=== PATIENT | female | born 1940 | race Caucasian/White ===

== ENCOUNTER 2019-02-01 14:31 | Inpatient (IN) | payer MEDICARE, SELFPAY | END 2019-02-05 13:25 | disposition home or self-care (01) | DRG 194 | PROVIDERS: Admitting Provider Hospitalist; Emergency Provider Emergency Medicine; PCP Family Medicine; Visit Provider Internal Medicine | DX: J18.9 Pneumonia, unspecified organism (principal); I50.32 Chronic diastolic (congestive) heart failure; Z85.118 Personal history of other malignant neoplasm of bronchus and lung; Z90.2 Acquired absence of lung [part of]; J44.9 Chronic obstructive pulmonary disease, unspecified; I11.0 Hypertensive heart disease with heart failure; K64.9 Unspecified hemorrhoids; K21.9 Gastro-esophageal reflux disease without esophagitis; Z90.13 Acquired absence of bilateral breasts and nipples; F41.8 Other specified anxiety disorders; Z87.891 Personal history of nicotine dependence; I49.3 Ventricular premature depolarization; I49.1 Atrial premature depolarization; K59.00 Constipation, unspecified; M19.90 Unspecified osteoarthritis, unspecified site; M81.0 Age-related osteoporosis without current pathological fracture; R01.1 Cardiac murmur, unspecified | CPT/HCPCS: 36415; 71045; 71250; 80048; 81001; 83605; 83735; 83880; 84484; 85025; 85027; 85610; 85730; 87040; 87086; 87804; 93005; 93306; 94618; 94640; 96361; 96365; 97165; 99285; A9270; J0456; J0696; J1650; J7120 ==

== ENCOUNTER → 2020-06-23 08:43 | Outpatient (CLI) | payer MEDICARE, SELFPAY ==
--- NOTE | ~2020-06-23 | XR_ITS ---
EXAMINATION: XR foot RT min 3V EXAM DATE: 06/23/2020 09:11 INDICATION: Persistent right foot pain. States twisting injury 3 weeks ago. Numbness in toes. TECHNIQUE: Right foot dorsoplantar, lateral and oblique projections obtained and reviewed. There is no prior study for comparison. FINDINGS: Acute closed posttraumatic fracture at the base of the right 5th metatarsal bone, fracture line about 6 mm from the base, extending into the tarsometatarsal joint; acute closed posttraumatic avulsion type injury. Some overlying soft tissue swelling. No periosteal reaction at this point. The re is about 4 mm of distraction. IMPRESSION: Right 5th metatarsal base fracture with mild distraction. No evidence of healing at this point in time. Reviewed, dictated and finalized at location A. IMPRESSION: Right 5th metatarsal base fracture with mild distraction. No evide nce of healing at this point in time.
== END ==
PROVIDERS: PCP Family Medicine; Visit Provider Physician Assistant
DX: S92.351A Displaced fracture of fifth metatarsal bone, right foot, initial encounter for closed fracture (principal); X58.XXXA Exposure to other specified factors, initial encounter
CPT/HCPCS: 73630

== ENCOUNTER 2022-02-05 14:11 | Inpatient (IN) | payer MEDICARE, SELFPAY ==
[2022-02-05] VITALS (13 sets, daily range): BP systolic 86–116; BP diastolic 45–75; PULSE 68–103; RESP 14–25; TEMP 36.3–37; O2SAT 92–99; BMI 21.7
--- NOTE | ~2022-02-05 | XR_ITS ---
EXAMINATION: XR chest 1V portable INDICATION: Pulmonary edema, shortness of breath TECHNIQUE: Portable AP chest at 1036 hours COMPARISON: 02/09/2022 FINDINGS: A mild diffuse interstitial pattern is unchanged. There are small stable pleural effusions. Patchy bilateral airspace opacities persist without significant change. A right posterior thoracotom y defect is again noted. There are healed bilateral rib fractures. Surgical clips are noted bilateral ly axially. Internal stabilization hardware is present in the left humerus. IMPRESSION: 1. Stable pleural effusions. 2. Stable patchy bilateral opacities, consistent with pneumonia/or pulmonary edema. Reviewed, dictated and finalized at location A. IMPRESSION: 1. Stable pleural effusions. 2. Stable patchy bilateral opacities, consistent with pneumonia/or pulmonary ed manuel.
--- NOTE | ~2022-02-05 | CT_ITS ---
EXAMINATION: CTA chest PE protocol DATE: 02/06/2022 12:36 INDICATION: Abnormal VQ scan. Shortness of breath. Elevated d-dimer. TECHNIQUE: Computed tomography (CT) pulmonary angiogram of the chest was performed with 100 mL Omnipa que-350 intravenous contrast. Additional 3D reconstructions utilizing coronal maximum intensity proje ction (MIP) were performed. Automated exposure control and iterative reconstruction technique were em ployed. The dose-length product was 286.27 mGy-cm. COMPARISON: 02/04/2019 FINDINGS: Excellent contrast opacification of the pulmonary arteries. There is moderate streak artifact from de nse contrast in the superior vena cava and right atrium. Respiratory motion artifact, severe at the b ilateral lung bases and mild to moderate in the more cephalad lungs. Overall this decreases sensitivi ty in many of the segmental and subsegmental pulmonary arteries and renders assessment in the basilar subsegmental pulmonary arteries essentially nondiagnostic. Hyperexpansion of lungs and mild emphysem a. Small region of consolidation in the right upper lobe that the bibasilar lower lobes. Suture line and surgical clips extending cephalad from the left hilum consistent with likely prior left upper lob ectomy. There are scattered small centrilobular nodules and tree-in-bud opacities consistent with end obronchial spread of disease most prominent in the bilateral lower lobes and to a lesser degree at th e lingula. Small bilateral pleural effusions. Heart size is normal. Atherosclerotic coronary artery c alcification. No pericardial effusion. Thoracic aorta is normal in caliber. No pathologically enlarge d thoracic lymphadenopathy. Thoracic kyphosis with chronic mild anterior wedging of a few mid and low er thoracic vertebral bodies. Bridging anterior osteophytes at T1-T5 and at T8-T10. Thoracotomy defec t at the posterior right fifth-sixth ribs. Visualized upper abdomen is unremarkable. IMPRESSION: 1. No definitive pulmonary embolism. Sensitivity and specificity are decreased in some of the segment al and particularly the basilar subsegmental pulmonary arteries due to combination of streak and kasia on artifact. 2. Patchy bilateral lung disease including tree-in-bud opacities consistent with endobronchial spread of disease/pneumonia. 3. Mild emphysema. 4. Small bilateral pleural effusions. Reviewed, dictated and finalized at location A. IMPRESSION: 1. No definitive pulmonary embolism. Sensitivity and specificity are decreased in some of the segmental and particularly the basilar subsegmental pulmonary ar teries due to combination of streak and motion artifact. 2. Patchy bilateral lung disease including tree-in-bud opacities consistent wit h endobronchial spread of disease/pneumonia. 3. Mild emphysema. 4. Small bilateral pleural effusions.
--- NOTE | ~2022-02-05 | XR_ITS ---
EXAMINATION: XR chest 2V Exam Date/Time: 02/05/2022 15:00 CDT CLINICAL HISTORY: SOB Comparison: 04/03/2019. RESULT: Lines, tubes, and devices: Partially visualized left humeral fixation hardware. Bilateral axillary c lips. Lungs and pleura: No lobar consolidation, large effusion, or overt edema. Postsurgical change. Cardiomediastinal silhouette: Stable cardiomediastinal silhouette. Other: No acute osseous or upper abdominal finding. IMPRESSION: No acute cardiopulmonary process Reviewed, dictated and finalized at location K.
--- NOTE | ~2022-02-05 | NM_ITS ---
EXAMINATION: NM pulmonary perfusion DATE: 02/05/2022 19:28 INDICATION: Shortness of breath TECHNIQUE: 2.78 mCi Tc-99m MAA by intravenous route. Scintigraphic images of the chest were obtained . COMPARISON: Chest radiograph dated 02/05/2022 FINDINGS: There are multiple small to moderate-sized perfusion defects in both lungs including in the bilateral upper lung and left lower lung zones where there are matched airspace opacities in the right middle and lower lung zones where there is emphysema with increased lucency. IMPRESSION: 1. Nondiagnostic for pulmonary embolism with multiple small to moderate-sized matched perfusion defec ts throughout both lungs. Reviewed, dictated and finalized at location A. IMPRESSION: 1. Nondiagnostic for pulmonary embolism with multiple small to moderate-sized m atched perfusion defects throughout both lungs.
--- NOTE | ~2022-02-05 | XR_ITS ---
EXAMINATION: XR chest 1V portable DATE: 02/09/2022 08:46 INDICATION: Shortness of breath TECHNIQUE: frontal view of the chest was obtained. COMPARISON: Chest radiograph dated 02/05/[address] dated 02/06/2022 FINDINGS: Hyperexpansion of lungs corresponding to mild emphysema better appreciated on prior CT. Increasing ai rspace opacities in the lateral left mid to lower lung zone. New more subtle scattered airspace opaci ties throughout the right lung also suspicious for pneumonia. Blunting at the bilateral costophrenic angles consistent with small left and very small right pleural effusions. Suture line in the right up per lung zone with chronic peripheral atelectasis/scarring at the lateral right midlung zone. Additio nal surgical clips, suture line in the left upper lung zone with adjacent peripheral wedge-shaped ate lectasis/scarring at the lateral left apex. No pneumothorax. Borderline heart size can't for AP techn ique. Old right thoracotomy defect. Multiple bilateral old rib fractures. Internal fixation extending along the visualized proximal left humerus. Surgical clips at the bilateral axilla suggesting prior lymph node dissections. IMPRESSION: 1. Increasing bilateral lung disease consistent with worsening multifocal pneumonia. 2. Small left and very small right pleural effusions. 3. Mild emphysema. Reviewed, dictated and finalized at location A. IMPRESSION: 1. Increasing bilateral lung disease consistent with worsening multifocal pneum onia. 2. Small left and very small right pleural effusions. 3. Mild emphysema.
--- NOTE | 2022-02-05 14:24 | ECG_ITS ---
Measurements Intervals [place] Rate: 94 P: [place]: 0 QRS: 65 QRSD: 94 T: 48 QT: 336 QTc: 422 Interpretive Statements SINUS RHYTHM WITH SINUS ARRHYTHMIA ATRIAL COUPLET, ATRIAL AND VENTRICULAR PREMATURE COMPLEXES LEFT VENTRICULAR HYPERTROPHY WITH ST-T CHANGE BORDERLINE ST ABNORMALITY- ANTEROLATERAL LEADS BASELINE ARTIFACT- I, II, III, AVR, AVL, AVF, V4 ABNORMAL ECG Electronically Signed On 02-05-2022 16:34:33 CDT by Aaron Victoria D.O.
[2022-02-05 15:01] LABS: Hematocrit 37.7 % (37.0-47.0); Hemoglobin 12.7 g/dL (12.0-15.0); Mean Corpuscular HGB Conc 33.7 g/dl (32-36); Mean Corpuscular Volume 97.9 fl (80-100); Mean Platelet Volume 10.7 fl (7.4-10.4); Platelet Count Result 247 k/mm3 (150-375); Red Blood Count 3.85 M/mm3 (4.2-5.4); Red Cell Distribution Width 12.6 % (11.5-14.5); White Blood Count 12.8 K/mm3 (4.5-10.0)
--- NOTE | 2022-02-05 15:09 | ED.SOB ---
HPI - SOB/Dyspnea General Chief Complaint: Shortness of Breath/Dyspnea Stated Complaint: diff breathing with exertion Time Seen by Provider: 02/05/22 14:59 Source: patient, family and EMS Mode of arrival: EMS Limitations: no limitations History of Present Illness HPI Narrative: Patient is 81 years old white female, lives alone, came by ambulance with her son because of intermittent lightheadedness, shortness of breath, shaking all over for the last 6 months, probably worse over the last 2 days. 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 Patient reports that she is not drinking enough fluids at home, history of depression, Related Data Allergies Allergy/AdvReac Type Severity Reaction Status Date / Time adhesive Allergy Unknown Unknown Verified 02/05/22 23:42 alendronate sodium [Fosamax] Allergy Unknown Nausea Verified 02/05/22 23:42 doxycycline Allergy Unknown Nausea Verified 02/05/22 23:42 Iodinated Contrast Media Allergy Unknown Flushing Verified 02/05/22 23:42 latex Allergy Unknown Unknown Verified 02/05/22 23:42 hydrocodone AdvReac Mild vomiting Verified 02/05/22 23:42 Contrast Media Allergy Unknown BURNING Uncoded 02/05/22 23:42 AND RED ALL OVER Review of Systems Review of Systems: CONSTITUTIONAL: Denies fever, chills, or sweats. EYES: Denies visual changes, redness, or discharge. ENT: Denies rhinorrhea, congestion, sore throat, or otalgia. CARDIOVASCULAR: Denies chest pain, palpitations, or edema. RESPIRATORY: Denies cough or dyspnea. GASTROINTESTINAL: Denies abdominal pain, nausea, vomiting, or diarrhea. GENITOURINARY: Denies dysuria or hematuria. SKIN: Denies rash or itching. MUSCULOSKELETAL: Denies back pain, joint pain, or myalgia. NEUROLOGIC: Denies headache, numbness, or weakness. PSYCHIATRIC: Denies anxiety or depression. [facility] Past Medical History Medical History Anxiety Cancer of left breast Constipation Depression Diastolic dysfunction Echocardiogram 01/201919 grade 1 diastolic dysfunction EF 60% mild left atrial enlargement Emphysema of lung Fracture of fifth metatarsal bone of right foot with routine healing GERD (gastroesophageal reflux disease) Hypertension Lung cancer Osteoporosis, unspecified Prediabetes Vitamin D deficiency Surgical History Surgical History H/O left mastectomy (~2009) DCIS H/O: hysterectomy (~1994) Due to dysfunctional uterine bleeding History of carpal tunnel release History of carpal tunnel surgery of left wrist History of lobectomy of lung Right upper lobe 1994, left lower lung partial lobectomy 2006 History of right mastectomy (~2012) Family History Family History Mother CHF (congestive heart failure) Dementia Father Lung cancer Sibling Acute myocardial infarction Cerebrovascular accident Other Hypertension Social History Social History Social History: She is . She has a daughter and a son. 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 She does drink wine nightly. Code status: Full code Healthcare power of core finisher: Ursula Vega (daughter) Smoking packs per day: 1 Smoking cigarettes per day: 20.0 Years smoked: 20 Smoking pack-years: 20.00 Smoking status: Former smoker Tobacco type: cigarettes Smoking end date: 10/08/82 Alcohol intake: current Drinks per week: 7 Substance use: never Substance use type: does not use Spiritual care concerns: No Exam Narrative: General appearance: Well-developed, well-nourished Skin: Normal color Head: Normocephalic, nontraumatic Eyes: Clear conjunctiva ENT: Oropharynx normal, ears normal, nose normal Neck: Supple, nontender Chest and respiratory: Airway patent, no respiratory distress, no accessory muscle use Heart: Regular rate/rh
[2022-02-05 15:14] LABS: Alanine Aminotransferase 29 U/L (4-35); Albumin Level 4.1 g/dL (3.5-5.1); Alkaline Phosphatase 53 U/L (38-126); Anion Gap 7 mmol/L (8-16); Aspartate Amino Transferase 73 U/L (14-36); Bilirubin,Total 2.1 mg/dL (0.2-1.3); Blood Urea Nitrogen 24 mg/dL (7-17); Calcium 8.9 mg/dL (8.4-10.2); Carbon Dioxide 28 mmol/L (22-30); Chloride 98 mmol/L (98-107); Estimated CRCL calculation 30 ml/min; Estimated Glomerular Filt Rate 43; Glucose 189 mg/dL (65-110); Sodium 133 mmol/L (137-145)
[2022-02-05 15:24] LABS: Alveolar/Arterial O2 Gradient 57.4 mmHg; Base Excess ABG 2.6 mEq/l (+/-2.0); Fractional Inspired Oxygen 21 %; HCO3 ABG 24.8 mEq/l (22.0-26.0); Oxygen Content ABG 16.8 %vol (16.0-22.0); Oxyhemoglobin 89.8 % THb (90.0-100.0); PCO2 ABG 31.1 mmHg (35.0-45.0); PO2 ABG 55.1 mmHg (80.0-100.0); PO2 FiO2 Ratio Arterial Blood 2.62 %; Total Hemoglobin 13.3 g/dL (12.0-18.0)
[2022-02-05 15:28] LABS: Modified Allen's Test Pass; Site Drawn RIGHT RADIAL
[2022-02-05 15:41] LABS: Band Neutrophils Percent 8 % (0-6); Lymphocytes Absolute Manual 0.38 K/mm3 (1.1-4.5); Monocytes Absolute Manual 1.28 K/mm3 (0.1-0.90); Monocytes Percent Manual 10 % (3-9); Neutrophils Absolute Manual 11.13 K/mm3 (1.7-7.2); Neutrophils Percent Manual 79 % (46-73); Platelet Estimate Adequate (Adequate); Total Cells Counted 100
[2022-02-05 15:42] LABS: Large Platelets Present
[2022-02-05] MEDS: SODIUM CHLORIDE 0.9% IV 1,000 ML 999 ML IV CONT (15:54)
[2022-02-05 16:09] LABS: D Dimer 0.99 ug/mL (<0.48)
--- NOTE | 2022-02-05 18:45 | PC.NURSE ---
Patient reports headache, EDP Inez notified. 650mg Tylenol ordered.
[2022-02-05] MEDS: ACETAMINOPHEN 325 MG TABLET 650 MG PO (18:50)
[2022-02-05] MEDS: ALBUTEROL SULFATE NEB 2.5 MG/0.5 ML INH 5 MG INHALATION (21:55)
[2022-02-05] MEDS: IPRATROPIUM BR 0.02% INH SOLN 0.5 MG/2.5 ML VIAL INHALATION (21:56)
[2022-02-05 21:57] LABS: INR 1.2; Prothrombin Time 14.7 Seconds (11.1-14.7)
[2022-02-05 23:01] LABS: SARS-CoV-2 RNA PCR Negative
[2022-02-05] MEDS: predniSONE 40 MG, predniSONE 10 MG 50 MG PO (23:30)
[2022-02-06] VITALS (21 sets, daily range): BP systolic 100–123; BP diastolic 48–62; PULSE 68–97; RESP 16–22; TEMP 36.1–37.4; O2SAT 94–100
--- NOTE | 2022-02-06 00:19 | PM.IMHP ---
H&P: HPI History of Present Illness Date/Time: 02/06/22 00:19 Chief Complaint: Shortness of breath Narrative: 81-year-old female with past medical history of anxiety, panic attacks, COPD/emphysema and distant history of lung cancer who presented to the ER with worsening shortness of breath since Sunday. The patient has chronic shortness of breath but has been having increased shortness of breath for the last week or so. Her shortness of breath acutely worsened 2 days ago. It was associated with some increased wheezing. She denied any increased cough. She has been using her Trelegy inhaler as directed. She did try her rescue inhaler with only limited relief in symptoms. She does report some postnasal drip and rhinorrhea that started when her usual allergic rhinitis started with the change in seasons. She is vaccinated against COVID with Moderna vaccine and has received her booster. She denies any recent ill contacts. She denies any lower extremity swelling, orthopnea or paroxysmal nocturnal dyspnea. Her shortness of breath has been worse with activity. She has been having some lightheadedness and weakness with trying to get up and move around. She has been told multiple times in the past that she has been dehydrated. She was never good had drinking much fluids. She reports that she has a history of chronic constipation but her constipation has not been as bad as usual over the last year or so. Her last bowel movement was yesterday. She denies any hematochezia or melena. She denies any chest pain or palpitations. She has had episodes of panic attacks and anxiety in the past. She reports that the worse her breathing got the more anxious she became. She did have some associated tremors and shaking that is been worse over the last 2 days. But she always has some mild tremor at rest. She has had tremor for the last several years. In the ER V/Q scan was performed due to mildly elevated D-dimer. The patient reports that she has had prior CTs of the chest with only premedication with Benadryl without allergic reaction. Review of Systems Review of Systems: 12 systems were reviewed with pertinent positives and negatives per HPI. Except as documented in the HPI, all other systems were reviewed and are negative. [facility] Past Medical History Medical History (Updated 02/06/22 @ 00:44 by Cristal Medina DO) Anxiety Cancer of left breast Constipation Depression Diastolic dysfunction Echocardiogram 01/201919 grade 1 diastolic dysfunction EF 60% mild left atrial enlargement Emphysema of lung Fracture of fifth metatarsal bone of right foot with routine healing GERD (gastroesophageal reflux disease) Hypertension Lung cancer Osteoporosis, unspecified Prediabetes Vitamin D deficiency Surgical History Surgical History (Updated 02/06/22 @ 00:44 by Cristal Medina DO) H/O left mastectomy (~2009) DCIS H/O: hysterectomy (~1994) Due to dysfunctional uterine bleeding History of carpal tunnel release History of carpal tunnel surgery of left wrist History of lobectomy of lung Right upper lobe 1994, left lower lung partial lobectomy 2006 History of right mastectomy (~2012) Family History Family History (Updated 02/06/22 @ 00:34 by Cristal Medina DO) Mother CHF (congestive heart failure) Dementia Father Lung cancer Sibling Acute myocardial infarction Cerebrovascular accident Other Hypertension Social History Social History (Updated 02/06/22 @ 00:56 by Cristal Medina DO) Social History: She is . She has a daughter and a son. 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 She does drink wine nightly. Code status: Full code [facility] power of immigration attorney: Ursula Vega (daughter) Smoking packs per day: 1 Smoking cigarettes per day: 20.0 Years smoked: 20 Smoking pack-years: 20.00 Smoking status: Former smoker Tobacco type: cigarettes Smoking end date: 10/08/82 Alcohol intake: current Drinks per
[2022-02-06] MEDS: APIXABAN 5 MG TABLET 10 MG PO ×2 (01:21→11:50)
[2022-02-06] MEDS: SODIUM CHLORIDE 0.9% IV 1,000 ML 100 ML IV CONT ×2 (01:21→10:56)
[2022-02-06] MEDS: ALBUTEROL SULFATE NEB 2.5 MG/0.5 ML INH 5 MG INHALATION ×4 (02:38→20:03)
[2022-02-06] MEDS: IPRATROPIUM BR 0.02% INH SOLN 0.5 MG/2.5 ML VIAL INHALATION ×4 (02:38→20:03)
[2022-02-06] MEDS: predniSONE 40 MG, predniSONE 10 MG 50 MG PO ×2 (05:35→10:55)
[2022-02-06 06:18] LABS: Anion Gap 7 mmol/L (8-16); Blood Urea Nitrogen 19 mg/dL (7-17); Calcium 8.4 mg/dL (8.4-10.2); Carbon Dioxide 27 mmol/L (22-30); Chloride 101 mmol/L (98-107); Estimated CRCL calculation 43 ml/min; Estimated Glomerular Filt Rate 60; Glucose 170 mg/dL (65-110); Potassium 3.4 mmol/L (3.4-5.0); Sodium 135 mmol/L (137-145)
[2022-02-06] MEDS: CITALOPRAM HYDROBROMIDE 20 MG TABLET PO (08:18)
[2022-02-06] MEDS: FLUTICASONE/UMECLIDIN/VILANTER 100-62.5-25 MCG ELLIPTA 1 PUFF INHALATION ×2 (08:37→14:20)
--- NOTE | 2022-02-06 10:27 | PCCCNOTE ---
On 02/06/22, the student, [Kirstin Cortes ], provided care and completed [facility] documentation on this patient. I have reviewed the student's documentation and agree with the findings.
[2022-02-06] MEDS: diphenhydrAMINE HCl INJ 50 MG/ML VIAL IV PUSH (10:56)
--- NOTE | 2022-02-06 17:14 | PM.IMPN ---
Subjective Date/time seen: 02/06/22 17:14 Objective Data Vital Signs Vital Signs: Vital Signs - 24 hr 02/05/22 18:02 02/05/22 19:01 02/05/22 20:00 Temperature Pulse Rate 98 103 H 82 Respiratory Rate 22 H 24 H 25 H Blood Pressure 116/61 115/64 91/75 L Pulse Oximetry 98 96 94 02/05/22 21:56 02/05/22 22:00 02/05/22 22:01 Temperature Pulse Rate 74 74 Respiratory Rate 18 14 Blood Pressure 108/64 109/67 Pulse Oximetry 97 94 98 02/05/22 22:06 02/05/22 23:59 02/06/22 00:00 Temperature 97.3 F L 97.3 F L Pulse Rate 76 79 89 Respiratory Rate 20 20 20 Blood Pressure 111/53 L 111/53 L Pulse Oximetry 99 99 02/06/22 02:38 02/06/22 02:46 02/06/22 03:17 Temperature 96.9 F L Pulse Rate 80 68 84 Respiratory Rate 22 H 20 18 Blood Pressure 100/54 L Pulse Oximetry 96 96 02/06/22 04:00 02/06/22 08:00 02/06/22 08:30 Temperature Pulse Rate 78 88 77 Respiratory Rate 20 Blood Pressure Pulse Oximetry 94 96 02/06/22 09:04 02/06/22 10:00 02/06/22 11:50 Temperature 97.6 F 97.6 F Pulse Rate 80 78 73 Respiratory Rate 20 18 18 Blood Pressure 121/52 L 123/62 Pulse Oximetry 98 100 02/06/22 11:51 02/06/22 12:00 02/06/22 14:00 Temperature 97.6 F 99.3 F Pulse Rate 77 94 77 Respiratory Rate 18 16 Blood Pressure 109/48 L 100/48 L Pulse Oximetry 98 97 02/06/22 16:00 Temperature Pulse Rate 77 Respiratory Rate Blood Pressure Pulse Oximetry Intake/Output Intake/Output: Intake & Output 02/03/22 02/04/22 02/05/22 02/06/22 23:59 23:59 23:59 23:59 Intake Total 1000 1610 Output Total 300 Balance 1000 1310 Meds/Results Medications: Active Medications Generic Name Dose Route Start Last Admin Trade Name Freq PRN Reason Stop Dose Admin Albuterol 5 mg 02/06/22 02:00 02/06/22 14:00 Albuterol Sulfate Neb 2.5 Mg/0.5 Ml Inh INHALATION 5 mg Q6HRT NIURKA Administration Citalopram Hydrobromide 20 mg 02/06/22 09:00 02/06/22 08:18 Citalopram Hydrobromide 20 Mg Tablet PO 20 mg DAILY NIURKA Administration Fluticasone/Umeclidinium/Vilanterol 1 puff 02/06/22 09:00 02/06/22 14:20 Fluticasone/Umeclidin/Vilanter 100-62.5-25 Mcg Ellipta INHALATION 1 puff DAILY NIURKA Administration Acetaminophen 1,000 mg in 100 mls @ 400 mls/hr 02/05/22 21:58 Ofirmev 1,000 Mg Ivpb IVPB 02/06/22 21:57 Q6H PRN Mild Pain (1-3) or Fever Sodium Chloride 1,000 mls @ 100 mls/hr 02/05/22 22:00 02/06/22 10:56 Normal Saline Iv IV CONT 100 mls/hr .Q10H NIURKA Administration Ipratropium Buckley 0.5 mg 02/06/22 02:00 02/06/22 14:00 Ipratropium Br 0.02% Inh Soln 0.5 Mg/2.5 Ml Vial INHALATION 0.5 mg Q6HRT NIURKA Administration Radiology Results: ITS Impressions Chest X-Ray 02/05/22 15:07 IMPRESSION: No acute cardiopulmonary process Pulmonary Perfusion Imaging 02/06/22 07:54 IMPRESSION: 1. Nondiagnostic for pulmonary embolism with multiple small to moderate-sized matched perfusion defects throughout both lungs. Chest CTA 02/06/22 12:45 IMPRESSION: 1. No definitive pulmonary embolism. Sensitivity and specificity are decreased in some of the segmental and particularly the basilar subsegmental pulmonary arteries due to combination of streak and motion artifact. 2. Patchy bilateral lung disease including tree-in-bud opacities consistent with endobronchial spread of disease/pneumonia. 3. Mild emphysema. 4. Small bilateral pleural effusions. Labs Labs: Laboratory Results - last 24 hr 02/05/22 02/05/22 02/06/22 15:00 22:21 04:50 PT 14.7 INR 1.2 APTT 33.0 Sodium 135 L Potassium 3.4 Chloride 101 Carbon Dioxide 27 Anion Gap 7 L BUN 19 H Creatinine 0.90 Estim Creat Clear Calc 43 Estimated GFR 60 Glucose 170 H Calcium 8.4 SARS-CoV-2 RNA (RT-PCR) Negative Quality VTE Prophylaxis VTE prophylaxis: pharmacologic ordered (Eliquis 10 mg p.o. q.12 hours.)
--- NOTE | 2022-02-06 19:04 | PM.IMPN ---
Progress Note: A&P Assessment and Plan (1) COPD (chronic obstructive pulmonary disease) case management patient: Code(s): J44.9 - Chronic obstructive pulmonary disease, unspecified Status: Acute Assessment and Plan: Stable, appears at baseline (2) Essential (primary) hypertension: Code(s): I10 - Essential (primary) hypertension Status: Acute Assessment and Plan: Stable, appears at baseline, continue home medications (3) Anxiety: Code(s): F41.9 - Anxiety disorder, unspecified Status: Acute Assessment and Plan: Stable at this time, would recommend further care outpatient for better management (4) Skin lesion of chest wall: Code(s): L98.9 - Disorder of the skin and subcutaneous tissue, unspecified Status: Acute (5) Abnormal chest CT: Code(s): R93.89 - Abnormal findings on diagnostic imaging of other specified body structures Status: Acute Assessment and Plan: Bilateral lung disease consistent with endobronchial spread of disease versus pneumonia, no signs of infection, will consult pulmonology for further management (6) Bilateral pleural effusion: Code(s): J90 - Pleural effusion, not elsewhere classified Status: Acute Assessment and Plan: Unsure of etiology, could consider thoracentesis with cytology if they do not resolve, monitor Additional Plan CTA to rule out PE was negative for PE. Subjective Date/time seen: 02/06/22 17:04 Patient states she feels much better since being admitted. She denies any shortness of breath or chest pain. No wheezing. She is mainly complaining of worsening tremor. She states only had a tremor for the last few months, H and P states this has been going on for years. She states the tremor gets worse when she is at rest and appears to improve a bit when she is active. Anxiety seems to make it significantly worse. She denies nausea vomiting diarrhea. No fevers or chills. Review of Systems Review of Systems: All systems reviewed & are unremarkable except as noted in HPI and below Exam Const: General: no acute distress HENMT: Mouth: Yes moist mucous membranes Eyes: General: appearance normal, both eyes and all related structures Neck: Neck: no JVD Resp: Auscultation: clear to auscultation bilaterally and no wheezes Cardio: Rate: regular rate Rhythm: regular rhythm GI: GI Palp: Yes Soft to palpation and No Tenderness to palpation present (GI) Neuro: General: CN's II-XI intact bilaterally Psych: Mental Status: mental status grossly normal Objective Data Vital Signs Vital Signs: Vital Signs - 24 hr 02/05/22 20:00 02/05/22 21:56 02/05/22 22:00 Temperature Pulse Rate 82 74 Respiratory Rate 25 H 18 Blood Pressure 91/75 L 108/64 Pulse Oximetry 94 97 94 02/05/22 22:01 02/05/22 22:06 02/05/22 23:59 Temperature 97.3 F L Pulse Rate 74 76 79 Respiratory Rate 14 20 20 Blood Pressure 109/67 111/53 L Pulse Oximetry 98 99 02/06/22 00:00 02/06/22 02:38 02/06/22 02:46 Temperature 97.3 F L Pulse Rate 89 80 68 Respiratory Rate 20 22 H 20 Blood Pressure 111/53 L Pulse Oximetry 99 96 02/06/22 03:17 02/06/22 04:00 02/06/22 08:00 Temperature 96.9 F L Pulse Rate 84 78 88 Respiratory Rate 18 Blood Pressure 100/54 L Pulse Oximetry 96 94 02/06/22 08:30 02/06/22 09:04 02/06/22 10:00 Temperature 97.6 F Pulse Rate 77 80 78 Respiratory Rate 20 20 18 Blood Pressure 121/52 L Pulse Oximetry 96 98 02/06/22 11:50 02/06/22 11:51 02/06/22 12:00 Temperature 97.6 F 97.6 F Pulse Rate 73 77 94 Respiratory Rate 18 18 Blood Pressure 123/62 109/48 L Pulse Oximetry 100 98 02/06/22 14:00 02/06/22 16:00 02/06/22 18:00 Temperature 99.3 F 98.5 F Pulse Rate 77 77 82 Respiratory Rate 16 16 Blood Pressure 100/48 L 103/58 L Pulse Oximetry 97 97 Intake/Output Intake/Output: Intake & Output 02/03/22 02/04/22 02/05/22
[2022-02-07] VITALS (25 sets, daily range): BP systolic 100–113; BP diastolic 53–59; PULSE 75–128; RESP 18–24; TEMP 35.7–37.2; O2SAT 87–99
[2022-02-07] MEDS: IPRATROPIUM BR 0.02% INH SOLN 0.5 MG/2.5 ML VIAL INHALATION ×5 (02:19→19:59)
[2022-02-07] MEDS: ALBUTEROL SULFATE NEB 2.5 MG/0.5 ML INH 5 MG INHALATION (02:20)
[2022-02-07] MEDS: ACETAMINOPHEN 500 MG TABLET 1000 MG PO ×2 (03:01→19:06)
[2022-02-07] MEDS: hydrOXYzine HCL 25 MG TABLET PO (03:02)
[2022-02-07] MEDS: CITALOPRAM HYDROBROMIDE 20 MG TABLET PO (08:52)
[2022-02-07] MEDS: SODIUM CHLORIDE 0.9% IV 1,000 ML 100 ML IV CONT ×2 (08:52→19:45)
--- NOTE | 2022-02-07 09:54 | PM.CNPUL ---
Assessment and Plan Assessment and plan (1) COPD exacerbation: Code(s): J44.1 - Chronic obstructive pulmonary disease with (acute) exacerbation Status: Acute Assessment and Plan: Patient with a remote smoking history (22 PY quit 1981), mild apical predominant centrilobular emphysema on her CT angiogram of the chest on . I have no PFTs. Patient has had no previous COPD exacerbations on an inpatient or outpatient basis. Was main day and on triple inhalers with trelegy 100 at home. Not on any oxygen. Patient with tree-in-bud infiltrates in the lower lobes and lingula on her CT angiogram of the chest on 02/06/2022 and this may represent a viral bronchiolitis or tracheobronchitis. She is COVID negative by RT PCR. I will send influenza swab in an extended viral RNA panel to [facility]. I will initiate treatment with Levaquin. Patient has worsening shortness of breath, worsening hypoxemia, increased cough and phlegm production with intermittent wheezing for the last day. I will treat her for COPD exacerbation and have initiated Solu-Medrol 40 q.6 and have increased her ipratropium and levalbuterol nebulizers from q.6 to q.4 hours. currently patient requires 4 L nasal cannula oxygen with saturations 93%. She has an ABG on admission of 7.5 so there is no evidence of hypercarbic respiratory failure. She has a remote history of lung cancer status post right thoracotomy and a left superior segment lobectomy the last of which was in 2005. She also has a history of double mastectomy for breast cancer in 2003 and 2005. She will need follow up the CT scan in 6-8 weeks to reassess her tree-in-bud infiltrates. Discussed with Dr. Newman. Will follow with you. History of Present Illness History of Present Illness Consult date: 02/07/22 Requesting physician: Ashley Newman MD Reason for consult: COPD and abnormal CXR/CT Chief complaint: Pulmonary Embolism,Hypoxia,History of COPD,Dehydra Narrative: 02/07/2022: This is a new pulmonary consult for COPD and abnormal CT scan. 81-year-old woman with a history of hypertension, GERD, breast cancer requiring right mastectomy in 2003 and left mastectomy in 2005. I reviewed the thoracic surgeons note from 05/31/2016 and the Patient has a history of lung cancer in 1995 status post right thoracotomy for non-small cell lung cancer. she received no chemotherapy. Patient had a redo right thorax asked sick excision for benign granuloma in 2002. In 2005 the patient had a left superior segment lobectomy for stage IA adenocarcinoma in receive no chemotherapy after that. He follow the patient yearly with CT scans from [id number] scan on 05/22/2016 in his note says there is no evidence of recurrence and he signed off. 6 months ago the patient noted the onset of tremors in her hand that have progressively gotten worse so that sometimes her whole body shakes. Six months ago the patient states she could walk 1 mi over 25-30 minutes. She has progressively worsening dyspnea on exertion such that 1 month ago she could walk 40 yd and 4 days ago she had dyspnea on exertion walking around the house. She denied any fever and cough. One day prior to admission the patient developed wheezing and production of yellow phlegm with no hemoptysis. Patient presented to the emergency room on 02/05 with shortness of breath lightheadedness, her white blood cell count was 12.8, her D-dimer was 0.99, creatinine was 1.2 and she ultimately had a CT angiogram of the chest that showed no pulmonary embolism, mild apical centrilobular emphysema, lower lobe and lingula tree in bud infiltrates, status post left upper lobectomy. Patient is COVID test was negative and she had a room air blood gas of 7.5 . Patient was treated with ceftriaxone, ipratropium and levalbuterol and prednisone. 02/07 Today the patient tells me that she has maybe 10% better than when she presented to the hospital. She
[2022-02-07] MEDS: methylPREDNISolone SOD SUCC 40 MG VIAL IV PUSH ×2 (10:10→20:47)
--- NOTE | 2022-02-07 12:01 | WPDNEURCNPN ---
Assessment and Plan Additional Plan tremors resting plus action most likely parkinsonian will try the Sinemet 25/101 tablet 3 times a day have the physical therapy evaluate the patient also further treatment accordingly and the general problems are being taken care Consult date: 02/07/22 HPI: Tigist Trejo is a 81 year old female Admitted to the hospital through the emergency room where she was brought by EMS for the complaints of intermittent lightheadedness along with the difficulties in breathing and shaking for the last 6 months but worse over the last 48 hours in addition she complained of scratchy throat and stuffy nose and gave history of drinking enough fluids, she has ongoing history of anxiety for tension GERD, and emphysema of lung she is a current alcohol intake or 7 drinks per week but has not smoked since October, initial vital signs were stable the blood pressure was on lower side that is 94/52 CBC and basic metabolic panel were normal except the blood sugar 189, EEG was not significant, and chest CTA with patchy bilateral lung disease but no definite pulmonary emboli, neurology consultation has been obtained because of the tremor Review of Systems Review of Systems: All systems reviewed & are unremarkable except as noted in HPI and below PMFSH Past Medical History Medical History Anxiety Cancer of left breast Constipation Depression Diastolic dysfunction Echocardiogram 01/201919 grade 1 diastolic dysfunction EF 60% mild left atrial enlargement Emphysema of lung Fracture of fifth metatarsal bone of right foot with routine healing GERD (gastroesophageal reflux disease) Hypertension Lung cancer Osteoporosis, unspecified Prediabetes Vitamin D deficiency Surgical History Surgical History 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 She has a daughter and a son. 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 She does drink wine nightly. Code status: Full code Healthcare power of district attorney: Ursula Vega (daughter) Smoking packs per day: 1 Smoking cigarettes per day: 20.0 Years smoked: 20 Smoking pack-years: 20.00 Smoking status: Former smoker Tobacco type: cigarettes Smoking end date: 10/08/82 Alcohol intake: current Drinks per week: 7 Substance use: never Substance use type: does not use Spiritual care concerns: No Meds Home Medications and Allergies Home Medications Medication Instructions Recorded Confirmed Type albuterol sulfate 90 mcg/actuation 1 inh INHALATION Q4H #8.5 g 02/04/21 02/05/22 Rx aerosol inhaler fluticasone fur. 100 mcg-umeclid 1 inh INHALATION DAILY #60 each 02/04/21 02/05/22 Rx 62.5 mcg-vilant 25 mcg inhalat.powder olmesartan 40 mg-amlodipine 5 0.5 tablet PO DAILY #90 tablet 01/31/22 02/05/22 Rx mg-hydrochlorothiazide 25 mg tablet citalopram 20 mg tablet See Rx Instructions .ROUTE 02/06/22 Rx .COMPLEX #90 tablet Allergies Allergy/AdvReac Type Severity Reaction Status Date / Time adhesive Allergy Unknown Unknown Verified 02/05/22 23:42 alendronate sodium [Fosamax] Allergy Unknown Nausea Verified 02/05/22 23:42 doxycycline Allergy Unknown Nausea Verified 02/05/22 23:42 Iodinated Contrast Media Allergy Unknown Flushing Verifi
[2022-02-07] MEDS: CARBIDOPA/LEVODOPA 25/100 MG TABLET 1 TABLET PO ×2 (15:43→22:08)
--- NOTE | 2022-02-07 17:57 | PM.IMPN ---
Progress Note: A&P Assessment and Plan (1) COPD exacerbation: Code(s): J44.1 - Chronic obstructive pulmonary disease with (acute) exacerbation Status: Acute (2) Bilateral pleural effusion: Code(s): J90 - Pleural effusion, not elsewhere classified Status: Acute (3) Abnormal chest CT: Code(s): R93.89 - Abnormal findings on diagnostic imaging of other specified body structures Status: Acute (4) Anxiety: Code(s): F41.9 - Anxiety disorder, unspecified Status: Acute (5) Dehydration: Code(s): E86.0 - Dehydration Status: Acute (6) HVS (hyperventilation syndrome): Code(s): F45.8 - Other somatoform disorders Status: Acute (7) Parkinsonian features: Code(s): R25.9 - Unspecified abnormal involuntary movements Status: Acute Additional Plan 02/06/22 The patient had mildly elevated D-dimer but when corrected for age was low risk for pulmonary embolism. Patient has a IV contrast allergy. The patient subsequently underwent a V/Q scan which was indeterminate probability for pulmonary embolism and limited due to patient's history of emphysema. The patient does have evidence of hyperventilation on ABG and has had prior ER visits in the past due to panic attacks with hyperventilation. I suspect the patient's shortness of breath is due to her COPD and that pulmonary embolism is less likely. As a do not feel it is in the patient's best interest to be on chronic anticoagulation unless we are absolutely shore that the patient has had a pulmonary embolism I am going to premedicate the patient for his CTA of the chest with PE protocol. The patient has been placed on Eliquis. The patient did have some mild hypotension on presentation to the ER. Her hypotension resolved after IV fluid hydration. She does admit to low oral intake of fluids as she does not like to drink water. Patient has subsequently been placed on maintenance fluids. The importance of oral hydration was discussed with the patient. The patient is on a combination antihypertensive with 3 medications. Her antihypertensive will be held. We will ask nursing staff to obtain orthostatic vital signs in a.m.. 02/07/22 irregular rhythm on PE STAT EKG Mg and K in am low dose ativan PRN started on trial of Sinemet by Neurology cont tx for COPD per Dr Hollingsworth may need cardio consult if pt has significant abnormalities on EKG PT/OT Bedside commode Subjective Date/time seen: 02/07/22 17:57 pt complains of SOB and associated anxiety when she becomes breathless only worsening her sympotms. She has difficulty ambulating to the restroom Exam Narrative: GEN: NAD, AAO3, cooperative HEENT: NCAT, MMM, EOMI Neck: no JVD Heart: IRR Lungs: CTA B/l decreased breath sounds Abd: soft, NT, ND, bowel sounds normoactive , well healing biopsy site over LUQ of abdomen Ext: moves all, no cyanosis, no clubbing, + edema Neuro: cognition WNL, moves all extremities equally, resting tremor Psych: mood and affect congruent Objective Data Vital Signs Vital Signs: Vital Signs - 24 hr 02/06/22 18:00 02/06/22 20:00 02/06/22 20:04 Temperature 98.5 F 97.7 F Pulse Rate 82 97 79 Respiratory Rate 16 20 20 Blood Pressure 103/58 L 116/62 Pulse Oximetry 97 94 02/06/22 20:09 02/06/22 20:10 02/06/22 20:45 Temperature Pulse Rate 77 87 Respiratory Rate 20 Blood Pressure Pulse Oximetry 95 02/06/22 22:00 02/07/22 00:00 02/07/22 02:20 Temperature 97.7 F 98.9 F Pulse Rate 97 94 117 H Respiratory Rate 20 20 24 H Blood Pressure 116/62 113/56 L Pulse Oximetry 94 94 87 L 02/07/22 02:36 02/07/22 03:41 02/07/22 03:45 Temperature 98.8 F 98.8 F Pulse Rate 128 H 112 H 112 H Respiratory Rate 22 H 20 20 Blood Pressure 100/59 L 100/59 L Pulse Oximetry 94 94 02/07/22 04:00 02/07/22 08:00 02/07/22 08:45 Temperature Pulse Rate 114 H 80 120 H Respiratory Rate 24 H Blood Pressure Puls
--- NOTE | 2022-02-07 18:03 | ECG_ITS ---
Measurements Intervals [place] Rate: 86 P: [place]: 0 QRS: 59 QRSD: 96 T: 30 QT: 345 QTc: 413 Interpretive Statements SINUS RHYTHM WITH SINUS ARRHYTHMIA FREQUENT ATRIAL PREMATURE COMPLEXES BASELINE ARTIFACT- I, III, AVR, AVL ABNORMAL ECG Electronically Signed On 02-08-2022 7:01:49 CDT by Aaron Victoria D.O.
--- NOTE | 2022-02-07 22:59 | PCRCNOTE ---
During O2 sat reassessment, pt asked not to be woken during the night for her nebulizer treatments. Pt was advised to let the nurse know if she slept through a scheduled treatment and then wanted a treatment when she woke up. RT to check on patient at scheduled treatment times to see if pt is awake for a treatment.
[2022-02-08] VITALS (20 sets, daily range): BP systolic 110–148; BP diastolic 53–86; PULSE 71–111; RESP 12–20; TEMP 35.9–36.9; O2SAT 92–100
[2022-02-08] MEDS: methylPREDNISolone SOD SUCC 40 MG VIAL IV PUSH ×2 (01:37→06:20)
--- NOTE | 2022-02-08 04:47 | PCRCNOTE ---
Pt was checked at 04:10 and 04:45 for her 04:00 nebulizer treatment. Pt was asleep both times and, per her request, pt was not woken up to receive treatment.
[2022-02-08 05:21] LABS: Basophils Percent Auto 0.1 % (0.2-1.2); Hematocrit 33.5 % (37.0-47.0); Immature Granulocyte Absolute 0.02 K/mm3 (0.00-0.031); Immature Granulocyte Percent A 0.3 % (0-0.5); Lymphocytes Percent Auto 5.3 % (18.3-44.2); Mean Corpuscular HGB Conc 32.8 g/dl (32-36); Mean Corpuscular Hemoglobin 32.4 pg (26-34); Mean Corpuscular Volume 98.5 fl (80-100); Mean Platelet Volume 10.4 fl (7.4-10.4); Monocytes Absolute Auto 0.6 K/mm3 (0.1-0.6); Monocytes Percent Auto 7.4 % (2.6-8.5); Neutrophils Absolute Auto 6.6 K/mm3 (1.3-6.7); Neutrophils Percent Auto 86.9 % (45.5-73.1); Platelet Count Result 275 k/mm3 (150-375); Red Cell Distribution Width 12.7 % (11.5-14.5); White Blood Count 7.6 K/mm3 (4.5-10.0)
[2022-02-08 05:39] LABS: Anion Gap 5 mmol/L (8-16); Blood Urea Nitrogen 19 mg/dL (7-17); Calcium 8.4 mg/dL (8.4-10.2); Carbon Dioxide 26 mmol/L (22-30); Chloride 106 mmol/L (98-107); Estimated CRCL calculation 48 ml/min; Estimated Glomerular Filt Rate > 60; Glucose 152 mg/dL (65-110); Magnesium 2.3 mg/dL (1.6-2.3); Potassium 4.1 mmol/L (3.4-5.0); Sodium 137 mmol/L (137-145)
[2022-02-08] MEDS: CARBIDOPA/LEVODOPA 25/100 MG TABLET 1 TABLET PO ×3 (06:20→21:17)
[2022-02-08] MEDS: SODIUM CHLORIDE 0.9% IV 1,000 ML 100 ML IV CONT ×2 (06:20→16:20)
[2022-02-08] MEDS: CITALOPRAM HYDROBROMIDE 20 MG TABLET PO (07:59)
--- NOTE | 2022-02-08 08:00 | PM.IMPN ---
Progress Note: A&P Assessment and Plan (1) COPD exacerbation: Code(s): J44.1 - Chronic obstructive pulmonary disease with (acute) exacerbation Status: Acute (2) Bilateral pleural effusion: Code(s): J90 - Pleural effusion, not elsewhere classified Status: Acute Assessment and Plan: Unsure of etiology, could consider thoracentesis with cytology if they do not resolve, monitor (3) Abnormal chest CT: Code(s): R93.89 - Abnormal findings on diagnostic imaging of other specified body structures Status: Acute Assessment and Plan: Bilateral lung disease consistent with endobronchial spread of disease versus pneumonia, no signs of infection, will consult pulmonology for further management (4) Anxiety: Code(s): F41.9 - Anxiety disorder, unspecified Status: Acute Assessment and Plan: Stable at this time, would recommend further care outpatient for better management (5) Dehydration: Code(s): E86.0 - Dehydration Status: Acute (6) HVS (hyperventilation syndrome): Code(s): F45.8 - Other somatoform disorders Status: Acute (7) Parkinsonian features: Code(s): R25.9 - Unspecified abnormal involuntary movements Status: Acute Additional Plan 02/06/22 The patient had mildly elevated D-dimer but when corrected for age was low risk for pulmonary embolism. Patient has a IV contrast allergy. The patient subsequently underwent a V/Q scan which was indeterminate probability for pulmonary embolism and limited due to patient's history of emphysema. The patient does have evidence of hyperventilation on ABG and has had prior ER visits in the past due to panic attacks with hyperventilation. I suspect the patient's shortness of breath is due to her COPD and that pulmonary embolism is less likely. As a do not feel it is in the patient's best interest to be on chronic anticoagulation unless we are absolutely shore that the patient has had a pulmonary embolism I am going to premedicate the patient for his CTA of the chest with PE protocol. The patient has been placed on Eliquis. The patient did have some mild hypotension on presentation to the ER. Her hypotension resolved after IV fluid hydration. She does admit to low oral intake of fluids as she does not like to drink water. Patient has subsequently been placed on maintenance fluids. The importance of oral hydration was discussed with the patient. The patient is on a combination antihypertensive with 3 medications. Her antihypertensive will be held. We will ask nursing staff to obtain orthostatic vital signs in a.m.. 02/07/22 irregular rhythm on physical exam STAT EKG Mg and K in am low dose ativan PRN started on trial of Sinemet by Neurology cont tx for COPD per Dr Hollingsworth may need cardio consult if pt has significant abnormalities on EKG PT/OT Bedside commode 02/08/22 pt improving both pulmonary and neurologically cont to encourage OOB cont current care needs more time still not well enough to consider discharge Subjective Date/time seen: 02/08/22 08:00 pt doing ok able to transfer from chair to commode to bed today, less tremor noted Exam Narrative: GEN: NAD, AAO3, cooperative HEENT: NCAT, MMM, EOMI Neck: no JVD Lungs: symmetric chest rise, no use of accessory muscles Ext: moves all, no cyanosis, no clubbing, no edema Neuro: cognition WNL, moves all extremities equally, resting tremor improved Psych: mood and affect congruent Objective Data Vital Signs Vital Signs: Vital Signs - 24 hr 02/07/22 08:45 02/07/22 08:47 02/07/22 08:54 Temperature Pulse Rate 120 H 125 H Respiratory Rate 24 H 20 Blood Pressure Pulse Oximetry 93 02/07/22 09:00 02/07/22 12:00 02/07/22 12:51 Temperature 98.2 F Pulse Rate 85 93 88 Respiratory Rate 19 20 Blood Pressure 102/53 L Pulse Oximetry 96 02/07/22 14:50 02/07/22 16:00 02/07/22 16:05 Temperature 97.8 F
--- NOTE | 2022-02-08 08:31 | PM.PNPUL ---
Progress Note: A&P Assessment and Plan (1) COPD exacerbation: Code(s): J44.1 - Chronic obstructive pulmonary disease with (acute) exacerbation Status: Acute Assessment and Plan: Patient with a remote smoking history (22 PY quit 1981), mild apical predominant centrilobular emphysema on her CT angiogram of the chest on . I have no PFTs. Patient has had no previous COPD exacerbations on an inpatient or outpatient basis. Was main day and on triple inhalers with trelegy 100 at home. Not on any oxygen. Patient with tree-in-bud infiltrates in the lower lobes and lingula on her CT angiogram of the chest on 02/06/2022 and this may represent a viral bronchiolitis or tracheobronchitis. She is COVID negative by RT PCR. I will send influenza swab in an extended viral RNA panel to [facility]. I will initiate treatment with Levaquin. Patient has worsening shortness of breath, worsening hypoxemia, increased cough and phlegm production with intermittent wheezing for the last day. I will treat her for COPD exacerbation and have initiated Solu-Medrol 40 q.6 and have increased her ipratropium and levalbuterol nebulizers from q.6 to q.4 hours. currently patient requires 4 L nasal cannula oxygen with saturations 93%. She has an ABG on admission of 7.5 so there is no evidence of hypercarbic respiratory failure. She has a remote history of lung cancer status post right thoracotomy and a left superior segment lobectomy the last of which was in 2005. She also has a history of double mastectomy for breast cancer in 2003 and 2005. She will need follow up the CT scan in 6-8 weeks to reassess her tree-in-bud infiltrates. 5 the patient states she is feeling better today she has no rest shortness of breath today. Her dry cough and dyspnea on exertion continue. The cough she says is better. Saturations on 2 L is 97%. White blood cells count 7.6. I will change her nebulizers to q.4 hours while awake and decrease her Solu-Medrol to 20 q.6. seen by Neurology and possible Parkinson's and started on Sinemet with improved tremors. Will follow with you. Subjective Date/time seen: 02/08/22 08:31 Interval history: 02/07/2022: This is a new pulmonary consult for COPD and abnormal CT scan. 81-year-old woman with a history of hypertension, GERD, breast cancer requiring right mastectomy in 2003 and left mastectomy in 2005. I reviewed the thoracic surgeons note from 05/31/2016 and the Patient has a history of lung cancer in 1995 status post right thoracotomy for non-small cell lung cancer. she received no chemotherapy. Patient had a redo right thorax asked sick excision for benign granuloma in 2002. In 2005 the patient had a left superior segment lobectomy for stage IA adenocarcinoma in receive no chemotherapy after that. He follow the patient yearly with CT scans from 5027-[address] scan on 05/22/2016 in his note says there is no evidence of recurrence and he signed off. 6 months ago the patient noted the onset of tremors in her hand that have progressively gotten worse so that sometimes her whole body shakes. Six months ago the patient states she could walk 1 mi over 25-30 minutes. She has progressively worsening dyspnea on exertion such that 1 month ago she could walk 40 yd and 4 days ago she had dyspnea on exertion walking around the house. She denied any fever and cough. One day prior to admission the patient developed wheezing and production of yellow phlegm with no hemoptysis. Patient presented to the emergency room on 02/05 with shortness of breath lightheadedness, her white blood cell count was 12.8, her D-dimer was 0.99, creatinine was 1.2 and she ultimately had a CT angiogram of the chest that showed no pulmonary embolism, mild apical centrilobular emphysema, lower lobe and lingula tree in bud infiltrates, status post left upper lobectomy. Patient is COVID test was negative and she had a room air blood gas of 7.52/31
[2022-02-08] MEDS: IPRATROPIUM BR 0.02% INH SOLN 0.5 MG/2.5 ML VIAL INHALATION ×3 (08:51→20:30)
[2022-02-08 09:01] LABS: Influenza Control Positive
--- NOTE | 2022-02-08 11:12 | PCCCNOTE ---
On 02/08/22, the student, [Kirstin Cortes ], provided care and completed [facility] documentation on this patient. I have reviewed the student's documentation and agree with the findings.
[2022-02-08] MEDS: methylPREDNISolone SOD SUCC 40 MG VIAL 20 MG IV PUSH ×2 (12:06→17:25)
--- NOTE | 2022-02-08 17:32 | PC.NURSE ---
Dr Newman notified of pt on tele and hr jumping up in the 120s-130s then back to 90s. Pt has alot of PVCs and PACs. New orders received.
[2022-02-08] MEDS: SODIUM CHLORIDE 0.9% IV 500 ML IV CONT (17:47)
[2022-02-08] MEDS: LORazepam (*CRX) 0.5 MG TABLET PO (20:25)
[2022-02-09] VITALS (21 sets, daily range): BP systolic 124–136; BP diastolic 55–86; PULSE 74–104; RESP 14–18; TEMP 36.3–36.8; O2SAT 92–98
--- NOTE | 2022-02-09 | ECHO_ITS ---
Patient Info Name: Tigist Trejo Age: 81 years : 1940 Gender: Female Ht: 68 in Wt: 142 lbs BSA: 1.76 m2 HR: 84 bpm BP: 132 / 56 mmHg Heart Rhythm: Sinus Rhythm Technical Quality: Fair Exam Date: 02/09/2022 3:42 PM Exam Location: [facility] Patient Status: Inpatient Admit Date: 02/07/2022 Staff Ordering Physician: Avery Villa MD Hospice Care Consultant: Kylie Rush RDCS Attending Provider: Chasity Kohli DO Referring Physician: Daisy FERRARO; Exam Type: CA echo doppler color flow Study Info Indications - shortness of breath , pac's, wide complex tachycardia Complete two-dimensional, color flow and Doppler transthoracic echocardiogram is performed. Summary 1. Complete two-dimensional, color flow and Doppler transthoracic echocardiogram is performed. 2. Left ventricular chamber dimension is normal. 3. Left ventricular systolic function is normal, estimated at 65-70%. 4. There is mildly increased left ventricular wall thickness. 5. The left ventricular diastolic function is grade II diastolic dysfunction. 6. Left atrial chamber dimension is moderately enlarged. 7. The mitral valve has thickened leaflets, calcified leaflets and calcified annulus. 8. There is mild to moderate mitral valve stenosis. 9. There is mild to moderate mitral valve regurgitation. 10. There is mild tricuspid valve regurgitation. 11. Moderate pulmonary hypertension, estimated pulmonary arterial systolic pressure is 58 mmHg. 12. There is mild pulmonic regurgitation. 13. There is small pericardial effusion. Left Ventricle Left ventricular chamber dimension is normal. Left ventricular systolic function is normal, estimated at 65-70%. There is mildly increased left ventricular wall thickness. The left ventricular diastolic function is grade II diastolic dysfunction. Right Ventricle Right ventricular chamber dimension is normal. Right ventricular systolic function is normal. Left Atria Left atrial chamber dimension is moderately enlarged. Right Atria Right atrial chamber dimension is normal. Atrial Septum Intact interatrial septum visualized by color flow imaging. Aortic Valve The aortic valve is trileaflet. There is mild aortic valve sclerosis. There is no aortic valve stenosis. There is trace aortic valve regurgitation. Pulmonic Valve The pulmonic valve is normal. There is no pulmonic valve stenosis. There is mild pulmonic regurgitation. Mitral Valve The mitral valve has thickened leaflets, calcified leaflets and calcified annulus. There is mild to moderate mitral valve stenosis. There is mild to moderate mitral valve regurgitation. Tricuspid Valve The tricuspid valve leaflets are normal. There is no significant tricuspid valve stenosis. There is mild tricuspid valve regurgitation. Moderate pulmonary hypertension, estimated pulmonary arterial systolic pressure is 58 mmHg. Pericardium/Pleural The pericardium appears normal. There is small pericardial effusion. Inferior Vena Cava Dilated inferior vena cava with <50% collapse upon inspiration consistent with elevated right atrial pressure, 15 mmHg. Aorta The aortic root size at the sinus of Valsalva is normal. Left Ventricular Outflow Tract Name Value Normal LVOT 2D
[2022-02-09] MEDS: methylPREDNISolone SOD SUCC 40 MG VIAL 20 MG IV PUSH ×4 (00:44→17:10)
[2022-02-09] MEDS: SODIUM CHLORIDE 0.9% IV 1,000 ML 100 ML IV CONT (02:20)
[2022-02-09] MEDS: CARBIDOPA/LEVODOPA 25/100 MG TABLET 1 TABLET PO ×3 (05:58→20:08)
[2022-02-09 06:26] LABS: Potassium 4.3 mmol/L (3.4-5.0)
[2022-02-09 06:32] LABS: Anion Gap 5 mmol/L (8-16); Blood Urea Nitrogen 26 mg/dL (7-17); Calcium 8.4 mg/dL (8.4-10.2); Carbon Dioxide 24 mmol/L (22-30); Chloride 109 mmol/L (98-107); Estimated CRCL calculation 39 ml/min; Estimated Glomerular Filt Rate 53; Glucose 131 mg/dL (65-110); Sodium 138 mmol/L (137-145)
--- NOTE | 2022-02-09 08:09 | PM.IMPN ---
Progress Note: A&P Additional Plan 02/06/22 The patient had mildly elevated D-dimer but when corrected for age was low risk for pulmonary embolism. Patient has a IV contrast allergy. The patient subsequently underwent a V/Q scan which was indeterminate probability for pulmonary embolism and limited due to patient's history of emphysema. The patient does have evidence of hyperventilation on ABG and has had prior ER visits in the past due to panic attacks with hyperventilation. I suspect the patient's shortness of breath is due to her COPD and that pulmonary embolism is less likely. As a do not feel it is in the patient's best interest to be on chronic anticoagulation unless we are absolutely shore that the patient has had a pulmonary embolism I am going to premedicate the patient for his CTA of the chest with PE protocol. The patient has been placed on Eliquis. The patient did have some mild hypotension on presentation to the ER. Her hypotension resolved after IV fluid hydration. She does admit to low oral intake of fluids as she does not like to drink water. Patient has subsequently been placed on maintenance fluids. The importance of oral hydration was discussed with the patient. The patient is on a combination antihypertensive with 3 medications. Her antihypertensive will be held. We will ask nursing staff to obtain orthostatic vital signs in a.m.. 02/07/22 irregular rhythm on physical exam STAT EKG Mg and K in am low dose ativan PRN started on trial of Sinemet by Neurology cont tx for COPD per Dr Hollingsworth may need cardio consult if pt has significant abnormalities on EKG PT/OT Bedside commode 02/08/22 pt improving both pulmonary and neurologically cont to encourage OOB cont current care needs more time still not well enough to consider discharge 02/09/22 cardiology consulted, recs appreciated Levaquin for PNA lasix x 1 for fluid overload cont tx of COPD cont supportive care Subjective Date/time seen: 02/09/22 08:09 pt with audible wheezing from door, mild resp distress, POC reviewed w pt a questions answered Exam Narrative: GEN: NAD, AAO3, cooperative HEENT: NCAT, MMM, EOMI Neck: no JVD Heart: Irregular rhythm tachycardia Lungs: symmetric chest rise, no use of accessory muscles , wheezing Ext: moves all, no cyanosis, no clubbing, no edema Neuro: cognition WNL, moves all extremities equally, resting tremor improved Psych: mood and affect congruent Objective Data Vital Signs Vital Signs: Vital Signs - 24 hr 02/08/22 08:55 02/08/22 08:58 02/08/22 09:25 Temperature 97.1 F L Pulse Rate 89 84 71 Respiratory Rate 13 14 20 Blood Pressure 115/53 L Pulse Oximetry 98 02/08/22 12:00 02/08/22 12:28 02/08/22 12:33 Temperature Pulse Rate 111 H 85 86 Respiratory Rate 12 12 Blood Pressure Pulse Oximetry 02/08/22 14:00 02/08/22 16:00 02/08/22 16:18 Temperature 98.4 F Pulse Rate 85 89 87 Respiratory Rate 19 12 Blood Pressure 116/58 L Pulse Oximetry 99 02/08/22 16:22 02/08/22 17:28 02/08/22 17:55 Temperature Pulse Rate 84 Respiratory Rate 12 Blood Pressure 110/58 L 148/86 H Pulse Oximetry 02/08/22 20:00 02/08/22 20:30 02/08/22 20:35 Temperature 98.4 F Pulse Rate 87 84 84 Respiratory Rate 18 16 Blood Pressure 125/74 Pulse Oximetry 96 94 02/09/22 00:00 02/09/22 04:00 Temperature 97.3 F L Pulse Rate 103 H 74 Respiratory Rate 18 Blood Pressure 124/59 L Pulse Oximetry 95 Intake/Output Intake/Output: Intake & Output 02/06/22 02/07/22 02/08/22 02/09/22 23:59 23:59 23:59 23:59 Intake Total 3600 2400 3560 1000 Output Total 4562 560 2900 Balance 2550 2100 2260 1000 Meds/Results Medications: Active Medications Generic Name Dose Route Start Last Admin Trade Name Freq PRN Reason Stop Dose Admin Acetaminophen 1,000 mg 02/07/22 02:38 02/07/22 19:06 Acetaminophen 500 Mg Tablet PO 1,000 mg Q8H PRN Administration
[2022-02-09] MEDS: CITALOPRAM HYDROBROMIDE 20 MG TABLET PO (08:13)
[2022-02-09] MEDS: IPRATROPIUM BR 0.02% INH SOLN 0.5 MG/2.5 ML VIAL INHALATION ×4 (08:18→19:47)
--- NOTE | 2022-02-09 08:19 | PM.PNPUL ---
Progress Note: A&P Assessment and Plan (1) COPD exacerbation: Code(s): J44.1 - Chronic obstructive pulmonary disease with (acute) exacerbation Status: Acute Assessment and Plan: 02/07 Patient with a remote smoking history (22 PY quit 1981), mild apical predominant centrilobular emphysema on her CT angiogram of the chest on . I have no PFTs. Patient has had no previous COPD exacerbations on an inpatient or outpatient basis. Was maintained on triple inhalers with trelegy 100 at home. Not on any oxygen previously. CTA negative for PE. No evidence of fluid overload. Patient with tree-in-bud infiltrates in the lower lobes and lingula on her CT angiogram of the chest on 02/06/2022 and this may represent a viral bronchiolitis or tracheobronchitis. She is COVID negative by RT PCR. I will send influenza swab in an extended viral RNA panel to [facility]. I will initiate treatment with Levaquin. Patient has worsening shortness of breath, worsening hypoxemia, increased cough and phlegm production with intermittent wheezing for the last day. I will treat her for COPD exacerbation and have initiated Solu-Medrol 40 q.6 and have increased her ipratropium and levalbuterol nebulizers from q.6 to q.4 hours. currently patient requires 4 L nasal cannula oxygen with saturations 93%. She has an ABG on admission of 7.5 so there is no evidence of hypercarbic respiratory failure. She has a remote history of lung cancer status post right thoracotomy and a left superior segment lobectomy the last of which was in 2005. She also has a history of double mastectomy for breast cancer in 2003 and 2005. She will need follow up the CT scan in 6-8 weeks to reassess her tree-in-bud infiltrates. 02/08 the patient states she is feeling better today she has no rest shortness of breath today. Her dry cough and dyspnea on exertion continue. The cough she says is better. Saturations on 2 L is 97%. White blood cells count 7.6. I will change her nebulizers to q.4 hours while awake and decrease her Solu-Medrol to 20 q.6. seen by Neurology and possible Parkinson's and started on Sinemet with improved tremors. 02/09 Patient stated she had a very restful night but when she woke up she was short of breath. denies fever, cough or phlegm production. Saturations were 95% on 2 L, I turned her to room air and her saturations were 89%. I turned her to 1 L and her saturations were 92%. Her white blood cell count is 7.6. Her influenza swab is negative. She has no wheezing on exam and she has had no bronchodilators since 8:00 p.m. Called RT for morning treatment now. Continue Solu-Medrol 20 q.6 for today, continue levalbuterol and ipratropium nebulizers q.4 hours while awake. Will follow with you. Subjective Date/time seen: 02/09/22 08:19 Interval history: 02/07/2022: This is a new pulmonary consult for COPD and abnormal CT scan. 81-year-old woman with a history of hypertension, GERD, breast cancer requiring right mastectomy in 2003 and left mastectomy in 2005. I reviewed the thoracic surgeons note from 05/31/2016 and the Patient has a history of lung cancer in 1995 status post right thoracotomy for non-small cell lung cancer. she received no chemotherapy. Patient had a redo right thorax asked sick excision for benign granuloma in 2002. In 2005 the patient had a left superior segment lobectomy for stage IA adenocarcinoma in receive no chemotherapy after that. He follow the patient yearly with CT scans from 2651-[address] scan on 05/22/2016 in his note says there is no evidence of recurrence and he signed off. 6 months ago the patient noted the onset of tremors in her hand that have progressively gotten worse so that sometimes her whole body shakes. Six months ago the patient states she could walk 1 mi over 25-30 minutes. She has progressively worsening dyspnea on exertion such that 1 month ago she could walk 40 yd and 4 days ago she had
--- NOTE | 2022-02-09 14:40 | ECG_ITS ---
Measurements Intervals [place] Rate: 95 P: 79 KS: 171 QRS: 53 QRSD: 92 T: 32 QT: 332 QTc: 419 Interpretive Statements SINUS RHYTHM ATRIAL TRIPLE, ATRIAL AND VENTRICULAR PREMATURE COMPLEXES BASELINE WANDER- I, II, V5 ABNORMAL ECG Electronically Signed On 02-09-2022 15:29:02 CDT by Aaron Victoria D.O.
--- NOTE | 2022-02-09 15:18 | PM.CNCAR ---
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 EKG now. Cannot exclude multifocal atrial tachycardia. She also has a wider complex tachycardia at times which appears to be aberrancy verses NSVT. Will further investigate with a 2D echocardiogram with Doppler especially given her bilateral effusions. Will check a TSH and free T4 level. Will start low-dose metoprolol tartrate 12.5 mg p.o. b.i.d. (2) Essential (primary) hypertension: Code(s): I10 - Essential (primary) hypertension Status: Acute Assessment and Plan: Generally at goal. Adding low-dose metoprolol as above. (3) Bilateral pleural effusion: Code(s): J90 - Pleural effusion, not elsewhere classified Status: Acute Assessment and Plan: ? Pneumonia versus CHF versus other. Will give a dose of furosemide 20 mg IV times 1 Low-salt diet. Intake and output and daily weights. (4) Diastolic dysfunction: Code(s): I51.89 - Other ill-defined heart diseases Status: Acute Assessment and Plan: She may have some diastolic heart failure. Will check an echocardiogram. History of Present Illness History of Present Illness Consult date/time: 02/09/22 15:18 Requesting physician: Ashley Newman MD Consult reason: Other (Irregular rhythm) Reason For Visit: Pulmonary Embolism,Hypoxia,History of COPD,Dehydra Narrative: Date of service 02/09/2022 Reason consultation: Abnormal rhythm Requesting provider: Dr. Newman History: Patient is a 1-year-old female who does not have known cardiac history except for diastolic dysfunction and mild left atrial enlargement. She came to hospital because of shortness of breath. She does have a history of panic disorder, lung cancer, COPD and chronic shortness of breath. But a week ago she developed some acutely worsening shortness of breath though while at her camper. She woke up very tremulous as well as short of breath. It progressed to the point that she was gasping for air. She denies any edema, chest pain, paroxysmal nocturnal dyspnea. She was short of breath with any activity as well as description of orthopnea. There was concern about pulmonary embolism. 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 She is on telemetry and while on telemetry monitoring she is having frequent irregular heartbeats, PACs as well as longer runs of a wider complex tachycardia which may be aberrancy versus nonsustained VT. Cardiology consultation was requested for further evaluation. She also has bilateral effusions and is being treated for pneumonia and COPD exacerbation Review of Systems Review of Systems: All systems reviewed & are unremarkable except as noted in HPI and below Constitutional: Constitutional: Denies weakness Eyes: Eyes: Denies blurry vision ENT: Reports Normal hearing present Cardiovascular: Cardiovascular: Denies chest pain Respiratory: Respiratory: Reports dyspnea and Reports dyspnea on exertion Gastrointestinal: Gastrointestinal: Denies abdominal pain Genitourinary: Genitourinary: Denies flank pain Musculoskeletal: Musculoskeletal: Denies neck pain Integumentary/Breasts: Skin/Breast: Denies dry skin Neurologic: Denies headache(s) Psychiatric: Psychiatric: Reports anxiety Endocrine: Endocrine: Denies fatigue Hematologic/Lymphatic: Hematologic/Lymphatic: Denies easy bleeding Allergic/Immunologic: Allergic/Immunologic: Denies GI upset with certain foods PMFSH Past Medical History Medical History Anxiety Cancer of left breast Constipation Depression Diastolic dysfunction Echocardiogram 01/201919 grade 1 diastolic dysfunction EF 60% mild left atrial enlargement Em
[2022-02-09] MEDS: FUROSEMIDE INJ 40 MG/4 ML VIAL 20 MG IV PUSH (16:37)
[2022-02-09] MEDS: METOPROLOL TARTRATE 12.5 MG TABLET PO (17:11)
[2022-02-09] MEDS: LORazepam (*CRX) 0.5 MG TABLET PO (20:08)
[2022-02-10] VITALS (16 sets, daily range): BP systolic 135–154; BP diastolic 64–78; PULSE 64–101; RESP 14–20; TEMP 35.8–36.9; O2SAT 91–95
[2022-02-10] MEDS: methylPREDNISolone SOD SUCC 40 MG VIAL 20 MG IV PUSH ×2 (00:01→06:09)
[2022-02-10] MEDS: CARBIDOPA/LEVODOPA 25/100 MG TABLET 1 TABLET PO ×3 (06:09→19:39)
[2022-02-10] MEDS: IPRATROPIUM BR 0.02% INH SOLN 0.5 MG/2.5 ML VIAL INHALATION (07:23)
--- NOTE | 2022-02-10 08:32 | PM.PNCARD ---
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 EKG now. Cannot exclude multifocal atrial tachycardia. She also has a wider complex tachycardia at times which appears to be aberrancy verses NSVT. Echo shows normal LV systolic function, grade II diastolic dysfunction. Mild-moderate MR, moderate PHTN with PASP 58mmHg. Small pericardial effusion. TSH, Free T4 WNL EKG showed sinus rhythm with PAC's and PVC's Continue low dose metoprolol tartrate 12.5 mg p.o. b.i.d. (2) Essential (primary) hypertension: Code(s): I10 - Essential (primary) hypertension Status: Acute Assessment and Plan: Generally at goal. Adding low-dose metoprolol as above. (3) Bilateral pleural effusion: Code(s): J90 - Pleural effusion, not elsewhere classified Status: Acute Assessment and Plan: Echo did show grade II diastolic dysfunction. Feeling better with gentle diuresis Low sodium diet Accurate I&O Daily weights Add Entresto CHF education (4) Diastolic dysfunction: Code(s): I51.89 - Other ill-defined heart diseases Status: Acute Assessment and Plan: She does have grade II diastolic dysfunction. As above. Subjective Date/time seen: 02/10/22 08:32 Cardiology follow up for arrhythmia, pleural effusion Feeling better today. Reports improvement in her shortness of breath after receiving furosemide yesterday. Able to walk to the bathroom this morning without dyspnea. No chest pain or palpitations. Review of Systems Review of Systems: All systems reviewed & are unremarkable except as noted in HPI and below Constitutional: Constitutional: Denies fatigue, Denies headache(s) and Denies weakness Eyes: Eyes: Denies blurry vision ENT: Reports Normal hearing present, Denies headache(s) and Denies neck pain Cardiovascular: Cardiovascular: Denies chest pain, Reports dyspnea and Reports dyspnea on exertion Respiratory: Respiratory: Reports dyspnea and Reports dyspnea on exertion Gastrointestinal: Gastrointestinal: Denies abdominal pain Genitourinary: Genitourinary: Denies flank pain Musculoskeletal: Musculoskeletal: Denies neck pain Integumentary/Breasts: Skin/Breast: Denies dry skin Neurologic: Reports Normal hearing present, Denies headache(s) and Denies weakness Psychiatric: Psychiatric: Reports anxiety Endocrine: Endocrine: Denies fatigue Hematologic/Lymphatic: Hematologic/Lymphatic: Denies easy bleeding Allergic/Immunologic: Allergic/Immunologic: Denies GI upset with certain foods Exam Narrative: Patient is awake alert oriented appears stated age Const: General: comfortable and no acute distress HENMT: General nose exam: Normal nares present Eyes: Sclera: sclerae normal Neck: Neck: supple and no JVD Chest: Other: No reproducible chest wall pain to palpation Resp: Auscultation: diminished lung sounds Other: Diminished but clear Cardio: Rate: regular rate Rhythm: regular rhythm Other: Ectopy noted GI: Inspection: non-distended Auscultation: normal bowel sounds Skin: General skin exam: normal color Neuro: Cranial nerves: Yes Normal hearing present Cognition (Neuro): normal cognition Speech: normal speech Extrem: General: normal to inspection Psych: Mental Status: mental status grossly normal Objective Data Vital Signs Vital Signs: Vital Signs - 24 hr 02/09/22 12:00 02/09/22 12:43 02/09/22 12:51 Temperature 36.8 C Pulse Rate 81 82 84 Respiratory Rate 16 16 16 Blood Pressure 132/58 L Pulse Oximetry 94 02/09/22 14:00 02/09/22 16:00 02/09/22 16:30 Temperature 36.8 C Pulse Rate 84 104 H Respiratory Rate 16 Blood Pressure 132/56 L Pulse Oximetry 94 93 02/09/22 16:59 02/09/22 17:08 02/09/22 17:11 Temperat
[2022-02-10] MEDS: CITALOPRAM HYDROBROMIDE 20 MG TABLET PO (10:14)
[2022-02-10] MEDS: METOPROLOL TARTRATE 12.5 MG TABLET PO ×2 (10:15→19:38)
--- NOTE | 2022-02-10 10:17 | PM.PNPUL ---
Progress Note: A&P Assessment and Plan (1) COPD exacerbation: Code(s): J44.1 - Chronic obstructive pulmonary disease with (acute) exacerbation Status: Acute Assessment and Plan: 02/07 Patient with a remote smoking history (22 PY quit 1981), mild apical predominant centrilobular emphysema on her CT angiogram of the chest on . I have no PFTs. Patient has had no previous COPD exacerbations on an inpatient or outpatient basis. Was maintained on triple inhalers with trelegy 100 at home. Not on any oxygen previously. CTA negative for PE. No evidence of fluid overload. Patient with tree-in-bud infiltrates in the lower lobes and lingula on her CT angiogram of the chest on 02/06/2022 and this may represent a viral bronchiolitis or tracheobronchitis. She is COVID negative by RT PCR. I will send influenza swab in an extended viral RNA panel to [facility]. I will initiate treatment with Levaquin. Patient has worsening shortness of breath, worsening hypoxemia, increased cough and phlegm production with intermittent wheezing for the last day. I will treat her for COPD exacerbation and have initiated Solu-Medrol 40 q.6 and have increased her ipratropium and levalbuterol nebulizers from q.6 to q.4 hours. currently patient requires 4 L nasal cannula oxygen with saturations 93%. She has an ABG on admission of 7.5 so there is no evidence of hypercarbic respiratory failure. She has a remote history of lung cancer status post right thoracotomy and a left superior segment lobectomy the last of which was in 2005. She also has a history of double mastectomy for breast cancer in 2003 and 2005. She will need follow up the CT scan in 6-8 weeks to reassess her tree-in-bud infiltrates. 02/08 the patient states she is feeling better today she has no rest shortness of breath today. Her dry cough and dyspnea on exertion continue. The cough she says is better. Saturations on 2 L is 97%. White blood cells count 7.6. I will change her nebulizers to q.4 hours while awake and decrease her Solu-Medrol to 20 q.6. seen by Neurology and possible Parkinson's and started on Sinemet with improved tremors. 02/09 Patient stated she had a very restful night but when she woke up she was short of breath. denies fever, cough or phlegm production. Saturations were 95% on 2 L, I turned her to room air and her saturations were 89%. I turned her to 1 L and her saturations were 92%. Her white blood cell count is 7.6. Her influenza swab is negative. She has no wheezing on exam and she has had no bronchodilators since 8:00 p.m. Called RT for morning treatment now. Continue Solu-Medrol 20 q.6 for today, continue levalbuterol and ipratropium nebulizers q.4 hours while awake. / Patient slept well but still has shortness of breath. She is anxious. Saturations 96% on 2 L nasal cannula. I turned her to room air and her saturations were 87-89%. Turned her back to 1 L and her saturations were 94%. White blood cell count is 5.7. No wheezing on exam. I will change her to prednisone 40 mg p.o. today (Day 6 steroids). continue Levaquin, today is day 4. will attempt to change her to a long-acting muscarinic antagonist on long-acting beta agonist today with Anoro Ellipta 62.5-25 at 1 puff q.day. I will perform an overnight oximetry on 2 L to assess her oxygen at night. recieved Lasix x1 yesterday per cardiology for fluid overload, she remains 9.2 L positive since admission. Patient has improved since admission and anticipate discharge from a pulmonary perspective in the next few days. The patient asked me if she thought she would be able to go home in the future as she is very weak. Care coordination note says that she may move in with her son. She may also need it inpatient rehabilitation. Will follow with you. Subjective Date/time seen: 02/10/22 10:17 Interval history: 02/07/2022: This is a new pulmonary consult for COPD and abnormal CT scan.
[2022-02-10] MEDS: predniSONE 20 MG TABLET 40 MG PO (10:50)
--- NOTE | 2022-02-10 13:57 | PM.IMPN ---
Progress Note: A&P Assessment and Plan (1) Diastolic dysfunction: Code(s): I51.89 - Other ill-defined heart diseases Status: Acute (2) Abnormal heart rhythm: Code(s): I49.9 - Cardiac arrhythmia, unspecified Status: Acute (3) Parkinsonian features: Code(s): R25.9 - Unspecified abnormal involuntary movements Status: Acute (4) COPD exacerbation: Code(s): J44.1 - Chronic obstructive pulmonary disease with (acute) exacerbation Status: Acute (5) Bilateral pleural effusion: Code(s): J90 - Pleural effusion, not elsewhere classified Status: Acute (6) Abnormal chest CT: Code(s): R93.89 - Abnormal findings on diagnostic imaging of other specified body structures Status: Acute (7) Skin lesion: Code(s): L98.9 - Disorder of the skin and subcutaneous tissue, unspecified Status: Acute (8) Anxiety: Code(s): F41.9 - Anxiety disorder, unspecified Status: Acute (9) Dehydration: Code(s): E86.0 - Dehydration Status: Acute (10) HVS (hyperventilation syndrome): Code(s): F45.8 - Other somatoform disorders Status: Acute (11) Essential (primary) hypertension: Code(s): I10 - Essential (primary) hypertension Status: Acute Additional Plan 02/06/22 The patient had mildly elevated D-dimer but when corrected for age was low risk for pulmonary embolism. Patient has a IV contrast allergy. The patient subsequently underwent a V/Q scan which was indeterminate probability for pulmonary embolism and limited due to patient's history of emphysema. The patient does have evidence of hyperventilation on ABG and has had prior ER visits in the past due to panic attacks with hyperventilation. I suspect the patient's shortness of breath is due to her COPD and that pulmonary embolism is less likely. As a do not feel it is in the patient's best interest to be on chronic anticoagulation unless we are absolutely shore that the patient has had a pulmonary embolism I am going to premedicate the patient for his CTA of the chest with PE protocol. The patient has been placed on Eliquis. The patient did have some mild hypotension on presentation to the ER. Her hypotension resolved after IV fluid hydration. She does admit to low oral intake of fluids as she does not like to drink water. Patient has subsequently been placed on maintenance fluids. The importance of oral hydration was discussed with the patient. The patient is on a combination antihypertensive with 3 medications. Her antihypertensive will be held. We will ask nursing staff to obtain orthostatic vital signs in a.m.. 02/07/22 irregular rhythm on physical exam STAT EKG Mg and K in am low dose ativan PRN started on trial of Sinemet by Neurology cont tx for COPD per Dr Hollingsworth may need cardio consult if pt has significant abnormalities on EKG PT/OT Bedside commode 02/08/22 pt improving both pulmonary and neurologically cont to encourage OOB cont current care needs more time still not well enough to consider discharge 02/09/22 cardiology consulted, recs appreciated Levaquin for PNA lasix x 1 for fluid overload cont tx of COPD cont supportive care 02/10/22 getting better 9L positive ? strongly suspect this is an error CXR reviwed BNP cont current care reviewed POC w son of pt c/s CC x dc planning Sunday or Sunday plan if home w HHC or w to son's home w HHC Subjective Date/time seen: 02/10/22 13:57 doing ok no overnight events down to 1L O2 Exam Narrative: GEN: NAD, AAO3, cooperative HEENT: NCAT, MMM, EOMI Neck: no JVD Heart: Irregular rhythm Lungs: symmetric chest rise, no use of accessory muscles Ext: moves all, no cyanosis, no clubbing, no edema Neuro: cognition WNL, moves all extremities equally, resting tremor improved Psych: mood and affect congruent Objective Data Vital Signs Vital Signs: Vital Signs - 24 hr 02/09/22 14:00
[2022-02-10 15:10] LABS: NT Pro B Type Natriuretic Pept 6460 pg/mL (5-100)
[2022-02-10] MEDS: SACUBITRIL/VALSARTAN 24-26 MG TABLET 1 TAB PO (19:38)
[2022-02-10] MEDS: LORazepam (*CRX) 0.5 MG TABLET PO (19:39)
[2022-02-11] VITALS (14 sets, daily range): BP systolic 99–127; BP diastolic 54–87; PULSE 62–96; RESP 14–22; TEMP 36.1–36.9; O2SAT 92–97
[2022-02-11 05:25] LABS: Basophils Percent Auto 0.1 % (0.2-1.2); Eosinophils Percent Auto 0.3 % (0-4.4); Hematocrit 36.2 % (37.0-47.0); Hemoglobin 11.8 g/dL (12.0-15.0); Immature Granulocyte Absolute 1.11 K/mm3 (0.00-0.031); Immature Granulocyte Percent A 9.3 % (0-0.5); Lymphocytes Absolute Auto 2.12 K/mm3 (0.9-3.2); Lymphocytes Percent Auto 17.7 % (18.3-44.2); Mean Corpuscular HGB Conc 32.6 g/dl (32-36); Mean Corpuscular Hemoglobin 32.7 pg (26-34); Mean Corpuscular Volume 100.3 fl (80-100); Mean Platelet Volume 9.2 fl (7.4-10.4); Monocytes Absolute Auto 1.6 K/mm3 (0.1-0.6); Monocytes Percent Auto 13.5 % (2.6-8.5); Neutrophils Absolute Auto 7.1 K/mm3 (1.3-6.7); Neutrophils Percent Auto 59.1 % (45.5-73.1); Platelet Count Result 403 k/mm3 (150-375); Red Blood Count 3.61 M/mm3 (4.2-5.4); Red Cell Distribution Width 12.9 % (11.5-14.5)
[2022-02-11 05:33] LABS: Anion Gap 1 mmol/L (8-16); Blood Urea Nitrogen 31 mg/dL (7-17); Calcium 8.4 mg/dL (8.4-10.2); Carbon Dioxide 30 mmol/L (22-30); Chloride 106 mmol/L (98-107); Estimated CRCL calculation 35 ml/min; Estimated Glomerular Filt Rate 48; Glucose 82 mg/dL (65-110); Magnesium 2.1 mg/dL (1.6-2.3); Potassium 3.6 mmol/L (3.4-5.0); Sodium 137 mmol/L (137-145)
[2022-02-11] MEDS: CARBIDOPA/LEVODOPA 25/100 MG TABLET 1 TABLET PO ×3 (05:58→19:39)
[2022-02-11 07:06] LABS: Atypical Lymphocytes Present; Platelet Estimate Increased (Adequate)
[2022-02-11] MEDS: METOPROLOL TARTRATE 12.5 MG TABLET PO ×2 (08:24→19:38)
[2022-02-11] MEDS: FUROSEMIDE INJ 40 MG/4 ML VIAL 20 MG IV PUSH (08:24)
[2022-02-11] MEDS: predniSONE 20 MG TABLET 40 MG PO (08:24)
[2022-02-11] MEDS: SACUBITRIL/VALSARTAN 24-26 MG TABLET 1 TAB PO ×2 (08:25→19:39)
[2022-02-11] MEDS: CITALOPRAM HYDROBROMIDE 20 MG TABLET PO (08:25)
--- NOTE | 2022-02-11 08:33 | PM.IMPN ---
Progress Note: A&P Assessment and Plan (1) Diastolic dysfunction: Code(s): I51.89 - Other ill-defined heart diseases Status: Acute (2) Abnormal heart rhythm: Code(s): I49.9 - Cardiac arrhythmia, unspecified Status: Acute (3) Parkinsonian features: Code(s): R25.9 - Unspecified abnormal involuntary movements Status: Acute (4) COPD exacerbation: Code(s): J44.1 - Chronic obstructive pulmonary disease with (acute) exacerbation Status: Acute (5) Bilateral pleural effusion: Code(s): J90 - Pleural effusion, not elsewhere classified Status: Acute (6) Abnormal chest CT: Code(s): R93.89 - Abnormal findings on diagnostic imaging of other specified body structures Status: Acute (7) Skin lesion: Code(s): L98.9 - Disorder of the skin and subcutaneous tissue, unspecified Status: Acute (8) Anxiety: Code(s): F41.9 - Anxiety disorder, unspecified Status: Acute (9) Dehydration: Code(s): E86.0 - Dehydration Status: Acute (10) HVS (hyperventilation syndrome): Code(s): F45.8 - Other somatoform disorders Status: Acute (11) Essential (primary) hypertension: Code(s): I10 - Essential (primary) hypertension Status: Acute Additional Plan 02/06/22 The patient had mildly elevated D-dimer but when corrected for age was low risk for pulmonary embolism. Patient has a IV contrast allergy. The patient subsequently underwent a V/Q scan which was indeterminate probability for pulmonary embolism and limited due to patient's history of emphysema. The patient does have evidence of hyperventilation on ABG and has had prior ER visits in the past due to panic attacks with hyperventilation. I suspect the patient's shortness of breath is due to her COPD and that pulmonary embolism is less likely. As a do not feel it is in the patient's best interest to be on chronic anticoagulation unless we are absolutely shore that the patient has had a pulmonary embolism I am going to premedicate the patient for his CTA of the chest with PE protocol. The patient has been placed on Eliquis. The patient did have some mild hypotension on presentation to the ER. Her hypotension resolved after IV fluid hydration. She does admit to low oral intake of fluids as she does not like to drink water. Patient has subsequently been placed on maintenance fluids. The importance of oral hydration was discussed with the patient. The patient is on a combination antihypertensive with 3 medications. Her antihypertensive will be held. We will ask nursing staff to obtain orthostatic vital signs in a.m.. 02/07/22 irregular rhythm on physical exam STAT EKG Mg and K in am low dose ativan PRN started on trial of Sinemet by Neurology cont tx for COPD per Dr Hollingsworth may need cardio consult if pt has significant abnormalities on EKG PT/OT Bedside commode 02/08/22 pt improving both pulmonary and neurologically cont to encourage OOB cont current care needs more time still not well enough to consider discharge 02/09/22 cardiology consulted, recs appreciated Levaquin for PNA lasix x 1 for fluid overload cont tx of COPD cont supportive care 02/10/22 getting better 9L positive ? strongly suspect this is an error CXR reviwed BNP cont current care reviewed POC w son of pt c/s CC x dc planning Sunday or Sunday plan if home w HHC or w to son's home w HHC 02/11/22 cont to improve neuro cardio and pulm following cont current care dc planning when cleared by cardio Subjective Date/time seen: 02/11/22 08:33 feeling better , breathing better, tremor resolved Exam Narrative: GEN: NAD, AAO3, cooperative HEENT: NCAT, MMM, EOMI Neck: no JVD Heart: Irregular rhythm Lungs: symmetric chest rise, no use of accessory muscles, faint crackles at bases Ext: moves all, no cyanosis, no clubbing, no edema Neuro: cognition WNL, moves all extremities equally, r
--- NOTE | 2022-02-11 08:59 | P.PNPL_ITS ---
Progress Note: A&P Assessment and Plan (1) COPD exacerbation: Code(s): J44.1 - Chronic obstructive pulmonary disease with (acute) exacerbation Status: Acute Assessment and Plan: 02/07 Patient with a remote smoking history (22 PY quit 1981), mild apical predominant centrilobular emphysema on her CT angiogram of the chest on . I have no PFTs. Patient has had no previous COPD exacerbations on an inpatient or outpatient basis. Was maintained on triple inhalers with trelegy 100 at home. Not on any oxygen previously. CTA negative for PE. No evidence of fluid overload. Patient with tree-in-bud infiltrates in the lower lobes and lingula on her CT angiogram of the chest on 02/06/2022 and this may represent a viral bronchiolitis or tracheobronchitis. She is COVID negative by RT PCR. I will send influenza swab in an extended viral RNA panel to [facility]. I will initiate treatment with Levaquin. Patient has worsening shortness of breath, worsening hypoxemia, increased cough and phlegm production with intermittent wheezing for the last day. I will treat her for COPD exacerbation and have initiated Solu-Medrol 40 q.6 and have increased her ipratropium and levalbuterol nebulizers from q.6 to q.4 hours. currently patient requires 4 L nasal cannula oxygen with saturations 93%. She has an ABG on admission of 7.5 so there is no evidence of hypercarbic respiratory failure. She has a remote history of lung cancer status post right thoracotomy and a left superior segment lobectomy the last of which was in 2005. She also has a history of double mastectomy for breast cancer in 2003 and 2005. She will need follow up the CT scan in 6-8 weeks to reassess her tree-in-bud infiltrates. 02/08 the patient states she is feeling better today she has no rest shortness of breath today. Her dry cough and dyspnea on exertion continue. The cough she says is better. Saturations on 2 L is 97%. White blood cells count 7.6. I will change her nebulizers to q.4 hours while awake and decrease her Solu-Medrol to 20 q.6. seen by Neurology and possible Parkinson's and started on Sinemet with improved tremors. 02/09 Patient stated she had a very restful night but when she woke up she was short of breath. denies fever, cough or phlegm production. Saturations were 95% on 2 L, I turned her to room air and her saturations were 89%. I turned her to 1 L and her saturations were 92%. Her white blood cell count is 7.6. Her influenza swab is negative. She has no wheezing on exam and she has had no bronchodilators since 8:00 p.m. Called RT for morning treatment now. Continue Solu-Medrol 20 q.6 for today, continue levalbuterol and ipratropium nebulizers q.4 hours while awake. / Patient slept well but still has shortness of breath. She is anxious. Saturations 96% on 2 L nasal cannula. I turned her to room air and her saturations were 87-89%. Turned her back to 1 L and her saturations were 94%. White blood cell count is 5.7. No wheezing on exam. I will change her to prednisone 40 mg p.o. today (Day 6 steroids). continue Levaquin, today is day 4. will attempt to change her to a long-acting muscarinic antagonist on long- acting beta agonist today with Anoro Ellipta 62.5-25 at 1 puff q.day. I will perform an overnight oximetry on 2 L to assess her oxygen at night. recieved Lasix x1 yesterday per cardiology for fluid overload, she remains 9.2 L positive since admission. Patient has improved since admission and anticipate discharge from a pulmonary perspective in the next few days. The patient asked me if she thought she would be able to go home in the future as she is very weak. Care coordination note says that she may move in with
[2022-02-11] MEDS: UMECLIDINIUM/VILANTEROL 62.5-25 MCG ELLIPTA 1 PUFF INHALATION (09:35)
--- NOTE | 2022-02-11 16:26 | PM.PNCARD ---
Progress Note: A&P Assessment and Plan (1) Abnormal heart rhythm: Code(s): I49.9 - Cardiac arrhythmia, unspecified Status: Acute Assessment and Plan: Frequent PACS and aberrant conduction, plan event monitor as outpatient (2) Essential (primary) hypertension: Code(s): I10 - Essential (primary) hypertension Status: Acute Assessment and Plan: Generally at goal. cont entresto and metoprolol (3) Diastolic dysfunction: Code(s): I51.89 - Other ill-defined heart diseases Status: Acute Assessment and Plan: She does have grade II diastolic dysfunction. appears more compensated today plan shift to oral lasix 40 mg daily Cardiology will sign off please call if needed Subjective Date/time seen: 02/11/22 16:26 Interval history: feels better with less SOB and less LE swelling Tele: SR and frequent PACs with aberrant conduction Review of Systems Review of Systems: All systems reviewed & are unremarkable except as noted in HPI and below Exam Narrative: Patient is awake alert oriented appears stated age Const: General: comfortable and no acute distress HENMT: General nose exam: Normal nares present Eyes: Sclera: sclerae normal Neck: Neck: supple and no JVD Chest: Other: No reproducible chest wall pain to palpation Resp: Auscultation: diminished lung sounds Other: Diminished but clear Cardio: Rate: regular rate Rhythm: regular rhythm Other: ectopy GI: Inspection: non-distended Auscultation: normal bowel sounds Skin: General skin exam: normal color Neuro: Cranial nerves: Yes Normal hearing present Cognition (Neuro): normal cognition Speech: normal speech Extrem: General: normal to inspection Right upper extremity: edema (ankle) Psych: Mental Status: mental status grossly normal Objective Data Vital Signs Vital Signs: Vital Signs - 24 hr 02/10/22 19:38 02/10/22 19:43 02/10/22 20:00 Temperature 36.3 C L Pulse Rate 64 76 74 Respiratory Rate 18 Blood Pressure 154/71 H Pulse Oximetry 91 02/10/22 21:55 02/10/22 22:00 02/11/22 00:00 Temperature 36.3 C L Pulse Rate 76 72 Respiratory Rate 18 Blood Pressure 154/71 H Pulse Oximetry 95 91 02/11/22 04:00 02/11/22 05:03 02/11/22 08:00 Temperature 36.1 C L 36.1 C L Pulse Rate 70 70 82 Respiratory Rate 18 18 Blood Pressure 127/87 127/87 Pulse Oximetry 94 94 92 02/11/22 08:24 02/11/22 08:30 02/11/22 12:00 Temperature 36.4 C Pulse Rate 70 70 88 Respiratory Rate 22 H Blood Pressure 119/54 L Pulse Oximetry 92 02/11/22 12:26 02/11/22 14:00 02/11/22 16:00 Temperature 36.1 C L 36.9 C Pulse Rate 96 72 68 Respiratory Rate 14 18 Blood Pressure 100/55 L 99/64 L Pulse Oximetry 94 95 Intake/Output Intake/Output: Intake & Output 02/08/22 02/09/22 02/10/22 02/11/22 23:59 23:59 23:59 23:59 Intake Total 3560 2400 1560 270 Output Total 1300 800 550 600 Balance 2260 1600 1010 -330 Meds/Results Medications: Active Medications Generic Name Dose Route Start Last Admin Trade Name Freq PRN Reason Stop Dose Admin Acetaminophen 1,000 mg 02/07/22 02:38 02/07/22 19:06 Acetaminophen 500 Mg Tablet PO 1,000 mg Q8H PRN Administration Mild Pain (1-3) or Fever Albuterol 2 puff 02/10/22 10:24 Albuterol Sulfate (*Sp) Aerosol 1 Puff INHALATION Q4HR PRN Shortness Of Breath Carbidopa/Levodopa 1 tablet 02/07/22 14:00 02/11/22 13:09 Carbidopa/Levodopa 25/100 Mg Tablet PO 1 tablet Q8HR NIURKA Administration Citalopram Hydrobromide 20 mg 02/06/22 09:00 02/11/22 08:25 Citalopram Hydrobromide 20 Mg Tablet PO 20 mg DAILY NIURKA Administration Furosemide 20 mg 02/11/22 09:00 02/11/22 08:24 Furosemide Inj 40 Mg/4 Ml Vial IV PUSH 20 mg DAILY NIURKA Administration Levofloxacin/Dextrose 750 mg in 150 mls @ 100 mls/hr 02/07/22 09:00 02/11/22 09:26 Levaquin 750 Mg/D5w 150 Ml IVPB Infused Q48H NIURKA In
[2022-02-11] MEDS: LORazepam (*CRX) 0.5 MG TABLET PO (19:39)
[2022-02-12] VITALS (14 sets, daily range): BP systolic 88–116; BP diastolic 48–65; PULSE 66–100; RESP 12–20; TEMP 36.1–36.7; O2SAT 92–98
--- NOTE | 2022-02-12 05:05 | PCRCNOTE ---
Apnea link was performed on patient starting on 1L due to her O2 sat not being high enough to start on room air. Patient was on 1L throughout the entire study.
[2022-02-12] MEDS: CARBIDOPA/LEVODOPA 25/100 MG TABLET 1 TABLET PO ×3 (05:45→20:08)
[2022-02-12 06:48] LABS: Basophils Percent Auto 0.2 % (0.2-1.2); Eosinophils Absolute Auto 0.1 K/mm3 (0-0.3); Eosinophils Percent Auto 1.1 % (0-4.4); Hematocrit 38.8 % (37.0-47.0); Hemoglobin 12.7 g/dL (12.0-15.0); Immature Granulocyte Absolute 1.59 K/mm3 (0.00-0.031); Immature Granulocyte Percent A 12.8 % (0-0.5); Lymphocytes Absolute Auto 2.36 K/mm3 (0.9-3.2); Mean Corpuscular HGB Conc 32.7 g/dl (32-36); Mean Corpuscular Hemoglobin 32.5 pg (26-34); Mean Corpuscular Volume 99.2 fl (80-100); Mean Platelet Volume 9.6 fl (7.4-10.4); Monocytes Absolute Auto 1.3 K/mm3 (0.1-0.6); Monocytes Percent Auto 10.2 % (2.6-8.5); Neutrophils Absolute Auto 7.1 K/mm3 (1.3-6.7); Neutrophils Percent Auto 56.7 % (45.5-73.1); Platelet Count Result 435 k/mm3 (150-375); Red Blood Count 3.91 M/mm3 (4.2-5.4); Red Cell Distribution Width 12.9 % (11.5-14.5); White Blood Count 12.5 K/mm3 (4.5-10.0)
[2022-02-12 07:03] LABS: Anion Gap 2 mmol/L (8-16); Blood Urea Nitrogen 25 mg/dL (7-17); Calcium 8.1 mg/dL (8.4-10.2); Carbon Dioxide 31 mmol/L (22-30); Chloride 101 mmol/L (98-107); Estimated CRCL calculation 43 ml/min; Estimated Glomerular Filt Rate 60; Glucose 81 mg/dL (65-110); Magnesium 1.9 mg/dL (1.6-2.3); Potassium 3.3 mmol/L (3.4-5.0); Sodium 134 mmol/L (137-145)
[2022-02-12] MEDS: UMECLIDINIUM/VILANTEROL 62.5-25 MCG ELLIPTA 1 PUFF INHALATION (07:32)
[2022-02-12 07:44] LABS: Atypical Lymphocytes Present; Platelet Estimate Increased (Adequate)
[2022-02-12] MEDS: CITALOPRAM HYDROBROMIDE 20 MG TABLET PO (09:45)
[2022-02-12] MEDS: FUROSEMIDE 40 MG TABLET PO (09:45)
--- NOTE | 2022-02-12 10:01 | PM.PNPUL ---
Progress Note: A&P Assessment and Plan (1) COPD exacerbation: Code(s): J44.1 - Chronic obstructive pulmonary disease with (acute) exacerbation Status: Acute Assessment and Plan: 02/07 Patient with a remote smoking history (22 PY quit 1981), mild apical predominant centrilobular emphysema on her CT angiogram of the chest on . I have no PFTs. Patient has had no previous COPD exacerbations on an inpatient or outpatient basis. Was maintained on triple inhalers with trelegy 100 at home. Not on any oxygen previously. CTA negative for PE. No evidence of fluid overload. Patient with tree-in-bud infiltrates in the lower lobes and lingula on her CT angiogram of the chest on 02/06/2022 and this may represent a viral bronchiolitis or tracheobronchitis. She is COVID negative by RT PCR. I will send influenza swab in an extended viral RNA panel to [facility]. I will initiate treatment with Levaquin. Patient has worsening shortness of breath, worsening hypoxemia, increased cough and phlegm production with intermittent wheezing for the last day. I will treat her for COPD exacerbation and have initiated Solu-Medrol 40 q.6 and have increased her ipratropium and levalbuterol nebulizers from q.6 to q.4 hours. currently patient requires 4 L nasal cannula oxygen with saturations 93%. She has an ABG on admission of 7.5 so there is no evidence of hypercarbic respiratory failure. She has a remote history of lung cancer status post right thoracotomy and a left superior segment lobectomy the last of which was in 2005. She also has a history of double mastectomy for breast cancer in 2003 and 2005. She will need follow up the CT scan in 6-8 weeks to reassess her tree-in-bud infiltrates. 02/08 the patient states she is feeling better today she has no rest shortness of breath today. Her dry cough and dyspnea on exertion continue. The cough she says is better. Saturations on 2 L is 97%. White blood cells count 7.6. I will change her nebulizers to q.4 hours while awake and decrease her Solu-Medrol to 20 q.6. seen by Neurology and possible Parkinson's and started on Sinemet with improved tremors. 02/09 Patient stated she had a very restful night but when she woke up she was short of breath. denies fever, cough or phlegm production. Saturations were 95% on 2 L, I turned her to room air and her saturations were 89%. I turned her to 1 L and her saturations were 92%. Her white blood cell count is 7.6. Her influenza swab is negative. She has no wheezing on exam and she has had no bronchodilators since 8:00 p.m. Called RT for morning treatment now. Continue Solu-Medrol 20 q.6 for today, continue levalbuterol and ipratropium nebulizers q.4 hours while awake. 02/10 Patient slept well but still has shortness of breath. She is anxious. Saturations 96% on 2 L nasal cannula. I turned her to room air and her saturations were 87-89%. Turned her back to 1 L and her saturations were 94%. White blood cell count is 5.7. No wheezing on exam. I will change her to prednisone 40 mg p.o. today (Day 6 steroids). continue Levaquin, today is day 4. will attempt to change her to a long-acting muscarinic antagonist on long-acting beta agonist today with Anoro Ellipta 62.5-25 at 1 puff q.day. I will perform an overnight oximetry on 2 L to assess her oxygen at night. recieved Lasix x1 yesterday per cardiology for fluid overload, she remains 9.2 L positive since admission. Patient has improved since admission and anticipate discharge from a pulmonary perspective in the next few days. The patient asked me if she thought she would be able to go home in the future as she is very weak. Care coordination note says that she may move in with her son. She may also need it inpatient rehabilitation. 02/11 Patient continues to slowly improve. She slept well last night. She is ambulating in the room. saturations are 91% on 2 L nasal cannula. Patient had an overni
[2022-02-12] MEDS: SACUBITRIL/VALSARTAN 24-26 MG TABLET 1 TAB PO (11:52)
--- NOTE | 2022-02-12 14:29 | PM.IMPN ---
Progress Note: A&P Assessment and Plan (1) Diastolic dysfunction: Code(s): I51.89 - Other ill-defined heart diseases Status: Acute (2) Abnormal heart rhythm: Code(s): I49.9 - Cardiac arrhythmia, unspecified Status: Acute (3) Parkinsonian features: Code(s): R25.9 - Unspecified abnormal involuntary movements Status: Acute (4) COPD exacerbation: Code(s): J44.1 - Chronic obstructive pulmonary disease with (acute) exacerbation Status: Acute (5) Skin lesion: Code(s): L98.9 - Disorder of the skin and subcutaneous tissue, unspecified Status: Acute (6) Dehydration: Code(s): E86.0 - Dehydration Status: Acute (7) HVS (hyperventilation syndrome): Code(s): F45.8 - Other somatoform disorders Status: Acute (8) Essential (primary) hypertension: Code(s): I10 - Essential (primary) hypertension Status: Acute Assessment and Plan: 02/06/22 The patient had mildly elevated D-dimer but when corrected for age was low risk for pulmonary embolism. Patient has a IV contrast allergy. The patient subsequently underwent a V/Q scan which was indeterminate probability for pulmonary embolism and limited due to patient's history of emphysema. The patient does have evidence of hyperventilation on ABG and has had prior ER visits in the past due to panic attacks with hyperventilation. I suspect the patient's shortness of breath is due to her COPD and that pulmonary embolism is less likely. As a do not feel it is in the patient's best interest to be on chronic anticoagulation unless we are absolutely shore that the patient has had a pulmonary embolism I am going to premedicate the patient for his CTA of the chest with PE protocol. The patient has been placed on Eliquis. The patient did have some mild hypotension on presentation to the ER. Her hypotension resolved after IV fluid hydration. She does admit to low oral intake of fluids as she does not like to drink water. Patient has subsequently been placed on maintenance fluids. The importance of oral hydration was discussed with the patient. The patient is on a combination antihypertensive with 3 medications. Her antihypertensive will be held. We will ask nursing staff to obtain orthostatic vital signs in a.m.. 02/07/22 irregular rhythm on physical exam STAT EKG Mg and K in am low dose ativan PRN started on trial of Sinemet by Neurology cont tx for COPD per Dr Hollingsworth may need cardio consult if pt has significant abnormalities on EKG PT/OT Bedside commode 02/08/22 pt improving both pulmonary and neurologically cont to encourage OOB cont current care needs more time still not well enough to consider discharge 02/09/22 cardiology consulted, recs appreciated Levaquin for PNA lasix x 1 for fluid overload cont tx of COPD cont supportive care 02/10/22 getting better 9L positive ? strongly suspect this is an error CXR reviwed BNP cont current care reviewed POC w son of pt c/s CC x dc planning Sunday or Sunday plan if home w HHC or w to son's home w HHC 02/11/22 cont to improve neuro cardio and pulm following cont current care dc planning when cleared by cardio 02/12/22 Patient improving Renal failure resolving Cardio following for adjusting of home BP med arrhythmia med Patient has been cleared by pulmonology Will need home O2 eval prior to discharge Continue supportive care Subjective Date/time seen: 02/12/22 14:29 Blood pressure a little soft however renal function has improved with diuresis and overall patient reports she is feeling better. She has been seen by pulmonology today and has been cleared for discharge only thing pending from foam standpoint is a home oxygen evaluation. patient is aware that we anticipate her to need 2 L of oxygen around the clock. Objective Data Vital Signs Vital Signs: Vital Signs - 24 hr 02/11/22 16:00 02/11/22 19:38 02/11/22 20:00 Temperature 98.1
[2022-02-12] MEDS: LORazepam (*CRX) 0.5 MG TABLET PO (20:08)
[2022-02-12] MEDS: METOPROLOL TARTRATE 12.5 MG TABLET PO (20:08)
[2022-02-13] VITALS (15 sets, daily range): BP systolic 80–124; BP diastolic 50–72; PULSE 69–91; RESP 14–20; TEMP 36.3–36.6; O2SAT 87–100
[2022-02-13] MEDS: CARBIDOPA/LEVODOPA 25/100 MG TABLET 1 TABLET PO ×2 (05:24→14:03)
[2022-02-13] MEDS: CITALOPRAM HYDROBROMIDE 20 MG TABLET PO (08:49)
[2022-02-13] MEDS: FUROSEMIDE 20 MG TABLET PO (08:50)
[2022-02-13] MEDS: UMECLIDINIUM/VILANTEROL 62.5-25 MCG ELLIPTA 1 PUFF INHALATION (09:14)
--- NOTE | 2022-02-13 09:19 | PM.DS ---
DS: Admitting Diagnosis Discharge Date 02/13/22 Admitting Diagnosis (1) Abnormal perfusion scan of lung: Code(s): R94.2 - Abnormal results of pulmonary function studies Status: Acute (2) HVS (hyperventilation syndrome): Code(s): F45.8 - Other somatoform disorders Status: Acute (3) Dehydration: Code(s): E86.0 - Dehydration Status: Acute DS: Discharge Diagnosis Discharge Diagnosis (1) Abnormal heart rhythm: Code(s): I49.9 - Cardiac arrhythmia, unspecified Status: Acute (2) Diastolic dysfunction: Code(s): I51.89 - Other ill-defined heart diseases Status: Acute (3) COPD exacerbation: Code(s): J44.1 - Chronic obstructive pulmonary disease with (acute) exacerbation Status: Acute (4) Skin lesion: Code(s): L98.9 - Disorder of the skin and subcutaneous tissue, unspecified Status: Acute (5) Dehydration: Code(s): E86.0 - Dehydration Status: Acute (6) HVS (hyperventilation syndrome): Code(s): F45.8 - Other somatoform disorders Status: Acute (7) Essential (primary) hypertension: Code(s): I10 - Essential (primary) hypertension Status: Acute (8) Parkinsons disease: Code(s): G20 - Parkinson's disease Status: Acute DS: Summary Hospital Course Reason for hospitalization: Shortness of breath Hospital Course: 02/06/22 The patient had mildly elevated D-dimer but when corrected for age was low risk for pulmonary embolism. Patient has a IV contrast allergy. The patient subsequently underwent a V/Q scan which was indeterminate probability for pulmonary embolism and limited due to patient's history of emphysema. The patient does have evidence of hyperventilation on ABG and has had prior ER visits in the past due to panic attacks with hyperventilation. I suspect the patient's shortness of breath is due to her COPD and that pulmonary embolism is less likely. As a do not feel it is in the patient's best interest to be on chronic anticoagulation unless we are absolutely shore that the patient has had a pulmonary embolism I am going to premedicate the patient for his CTA of the chest with PE protocol. The patient has been placed on Eliquis. The patient did have some mild hypotension on presentation to the ER. Her hypotension resolved after IV fluid hydration. She does admit to low oral intake of fluids as she does not like to drink water. Patient has subsequently been placed on maintenance fluids. The importance of oral hydration was discussed with the patient. The patient is on a combination antihypertensive with 3 medications. Her antihypertensive will be held. We will ask nursing staff to obtain orthostatic vital signs in a.m.. 02/07/22 irregular rhythm on physical exam STAT EKG Mg and K in am low dose ativan PRN started on trial of Sinemet by Neurology cont tx for COPD per Dr Hollingsworth may need cardio consult if pt has significant abnormalities on EKG PT/OT Bedside commode 02/08/22 pt improving both pulmonary and neurologically cont to encourage OOB cont current care needs more time still not well enough to consider discharge 02/09/22 cardiology consulted, recs appreciated Nancy for PNA lasix x 1 for fluid overload cont tx of COPD cont supportive care 02/10/22 getting better 9L positive ? strongly suspect this is an error CXR reviwed BNP cont current care reviewed POC w son of pt c/s CC x dc planning Sunday or Sunday plan if home w HHC or w to son's home w HHC 02/11/22 cont to improve neuro cardio and pulm following cont current care dc planning when cleared by cardio 02/12/22 Patient improving Renal failure resolving Cardio following for adjusting of home BP med arrhythmia med Patient has been cleared by pulmonology Will need home O2 eval prior to discharge Continue supportive care 02/13/22 pt discharged home w Home O2 in stable condition w HHC and and indications to follow up w Pu
--- NOTE | 2022-02-13 09:40 | PC.NURSE ---
Dr Ashley Newman and Rubina Perez RN ART LIBRARIAN are both aware of patient having low blood pressures.
--- NOTE | 2022-02-13 10:31 | HOMEO2EVAL ---
Evaluation was performed at [facility] Home Oxygen Evaluation RC: Home Oxygen (O2) Evaluation Start: 02/12/22 14:30 Freq: ONCE Status: Active Protocol: RPE Activity Type Activity Date Activity User E-Sign Co-Sign Detail Recorded Client Recorded Date Recorded By Document 02/13/22 10:20 KRM [id number] 02/13/22 10:31 KRM Document 02/13/22 10:22 KRM [id number] 02/13/22 10:31 KRM Document 02/13/22 10:23 KRM [id number] 02/13/22 10:31 KRM Document 02/13/22 10:25 KRM [email or web address] 02/13/22 10:31 KRM 02/13/22 02/13/22 02/13/22 10:20 10:22 10:23 Home O2 Evaluation Test Phase Resting Exercise Exercise Oxygen Delivery Room Air Room Air Nasal Cannula Oxygen Flow Rate (L/min) 1 Pulse Oximetry (90-100 %) 92 87 L 89 L Pulse Rate (60-100 beats/min) 83 85 85 Activity Tolerance Fair Fair Ambulation Distance (feet) Ambulation Distance (meters) Home Oxygen Evaluation Comments Treatment Charges 02/13/22 10:25 Home O2 Evaluation Test Phase Exercise Oxygen Delivery Nasal Cannula Oxygen Flow Rate (L/min) 2 Pulse Oximetry (90-100 %) 90 Pulse Rate (60-100 beats/min) 83 Activity Tolerance Fair Ambulation Distance (feet) 50 Ambulation Distance (meters) 15.23 Home Oxygen Evaluation Comments 2LPM WITH ACTIVITY Treatment Charges O2 Evaluation - Inpatient
--- NOTE | 2022-02-13 10:42 | PCRCNOTE ---
OXYGEN SET UP SENT TO [facility] TO BE DELIVERED TODAY.
--- NOTE | 2022-02-13 12:55 | WPDNEUROPN ---
Progress Note: A&P Additional Plan Parkinson's disease on treatment carbidopa levodopa 25/100 can be discharged on same dosage will follow her in the office in 3 months she is significantly better Time Spent With Patient Time with patient: 15 - 25 minutes Subjective Date/time seen: 02/13/22 12:55 81 years old right-handed female admitted to the hospital through the emergency room for the complaints of intermittent lightheadedness along with the difficulties in breathing and shaking for the last 6 months additionally complaining of anxiety neuro consultation was obtained because of the tremors she was started on Sinemet 25/101 tablets 3 times a day in addition to physical therapy she continued to receive carbidopa levodopa 2501 tablet Q 8 hours scheduled Lynnette on examination today she is awake alert cooperative in no obvious acute distress resting tremors are almost gone speech is not dysphasic not dysarthric not dysphonic she is able to follow all the verbal commands appropriately able to move upper and lower extremities the reflexes symmetrical plantars are downgoing Objective Data Vital Signs Vital Signs: Vital Signs - 24 hr 02/12/22 16:00 02/12/22 20:00 02/12/22 20:04 Temperature 36.6 C 36.4 C Pulse Rate 70 81 82 Respiratory Rate 18 20 Blood Pressure 91/54 L 107/59 L Pulse Oximetry 93 96 02/12/22 20:08 02/12/22 23:57 02/13/22 00:00 Temperature 36.7 C Pulse Rate 80 81 73 Respiratory Rate 12 Blood Pressure 116/53 L Pulse Oximetry 94 02/13/22 04:00 02/13/22 04:50 02/13/22 08:00 Temperature 36.4 C 36.6 C Pulse Rate 69 87 78 Respiratory Rate 14 20 Blood Pressure 111/55 L 108/57 L Pulse Oximetry 95 94 02/13/22 08:45 02/13/22 09:00 02/13/22 09:15 Temperature Pulse Rate Respiratory Rate Blood Pressure 124/72 Pulse Oximetry 94 93 02/13/22 10:20 02/13/22 10:22 02/13/22 10:23 Temperature Pulse Rate 83 85 85 Respiratory Rate Blood Pressure Pulse Oximetry 92 87 L 89 L 02/13/22 10:25 02/13/22 12:00 Temperature Pulse Rate 83 84 Respiratory Rate Blood Pressure Pulse Oximetry 90 Intake/Output Intake/Output: Intake & Output 02/10/22 02/11/22 02/12/22 02/13/22 23:59 23:59 23:59 23:59 Intake Total 6953 966 0704 750 Output Total 550 600 600 Balance 1010 -90 475 750 Meds/Results Medications: Active Medications Generic Name Dose Route Start Last Admin Trade Name Freq PRN Reason Stop Dose Admin Acetaminophen 1,000 mg 02/07/22 02:38 02/07/22 19:06 Acetaminophen 500 Mg Tablet PO 1,000 mg Q8H PRN Administration Mild Pain (1-3) or Fever Albuterol 2 puff 02/10/22 10:24 Albuterol Sulfate (*Sp) Aerosol 1 Puff INHALATION Q4HR PRN Shortness Of Breath Carbidopa/Levodopa 1 tablet 02/07/22 14:00 02/13/22 05:24 Carbidopa/Levodopa 25/100 Mg Tablet PO 1 tablet Q8HR NIURKA Administration Citalopram Hydrobromide 20 mg 02/06/22 09:00 02/13/22 08:49 Citalopram Hydrobromide 20 Mg Tablet PO 20 mg DAILY NIURKA Administration Furosemide 20 mg 02/13/22 09:00 02/13/22 08:50 Furosemide 20 Mg Tablet PO 20 mg DAILY NIURKA Administration Levofloxacin/Dextrose 750 mg in 150 mls @ 100 mls/hr 02/07/22 09:00 02/13/22 10:38 Levaquin 750 Mg/D5w 150 Ml IVPB Infused Q48H NIURKA Infusion Lorazepam 0.5 mg 02/07/22 18:05 02/12/22 20:08 Lorazepam (*Crx) 0.5 Mg Tablet PO 0.5 mg Q8H PRN Administration Anxiety Metoprolol Tartrate 12.5 mg 02/09/22 21:00 02/13/22 09:41 Metoprolol Tartrate 12.5 Mg Tablet PO Not Given Q12HR NIURKA Perflutren Lipid Microsphere 0 ml 02/09/22 15:17 Perflutren Lipid Microspheres 1.5 Ml Vial Diluted To 10 Ml Total Volume IV PUSH ONCE PRN adequate visualization Protocol Sacubitril/Valsartan 1 tab 02/10/22 21:00 02/12/22 11:52 Sacubitril/Valsartan 24-26 Mg Tablet PO 1 tab Q12HR NIURKA Administration Umeclidinium/Vilanterol 1 puff 02/10/22 10:40
== END 2022-02-13 18:00 | disposition home health service (06) | DRG 191 ==
LOC: ANHED 21:40 → ANH2MED 23:03
PROVIDERS: Emergency Medicine; Internal Medicine Cardiovascular Disease; Internal Medicine Pulmonary Disease; Admitting Provider Internal Medicine; Emergency Provider Emergency Medicine; PCP Family Medicine; Visit Provider Hospitalist
DX: J43.9 Emphysema, unspecified (principal); J90 Pleural effusion, not elsewhere classified; F45.8 Other somatoform disorders; I95.9 Hypotension, unspecified; E86.0 Dehydration; F41.9 Anxiety disorder, unspecified; F41.0 Panic disorder [episodic paroxysmal anxiety]; R94.2 Abnormal results of pulmonary function studies; K21.9 Gastro-esophageal reflux disease without esophagitis; I49.9 Cardiac arrhythmia, unspecified; M81.0 Age-related osteoporosis without current pathological fracture; R73.03 Prediabetes; Z20.822 Contact with and (suspected) exposure to COVID-19; I51.89 Other ill-defined heart diseases; R93.89 Abnormal findings on diagnostic imaging of other specified body structures; F32.A Depression, unspecified; I49.1 Atrial premature depolarization; I10 Essential (primary) hypertension; E55.9 Vitamin D deficiency, unspecified; G20 Parkinson's disease; L98.9 Disorder of the skin and subcutaneous tissue, unspecified; Z85.118 Personal history of other malignant neoplasm of bronchus and lung; Z85.3 Personal history of malignant neoplasm of breast; Z90.710 Acquired absence of both cervix and uterus; Z87.891 Personal history of nicotine dependence
CPT/HCPCS: 36415; 36600; 71045; 71046; 71275; 78580; 80048; 80053; 82805; 83735; 83880; 84436; 84443; 85025; 85380; 85610; 85730; 87486; 87581; 87633; 87804; 93005; 93306; 94618; 94640; 94762; 96360; 96361; 96374; 97110; 97112; 97116; 97161; 97165; 97530; 97535; 99285; A9270; A9540; C9803; G0378; J1200; J1940; J1956; J2920; J7030; J7040; J7512; Q9967; U0003; U0005

== ENCOUNTER 2022-02-22 06:52 | Inpatient (IN) | payer MEDICARE, SELFPAY ==
[2022-02-22] VITALS (15 sets, daily range): BP systolic 115–132; BP diastolic 46–75; PULSE 61–81; RESP 16–24; TEMP 36.5–37.6; O2SAT 96–100; BMI 22.1; BMI 23.1
--- NOTE | ~2022-02-22 | CT_ITS ---
EXAMINATION: CTA chest PE protocol DATE: 02/22/2022 15:53 INDICATION: Shortness of breath. TECHNIQUE: Computed tomography angiography (CTA) of the chest was performed with 100 mL Omnipaque-350 intravenous contrast timed to evaluate the pulmonary arteries. Coronal maximum intensity projection 3D-reconstructions were created by the technologist. Automated exposure control and iterative reconst ruction technique were employed. The dose-length product was 281.25 mGy-cm. COMPARISON: Chest CT 02/06/2022 FINDINGS: There is moderate emphysema. There are changes of partial resection of both lungs. There ar e peripheral airspace opacities in lingula and right lower lobe and right upper lobe. There are small pleural effusions. Cardiomegaly is noted. No pericardial effusion. The central pulmonary arteries ar e enlarged, consistent with pulmonary arterial hypertension. Calcified left hilar lymph nodes are con sistent with old granulomatous disease. There is no pulmonary embolus. There is a 2.2 x 1.4 cm subcut aneous mass in inferior anterior left chest wall, increased from 1.3 x 0.7 cm on 02/04/2019. There is kyphosis of thoracic spine with chronic anterior wedging of multiple vertebral bodies and moderate sp ondylosis. There are bridging endplate osteophytes at multiple levels in the spine, consistent with d iffuse idiopathic skeletal hyperostosis (DISH). IMPRESSION: 1. No pulmonary embolus. 2. Peripheral airspace opacities in right upper and lower lobes and lingula, consistent with pneumoni a. 3. Small pleural effusions. 4. Moderate emphysema. 5. Cardiomegaly. 6. 2.2 cm subcutaneous mass in inferior anterior left chest wall, which may be benign or malignant. Reviewed, dictated and finalized at location B. IMPRESSION: 1. No pulmonary embolus. 2. Peripheral airspace opacities in right upper and lower lobes and lingula, co nsistent with pneumonia. 3. Small pleural effusions. 4. Moderate emphysema. 5. Cardiomegaly. 6. 2.2 cm subcutaneous mass in inferior anterior left chest wall, which may be benign or malignant.
--- NOTE | ~2022-02-22 | US_ITS ---
EXAMINATION: US biopsy st neck thorax DATE: 02/28/2022 13:44 INDICATION: Left chest wall mass. TECHNIQUE: The procedure including the risks, benefits, and alternatives was discussed with the patie nt. Risks discussed included bleeding and infection. The patient understood the risks and agreed to p roceed. The skin overlying the inferior anterior left chest was prepped and draped in usual sterile f ashion. Anesthetic was administered with 1% lidocaine subcutaneously. An 18 gauge core biopsy needl e was then used to obtain 3 core biopsy specimens under continuous sonographic guidance. The entry si te was cleaned and dressed. There were no immediate complications. FINDINGS: Ultrasound images demonstrate the needle in a 1.9 cm hypoechoic subcutaneous mass. IMPRESSION: 1. Ultrasound-guided core needle biopsy of a 1.8 cm subcutaneous mass in anterior inferior left chest wall. Reviewed, dictated and finalized at location A. IMPRESSION: 1. Ultrasound-guided core needle biopsy of a 1.8 cm subcutaneous mass in anteri or inferior left chest wall.
--- NOTE | ~2022-02-22 | XR_ITS ---
EXAMINATION: XR chest 2V DATE: 02/26/2022 09:34 INDICATION: Shortness of breath and pneumonia TECHNIQUE: PA and lateral views of the chest were obtained. COMPARISON: Chest radiograph and CT dated 02/22/2022 FINDINGS: Decrease in opacities in the left midlung zone. Persistent opacities in the left lower lung zone whic h on the lateral projection appear primarily related to a small loculated left pleural effusion with associated atelectasis. No significant change in opacities in the right mid and lower lung zone which on prior CT appears to correspond to combination of small pleural effusion, atelectasis and likely p neumonia. Increased lucency in the upper lung zones consistent with emphysema with chronic biapical p leural-parenchymal scarring. No pneumothorax. Cardiomegaly. Multiple old bilateral rib fractures lauryn g with a posterior right thoracotomy defect. Thoracic kyphosis with moderate spondylosis and mild ant erior wedging of multiple mid and lower thoracic vertebral bodies. Internal fixation at the proximal to mid left humerus. Surgical clips at the bilateral axilla consistent with likely lymph node dissect ions. IMPRESSION: 1. Interval decrease in a now small likely at least partially loculated left pleural effusion. Unchan ged very small right pleural effusion. 2. Opacities in the bilateral mid and lower lung zones likely combination of atelectasis and pneumoni a with some improvement in the left midlung zone. 3. Emphysema. 4. Cardiomegaly. Reviewed, dictated and finalized at location A. IMPRESSION: 1. Interval decrease in a now small likely at least partially loculated left pl eural effusion. Unchanged very small right pleural effusion. 2. Opacities in the bilateral mid and lower lung zones likely combination of at electasis and pneumonia with some improvement in the left midlung zone. 3. Emphysema. 4. Cardiomegaly.
--- NOTE | ~2022-02-22 | XR_ITS ---
EXAMINATION: XR chest 2V DATE: 02/22/2022 07:47 INDICATION: Shortness of breath TECHNIQUE: AP and lateral views of the chest are obtained. COMPARISON: 02/11/2022 FINDINGS: There are small pleural effusions. There are airspace opacities of the mid and lower lung z ones, left greater than right. There is no pneumothorax. The cardiomediastinal silhouette is stable. A chronic thoracotomy defect is noted on the right. Cardiac monitoring device projects over the left chest wall. Internal stabilization hardware is noted in the left humerus. There are bilateral axillar y surgical clips. IMPRESSION: 1. Airspace opacities of the mid and lower lung zones, consistent with atelectasis versus pneumonia. 2. Small pleural effusions. Reviewed, dictated and finalized at location A. IMPRESSION: 1. Airspace opacities of the mid and lower lung zones, consistent with atelecta sis versus pneumonia. 2. Small pleural effusions.
--- NOTE | ~2022-02-22 | NM_ITS ---
EXAMINATION: NM pulmonary perfusion DATE: 02/22/2022 13:39 INDICATION: Shortness of breath. TECHNIQUE: 5.3 mCi Tc-99m MAA was administered intravenously for perfusion images. Scintigraphic bharat ges of the chest were obtained. COMPARISON: Chest 2 views 02/22/2022, perfusion scintigraphy 02/05/2022 FINDINGS: Perfusion images show moderate sized and large matched defects in the lower lobes and upper lobes.. IMPRESSION: 1. Nondiagnostic (intermediate probability for pulmonary embolism). Reviewed, dictated and finalized at location B.
--- NOTE | 2022-02-22 07:12 | ECG_ITS ---
Measurements Intervals [place] Rate: 66 P: 86 [place]: 195 QRS: 67 QRSD: 93 T: 78 QT: 372 QTc: 391 Interpretive Statements SINUS RHYTHM ATRIAL PREMATURE COMPLEX CANNOT RULE OUT SEPTAL INFARCT, AGE INDETERMINATE BASELINE ARTIFACT- II, III, AVF ABNORMAL ECG Electronically Signed On 02-22-2022 7:56:10 CDT by Aaron Victoria D.O.
[2022-02-22 07:18] LABS: Basophils Percent Auto 0.5 % (0.2-1.2); Eosinophils Absolute Auto 0.1 K/mm3 (0-0.3); Eosinophils Percent Auto 1.4 % (0-4.4); Hemoglobin 11.9 g/dL (12.0-15.0); Immature Granulocyte Absolute 0.03 K/mm3 (0.00-0.031); Immature Granulocyte Percent A 0.5 % (0-0.5); Lymphocytes Absolute Auto 1.36 K/mm3 (0.9-3.2); Lymphocytes Percent Auto 21.8 % (18.3-44.2); Mean Corpuscular HGB Conc 32.2 g/dl (32-36); Mean Corpuscular Hemoglobin 32.4 pg (26-34); Mean Corpuscular Volume 100.8 fl (80-100); Mean Platelet Volume 10.6 fl (7.4-10.4); Monocytes Absolute Auto 0.8 K/mm3 (0.1-0.6); Monocytes Percent Auto 13.3 % (2.6-8.5); Neutrophils Absolute Auto 3.9 K/mm3 (1.3-6.7); Neutrophils Percent Auto 62.5 % (45.5-73.1); Platelet Count Result 392 k/mm3 (150-375); Red Blood Count 3.67 M/mm3 (4.2-5.4); Red Cell Distribution Width 12.9 % (11.5-14.5); White Blood Count 6.2 K/mm3 (4.5-10.0)
[2022-02-22 07:36] LABS: Alanine Aminotransferase 14 U/L (6-35); Albumin Level 3.6 g/dL (3.5-5.1); Alkaline Phosphatase 61 U/L (38-126); Anion Gap 3 mmol/L (8-16); Aspartate Amino Transferase 39 U/L (14-36); Blood Urea Nitrogen 9 mg/dL (7-17); Calcium 8.9 mg/dL (8.4-10.2); Carbon Dioxide 29 mmol/L (22-30); Chloride 105 mmol/L (98-107); Estimated CRCL calculation 43 ml/min; Estimated Glomerular Filt Rate 60; Glucose 118 mg/dL (65-110); Potassium 4.1 mmol/L (3.4-5.0); Sodium 137 mmol/L (137-145)
[2022-02-22 07:44] LABS: Troponin I < 0.012 ng/mL (0.000-0.034)
[2022-02-22 07:46] LABS: INR 1.1; Prothrombin Time 13.5 Seconds (11.1-14.7)
[2022-02-22 07:47] LABS: Partial Thromboplastin Time 26.6 SECONDS (22.3-36.8)
--- NOTE | 2022-02-22 07:52 | ED.SOB ---
HPI - SOB/Dyspnea General Chief Complaint: Shortness of Breath/Dyspnea Stated Complaint: SOB Time Seen by Provider: 02/22/22 07:38 Source: patient and EMS Mode of arrival: EMS Limitations: no limitations History of Present Illness HPI Narrative: Patient is 81 years old white female lives alone work-up this morning and could not breathe, push the panic button, patient on oxygen by nasal cannula at 2 L all the time. On arrival to the ED patient is asymptomatic. Patient tell me that she was discharged from our hospital 6 days ago, lives alone, when she get shortness of breath subsequently developed panic attack make the shortness of breath worse. Patient on Celexa Related Data Allergies Allergy/AdvReac Type Severity Reaction Status Date / Time adhesive Allergy Unknown Unknown Verified 02/22/22 07:06 alendronate sodium [Fosamax] Allergy Unknown Nausea Verified 02/05/22 23:42 doxycycline Allergy Unknown Nausea Verified 02/05/22 23:42 Iodinated Contrast Media Allergy Unknown Flushing Verified 02/22/22 07:06 latex Allergy Unknown Unknown Verified 02/22/22 07:06 hydrocodone AdvReac Mild vomiting Verified 02/22/22 07:06 Contrast Media Allergy Unknown BURNING Uncoded 02/22/22 07:06 AND RED ALL OVER Review of Systems Review of Systems: All systems reviewed & are unremarkable except as noted in HPI and below PMFSH Past Medical History Medical History Anxiety Cancer of left breast Constipation Depression Diastolic dysfunction Echocardiogram 01/201919 grade 1 diastolic dysfunction EF 60% mild left atrial enlargement Emphysema of lung Fracture of fifth metatarsal bone of right foot with routine healing GERD (gastroesophageal reflux disease) Hypertension Lung cancer Osteoporosis, unspecified Prediabetes Vitamin D deficiency Surgical History Surgical History H/O left mastectomy (~2009) DCIS H/O: hysterectomy (~1994) Due to dysfunctional uterine bleeding History of carpal tunnel release History of carpal tunnel surgery of left wrist History of lobectomy of lung Right upper lobe 1994, left lower lung partial lobectomy 2006 History of right mastectomy (~2012) Family History Family History Mother CHF (congestive heart failure) Dementia Father Lung cancer Sibling Acute myocardial infarction Cerebrovascular accident Other Hypertension Social History Social History Social History: She is . She has a daughter and a son. 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 She does drink wine nightly. Code status: Full code Healthcare power of employment law attorney: Ursula Vega (daughter) Smoking packs per day: 1 Smoking cigarettes per day: 20.0 Years smoked: 20 Smoking pack-years: 20.00 Smoking status: Former smoker Tobacco type: cigarettes Smoking end date: 10/08/82 Alcohol intake: current Drinks per week: 7 Substance use: never Substance use type: does not use Spiritual care concerns: No Exam Narrative: Patient presents with dyspnea, differential diagnosis as below Const: Limitations: physical limitations (Panic attack, CHF, pulmonary embolism) Course Consultations Consultation #1: DR FLORES Date: 02/22/22 Time: 16:23 Vital Signs Vital signs: Vital Signs Temperature 36.5 C 02/22/22 06:54 Pulse Rate 77 02/22/22 06:54 Respiratory Rate 23 H 02/22/22 06:54 Pulse Oximetry 99 02/22/22 06:54 Temperature 36.5 C 02/22/22 06:54 Pulse Rate 81 02/22/22 14:45 Respiratory Rate 17 02/22/22 14:45 Blood Pressure 125/66 02/22/22 14:45 Pulse Oximetry 100 02/22/22 14:45 MDM - SOB/Dyspnea Differential Diagnosis Differential diagnosis: Likely other (Panic attack, CHF, pulmonary embolism) Lab Data Result diagrams: 02/22/22 07:13
[2022-02-22 08:14] LABS: Alveolar/Arterial O2 Gradient 67.5 mmHg; Base Excess ABG 0.6 mEq/l (+/-2.0); Fractional Inspired Oxygen 28 %; HCO3 ABG 24.9 mEq/l (22.0-26.0); Oxygen Content ABG 16.1 %vol (16.0-22.0); Oxygen Saturation ABG 96.8 % (95.0-100.0); Oxyhemoglobin 95.9 % THb (90.0-100.0); PCO2 ABG 38.5 mmHg (35.0-45.0); PO2 ABG 86.7 mmHg (80.0-100.0); Total Hemoglobin 11.9 g/dL (12.0-18.0); pH ABG 7.428 (7.350-7.450)
[2022-02-22 08:20] LABS: Modified Allen's Test Pass; Site Drawn RIGHT RADIAL
[2022-02-22 08:21] LABS: Device NASAL CANNULA
[2022-02-22 09:09] LABS: D Dimer 1.11 ug/mL (<0.48)
[2022-02-22 09:18] LABS: NT Pro B Type Natriuretic Pept 1280 pg/mL (5-100)
[2022-02-22] MEDS: SODIUM CHLORIDE 0.9% IV 1,000 ML 500 ML IV CONT (10:40)
[2022-02-22 12:07] LABS: SARS-CoV-2 RNA PCR Negative
[2022-02-22] MEDS: LORazepam (*CRX) 0.5 MG TABLET PO (12:47)
[2022-02-22 14:15] LABS: Troponin I 0.812 ng/mL (0.000-0.034)
[2022-02-22] MEDS: ENOXAPARIN 80 MG/0.8 ML SYRINGE 70 MG SUB-Q (14:16)
[2022-02-22] MEDS: LORazepam INJ (*CRX) 2 MG/ML VIAL 1 MG IV PUSH (14:16)
[2022-02-22] MEDS: predniSONE 20 MG TABLET 50 MG PO (14:41)
[2022-02-22] MEDS: diphenhydrAMINE HCl CAP 25 MG CAPSULE 50 MG PO (14:41)
--- NOTE | 2022-02-22 15:33 | PM.IMHP ---
H&P: HPI History of Present Illness Date/Time: Patient was placed observation status for expected length of stay less than 23 hours for management, will plan to re-evaluate tomorrow for improvement. 02/22/22 15:33 Chief Complaint: Shortness of breath Narrative: Ms. Trejo is an 81-year-old female who presented emergency [facility] of shortness of breath. patient has a Life Alert button and she woke up this morning feeling short of breath and pushed her Life Alert button. EMS arrived and found the patient oxygen saturation was 96% on 2 L per nasal cannula. Patient was recently hospitalized and discharged on oxygen at 2 L per nasal cannula. At this point time patient has been given Ativan emergency room so it is difficult to get some history from patient because she is lethargic. Patient's daughter is at bedside and is attempting to help. Patient states that she was feeling short of breath this morning, but that has significantly improved. Patient denies having any chest discomfort, lightheadedness, dizziness, syncopal, or near syncopal episodes. Patient states while she was in the emergency room she did begin having a heaviness over her anterior chest that did not radiate to her jaw or down her arms. Patient denies any nausea or vomiting. Patient was hospitalized on 02/06/2022 for complaints of shortness of breath. Patient did have an extensive workup including V/Q scan and CTA that did not show pulmonary embolism. Pulmonology did see patient throughout that hospitalization. Patient's oxygen was weaned throughout the hospitalization, but unfortunately she was unable to to really come off oxygen was sent home on oxygen at 2 L per nasal cannula. Cardiology also did see patient patient had echo Doppler performed that showed left atrial enlargement, ejection fraction 65-70%, and grade 2 left ventricular diastolic dysfunction. Upon evaluation in emergency room patient was noted to have an elevated troponin at 0.81 to an elevated D-dimer. Patient underwent V/Q scan that did show perfusion images showing moderate size and large matched defects in the lower lobes and the upper lobes. Patient did have a V/Q scan performed on 02/06/2022 that also showed small to moderate sized match perfusion defects throughout both lungs. At this point time patient is on her oxygen at 2 L per nasal cannula and her saturations are in the high 90s. Patient has a known history of COPD, lung cancer with lobectomy, breast cancer with a history of a left mastectomy, hypertension, and anxiety Review of Systems Review of Systems: A 12 point review of systems was completed patient all pertinent positive and negative per HPI the remainder are unremarkable. [facility] Past Medical History Medical History Anxiety Cancer of left breast Constipation Depression Diastolic dysfunction Echocardiogram 01/201919 grade 1 diastolic dysfunction EF 60% mild left atrial enlargement Emphysema of lung Fracture of fifth metatarsal bone of right foot with routine healing GERD (gastroesophageal reflux disease) Hypertension Lung cancer Osteoporosis, unspecified Prediabetes Vitamin D deficiency Surgical History Surgical History H/O left mastectomy (~2009) DCIS H/O: hysterectomy (~1994) Due to dysfunctional uterine bleeding History of carpal tunnel release History of carpal tunnel surgery of left wrist History of lobectomy of lung Right upper lobe 1994, left lower lung partial lobectomy 2005 History of right mastectomy (~2012) Family History Family History Mother CHF (congestive heart failure) Dementia Father Lung cancer Sibling Acute myocardial infarction Cerebrovascular accident Other Hypertension Social History Social History Social Hist
--- NOTE | 2022-02-22 15:41 | PC.NURSE ---
Pt to CT scan via stretcher at this time.
--- NOTE | 2022-02-22 17:26 | PC.NURSE ---
This patient, Tigist Trejo, was admitted to IMU Room 206-01. Patient/family oriented to hospital policies and general routines including ID bracelet, bed and alarms, visiting hours, pain management, procedures, bathroom and other care routines, personal items, smoking policy, room service/diet, and visiting hours. Information on how to activate the Rapid Response Team has been discussed. Patient/Family are encouraged to report perceived risks to care and to ask questions if they do not understand what they are told or what they should do.
[2022-02-22] MEDS: levoFLOXacin 500 MG/D5W 100 ML 500 MG/100 ML BAG 66.67 MG IVPB (18:00)
[2022-02-22 18:49] LABS: Troponin I 0.581 ng/mL (0.000-0.034)
[2022-02-23] VITALS (14 sets, daily range): BP systolic 111–138; BP diastolic 42–69; PULSE 55–75; RESP 16–20; TEMP 36.3–36.9; O2SAT 94–100
--- NOTE | 2022-02-23 03:16 | PC.NURSE ---
patient is having short runs of v-tach. patient is asymptomatic. patient is more alert now, no pain or sob.
[2022-02-23 03:53] LABS: Basophils Percent Auto 0.2 % (0.2-1.2); Hematocrit 34.5 % (37.0-47.0); Hemoglobin 11.3 g/dL (12.0-15.0); Immature Granulocyte Absolute 0.03 K/mm3 (0.00-0.031); Immature Granulocyte Percent A 0.5 % (0-0.5); Lymphocytes Absolute Auto 0.71 K/mm3 (0.9-3.2); Mean Corpuscular HGB Conc 32.8 g/dl (32-36); Mean Corpuscular Hemoglobin 32.6 pg (26-34); Mean Corpuscular Volume 99.4 fl (80-100); Mean Platelet Volume 10.2 fl (7.4-10.4); Monocytes Absolute Auto 0.2 K/mm3 (0.1-0.6); Monocytes Percent Auto 3.5 % (2.6-8.5); Neutrophils Absolute Auto 4.5 K/mm3 (1.3-6.7); Neutrophils Percent Auto 82.8 % (45.5-73.1); Platelet Count Result 344 k/mm3 (150-375); Red Blood Count 3.47 M/mm3 (4.2-5.4); Red Cell Distribution Width 12.7 % (11.5-14.5); White Blood Count 5.5 K/mm3 (4.5-10.0)
[2022-02-23 04:10] LABS: Anion Gap 8 mmol/L (8-16); Blood Urea Nitrogen 11 mg/dL (7-17); Calcium 8.5 mg/dL (8.4-10.2); Carbon Dioxide 24 mmol/L (22-30); Chloride 105 mmol/L (98-107); Estimated CRCL calculation 48 ml/min; Estimated Glomerular Filt Rate > 60; Glucose 130 mg/dL (65-110); Magnesium 1.9 mg/dL (1.6-2.3); Potassium 4.5 mmol/L (3.4-5.0); Sodium 137 mmol/L (137-145)
--- NOTE | 2022-02-23 07:00 | ECG_ITS ---
Measurements Intervals [place] Rate: 73 P: 96 CT: 181 QRS: 45 QRSD: 97 T: 101 QT: 425 QTc: 469 Interpretive Statements SINUS RHYTHM ATRIAL COUPLET AND ATRIAL PREMATURE COMPLEX ST-T WAVE ABNORMALITY IN HIGH LATERAL LEADS- CONSIDER ISCHEMIA ABNORMAL ECG Electronically Signed On 02-23-2022 9:26:06 CDT by Aaron LEE
[2022-02-23] MEDS: FLUTICASONE/UMECLIDIN/VILANTER 100-62.5-25 MCG ELLIPTA 1 PUFF INHALATION (08:19)
[2022-02-23] MEDS: METOPROLOL TARTRATE 12.5 MG TABLET PO ×2 (08:22→21:03)
[2022-02-23] MEDS: CITALOPRAM HYDROBROMIDE 20 MG TABLET PO (08:22)
[2022-02-23] MEDS: CARBIDOPA/LEVODOPA 25/100 MG TABLET 1 TABLET PO ×3 (08:22→18:48)
[2022-02-23] MEDS: ASPIRIN 81 MG CHEWABLE TABLET PO (08:23)
--- NOTE | 2022-02-23 09:20 | PM.CNCAR ---
Assessment and Plan Additional Plan -elevated troponins -shortness of breath -frequent premature atrial contractions and some frequent wide complex premature beats. -COPD -pneumonia -and anxiety -on home O2 2 L -history of left breast cancer -history of lung cancer status post lobectomy. This is 81-year-old female who presents to the hospital with shortness of breath. His troponins elevated. Denies chest pain. Frequent premature atrial contractions and some premature ventricular ectopic beats on telemetry. Her echocardiogram earlier this month showed normal LV systolic function. Due to episodes of shortness of breath and possible wide complex premature beats recommend at this time ischemic evaluation preferably with cardiac catheterization to rule out significant CAD. Risks and benefits of cardiac catheterization discussed with the patient with her son Constantino who was on the phone and they agree to proceed. Not sure of this catheterization can be done today but in the next couple hours we will re-evaluate. Will keep NPO for the time being -she is currently on metoprolol 12.5 mg b.i.d. due to low blood pressure. -continue aspirin 81 mg daily History of Present Illness History of Present Illness Consult date/time: 02/23/22 09:20 Requesting physician: Sharona Wiley MD Consult reason: chest pain Reason For Visit: Anxiety/chest pain/elevated D dimer Narrative: This is a 81-year-old female with past medical history of anxiety, COPD, lung cancer with lobectomy, breast cancer with history of left mastectomy, hypertension who recently was hospitalized and discharged from the hospital on oxygen 2 L nasal cannula. Who apparently pressed life alert button because she woke up with shortness of breath. EMS arrived and found that oxygen saturation 96% on 2 L nasal cannula. It seems that she was very anxious when she came to the emergency room and received Ativan. This morning patient does not remember anything since coming into the hospital but she states that she felt short of breath at home. Denies chest pain. Denied lower extremity edema cough, fever, chills. EKG review and asthma social sinus rhythm, frequent premature atrial contractions, T inversion ST depression leads 1 and aVL initial troponin was negative and then 2nd troponin 0.8 and the 3rd troponin 0.5, brain atretic peptide 1200 COVID negative CTA thorax during this admission:1. No pulmonary embolus. 2. Peripheral airspace opacities in right upper and lower lobes and lingula, consistent with pneumonia. 3. Small pleural effusions. 4. Moderate emphysema. 5. Cardiomegaly. 6. 2.2 cm subcutaneous mass in inferior anterior left chest wall, which may be benign or malignant. Echocardiogram February 07, 2022. 2. Left ventricular chamber dimension is normal. 3. Left ventricular systolic function is normal, estimated at 65-70%. 4. There is mildly increased left ventricular wall thickness. 5. The left ventricular diastolic function is grade II diastolic dysfunction. 6. Left atrial chamber dimension is moderately enlarged. 7. The mitral valve has thickened leaflets, calcified leaflets and calcified annulus. 8. There is mild to moderate mitral valve stenosis. 9. There is mild to moderate mitral valve regurgitation. 10. There is mild tricuspid valve regurgitation. 11. Moderate pulmonary hypertension, estimated pulmonary arterial systolic pressure is 58 mmHg. 12. There is mild pulmonic regurgitation. 13. There is small pericardial effusion. Review of Systems Constitutional: Constitutional: Denies chills, Denies fever(s) and Denies poor appetite Eyes: Eyes: Denies eye discharge, Denies loss of vision, Denies eye pain and Denies photophobia ENT: Denies dizziness, Denies epistaxis, Denies nasal congestion and Denies sore throat Cardiovascular: Cardiovascular: Denies chest pain, Denies syncope, Denies pedal edema, Denies leg edema, Denies palpitations, Reports dyspnea,
--- NOTE | 2022-02-23 14:07 | PM.IMPN ---
Progress Note: A&P Assessment and Plan (1) D-dimer, elevated: Code(s): R79.89 - Other specified abnormal findings of blood chemistry Status: Acute Assessment and Plan: patient had a V/Q scan that did show perfusion defect, but she previously had a V/Q scan that showed perfusion defect and CTA was negative. Patient has been premedicated for her dye allergy of flushing and she underwent CTA which came back negative for PE. She did have peripheral airspace opacities in right upper and lower lobes and lingula consistent with pneumonia. Associated small pleural effusions. Received full-dose Lovenox. Initial troponin was also negative however the 2nd set came back elevated (2) Elevated troponin: Code(s): R77.8 - Other specified abnormalities of plasma proteins Status: Acute Assessment and Plan: Patient's initial troponin was negative and her 2nd troponin is elevated. There is no EKG changes. Patient did have an episode of chest heaviness while in the emergency room that has resolved. Patient was given 1 full dose of Lovenox. Cardiology consulted Patient did have an echo Doppler when she was here last month that showed left atrial enlargement, ejection fraction 65-70%, with grade 2 left ventricular diastolic dysfunction. (3) Anxiety: Code(s): F41.9 - Anxiety disorder, unspecified Status: Acute Assessment and Plan: Resume home medication (4) Parkinsonian features: Code(s): R25.9 - Unspecified abnormal involuntary movements Status: Acute Assessment and Plan: Resume home medication (5) Non-STEMI (non-ST elevated myocardial infarction): Code(s): I21.4 - Non-ST elevation (NSTEMI) myocardial infarction Status: Acute Assessment and Plan: April Peters has been consulted and plan for cardiac catheterization Echo with EF 65-70% with grade 2 diastolic dysfunction [id number] MR moderate pulmonary hypertension 02/09/2022 (6) Pneumonia: Qualifiers: Laterality: right Lung location: unspecified part of lung Pneumonia type: due to unspecified organism Qualified Code(s): J18.9 - Pneumonia, unspecified organism Code(s): J18.9 - Pneumonia, unspecified organism Status: Acute Assessment and Plan: With associated effusion noted which is worsened from previous. She was treated recently with Levaquin. Persistent pneumonia noted. Will consult Pulmonary. MRSA screen. Increase antibiotic coverage with vancomycin and cefepime. Pulmonary consultation (7) Subcutaneous mass: Code(s): R22.9 - Localized swelling, mass and lump, unspecified Status: Acute Assessment and Plan: 2.2 cm subcutaneous left anterior chest wall. This is hard lump monitor chest wall likely need to be biopsied at ase. She was scheduled to see Dr. Handy for this. Will await further testing on heart before we proceed. Subjective Date/time seen: 02/23/22 14:07 Interval history: HPI: Ms. Trejo is an 81-year-old female who presented emergency [facility] of shortness of breath. patient has a Life Alert button and she woke up this morning feeling short of breath and pushed her Life Alert button. EMS arrived and found the patient oxygen saturation was 96% on 2 L per nasal cannula. Patient was recently hospitalized and discharged on oxygen at 2 L per nasal cannula. At this point time patient has been given Ativan emergency room so it is difficult to get some history from patient because she is lethargic. Patient's daughter is at bedside and is attempting to help. Patient states that she was feeling short of breath this morning, but that has significantly improved. Patient denies having any chest discomfort, lightheadedness, dizziness, syncopal, or near syncopal episodes. Patient states while she was in the emergency room she did begin having a heaviness over her anterior chest that did not radiate to her jaw or down her arms.
[2022-02-23] MEDS: ENOXAPARIN 40 MG/0.4 ML SYRINGE SUB-Q (15:22)
--- NOTE | 2022-02-23 16:17 | PCCCNOTE ---
On 02/23/22, the student, [Micki Ibarra], provided care and completed [facility] documentation on this patient. I have reviewed the student's documentation and agree with the findings.
--- NOTE | 2022-02-23 17:02 | PM.CNPUL ---
Assessment and Plan Assessment and plan (1) Bilateral pleural effusion: Code(s): J90 - Pleural effusion, not elsewhere classified Status: Acute Assessment and Plan: 81-year-old female with a history of lung cancer treated twice with lung resection, history of breast cancer, Parkinson's Disease, recently hospitalized for acute respiratory failure related to COPD exacerbation/pneumonia, on home supplemental oxygen since last hospitalization presented with 1 day history of shortness of breath. Since previous office visit there is evidence of larger pleural effusions bilaterally and some new infiltrates in the left upper lobe and right lower lobe. It is unclear whether these infiltrates are related to lower respiratory tract infection. The patient has no other symptoms such as cough fever sputum production to suggest pneumonia. Her shortness of breath could be related to ischemic cardiac event for which she is scheduled to undergo cardiac catheterization. There is no evidence of COPD exacerbation and I would not use steroids. Sputum culture, MRSA screening, and other tests for pneumonia pending. I would continue with current antibiotics for now. (2) COPD (chronic obstructive pulmonary disease) case management patient: Code(s): J44.9 - Chronic obstructive pulmonary disease, unspecified Status: Acute (3) Pneumonia: Qualifiers: Laterality: right Lung location: unspecified part of lung Pneumonia type: due to unspecified organism Qualified Code(s): J18.9 - Pneumonia, unspecified organism Code(s): J18.9 - Pneumonia, unspecified organism Status: Acute (4) Non-STEMI (non-ST elevated myocardial infarction): Code(s): I21.4 - Non-ST elevation (NSTEMI) myocardial infarction Status: Acute (5) Personal history of malignant neoplasm of breast: Code(s): Z85.3 - Personal history of malignant neoplasm of breast Status: Resolved (6) Personal history of malignant neoplasm of bronchus and lung: Code(s): Z85.118 - Personal history of other malignant neoplasm of bronchus and lung Status: Resolved History of Present Illness History of Present Illness Consult date: 02/24/22 Chief complaint: Anxiety/chest pain/elevated D dimer Narrative: This 81-year-old female presented with a 1 day history of shortness of breath. The patient has history of COPD, history of lung cancer status post right thoracotomy in for non small cell lung cancer. The patient received no chemotherapy. 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 The patient was in her usual state of health until approximately 2 weeks ago when she was hospitalized with shortness of breath. During that hospitalization chest CT showed small pleural effusions bilaterally chronic lung changes related to previous lung surgeries, a few tree in bud lesions and mild emphysema bilaterally. The patient was discharged home on maintenance bronchodilators and supplemental oxygen at 2 liters/minute. she was treated for COPD exacerbation and possible congestive heart failure. She stated following discharge from the hospital her respiratory status improved. On the day of admission, she started having shortness of breath primarily with activities. She had no other respiratory symptoms such as chest pain palpitations orthopnea hemoptysis lower extremity edema cough sputum production fever or night sweats. Diagnostic workup during this hospitalization showed larger pleural effusions bilaterally which are of rather small size, new infiltrates in the left upper lobe and possibly in the right lower lobe. The patient was found to have elevated troponin and was evaluated by Cardiology. Her BNP was significantly lower than it was during last hospitalization. Currently she is receiving treatment for possible pneumonia with 3 antibiotics. She is scheduled to undergo cardiac catheterization. Ling
[2022-02-23] MEDS: levoFLOXacin 250 MG/D5W 50 ML 250 MG/50 ML BAG 33.33 MG IVPB (18:48)
[2022-02-24] VITALS (18 sets, daily range): BP systolic 90–152; BP diastolic 50–86; PULSE 51–81; RESP 16–20; TEMP 36.3–37.5; O2SAT 92–100
[2022-02-24 05:06] LABS: Basophils Percent Auto 0.6 % (0.2-1.2); Eosinophils Absolute Auto 0.1 K/mm3 (0-0.3); Eosinophils Percent Auto 0.9 % (0-4.4); Hematocrit 32.4 % (37.0-47.0); Hemoglobin 10.2 g/dL (12.0-15.0); Immature Granulocyte Absolute 0.02 K/mm3 (0.00-0.031); Immature Granulocyte Percent A 0.4 % (0-0.5); Lymphocytes Absolute Auto 1.41 K/mm3 (0.9-3.2); Lymphocytes Percent Auto 26.7 % (18.3-44.2); Mean Corpuscular HGB Conc 31.5 g/dl (32-36); Mean Corpuscular Volume 101.6 fl (80-100); Mean Platelet Volume 10.3 fl (7.4-10.4); Monocytes Absolute Auto 0.7 K/mm3 (0.1-0.6); Monocytes Percent Auto 12.9 % (2.6-8.5); Neutrophils Absolute Auto 3.1 K/mm3 (1.3-6.7); Neutrophils Percent Auto 58.5 % (45.5-73.1); Platelet Count Result 312 k/mm3 (150-375); Red Blood Count 3.19 M/mm3 (4.2-5.4); Red Cell Distribution Width 13.1 % (11.5-14.5); White Blood Count 5.3 K/mm3 (4.5-10.0)
[2022-02-24 05:22] LABS: Alanine Aminotransferase 8 U/L (6-35); Albumin Level 2.8 g/dL (3.5-5.1); Alkaline Phosphatase 40 U/L (38-126); Anion Gap 4 mmol/L (8-16); Aspartate Amino Transferase 20 U/L (14-36); Bilirubin,Total 0.9 mg/dL (0.2-1.3); Blood Urea Nitrogen 19 mg/dL (7-17); Calcium 8.4 mg/dL (8.4-10.2); Carbon Dioxide 30 mmol/L (22-30); Chloride 104 mmol/L (98-107); Estimated CRCL calculation 37 ml/min; Estimated Glomerular Filt Rate 53; Glucose 94 mg/dL (65-110); Potassium 3.9 mmol/L (3.4-5.0); Sodium 138 mmol/L (137-145)
[2022-02-24] MEDS: CITALOPRAM HYDROBROMIDE 20 MG TABLET PO (08:39)
[2022-02-24] MEDS: CARBIDOPA/LEVODOPA 25/100 MG TABLET 1 TABLET PO ×3 (08:39→17:17)
[2022-02-24] MEDS: METOPROLOL TARTRATE 12.5 MG TABLET PO ×2 (08:39→20:47)
[2022-02-24] MEDS: ASPIRIN 81 MG CHEWABLE TABLET PO (08:39)
[2022-02-24] MEDS: FLUTICASONE/UMECLIDIN/VILANTER 100-62.5-25 MCG ELLIPTA 1 PUFF INHALATION (09:09)
--- NOTE | 2022-02-24 10:13 | WPDMODSED ---
Moderate Sedation Note-Pt Data Patient Data Diagnosis: chest pain of uncertain etiology chronic lung with previous history of lung cancer resection Present Complaint: shortness of breath intermittent chest pain Procedure to be performed/Plan: coronary angiogram Allergies Allergy/AdvReac Type Severity Reaction Status Date / Time adhesive Allergy Unknown Unknown Verified 02/22/22 07:06 alendronate sodium [Fosamax] Allergy Unknown Nausea Verified 02/05/22 23:42 doxycycline Allergy Unknown Nausea Verified 02/05/22 23:42 Iodinated Contrast Media Allergy Unknown Flushing Verified 02/22/22 07:06 latex Allergy Unknown Unknown Verified 02/22/22 07:06 hydrocodone AdvReac Mild vomiting Verified 02/22/22 07:06 Contrast Media Allergy Unknown BURNING Uncoded 02/22/22 07:06 AND RED ALL OVER Home Medications Medication Instructions Recorded Confirmed Type albuterol sulfate 90 mcg/actuation 1 inh INHALATION Q4H #8.5 g 02/04/21 02/22/22 Rx aerosol inhaler citalopram 20 mg tablet See Rx Instructions .ROUTE 02/06/22 02/22/22 Rx .COMPLEX #90 tablet albuterol sulfate [Proventil HFA] 2 puff INHALATION Q4HR PRN #8.5 g 02/13/22 02/22/22 Rx carbidopa-levodopa [Sinemet] 1 tablet PO Q8HR #90 tablet 02/13/22 02/22/22 Rx metoprolol tartrate 12.5 mg PO BID #60 tablet 02/13/22 02/22/22 Rx umeclidinium-vilanterol [Anoro 1 ea INHALATION DAILYRT 30 Days 02/13/22 02/22/22 Rx Ellipta] #60 ea fluticasone fur. 100 mcg-umeclid 1 inh INHALATION DAILY #60 each 02/14/22 02/22/22 Rx 62.5 mcg-vilant 25 mcg inhalat.powder Current Medications: Active Medications Acetaminophen (Acetaminophen 325 Mg Tablet) 650 mg PO Q4H PRN PRN Reason: Mild Pain (1-3) or Fever Albuterol (Albuterol Sulfate (*Sp) Aerosol 1 Puff) 2 puff INHALATION Q4HR PRN PRN Reason: Shortness Of Breath Aspirin (Aspirin 81 Mg Chewable Tablet) 81 mg PO DAILY@0800 NIURKA Last Admin: 02/24/22 08:39 Dose: 81 mg Documented by: Carbidopa/Levodopa (Carbidopa/Levodopa 25/100 Mg Tablet) 1 tablet PO TIDWM [facility] Last Admin: 02/24/22 08:39 Dose: 1 tablet Documented by: Citalopram Hydrobromide (Citalopram Hydrobromide 20 Mg Tablet) 20 mg PO DAILY [facility] Last Admin: 02/24/22 08:39 Dose: 20 mg Documented by: Enoxaparin Sodium (Enoxaparin 40 Mg/0.4 Ml Syringe) 40 mg SUB-Q Q24H [facility] Last Admin: 02/23/22 15:22 Dose: 40 mg Documented by: Fluticasone/Umeclidinium/Vilanterol (Fluticasone/Umeclidin/Vilanter 100-62.5-25 Mcg Ellipta) 1 puff INHALATION DAILYRT [facility] Last Admin: 02/24/22 09:09 Dose: 1 puff Documented by: Levofloxacin/Dextrose (Levaquin 250 Mg/D5w 50 Ml) 250 mg in 50 mls @ 33.333 mls/hr IVPB Q24H [facility] Last Admin: 02/23/22 18:48 Dose: 33.33 mls/hr Documented by: Cefepime HCl (Maxipime 1 Gm/D5w 50 Ml) 1 gm in 50 mls @ 100 mls/hr IVPB Q8HR [facility] Last Admin: 02/24/22 05:38 Dose: 100 mls/hr Documented by: Vancomycin HCl (Vancomycin 1,000 Mg/D5w 250 Ml) 1,000 mg in 250 mls @ 250 mls/hr IVPB Q24H [facility] Last Infusion: 02/23/22 16:23 Dose: Infused Documented by: Metoprolol Tartrate (Metoprolol Tartrate 12.5 Mg Tablet) 12.5 mg PO Q12HR [facility] Last Admin: 02/24/22 08:39 Dose: 12.5 mg Documented by: Nitroglycerin (Nitroglycerin Sl 0.4 Mg Tablet) 0.4 mg SUBLINGUAL Q5MIN PRN PRN Reason: Chest Pain Sedation/Anesthesia: No previous sedation/anesthesia problems (including family history). [facility] Past Medical History Medical History Anxiety Cancer of left breast Constipation Depression Diastolic dysfunction Echocardiogram 01/201919 grade 1 diastolic dysfunction EF 60% mild left atrial enlargement Emphysema of lung Fracture of fifth metatarsal bone of right foot with routine healing GERD (gastroesophageal reflux disease) Hypertension Lung cancer Osteoporosis, unspecified Prediabetes Vitamin D deficiency Surgical History Surgical History H/O left mastectomy
--- NOTE | 2022-02-24 10:26 | PM.PNCARD ---
Progress Note: A&P Additional Plan chronically ill 81-year-old lady with significant lung disease as described in all the notes that are in the chart. She says shortness of breath and has a small troponin rise prompting recommendation to perform an angiogram. Anticipation was do that procedure this morning but upon my review of the chart she has a allergy to iodinated contrast and has not been pretreated. angiography today therefore is imprudent. will anticipate pre treating her on Sunday night for catheterization on Sunday if she is still in the hospital alternatively if she is stable this can certainly be done as an outpatient. Will follow her through the weekend and if she remains in the hospital I will order appropriate pretreatment for angiography on Sunday Luis العلي MD [facility] Subjective Date/time seen: Date of service:02/24/22 10:26 Interval history: follow-up visit in this 81-year-old lady with: Shortness of breath with significant lung disease previous history of lung cancer resected on 2 occasions. Patient has enlarging pleural effusions as well. Troponin has been found to be elevated and my partner who saw this patient yesterday recommended angiography. Discussed procedure with the patient in detail this morning. Noticed on review of her records she is allergic to iodinated contrast and has not been pretreated prior to angiography for today. Informed the patient that procedure cannot be done safely as she has not been pretreated Exam Const: General: comfortable and no acute distress Other: elderly somewhat frail-appearing lady no distress HENMT: Mouth: Yes dry mucous membranes Eyes: Pupils: Equal, round and reactive pupils present Neck: Neck: supple and no JVD Resp: Other: rhonchorous breath sounds centrally in both lung velasquez decreased air movement no wheezing Cardio: Rate: regular rate Rhythm: regular rhythm GI: GI Palp: Yes Soft to palpation Auscultation: normal bowel sounds Skin: General skin exam: normal color Neuro: Cognition (Neuro): normal cognition Extrem: General: normal to inspection Objective Data Vital Signs Vital Signs: Vital Signs - 24 hr 02/23/22 12:00 02/23/22 14:00 02/23/22 16:00 Temperature 36.9 C 36.3 C L Pulse Rate 60 71 63 Respiratory Rate 20 18 Blood Pressure 134/50 L 138/53 L Pulse Oximetry 94 98 02/23/22 18:00 02/23/22 20:00 02/23/22 21:03 Temperature 36.7 C Pulse Rate 64 71 71 Respiratory Rate 16 Blood Pressure 111/42 L Pulse Oximetry 100 02/23/22 22:00 02/24/22 00:00 02/24/22 02:00 Temperature 37.5 C Pulse Rate 58 L 57 L 51 L Respiratory Rate 16 Blood Pressure 90/60 L Pulse Oximetry 98 02/24/22 04:00 02/24/22 05:21 02/24/22 06:00 Temperature 36.7 C Pulse Rate 60 54 L Respiratory Rate 16 Blood Pressure 124/55 L Pulse Oximetry 99 95 02/24/22 08:00 02/24/22 09:10 Temperature 36.3 C L Pulse Rate 60 Respiratory Rate 18 Blood Pressure 141/52 H Pulse Oximetry 99 99 Intake/Output Intake/Output: Intake & Output 02/21/22 02/22/22 02/23/22 02/24/22 23:59 23:59 23:59 23:59 Intake Total 1000 1490 200 Output Total 1050 600 Balance 1000 440 -400 Meds/Results Medications: Active Medications Generic Name Dose Route Start Last Admin Trade Name Freq PRN Reason Stop Dose Admin Acetaminophen 650 mg 02/22/22 14:10 Acetaminophen 325 Mg Tablet PO Q4H PRN Mild Pain (1-3) or Fever Albuterol 2 puff 02/22/22 22:34 Albuterol Sulfate (*Sp) Aerosol 1 Puff INHALATION Q4HR PRN Shortness Of Breath Aspirin 81 mg 02/23/22 08:00 02/24/22 08:39 Aspirin 81 Mg Chewable Tablet PO 81 mg DAILY@0800 NIURKA Administration Carbidopa/Levodopa 1 tablet 02/23/22 08:00 02/24/22 08:39 Carbidopa/Levodopa 25/100 Mg Tablet PO 1 tablet TIDWM NIURKA Administration Citalopram Hydrobromide 20 mg 02/23/22 09:00 02/24/22 08:39 Citalopram Hydrobromide 20 Mg Tabl
--- NOTE | 2022-02-24 12:38 | PM.PNPUL ---
Progress Note: A&P Additional Plan (1) Bilateral pleural effusion: Code(s): J90 - Pleural effusion, not elsewhere classified Status: Acute Assessment and Plan: 81-year-old female with a history of lung cancer treated twice with lung resection, history of breast cancer, Parkinson's Disease, recently hospitalized for acute respiratory failure related to COPD exacerbation/pneumonia, on home supplemental oxygen since last hospitalization presented with 1 day history of shortness of breath. Since previous office visit there has been evidence of larger pleural effusions bilaterally and some new infiltrates in the left upper lobe and right lower lobe. It is unclear whether these infiltrates are related to lower respiratory tract infection. The patient has no other symptoms such as cough fever sputum production to suggest pneumonia. Her shortness of breath could be related to ischemic cardiac event for which she is scheduled to undergo cardiac catheterization. There is no evidence of COPD exacerbation and I would not use steroids. Sputum culture, MRSA screening, and other tests for pneumonia pending. she has no symptoms to suggest lower respiratory tract infection, no leukocytosis. I would discontinue vancomycin and Cefepime at this point. Continue with Levaquin for now. (2) COPD (chronic obstructive pulmonary disease) case management patient: Code(s): J44.9 - Chronic obstructive pulmonary disease, unspecified Status: Acute (3) Pneumonia: Qualifiers: Laterality: right Lung location: unspecified part of lung Pneumonia type: due to unspecified organism Qualified Code(s): J18.9 - Pneumonia, unspecified organism Code(s): J18.9 - Pneumonia, unspecified organism Status: Acute (4) Non-STEMI (non-ST elevated myocardial infarction): Code(s): I21.4 - Non-ST elevation (NSTEMI) myocardial infarction Status: Acute (5) Personal history of malignant neoplasm of breast: Code(s): Z85.3 - Personal history of malignant neoplasm of breast Status: Resolved (6) Personal history of malignant neoplasm of bronchus and lung: Code(s): Z85.118 - Personal history of other malignant neoplasm of bronchus and lung Status: Resolved Subjective Date/time seen: 02/24/22 12:38 Patient has no new respiratory symptoms. She has no cough sputum production fever chills hemoptysis. Shortness of breath better over the last couple of days. She is still on antibiotics for possible healthcare associated pneumonia. Review of Systems Review of Systems: All systems reviewed & are unremarkable except as noted in HPI and below Exam Narrative: GENERAL APPEARANCE: Well developed, well nourished, alert and cooperative, and appears to be in no acute distress While on supplemental oxygen SKIN: Inspection of the skin reveals no rashes, ulcerations or petechiae. HEENT: Sclerae anicteric and conjunctivae pink and moist. Extraocular movements were intact and pupils were equal. The oral mucosa, hard and soft palate, tongue and posterior pharynx were normal. NECK: Supple. There was no thyroid enlargement, and no tenderness, or masses were felt. CHEST: increased AP diameter and marked kyphosis LUNGS: Auscultation of the lungs revealed distant breath sounds no wheezing CARDIAC: There was a regular rate and rhythm without any murmurs. ABDOMEN: Soft and nontender with normal bowel sounds. There was no organomegaly. LYMPH NODES: No lymphadenopathy was appreciated in the neck. EXTREMITIES: No cyanosis, clubbing or edema. NEUROLOGIC: Alert and oriented x 3. Normal affect. Objective Data Vital Signs Vital Signs: Vital Signs - 24 hr 02/23/22 14:00 02/23/22 16:00 02/23/22 18:00 Temperature 36.3 C L Pulse Rate 71 63 64 Respiratory Rate 18 Blood Pressure 138/53 L Pulse Oximetry 98 02/23/22 20:00 02/23/22 21:03 02/23/22 22:00 Temperature 36.7 C Pulse Rate 71 71 58 L Respiratory Rate 16
--- NOTE | 2022-02-24 14:03 | PCCCNOTE ---
On 02/24/22, the student, [Micki Ibarra], provided care and completed [facility] documentation on this patient. I have reviewed the student's documentation and agree with the findings.
[2022-02-24] MEDS: ENOXAPARIN 40 MG/0.4 ML SYRINGE SUB-Q (15:36)
--- NOTE | 2022-02-24 16:42 | PM.IMPN ---
Progress Note: A&P Assessment and Plan (1) D-dimer, elevated: Code(s): R79.89 - Other specified abnormal findings of blood chemistry Status: Acute Assessment and Plan: patient had a V/Q scan that did show perfusion defect, but she previously had a V/Q scan that showed perfusion defect and CTA was negative. Patient has been premedicated for her dye allergy of flushing and she underwent CTA which came back negative for PE. She did have peripheral airspace opacities in right upper and lower lobes and lingula consistent with pneumonia. Associated small pleural effusions. Received full-dose Lovenox. Initial troponin was also negative however the 2nd set came back elevated Possible non ST-elevation [place] planned for cardiac catheterization (2) Elevated troponin: Code(s): R77.8 - Other specified abnormalities of plasma proteins Status: Acute Assessment and Plan: Patient's initial troponin was negative and her 2nd troponin is elevated. There is no EKG changes. Patient did have an episode of chest heaviness while in the emergency room that has resolved. Patient was given 1 full dose of Lovenox. Cardiology consulted Patient did have an echo Doppler when she was here last month that showed left atrial enlargement, ejection fraction 65-70%, with grade 2 left ventricular diastolic dysfunction. (3) Anxiety: Code(s): F41.9 - Anxiety disorder, unspecified Status: Acute Assessment and Plan: Resume home medication (4) Parkinsonian features: Code(s): R25.9 - Unspecified abnormal involuntary movements Status: Acute Assessment and Plan: Resume home medication (5) Non-STEMI (non-ST elevated myocardial infarction): Code(s): I21.4 - Non-ST elevation (NSTEMI) myocardial infarction Status: Acute Assessment and Plan: Cardiology has been consulted and plan for cardiac catheterization Echo with EF 65-70% with grade 2 diastolic dysfunction [id number] MR moderate pulmonary hypertension 02/09/2022 (6) Pneumonia: Qualifiers: Laterality: right Lung location: unspecified part of lung Pneumonia type: due to unspecified organism Qualified Code(s): J18.9 - Pneumonia, unspecified organism Code(s): J18.9 - Pneumonia, unspecified organism Status: Acute Assessment and Plan: With associated effusion noted which is worsened from previous. She was treated recently with Levaquin. Persistent pneumonia noted. Consult to Pulmonary. MRSA screen. Increase antibiotic coverage with vancomycin and cefepime. Pulmonary consultation. Appreciated recommendation (7) Subcutaneous mass: Code(s): R22.9 - Localized swelling, mass and lump, unspecified Status: Acute Assessment and Plan: 2.2 cm subcutaneous left anterior chest wall. This is hard lump monitor chest wall likely need to be biopsied at [facility]. She was scheduled to see Dr. Handy for this. Will await further testing on heart before we proceed. Likely needs to reschedule for excisional biopsy of this lump (8) Bacteremia: Code(s): R78.81 - Bacteremia Status: Acute Assessment and Plan: 102 with Gram-positive cocci in clusters detected 02/23/2022 Identified as Staph Enterococcus hominis. Second set remains negative Likely a contaminant Subjective Date/time seen: 02/24/22 16:42 Interval history: HPI: Ms. Trejo is an 81-year-old female who presented emergency room [facility] complaints of shortness of breath. patient has a Life Alert button and she woke up this morning feeling short of breath and pushed her Life Alert button. EMS arrived and found the patient oxygen saturation was 96% on 2 L per nasal cannula. Patient was recently hospitalized and discharged on oxygen at 2 L per nasal cannula. At this point time patient has been given Ativan emergency room so it is difficult to get some history from patient because she is lethargic. Patient's daug
[2022-02-24] MEDS: levoFLOXacin 250 MG/D5W 50 ML 250 MG/50 ML BAG 33.33 MG IVPB (17:19)
[2022-02-25] VITALS (17 sets, daily range): BP systolic 131–179; BP diastolic 50–90; PULSE 53–69; RESP 16–18; TEMP 36.1–36.8; O2SAT 16–97
[2022-02-25 04:52] LABS: Basophils Percent Auto 0.6 % (0.2-1.2); Eosinophils Absolute Auto 0.1 K/mm3 (0-0.3); Eosinophils Percent Auto 1.7 % (0-4.4); Hematocrit 32.3 % (37.0-47.0); Hemoglobin 10.4 g/dL (12.0-15.0); Immature Granulocyte Absolute 0.02 K/mm3 (0.00-0.031); Immature Granulocyte Percent A 0.4 % (0-0.5); Lymphocytes Absolute Auto 1.16 K/mm3 (0.9-3.2); Lymphocytes Percent Auto 24.2 % (18.3-44.2); Mean Corpuscular HGB Conc 32.2 g/dl (32-36); Mean Corpuscular Hemoglobin 31.9 pg (26-34); Mean Corpuscular Volume 99.1 fl (80-100); Mean Platelet Volume 10.4 fl (7.4-10.4); Monocytes Absolute Auto 0.7 K/mm3 (0.1-0.6); Monocytes Percent Auto 15.2 % (2.6-8.5); Neutrophils Absolute Auto 2.8 K/mm3 (1.3-6.7); Neutrophils Percent Auto 57.9 % (45.5-73.1); Platelet Count Result 306 k/mm3 (150-375); Red Blood Count 3.26 M/mm3 (4.2-5.4); Red Cell Distribution Width 12.9 % (11.5-14.5); White Blood Count 4.8 K/mm3 (4.5-10.0)
[2022-02-25 05:02] LABS: Alanine Aminotransferase 9 U/L (6-35); Albumin Level 2.8 g/dL (3.5-5.1); Alkaline Phosphatase 40 U/L (38-126); Anion Gap 2 mmol/L (8-16); Aspartate Amino Transferase 23 U/L (14-36); Bilirubin,Total 0.7 mg/dL (0.2-1.3); Blood Urea Nitrogen 14 mg/dL (7-17); Calcium 8.4 mg/dL (8.4-10.2); Carbon Dioxide 30 mmol/L (22-30); Chloride 104 mmol/L (98-107); Estimated CRCL calculation 41 ml/min; Estimated Glomerular Filt Rate 60; Glucose 92 mg/dL (65-110); Magnesium 1.9 mg/dL (1.6-2.3); Potassium 3.8 mmol/L (3.4-5.0); Sodium 136 mmol/L (137-145)
[2022-02-25] MEDS: METOPROLOL TARTRATE 12.5 MG TABLET PO ×2 (08:23→19:52)
[2022-02-25] MEDS: CITALOPRAM HYDROBROMIDE 20 MG TABLET PO (08:23)
[2022-02-25] MEDS: CARBIDOPA/LEVODOPA 25/100 MG TABLET 1 TABLET PO ×3 (08:23→17:01)
[2022-02-25] MEDS: ASPIRIN 81 MG CHEWABLE TABLET PO (08:23)
[2022-02-25] MEDS: FLUTICASONE/UMECLIDIN/VILANTER 100-62.5-25 MCG ELLIPTA 1 PUFF INHALATION (08:44)
--- NOTE | 2022-02-25 10:59 | PM.PNPUL ---
Progress Note: A&P Additional Plan (1) Bilateral pleural effusion: Code(s): J90 - Pleural effusion, not elsewhere classified Status: Acute Assessment and Plan: 81-year-old female with history of lung cancer treated twice with lung resection, history of breast cancer, Parkinson's Disease, recently hospitalized for acute respiratory failure related to COPD exacerbation/pneumonia, on home supplemental oxygen since last hospitalization presented with 1 day history of shortness of breath. Since previous office visit there has been evidence of larger pleural effusions bilaterally and some new infiltrates in the left upper lobe and right lower lobe. It is unclear whether these infiltrates are related to lower respiratory tract infection. The patient has no other symptoms such as cough fever sputum production to suggest pneumonia. Her shortness of breath could be related to ischemic cardiac event for which she is scheduled to undergo cardiac catheterization. There is no evidence of COPD exacerbation and I would not use steroids. Sputum culture, MRSA screening, and other tests for pneumonia pending. she has no symptoms to suggest lower respiratory tract infection, no leukocytosis. Continue with Levaquin for now. Chest x-ray two view in a.m. (2) COPD (chronic obstructive pulmonary disease) case management patient: Code(s): J44.9 - Chronic obstructive pulmonary disease, unspecified Status: Acute (3) Pneumonia: Qualifiers: Laterality: right Lung location: unspecified part of lung Pneumonia type: due to unspecified organism Qualified Code(s): J18.9 - Pneumonia, unspecified organism Code(s): J18.9 - Pneumonia, unspecified organism Status: Acute (4) Non-STEMI (non-ST elevated myocardial infarction): Code(s): I21.4 - Non-ST elevation (NSTEMI) myocardial infarction Status: Acute (5) Personal history of malignant neoplasm of breast: Code(s): Z85.3 - Personal history of malignant neoplasm of breast Status: Resolved (6) Personal history of malignant neoplasm of bronchus and lung: Code(s): Z85.118 - Personal history of other malignant neoplasm of bronchus and lung Status: Resolved Subjective Date/time seen: 02/25/22 10:59 Patient has no new respiratory symptoms. She has no cough sputum production. Shortness of breath less than before. Oxygen flow down to 1 liter/minute Review of Systems Review of Systems: All systems reviewed & are unremarkable except as noted in HPI and below Exam Narrative: GENERAL APPEARANCE: Well developed, well nourished, alert and cooperative, and appears to be in no acute distress While on supplemental oxygen SKIN: Inspection of the skin reveals no rashes, ulcerations or petechiae. HEENT: Sclerae anicteric and conjunctivae pink and moist. Extraocular movements were intact and pupils were equal. The oral mucosa, hard and soft palate, tongue and posterior pharynx were normal. NECK: Supple. There was no thyroid enlargement, and no tenderness, or masses were felt. CHEST: increased AP diameter and marked kyphosis LUNGS: Auscultation of the lungs revealed distant breath sounds no wheezing CARDIAC: There was a regular rate and rhythm without any murmurs. ABDOMEN: Soft and nontender with normal bowel sounds. There was no organomegaly. LYMPH NODES: No lymphadenopathy was appreciated in the neck. EXTREMITIES: No cyanosis, clubbing or edema. NEUROLOGIC: Alert and oriented x 3. Normal affect. Objective Data Vital Signs Vital Signs: Vital Signs - 24 hr 02/24/22 12:00 02/24/22 14:00 02/24/22 16:00 Temperature 36.8 C 36.6 C Pulse Rate 65 81 74 Respiratory Rate 18 18 Blood Pressure 152/86 H 143/84 H Pulse Oximetry 97 96 02/24/22 18:00 02/24/22 20:00 02/24/22 20:47 Temperature 36.5 C Pulse Rate 67 55 L 55 L Respiratory Rate 20 Blood Pressure 109/52 L Pulse Oximetry 98 02/24/22 21:46 02/24/22 22:00 02/24/22
--- NOTE | 2022-02-25 11:00 | PM.PNCARD ---
Progress Note: A&P Additional Plan 81-year-old lady with: Significant chronic lung disease with history of refer to resection operations for lung cancer in the past. She does have a left pleural effusion as well that I think is enlarging somewhat on chest x-ray. My partner who saw her in consultation on recommended catheterization which I can certainly perform once she has been appropriately pretreated. Luis العلي MD [facility] Subjective Date/time seen: 02/25/22 11:00 Interval history: follow-up visit in this 81-year-old lady with: Shortness of breath with significant lung disease previous history of lung cancer resected on 2 occasions. Patient has enlarging pleural effusions as well. Troponin has been found to be elevated and my partner who saw this patient yesterday recommended angiography. Discussed procedure with the patient in detail this morning. Noticed on review of her records she is allergic to iodinated contrast and has not been pretreated prior to angiography for today. Informed the patient that procedure cannot be done safely as she has not been pretreated Date of service 02/25/2022: Patient continues to do well she is asymptomatic this morning. She understands the reason to delay her angiogram to allow for pretreatment of her contrast allergy. Seems evident that the decision has been made to keep her in the hospital rather than perform an angiogram as an outpatient. I will anticipate doing that on Sunday as I have mentioned in my note yesterday Exam Const: General: cooperative, comfortable, no acute distress, alert and awake Nutritional Appearance: well nourished Orientation/consciousness: patient oriented x3 Other: elderly somewhat frail-appearing lady no distress HENMT: Head: normal to inspection, normocephalic and atraumatic Ears: hearing grossly normal bilaterally General nose exam: Normal external nose present, Normal nares present and no nasal discharge noted Face and sinus: normal facial exam and no erythema Mouth: Yes dry mucous membranes, No drooling and No restricted motion Throat: uvula midline Eyes: General: appearance normal, both eyes and all related structures Alignment and Position: position normal Conjunctivae: conjunctivae normal Sclera: sclerae normal Pupils: Equal, round and reactive pupils present Direct Ophthalmoscopy: No photophobia Neck: Neck: normal visual inspection, supple and no JVD Thyroid: thyroid normal Carotids: no bruits Lymphatic: lymphedema not noted Chest: Chest palpation & inspection: normal inspection of the chest and no tenderness Resp: Effort & Inspection: normal respiratory effort and no nasal flaring Auscultation: clear to auscultation bilaterally, no crackles, no rales and no wheezes Other: rhonchorous breath sounds centrally in both lung velasquez decreased air movement no wheezing Cardio: Jugular venous distension: no JVD Rate: regular rate Rhythm: regular rhythm Heart sounds: S1 normal heart sound present, S2 normal heart sound present, no gallops, no murmurs and no rubs GI: Inspection: non-distended Auscultation: normal bowel sounds Rectal Exam: deferred : General: No no CVA tenderness Back/Spine/Pelvis: Back: No no CVA tenderness Cervical Spine: cervical ROM normal Skin: General skin exam: normal color and rashes and/or lesions noted Neuro: General: patient oriented x3 Cranial nerves: No CN's II-XII intact bilaterally and Yes Equal, round and reactive pupils present Cognition (Neuro): normal cognition Speech: normal speech Motor exam (neuro): no tremors Extrem: General: normal to inspection and pedal edema present Psych: Appearance: grossly normal and well kempt Speech and movement: Normal speech and movement present Affect: normal affect Objective Data Vital Signs Vital Signs: Vital Signs - 24 hr 02/24/22 12:00 02/24/22 14:00 02/24/22 16:00 Temperature 36.8 C 36.6 C Pulse Rate 65 81 74 Respiratory Rate
--- NOTE | 2022-02-25 11:49 | PM.IMPN ---
Progress Note: A&P Assessment and Plan (1) D-dimer, elevated: Code(s): R79.89 - Other specified abnormal findings of blood chemistry Status: Acute Assessment and Plan: patient had a V/Q scan that did show perfusion defect, but she previously had a V/Q scan that showed perfusion defect and CTA was negative. Patient has been premedicated for her dye allergy of flushing and she underwent CTA which came back negative for PE. She did have peripheral airspace opacities in right upper and lower lobes and lingula consistent with pneumonia. Associated small pleural effusions. Received full-dose Lovenox. Initial troponin was also negative however the 2nd set came back elevated Possible non ST-elevation [place] planned for cardiac catheterization (2) Elevated troponin: Code(s): R77.8 - Other specified abnormalities of plasma proteins Status: Acute Assessment and Plan: Patient's initial troponin was negative and her 2nd troponin is elevated. There is no EKG changes. Patient did have an episode of chest heaviness while in the emergency room that has resolved. Patient was given 1 full dose of Lovenox. Cardiology consulted Patient did have an echo Doppler when she was here last month that showed left atrial enlargement, ejection fraction 65-70%, with grade 2 left ventricular diastolic dysfunction. (3) Anxiety: Code(s): F41.9 - Anxiety disorder, unspecified Status: Acute Assessment and Plan: Resume home medication (4) Parkinsonian features: Code(s): R25.9 - Unspecified abnormal involuntary movements Status: Acute Assessment and Plan: Resume home medication (5) Non-STEMI (non-ST elevated myocardial infarction): Code(s): I21.4 - Non-ST elevation (NSTEMI) myocardial infarction Status: Acute Assessment and Plan: Cardiology has been consulted and plan for cardiac catheterization Echo with EF 65-70% with grade 2 diastolic dysfunction [id number] MR moderate pulmonary hypertension 02/09/2022 (6) Pneumonia: Qualifiers: Laterality: right Lung location: unspecified part of lung Pneumonia type: due to unspecified organism Qualified Code(s): J18.9 - Pneumonia, unspecified organism Code(s): J18.9 - Pneumonia, unspecified organism Status: Acute Assessment and Plan: With associated effusion noted which is worsened from previous. She was treated recently with Levaquin. Persistent pneumonia noted. Consult to Pulmonary. MRSA screen. Increase antibiotic coverage with vancomycin and cefepime. Pulmonary consultation. Appreciated recommendation (7) Subcutaneous mass: Code(s): R22.9 - Localized swelling, mass and lump, unspecified Status: Acute Assessment and Plan: 2.2 cm subcutaneous left anterior chest wall. This is hard lump monitor chest wall likely need to be biopsied at [facility]. She was scheduled to see Dr. Handy for this. Will await further testing on heart before we proceed. Likely needs to reschedule for excisional biopsy of this lump (8) Bacteremia: Code(s): R78.81 - Bacteremia Status: Acute Assessment and Plan: 102 with Gram-positive cocci in clusters detected 02/23/2022 Identified as Staph Enterococcus hominis. Second set remains negative Likely a contaminant Subjective Date/time seen: 02/25/22 11:49 Interval history: HPI: Ms. Trejo is an 81-year-old female who presented emergency room [facility]with complaints of shortness of breath. patient has a Life Alert button and she woke up this morning feeling short of breath and pushed her Life Alert button. EMS arrived and found the patient oxygen saturation was 96% on 2 L per nasal cannula. Patient was recently hospitalized and discharged on oxygen at 2 L per nasal cannula. At this point time patient has been given Ativan emergency room so it is difficult to get some history from patient because she is lethargic. Patient's daug
[2022-02-25] MEDS: ENOXAPARIN 40 MG/0.4 ML SYRINGE SUB-Q (14:57)
[2022-02-25] MEDS: levoFLOXacin 250 MG/D5W 50 ML 250 MG/50 ML BAG 33.33 MG IVPB (16:56)
[2022-02-26] VITALS (13 sets, daily range): BP systolic 122–137; BP diastolic 58–63; PULSE 48–98; RESP 12–18; TEMP 36.2–37.1; O2SAT 94–100
[2022-02-26] MEDS: FLUTICASONE/UMECLIDIN/VILANTER 100-62.5-25 MCG ELLIPTA 1 PUFF INHALATION ×2 (07:51→11:07)
[2022-02-26] MEDS: CITALOPRAM HYDROBROMIDE 20 MG TABLET PO (08:16)
[2022-02-26] MEDS: METOPROLOL TARTRATE 12.5 MG TABLET PO ×2 (08:16→21:16)
[2022-02-26] MEDS: CARBIDOPA/LEVODOPA 25/100 MG TABLET 1 TABLET PO ×3 (08:16→17:50)
[2022-02-26] MEDS: ASPIRIN 81 MG CHEWABLE TABLET PO (08:17)
--- NOTE | 2022-02-26 08:58 | PM.PNCARD ---
Progress Note: A&P Additional Plan 81-year-old lady with chronic lung disease as mentioned in previous notes and atypical symptoms but with elevated troponin. Angiography recommended by my partner who saw her in consultation. I just finished ordering appropriate premedication for tomorrow morning's procedure. Further recommendations of course will be forthcoming those results Luis العلي MD [facility] Subjective Date/time seen: Date of service: 02/26/22 08:58 Interval history: follow-up visit in this 81-year-old lady with: Shortness of breath with significant lung disease previous history of lung cancer resected on 2 occasions. Patient has enlarging pleural effusions as well. Troponin has been found to be elevated and my partner who saw this patient yesterday recommended angiography. Discussed procedure with the patient in detail this morning. Noticed on review of her records she is allergic to iodinated contrast and has not been pretreated prior to angiography for today. Informed the patient that procedure cannot be done safely as she has not been pretreated Date of service 02/25/2022: Patient continues to do well she is asymptomatic this morning. She understands the reason to delay her angiogram to allow for pretreatment of her contrast allergy. Seems evident that the decision has been made to keep her in the hospital rather than perform an angiogram as an outpatient. I will anticipate doing that on Sunday as I have mentioned in my note yesterday Date of service 02/26/2022: Patient is asymptomatic feels well somewhat anxious about angiogram scheduled for tomorrow morning discussed in detail. Reassured patient we will provide sedation/anxiolytic medication during the procedure Exam Const: General: cooperative, comfortable, no acute distress, alert and awake Nutritional Appearance: well nourished Orientation/consciousness: patient oriented x3 Other: elderly somewhat frail-appearing lady no distress HENMT: Head: normal to inspection, normocephalic and atraumatic Ears: hearing grossly normal bilaterally General nose exam: Normal external nose present, Normal nares present and no nasal discharge noted Face and sinus: normal facial exam and no erythema Mouth: Yes dry mucous membranes, No drooling and No restricted motion Throat: uvula midline Eyes: General: appearance normal, both eyes and all related structures Alignment and Position: position normal Conjunctivae: conjunctivae normal Sclera: sclerae normal Pupils: Equal, round and reactive pupils present Direct Ophthalmoscopy: No photophobia Neck: Neck: normal visual inspection, supple and no JVD Thyroid: thyroid normal Carotids: no bruits Lymphatic: lymphedema not noted Chest: Chest palpation & inspection: normal inspection of the chest and no tenderness Resp: Effort & Inspection: normal respiratory effort and no nasal flaring Auscultation: clear to auscultation bilaterally, no crackles, no rales and no wheezes Other: rhonchorous breath sounds centrally in both lung velasquez decreased air movement no wheezing Cardio: Jugular venous distension: no JVD Rate: regular rate Rhythm: regular rhythm Heart sounds: S1 normal heart sound present, S2 normal heart sound present, no gallops, no murmurs and no rubs GI: Inspection: non-distended Auscultation: normal bowel sounds Rectal Exam: deferred : General: No no CVA tenderness Back/Spine/Pelvis: Back: No no CVA tenderness Cervical Spine: cervical ROM normal Skin: General skin exam: normal color and rashes and/or lesions noted Neuro: General: patient oriented x3 Cranial nerves: No CN's II-XII intact bilaterally and Yes Equal, round and reactive pupils present Cognition (Neuro): normal cognition Speech: normal speech Motor exam (neuro): no tremors Extrem: General: normal to inspection and pedal edema present Psych: Appearance: grossly normal and well kempt Speech and movement: Normal speech and moveme
--- NOTE | 2022-02-26 10:59 | PM.IMPN ---
Progress Note: A&P Assessment and Plan (1) D-dimer, elevated: Code(s): R79.89 - Other specified abnormal findings of blood chemistry Status: Acute Assessment and Plan: patient had a V/Q scan that did show perfusion defect, but she previously had a V/Q scan that showed perfusion defect and CTA was negative. Patient has been premedicated for her dye allergy of flushing and she underwent CTA which came back negative for PE. She did have peripheral airspace opacities in right upper and lower lobes and lingula consistent with pneumonia. Associated small pleural effusions. Received full-dose Lovenox. Initial troponin was also negative however the 2nd set came back elevated Possible non ST-elevation PA planned for cardiac catheterization (2) Elevated troponin: Code(s): R77.8 - Other specified abnormalities of plasma proteins Status: Acute Assessment and Plan: Patient's initial troponin was negative and her 2nd troponin is elevated. There is no EKG changes. Patient did have an episode of chest heaviness while in the emergency room that has resolved. Patient was given 1 full dose of Lovenox. Cardiology consulted Patient did have an echo Doppler when she was here last month that showed left atrial enlargement, ejection fraction 65-70%, with grade 2 left ventricular diastolic dysfunction. (3) Anxiety: Code(s): F41.9 - Anxiety disorder, unspecified Status: Acute Assessment and Plan: Resume home medication (4) Parkinsonian features: Code(s): R25.9 - Unspecified abnormal involuntary movements Status: Acute Assessment and Plan: Resume home medication (5) Non-STEMI (non-ST elevated myocardial infarction): Code(s): I21.4 - Non-ST elevation (NSTEMI) myocardial infarction Status: Acute Assessment and Plan: Cardiology has been consulted and plan for cardiac catheterization Echo with EF 65-70% with grade 2 diastolic dysfunction [id number] MR moderate pulmonary hypertension 02/09/2022 Plan for heart catheterization in a.m. (6) Pneumonia: Qualifiers: Laterality: right Lung location: unspecified part of lung Pneumonia type: due to unspecified organism Qualified Code(s): J18.9 - Pneumonia, unspecified organism Code(s): J18.9 - Pneumonia, unspecified organism Status: Acute Assessment and Plan: With associated effusion noted which is worsened from previous. She was treated recently with Levaquin. Persistent pneumonia noted. Consult to Pulmonary. MRSA screen. Increase antibiotic coverage with vancomycin and cefepime. Pulmonary consultation. Appreciated recommendation Chest x-ray today with interval decrease in diffusion bilaterally (7) Subcutaneous mass: Code(s): R22.9 - Localized swelling, mass and lump, unspecified Status: Acute Assessment and Plan: 2.2 cm subcutaneous left anterior chest wall. This is hard lump monitor chest wall likely need to be biopsied at [facility]. She was scheduled to see Dr. Handy for this. Will await further testing on heart before we proceed. Likely needs to reschedule for excisional biopsy of this lump (8) Bacteremia: Code(s): R78.81 - Bacteremia Status: Acute Assessment and Plan: 102 with Gram-positive cocci in clusters detected 02/23/2022 Identified as Staph Enterococcus hominis. Second set remains negative Likely a contaminant Subjective Date/time seen: 02/26/22 10:59 Interval history: HPI: Ms. Trejo is an 81-year-old female who presented emergency [facility] complaints of shortness of breath. patient has a Life Alert button and she woke up this morning feeling short of breath and pushed her Life Alert button. EMS arrived and found the patient oxygen saturation was 96% on 2 L per nasal cannula. Patient was recently hospitalized and discharged on oxygen at 2 L per nasal cannula. At this point time patient has been given Ativan pilo
[2022-02-26] MEDS: ENOXAPARIN 40 MG/0.4 ML SYRINGE SUB-Q (14:12)
[2022-02-26] MEDS: levoFLOXacin 250 MG/D5W 50 ML 250 MG/50 ML BAG 33.33 MG IVPB (17:50)
[2022-02-26] MEDS: ALPRAZolam (*CRX) 0.25 MG TABLET PO (21:17)
[2022-02-26] MEDS: predniSONE 20 MG TABLET 40 MG PO (21:17)
[2022-02-27] VITALS (27 sets, daily range): BP systolic 102–149; BP diastolic 53–69; PULSE 48–76; RESP 16–18; TEMP 35.9–36.6; O2SAT 94–100
[2022-02-27 06:04] LABS: Estimated CRCL calculation 52 ml/min; Estimated Glomerular Filt Rate > 60
[2022-02-27] MEDS: CARBIDOPA/LEVODOPA 25/100 MG TABLET 1 TABLET PO ×3 (08:10→17:45)
[2022-02-27] MEDS: ASPIRIN 81 MG CHEWABLE TABLET PO (08:10)
[2022-02-27] MEDS: predniSONE 20 MG TABLET 40 MG PO (08:10)
[2022-02-27] MEDS: CITALOPRAM HYDROBROMIDE 20 MG TABLET PO (08:10)
[2022-02-27] MEDS: METOPROLOL TARTRATE 12.5 MG TABLET PO ×2 (08:10→21:30)
[2022-02-27] MEDS: FLUTICASONE/UMECLIDIN/VILANTER 100-62.5-25 MCG ELLIPTA 1 PUFF INHALATION (08:29)
[2022-02-27] MEDS: diphenhydrAMINE HCl CAP 25 MG CAPSULE 50 MG PO (08:49)
--- NOTE | 2022-02-27 10:07 | WPDMODSED ---
Moderate Sedation Note-Pt Data Patient Data Diagnosis: exertional dyspnea in patient with chronic lung disease elevated troponin Present Complaint: exertional dyspnea Procedure to be performed/Plan: left heart catheterization Allergies Allergy/AdvReac Type Severity Reaction Status Date / Time adhesive Allergy Unknown Unknown Verified 02/22/22 07:06 alendronate sodium [Fosamax] Allergy Unknown Nausea Verified 02/05/22 23:42 doxycycline Allergy Unknown Nausea Verified 02/05/22 23:42 Iodinated Contrast Media Allergy Unknown Flushing Verified 02/22/22 07:06 latex Allergy Unknown Unknown Verified 02/22/22 07:06 hydrocodone AdvReac Mild vomiting Verified 02/22/22 07:06 Contrast Media Allergy Unknown BURNING Uncoded 02/22/22 07:06 AND RED ALL OVER Home Medications Medication Instructions Recorded Confirmed Type albuterol sulfate 90 mcg/actuation 1 inh INHALATION Q4H #8.5 g 02/04/21 02/22/22 Rx aerosol inhaler citalopram 20 mg tablet See Rx Instructions .ROUTE 02/06/22 02/22/22 Rx .COMPLEX #90 tablet albuterol sulfate [Proventil HFA] 2 puff INHALATION Q4HR PRN #8.5 g 02/13/22 02/22/22 Rx carbidopa-levodopa [Sinemet] 1 tablet PO Q8HR #90 tablet 02/13/22 02/22/22 Rx metoprolol tartrate 12.5 mg PO BID #60 tablet 02/13/22 02/22/22 Rx umeclidinium-vilanterol [Anoro 1 ea INHALATION DAILYRT 30 Days 02/13/22 02/22/22 Rx Ellipta] #60 ea fluticasone fur. 100 mcg-umeclid 1 inh INHALATION DAILY #60 each 02/14/22 02/22/22 Rx 62.5 mcg-vilant 25 mcg inhalat.powder Current Medications: Active Medications Acetaminophen (Acetaminophen 325 Mg Tablet) 650 mg PO Q4H PRN PRN Reason: Mild Pain (1-3) or Fever Albuterol (Albuterol Sulfate (*Sp) Aerosol 1 Puff) 2 puff INHALATION Q4HR PRN PRN Reason: Shortness Of Breath Aspirin (Aspirin 81 Mg Chewable Tablet) 81 mg PO DAILY@0800 NIURKA Last Admin: 02/27/22 08:10 Dose: 81 mg Documented by: Carbidopa/Levodopa (Carbidopa/Levodopa 25/100 Mg Tablet) 1 tablet PO [facility] Last Admin: 02/27/22 08:10 Dose: 1 tablet Documented by: Citalopram Hydrobromide (Citalopram Hydrobromide 20 Mg Tablet) 20 mg PO DAILY [facility] Last Admin: 02/27/22 08:10 Dose: 20 mg Documented by: Enoxaparin Sodium (Enoxaparin 40 Mg/0.4 Ml Syringe) 40 mg SUB-Q Q24H [facility] Last Admin: 02/26/22 14:12 Dose: 40 mg Documented by: Fluticasone/Umeclidinium/Vilanterol (Fluticasone/Umeclidin/Vilanter 100-62.5-25 Mcg Ellipta) 1 puff INHALATION DAILYRT [facility] Last Admin: 02/27/22 08:29 Dose: 1 puff Documented by: Levofloxacin/Dextrose (Levaquin 250 Mg/D5w 50 Ml) 250 mg in 50 mls @ 33.333 mls/hr IVPB Q24H [facility] Last Infusion: 02/26/22 19:54 Dose: Infused Documented by: Metoprolol Tartrate (Metoprolol Tartrate 12.5 Mg Tablet) 12.5 mg PO Q12HR [facility] Last Admin: 02/27/22 08:10 Dose: 12.5 mg Documented by: Nitroglycerin (Nitroglycerin Sl 0.4 Mg Tablet) 0.4 mg SUBLINGUAL Q5MIN PRN PRN Reason: Chest Pain Sedation/Anesthesia: No previous sedation/anesthesia problems (including family history). [facility] Past Medical History Medical History Anxiety Cancer of left breast Constipation Depression Diastolic dysfunction Echocardiogram 01/201919 grade 1 diastolic dysfunction EF 60% mild left atrial enlargement Emphysema of lung Fracture of fifth metatarsal bone of right foot with routine healing GERD (gastroesophageal reflux disease) Hypertension Lung cancer Osteoporosis, unspecified Prediabetes Vitamin D deficiency Surgical History Surgical History H/O left mastectomy (~2009) DCIS H/O: hysterectomy (~1994) Due to dysfunctional uterine bleeding History of carpal tunnel release History of carpal tunnel surgery of left wrist History of lobectomy of lung Right upper lobe 1994, left lower lung partial lobectomy 2006 History of right mastectomy (~2012) Family History Family History (Reviewed 02/23/22
--- NOTE | 2022-02-27 10:29 | PC.NURSE ---
Pt to lab engineer via stretcher.
--- NOTE | 2022-02-27 11:08 | P.PCNCC_ITS ---
Cardiac Cath Procedure Note Date of procedure:: 02/27/22 Performing physician:: Luis العلي MD Indication:: elevated troponin shortness of breath chronic lung disease history of lung cancer Brief clinical history:: this is an 81-year-old woman who presented the hospital with increasing shortness of breath. She is known to have chronic lung disease and 2 previous lung cancer operations. Troponin level was sampled which was mildly elevated raising concern about the possibility of coronary disease. She is not reporting any typical anginal-type symptoms. Procedure Procedure performed:: Left ventriculogram coronary angiogram Angio-Seal to right femoral artery Sedation/Medication given:: fentanyl 25 mg Versed 2 mg case start time 10:45 a.m. case end time 10:59 a.m. Access site:: right femoral artery Estimated blood loss:: 20 cc Procedure note:: patient was brought to the cardiac catheterization lab in the postabsorptive state where the right femoral triangle was prepared in fashion. Anesthesia was provided with 1% lidocaine infiltrated locally. Using the modified Seldinger technique a 5 Salvadorean sheath was placed into the right femoral artery after this left heart catheterization was carried out. A 5 Salvadorean angled pigtail catheter was used to measure left-sided hemodynamics and to inject LV g in the our AO projection. Following this pullback pressures were documented across the aortic valve and the pigtail catheter was removed. A 5 Salvadorean FL4 catheter was used to engage and inject the left coronary artery in multiple projections following this a 5 Salvadorean JR4 catheter was used to engage and inject the right coronary artery. The cineangiograms were reviewed and the case was terminated. An angiogram was done of the femoral artery through the sheath after which a 6 Salvadorean Angio-Seal device was deployed to provide hemostasis. Patient tolerated procedure well there were no apparent complications she left the laboratory mechanical technician with no evidence of groin hematoma. Findings:: Hemodynamics: Central aortic pressure is 148 over 58 left ventricle 146 over is 0 end-diastolic pressure 10 there is no gradient on pullback across the aortic valve. Left ventricle: The LV is normal in size all segments contract vigorously the global ejection fraction is 65-70%. There is moderate calcification of the mitral valve annulus but no MR the left main coronary artery is nicely patent the left anterior descending is a medium caliber artery extending down to the apex. The proximal segment of the LAD is moderately calcified. There are no LAD lesions however the vessel is nicely patent with ROSE MARIE 3 flow. the circumflex is a moderate caliber artery which appears to be dominant to the posterior circulation the circumflex system gives rise to the marginal branches posterior branches and a left PDA. The circumflex is smooth and angiographically free of disease. The right coronary artery is small and non dominant providing 2 RV branches it is angiographically also non diseased. Conclusion:: 1. Left coronary dominant circulation with no evidence of coronary disease 2. vigorous left ventricular systolic contractility Luis العلي MD [facility]
--- NOTE | 2022-02-27 11:42 | SUR.PHASEII ---
report called to shailesh luna rn
--- NOTE | 2022-02-27 12:17 | PC.NURSE ---
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
[2022-02-27] MEDS: SODIUM CHLORIDE 0.9% IV 1,000 ML 125 ML IV CONT (14:12)
--- NOTE | 2022-02-27 14:55 | PM.PNPUL ---
Progress Note: A&P Assessment and Plan (1) Pneumonia: Qualifiers: Laterality: right Lung location: unspecified part of lung Pneumonia type: due to unspecified organism Qualified Code(s): J18.9 - Pneumonia, unspecified organism Code(s): J18.9 - Pneumonia, unspecified organism Status: Acute Assessment and Plan: Patient presented with acute onset shortness of breath that woke her from her sleep despite wearing her oxygen at 2 L. she had no other evidence of a bacterial infection or pneumonia. Her CT angiogram of the chest was negative for PE. She did have a positive troponin but her cardiac catheterization was negaive for obstructive coronary disease on 02/27/2022. Currently the patient states she is at her baseline in no respiratory distress with no wheezing, no cough, no phlegm production. She does have a small left pleural effusion. she also has a left chest wall mass that was scheduled to be surgically removed by Dr. Handy on 02/23/2022. This was canceled due to her hospitalization. Discussed this with Dr. Leger who will discuss best timing of this procedure with patient and surgical team. Patient is stable from a pulmonary viewpoint and can be discharged on these pulmonary medicines Levofloxacin 750 mg p.o. q.day through 03/03 for a total of 10 days. Anoro Ellipta 62.5-25 at 1 puff q.day Albuterol 2 puffs q.4 hours p.r.n. shortness of breath or wheezing Oxygen per formal home O2 assessment at rest and with ambulation. Oxygen 2 L at night. Follow-up in the Pulmonary Clinic in 3 weeks. She will ultimately need follow-up imaging to document resolution of her left pleural effusion. She previously has our business card and I have informed our home care scheduler. Discussed with Dr. Leger, will sign off, call with questions. Subjective Date/time seen: 02/27/22 14:55 Interval history: 02/27: patient has returned from her cardiac catheterization which was negative for obstructive coronary artery disease. Patient states she is breathing normal and feels like she is at her baseline from a respiratory viewpoint. She denies cough or phlegm. Review of Systems Review of Systems: All systems reviewed & are unremarkable except as noted in HPI and below Eyes: Eyes: Reports no additional eye complaints ENT: Reports system reviewed and no additional complaints, except as documented Cardiovascular: Cardiovascular: Reports no additional cardiovascular complaints Respiratory: Respiratory: Reports no additional respiratory complaints Gastrointestinal: Gastrointestinal: Reports no additional gastrointestinal complaints Musculoskeletal: Musculoskeletal: Reports no additional musculoskeletal complaints Integumentary/Breasts: Skin/Breast: Reports system reviewed and no additional complaints, except as docu Neurologic: Reports system reviewed and no additional complaints, except as documented Psychiatric: Psychiatric: Reports no additional psychiatric complaints Endocrine: Endocrine: Reports no additional endocrine complaints Exam Const: General: cooperative and healthy appearing Orientation/consciousness: oriented to person, oriented to place and oriented to time HENMT: Head: normal to inspection Ears: hearing grossly normal bilaterally Mouth: Yes Normal oral and palatal mucosa present Eyes: General: appearance normal, both eyes and all related structures Neck: Neck: normal visual inspection Chest: Chest palpation & inspection: normal inspection of the chest Resp: Effort & Inspection: normal respiratory effort and able to speak in complete sentences Auscultation: no crackles, no rales, no rhonchi, no wheezes and diminished lung sounds (left base) Cardio: Jugular venous distension: no JVD GI: Inspection: normal to inspection Skin: General skin exam: normal color Neuro: General: oriented to person, oriented to place and oriented to time Extrem: General: normal to inspection and no p
--- NOTE | 2022-02-27 15:29 | PM.IMPN ---
Progress Note: A&P Assessment and Plan (1) D-dimer, elevated: Code(s): R79.89 - Other specified abnormal findings of blood chemistry Status: Acute Assessment and Plan: patient had a V/Q scan that did show perfusion defect, but she previously had a V/Q scan that showed perfusion defect and CTA was negative. Patient has been premedicated for her dye allergy of flushing and she underwent CTA which came back negative for PE. She did have peripheral airspace opacities in right upper and lower lobes and lingula consistent with pneumonia. Associated small pleural effusions. Received full-dose Lovenox. Initial troponin was also negative however the 2nd set came back elevated Possible non ST-elevation [place] status post cath 02/27/2022 with no evidence of coronary disease. (2) Elevated troponin: Code(s): R77.8 - Other specified abnormalities of plasma proteins Status: Acute Assessment and Plan: Patient's initial troponin was negative and her 2nd troponin is elevated. There is no EKG changes. Patient did have an episode of chest heaviness while in the emergency room that has resolved. Patient was given 1 full dose of Lovenox. Cardiology consulted Patient did have an echo Doppler when she was here last month that showed left atrial enlargement, ejection fraction 65-70%, with grade 2 left ventricular diastolic dysfunction. (3) Anxiety: Code(s): F41.9 - Anxiety disorder, unspecified Status: Acute Assessment and Plan: Resume home medication (4) Parkinsonian features: Code(s): R25.9 - Unspecified abnormal involuntary movements Status: Acute Assessment and Plan: Resume home medication (5) Non-STEMI (non-ST elevated myocardial infarction): Code(s): I21.4 - Non-ST elevation (NSTEMI) myocardial infarction Status: Acute Assessment and Plan: Cardiology has been consulted and plan for cardiac catheterization Echo with EF 65-70% with grade 2 diastolic dysfunction [id number] MR moderate pulmonary hypertension 02/09/2022 s/p cath: no evidence of cad (6) Pneumonia: Qualifiers: Laterality: right Lung location: unspecified part of lung Pneumonia type: due to unspecified organism Qualified Code(s): J18.9 - Pneumonia, unspecified organism Code(s): J18.9 - Pneumonia, unspecified organism Status: Acute Assessment and Plan: With associated effusion noted which is worsened from previous. She was treated recently with Levaquin. Persistent pneumonia noted. Consult to Pulmonary. MRSA screen. Increase antibiotic coverage with vancomycin and cefepime. Pulmonary consultation. Appreciated recommendation Chest x-ray 02/26/2022 with interval decrease in diffusion bilaterally (7) Subcutaneous mass: Code(s): R22.9 - Localized swelling, mass and lump, unspecified Status: Acute Assessment and Plan: 2.2 cm subcutaneous left anterior chest wall. This is hard lump monitor chest wall likely need to be biopsied at [facility]. She was scheduled to see Dr. Handy for this. Will await further testing on heart before we proceed. Likely needs to reschedule for excisional biopsy of this lump She will need to schedule excision with Dr. Handy. While she is here will order IR guided biopsy of the lesion (8) Bacteremia: Code(s): R78.81 - Bacteremia Status: Acute Assessment and Plan: 102 with Gram-positive cocci in clusters detected 02/23/2022 Identified as Staph Enterococcus hominis. Second set remains negative Likely a contaminant Subjective Date/time seen: 02/27/22 15:29 Interval history: HPI: Ms. Trejo is an 81-year-old female who presented emergency room [facility]with complaints of shortness of breath. patient has a Life Alert button and she woke up this morning feeling short of breath and pushed her Life Alert button. EMS arrived and found the patient oxygen saturation was 96% on 2 L per nasal cannula
[2022-02-27] MEDS: levoFLOXacin 250 MG/D5W 50 ML 250 MG/50 ML BAG 33.33 MG IVPB (17:45)
[2022-02-27] MEDS: ACETAMINOPHEN 325 MG TABLET 650 MG PO (23:08)
[2022-02-28] VITALS (13 sets, daily range): BP systolic 109–127; BP diastolic 52–61; PULSE 51–64; RESP 16–18; TEMP 36.3–36.6; O2SAT 91–99
[2022-02-28 06:16] LABS: Alanine Aminotransferase 22 U/L (6-35); Albumin Level 2.8 g/dL (3.5-5.1); Alkaline Phosphatase 38 U/L (38-126); Anion Gap 3 mmol/L (8-16); Aspartate Amino Transferase 35 U/L (14-36); Bilirubin,Total 0.6 mg/dL (0.2-1.3); Blood Urea Nitrogen 12 mg/dL (7-17); Calcium 8.5 mg/dL (8.4-10.2); Carbon Dioxide 30 mmol/L (22-30); Chloride 107 mmol/L (98-107); Estimated CRCL calculation 38 ml/min; Estimated Glomerular Filt Rate 60; Glucose 95 mg/dL (65-110); Potassium 3.7 mmol/L (3.4-5.0); Sodium 140 mmol/L (137-145)
[2022-02-28 06:42] LABS: Basophils Percent Auto 0.2 % (0.2-1.2); Eosinophils Percent Auto 0.5 % (0-4.4); Hematocrit 33.2 % (37.0-47.0); Hemoglobin 10.7 g/dL (12.0-15.0); Immature Granulocyte Absolute 0.02 K/mm3 (0.00-0.031); Immature Granulocyte Percent A 0.3 % (0-0.5); Lymphocytes Absolute Auto 1.71 K/mm3 (0.9-3.2); Lymphocytes Percent Auto 27.4 % (18.3-44.2); Mean Corpuscular HGB Conc 32.2 g/dl (32-36); Mean Corpuscular Hemoglobin 32.1 pg (26-34); Mean Corpuscular Volume 99.7 fl (80-100); Monocytes Absolute Auto 0.7 K/mm3 (0.1-0.6); Monocytes Percent Auto 10.6 % (2.6-8.5); Neutrophils Absolute Auto 3.8 K/mm3 (1.3-6.7); Platelet Count Result 278 k/mm3 (150-375); Red Blood Count 3.33 M/mm3 (4.2-5.4); Red Cell Distribution Width 13.1 % (11.5-14.5); White Blood Count 6.2 K/mm3 (4.5-10.0)
[2022-02-28] MEDS: CARBIDOPA/LEVODOPA 25/100 MG TABLET 1 TABLET PO ×3 (08:38→17:38)
[2022-02-28] MEDS: CITALOPRAM HYDROBROMIDE 20 MG TABLET PO (08:39)
[2022-02-28] MEDS: METOPROLOL TARTRATE 12.5 MG TABLET PO (08:39)
--- NOTE | 2022-02-28 13:05 | PM.DS ---
DS: Admitting Diagnosis Discharge Date 02/28/2022 Admitting Diagnosis Shortness of breath DS: Discharge Diagnosis Discharge Diagnosis (1) D-dimer, elevated: Code(s): R79.89 - Other specified abnormal findings of blood chemistry Status: Acute Assessment and Plan: The patient had a V/Q scan that did show perfusion defect, but she previously had a V/Q scan that showed perfusion defect and CTA was negative. Patient has been premedicated for her dye allergy of flushing and she underwent CTA which came back negative for PE. She did have peripheral airspace opacities in right upper and lower lobes and lingula consistent with pneumonia. There was also Associated small pleural effusions which has worsened compared to previous CTs. She initially Received full-dose Lovenox. Initial troponin was also negative however the 2nd set came back elevated With diagnosis off non ST-elevation [place]. status post cath 02/27/2022 which showed no evidence of coronary disease. (2) Elevated troponin: Code(s): R77.8 - Other specified abnormalities of plasma proteins Status: Acute Assessment and Plan: Patient's initial troponin was negative and her 2nd troponin is elevated. There is no EKG changes. Patient did have an episode of chest heaviness while in the emergency room that has resolved. Patient was given 1 full dose of Lovenox. Cardiology consulted Patient did have an echo Doppler when she was here last month that showed left atrial enlargement, ejection fraction 65-70%, with grade 2 left ventricular diastolic dysfunction. Status post cardiac catheterization on 02/27/2022 which showed no evidence of coronary artery disease (3) Anxiety: Code(s): F41.9 - Anxiety disorder, unspecified Status: Acute Assessment and Plan: Resume home medication (4) Parkinsonian features: Code(s): R25.9 - Unspecified abnormal involuntary movements Status: Acute Assessment and Plan: Resume home medication (5) Non-STEMI (non-ST elevated myocardial infarction): Code(s): I21.4 - Non-ST elevation (NSTEMI) myocardial infarction Status: Acute Assessment and Plan: Cardiology has been consulted and plan for cardiac catheterization Echo with EF 65-70% with grade 2 diastolic dysfunction [id number] MR moderate pulmonary hypertension 02/09/2022 s/p cath: no evidence of cad (6) Pneumonia: Qualifiers: Laterality: right Lung location: unspecified part of lung Pneumonia type: due to unspecified organism Qualified Code(s): J18.9 - Pneumonia, unspecified organism Code(s): J18.9 - Pneumonia, unspecified organism Status: Acute Assessment and Plan: With associated effusion noted which is worsened from previous. She was treated recently with Levaquin. Persistent pneumonia noted. Consult to Pulmonary. MRSA screen came back negative Increase antibiotic coverage with vancomycin and cefepime in the beginning Pulmonary consultation. Appreciated recommendation Chest x-ray 02/26/2022 with interval decrease in diffusion bilaterally Will continue Levaquin at discharge for 5 more days (7) Subcutaneous mass: Code(s): R22.9 - Localized swelling, mass and lump, unspecified Status: Acute Assessment and Plan: 2.2 cm subcutaneous left anterior chest wall. This is hard lump monitor chest wall likely need to be biopsied at [facility]. She was scheduled to see Dr. Handy for this however needed to be canceled as she was in the hospital. Discussed IR guided biopsy of the lesion while in the hospital which was performed on 02/28/2022. She will further follow up with Dr. Handy for more definitive treatment for this. I expect that she will need an excision of this skin lesion which needs to be done as an outpatient basis (8) Bacteremia: Code(s): R78.81 - Bacteremia Status: Acute Assessment and Plan: 102 with Gram-positive cocci in clusters detected 0
--- NOTE | 2022-02-28 18:11 | PC.NURSE ---
3830-discharged home- pt acknowledged understanding-discharge instructions and wound care; angio-seal card given to pt to carry in [facility]
[2022-02-28 22:50] LABS: Pneumococcal Antigen Urine Not Detected (Not Detected)
[2022-03-01 17:12] LABS: Legionella pneumophila Ag Ur Not Detected (Not Detected)
== END 2022-02-28 17:50 | disposition home health service (06) | DRG 194 ==
LOC: ANHED 14:10 → ANHIMU 14:45
PROVIDERS: Nurse Practitioner Adult Health; Specialist; Admitting Provider Internal Medicine; Emergency Provider Emergency Medicine; PCP Family Medicine; Visit Provider Internal Medicine
PROC: 4A023N7 Measurement of Cardiac Sampling and Pressure, Left Heart, Percutaneous Approach (ICD-10-PCS; CPT 93452; principal; 2022-02-27 11:30)
PROC: 4A023N7 Measurement of Cardiac Sampling and Pressure, Left Heart, Percutaneous Approach (ICD-10-PCS; 2022-02-27 11:30)
DX: J18.9 Pneumonia, unspecified organism (principal); R78.81 Bacteremia; J90 Pleural effusion, not elsewhere classified; Z20.822 Contact with and (suspected) exposure to COVID-19; R22.9 Localized swelling, mass and lump, unspecified; F41.9 Anxiety disorder, unspecified; B95.7 Other staphylococcus as the cause of diseases classified elsewhere; K21.9 Gastro-esophageal reflux disease without esophagitis; J43.9 Emphysema, unspecified; R25.9 Unspecified abnormal involuntary movements; M81.0 Age-related osteoporosis without current pathological fracture; Z85.3 Personal history of malignant neoplasm of breast; Z85.118 Personal history of other malignant neoplasm of bronchus and lung; Z87.891 Personal history of nicotine dependence; Z99.81 Dependence on supplemental oxygen
CPT/HCPCS: 20206; 36415; 36600; 71046; 71275; 76942; 78580; 80048; 80053; 82565; 82805; 83735; 83880; 84484; 85025; 85380; 85610; 85730; 87040; 87077; 87081; 87186; 87449; 87899; 88305; 88342; 88360; 93005; 93458; 94640; 96361; 96365; 96366; 96367; 96372; 96374; 96375; 96376; 97110; 97161; 97165; 97535; 99291; A9270; A9540; C1760; C1887; C1894; C9803; G0269; G0378; J0692; J1644; J1650; J1956; J2060; J2250; J3010; J3370; J7030; J7040; J7512; Q9967; U0003; U0005

== ENCOUNTER 2022-03-09 10:51 | Outpatient (CLI) | payer MEDICARE, SELFPAY ==
--- NOTE | ~2022-03-09 | US_ITS ---
EXAMINATION:US venous doppler LE LT INDICATION:Left ankle swelling TECHNIQUE: Multiple grayscale, color flow and Doppler images of the left lower extremity deep venous systems were obtained and reviewed. COMPARISON:10/14/2012 FINDINGS: The common femoral, superficial femoral and popliteal veins demonstrate normal respiratory variation, augmentation and compressibility. Color flow is also seen within the posterior tibial, pe roneal, greater saphenous and profunda veins. IMPRESSION: 1: No lower extremity deep venous thrombosis. Reviewed, dictated and finalized at location A.
== END 2022-03-09 10:52 | disposition home or self-care (01) ==
PROVIDERS: PCP Family Medicine; Visit Provider Physician Assistant
DX: M79.89 Other specified soft tissue disorders (principal)
CPT/HCPCS: 93971

== ENCOUNTER 2022-04-03 08:52 | Outpatient (CLI) | payer MEDICARE, SELFPAY ==
--- NOTE | ~2022-04-03 | CT_ITS ---
EXAMINATION: CT diagnostic chest wo con DATE: 04/03/2022 09:11 INDICATION: Acute respiratory failure, hypoxia. Recent pneumonia. TECHNIQUE: Computed tomography (CT) of the chest was performed without intravenous contrast. Automate d exposure control and iterative reconstruction technique were employed. Exam dose: 123.02 mGy-cm to camila exam DLP. COMPARISON: 02/26/2022 2 view chest 02/22/2022 CTA chest FINDINGS: There is interval resolution of bilateral pleural effusions since 02/22/2022. There is near-complete resolution of bilateral pulmonary infiltrates atelectasis since 02/22/2022, wit h minimal focal residual infiltrate in the posterolateral aspect of the right upper lobe and minimal residual infiltrate or atelectasis right lower lobe, primarily at the lung base. Partial left lung resection. Cardiomegaly. Coronary artery calcifications. Trace pericardial fluid. Aortic calcification. No aorti c aneurysm. No hilar or mediastinal mass lesion or lymphadenopathy. Mild anterior wedge compression fracture deformity at T5, stable since 02/22/2022. Degenerative change of the thoracic spine. No suspicious osteolytic or osteoblastic lesions.. IMPRESSION: Resolution of bilateral pleural effusions and nearly complete resolution of pulmonary in filtrates, with minimal residual right upper and lower lobe infiltrate since 02/22/2022 Persistent lower left anterior chest wall soft tissue mass, measuring up to approximately 11.5 mm ant eroposterior and 19.5 mm transverse dimension; consider biopsy. Reviewed, dictated and finalized at Location A. Reviewed, dictated and finalized at location B. IMPRESSION: Resolution of bilateral pleural effusions and nearly complete reso lution of pulmonary infiltrates, with minimal residual right upper and lower lo be infiltrate since 02/22/2022 Persistent lower left anterior chest wall soft tissue mass, measuring up to mansi roximately 11.5 mm anteroposterior and 19.5 mm transverse dimension; consider b iopsy.
== END 2022-04-03 08:53 | disposition home or self-care (01) ==
PROVIDERS: PCP Family Medicine; Visit Provider Physician Assistant
DX: J18.9 Pneumonia, unspecified organism (principal); J90 Pleural effusion, not elsewhere classified; J96.01 Acute respiratory failure with hypoxia
CPT/HCPCS: 71250

== ENCOUNTER 2022-04-03 09:33 | Outpatient (CLI) | payer MEDICARE, SELFPAY ==
--- NOTE | ~2022-04-03 | XR_ITS ---
EXAMINATION: XR chest 2V DATE: 04/03/2022 10:24 INDICATION: Chest wall mass TECHNIQUE: PA and lateral views of the chest are obtained. COMPARISON: 02/26/2022 FINDINGS: There are minimal bibasilar airspace opacities. Small pleural effusions persist but have de creased. The cardiomediastinal silhouette is stable. There is internal stabilization hardware in the left humerus. There are changes of bilateral mastectomy with axillary lymph node dissection. Healed b ilateral rib fractures are noted. There is mild thoracic spondylosis. IMPRESSION: 1. Small pleural effusions with mild bibasilar atelectasis. Reviewed, dictated and finalized at location A.
--- NOTE | 2022-04-03 09:42 | ECG_ITS ---
Measurements Intervals [place] Rate: 63 P: 4 CO: 200 QRS: 76 QRSD: 82 T: 52 QT: 387 QTc: 398 Interpretive Statements REDUCED ECG QUALITY BECAUSE OF BASELINE SINUS RHYTHM WITH OCCASIONAL SUPRAVENTRICULAR PREMATURE COMPLEXES VOLTAGE CRITERIA FOR LVH [MEETS CRITERIA IN ONE OF: R(aVL), S(V1), R(V5), R(V5/V6)+S(V1)] SUSPECT PREVIOUS ANTEROSEPTAL AL COMPARED TO ECG 02/23/2022 09:06:11 T-WAVE ABNORMALITY HAS IMPROVED Electronically Signed On 04-03-2022 15:49:15 CDT by Luis العلي M.D.
[2022-04-03 10:13] LABS: Basophils Percent Auto 0.6 % (0.2-1.2); Eosinophils Absolute Auto 0.2 K/mm3 (0-0.3); Eosinophils Percent Auto 2.6 % (0-4.4); Hematocrit 44.7 % (37.0-47.0); Hemoglobin 14.2 g/dL (12.0-15.0); Immature Granulocyte Absolute 0.02 K/mm3 (0.00-0.031); Immature Granulocyte Percent A 0.3 % (0-0.5); Lymphocytes Absolute Auto 1.82 K/mm3 (0.9-3.2); Lymphocytes Percent Auto 29.3 % (18.3-44.2); Mean Corpuscular HGB Conc 31.8 g/dl (32-36); Mean Corpuscular Volume 97.6 fl (80-100); Mean Platelet Volume 10.4 fl (7.4-10.4); Monocytes Absolute Auto 0.6 K/mm3 (0.1-0.6); Monocytes Percent Auto 10.1 % (2.6-8.5); Neutrophils Absolute Auto 3.5 K/mm3 (1.3-6.7); Neutrophils Percent Auto 57.1 % (45.5-73.1); Platelet Count Result 351 k/mm3 (150-375); Red Blood Count 4.58 M/mm3 (4.2-5.4); Red Cell Distribution Width 12.3 % (11.5-14.5); White Blood Count 6.2 K/mm3 (4.5-10.0)
[2022-04-03 10:28] LABS: Anion Gap 5 mmol/L (8-16); Blood Urea Nitrogen 17 mg/dL (7-17); Calcium 9.7 mg/dL (8.4-10.2); Carbon Dioxide 31 mmol/L (22-30); Chloride 100 mmol/L (98-107); Estimated Glomerular Filt Rate 53; Glucose 119 mg/dL (65-110); Potassium 3.9 mmol/L (3.4-5.0); Sodium 136 mmol/L (137-145)
== END 2022-04-03 09:34 | disposition home or self-care (01) ==
LOC: ANHSURGERY 09:35
PROVIDERS: PCP Family Medicine; Visit Provider Surgery
DX: C79.89 Secondary malignant neoplasm of other specified sites (principal); J90 Pleural effusion, not elsewhere classified
CPT/HCPCS: 36415; 71046; 71250; 80048; 85025; 85055; 93005

== ENCOUNTER 2022-04-12 00:43 | Day surgery (SDC) | payer MEDICARE, SELFPAY ==
[2022-03-31 09:42] VITALS: BMI 21.4
--- NOTE | 2022-03-31 10:13 | PC.NURSE ---
Report to the Outpatient Waiting Room, entrance under the green pavilion located off [facility], at time __6:00AM on date ___04/12/22____. OR Time: ___7:30AM . - You and your visitor will be asked a series of questions to screen for COVID 19 for your protection. - Only one visitor is allowed at this time. - The patient visitor is requested to leave or wait in car when not with patient. - A mask is required within the hospital. Patients may have clear liquids (water, carbonated beverages, clear teas, apple juice) until 3 hours prior to surgery with a maximum of 20 ounces. - No food from midnight until time of surgery Take the following medications with a SIP of water the morning of surgery: __CARBIDOPA-LEVODOPA, CITALOPRAM, TRELEGY ELLIPTA, METOPROLOL, ALBUTEROL INHALER OR NEBULIZER NEEDED Medications to discontinue per physician ____HOLD ALL VITAMINS/SUPPLEMENTS 3 DAYS PRE-OP Date to take last dose____04/09/22 Please no make-up, nail portuguese, hairspray, perfume, deodorant, or body powder the day of surgery. No jewelry (including any body piercings) or valuables the day of surgery, leave them at home. Please take a shower or bath the night before, or the morning of, surgery with an antibacterial soap. Wear comfortable, loose fitting clothing. Children are encouraged to wear pajamas. - Jewelry must be removed prior to entering the operating room. Rings and piercings that are not removed may be cut off. - The hospital will not accept responsibility for valuables. - Please leave all valuables, including medications, at home the day of surgery. If you are going home after surgery, a licensed trailer tank truck driver must drive you home. - NO public transportation without another adult. - We recommend that an adult stay with you for 24 hours following discharge. - We also recommend that you do not drive, make important decision, drink alcoholic beverages, or take any drugs that were not prescribed by your health care provider for at least 24 hours after your discharge time. Follow any additional instructions given to you from your surgeon. If you or anyone in your household have experienced Covid symptoms in the past week, please notify your surgeon or the nurse liaison at the phone number below for possible testing. Telephone instructions given to __PATIENT and asked if any additional questions and then verbalized understanding. Patient advised to call surgeon office or pre surgery nurse liaison [phone] if any additional questions.
--- NOTE | 2022-04-11 12:49 | WPDANESEPPF ---
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 Patient Data Age: 81 Gender: F Height: 1.73 m Weight: 64 kg Allergies Allergy/AdvReac Type Severity Reaction Status Date / Time hydrocodone AdvReac Mild vomiting Verified 04/12/22 06:52 adhesive AdvReac Unknown RASH, ITCH Verified 04/12/22 06:52 alendronate sodium [Fosamax] AdvReac Unknown Nausea Verified 04/12/22 06:52 doxycycline AdvReac Unknown Nausea Verified 04/12/22 06:52 Iodinated Contrast Media AdvReac Unknown Flushing Verified 04/12/22 06:52 Home Medications Medication Instructions Recorded Confirmed Type metoprolol tartrate 25 mg tablet 12.5 mg PO BID #60 tabs 02/13/22 04/12/22 Rx carbidopa 25 mg-levodopa 100 mg 1 tablet PO Q8HR #90 tabs 03/10/22 04/12/22 Rx tablet (Sinemet) albuterol sulfate 2.5 mg/3 mL 2.5 mg (3 mL) inhalation Q4-6H PRN 03/13/22 04/12/22 Rx (0.083 %) solution for nebulization shortness of breath or wheezing #90 mL albuterol sulfate 90 mcg/actuation 2 inh inhalation Q4-6H PRN 03/31/22 04/12/22 History aerosol inhaler Shortness Of Breath calcium carbonate 600 mg-vitamin 1 tablet PO DAILY 03/31/22 04/12/22 History D3 5 mcg (200 unit) tablet cholecalciferol (vitamin D3) 25 25 mcg PO DAILY 03/31/22 04/12/22 History mcg (1,000 unit) capsule citalopram 20 mg tablet 20 mg PO QAM 03/31/22 04/12/22 History fluticasone fur. 100 mcg-umeclid 1 inh inhalation QAM 03/31/22 04/12/22 History 62.5 mcg-vilant 25 mcg inhalat.powder (Trelegy Ellipta) olmesartan 40 mg-amlodipine 5 1 tablet PO QAM 03/31/22 04/12/22 History mg-hydrochlorothiazide 25 mg tablet Patient hx anesthesia problems: none Family hx anesthesia problems: none Results Review: All pre-operative results and documents have been reviewed as part of the pre-operative evaluation. [facility] Past Medical History Medical History Anxiety Cancer of left breast Constipation Depression Diastolic dysfunction Echocardiogram 01/201919 grade 1 diastolic dysfunction EF 60% mild left atrial enlargement Emphysema of lung Fracture of fifth metatarsal bone of right foot with routine healing GERD (gastroesophageal reflux disease) Hypertension Lung cancer Osteoporosis, unspecified Prediabetes Vitamin D deficiency Surgical History Surgical History 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 She has a daughter and a son. 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 She does drink wine nightly. Code status: Full code Healthcare power of director of sustainable design: Ursula Vega (daughter) Smoking packs per day: 1 Smoking cigarettes per day: 20.0 Years smoked: 20 Smoking pack-years: 20.00 Smoking status: Former smoker Tobacco type: cigarettes Smoking end date: 04/07/82 Alcohol intake: current Drinks per week: 5 Substance use: never Substance use type: does not use Living arrangements: alone Spiritual care concerns: No Anes - Eval Final PreProcedure Day of Procedure 04/11/22 12:49 Patient horacio
[2022-04-12 06:13] VITALS: BP 148/60; PULSE 58; RESP 20; TEMP 37; O2SAT 100
[2022-04-12] MEDS: LACTATED RINGERS 1,000 ML 30 ML IV CONT (06:34)
[2022-04-12] MEDS: ACETAMINOPHEN 500 MG TABLET 1000 MG PO (06:37)
[2022-04-12] MEDS: KETOROLAC 15 MG/ML VIAL (*BKC) IV PUSH (06:37)
--- NOTE | 2022-04-12 07:17 | WPDHPUPDATE1 ---
History and Physical Update Update Date/Time: 04/12/22 07:17 History and Physical has been reviewed, including an updated exam of the patient. There are NO changes in the patient's condition. Risks, benefits, and alternatives have been discussed and questions answered. Patient agrees to proceed with procedure.
[2022-04-12] MEDS: ceFAZolin 2 GM/D5W 50 ML 2 GM/50 ML BAG IVPB (07:30)
[2022-04-12] MEDS: LIDO 1%/EPINEPHRINE/PF 1:200,000 30 ML VIAL XX (07:58)
--- NOTE | 2022-04-12 08:00 | SUR.OPER ---
Left Chest Wall Recurrent Breast Cancer specimen sent Fresh to Pathology per DANA Tong. Received by
[2022-04-12 08:20] VITALS: BP 131/57; PULSE 67; RESP 14; TEMP 37.1; O2SAT 100
--- NOTE | 2022-04-12 08:43 | P.OP_ITS ---
Procedure Note - Detailed Date of Procedure 04/12/22 Pre-op Diagnosis Left chest wall metastatic breast cancer Post-op Diagnosis Same Procedure Performed Excision 2.9 cm metastatic breast cancer left chest wall with 2 mm margins, 3.3 cm excision. 13 cm layered closure. Surgeon Graeme Handy MD Telecommunications Repairer Ritu MCALLISTER Anesthesia MAC (1% lidocaine with epinephrine) Indications Patient has history of bilateral breast cancers. She had a left mastectomy in 2012. She was recently in the hospital for pneumonia and a left chest wall lesion was noted. She had a core biopsy of this which showed metastatic breast cancer. She was seen in the office and has recovered from her pneumonia. She is taken to surgery now for excision of this chest wall recurrence. Findings The lesion extended through the skin but did not appear to be invading chest wall muscle. It was excised with 2 mm margins which I measured and I did excise some of the chest wall muscle with the recurrent implant. The upper edge of the lesion was 4.5 cm from the mastectomy scar. Description of Procedure The patient was taken to surgery and IV sedation was administered. The left chest wall was prepped and draped. The lesion was measured and the distance from the mastectomy scar was measured as above. I marked 2 mm margins on either side of the lesion. A transversely oriented ellipse was drawn on the chest wall. Local anesthetic was infiltrated into the skin and subcutaneous. It was infiltrated as well deep to the metastatic implant. Incision was made and dissection carried through the skin over the entire ellipse. The skin was raised over the medial and lateral aspects of the ellipse until we were in the vicinity of the lesion. Dissection was carried straight down from the skin to the chest wall muscle at the area of the lesion. Lesion did not invade into the muscle and I removed the lesion taking some of the chest wall muscle at the most posterior aspect of the excision. I measured the margins of the depth of the excision and these were at least 2 mm as well. The specimen was sent to pathology fresh. The wound was made hemostatic with the cautery. I undermined just above the muscular fascia at both the upper and lower wound edges. This increased the mobility significantly. Medial and lateral ends of the wound still had subcutaneous fascia which I was able to close with 3-0 Vicryl interrupted suture. At the lower margin of the mastectomy, which was in the center of the excision, there was no fascia. I closed with subcuticular interrupted 3-0 Vicryl suture in this area. 4-0 Vicryl subcuticular interrupted suture were used to close the medial and lateral aspects of the skin. The wound was dressed with Exofin surgical adhesive. The patient was awakened and taken to recovery in good condition. Sponge and needle counts were correct x2. Estimated Blood Loss -5.0 Drains No Packing No Pathology Yes (Left chest wall metastatic breast cancer) Complications No immediate complications Condition Stable Disposition Same day [facility] Billing Surgery - Charge Forward: Surgery Billing (Excision 2.9 cm recurrent left breast cancer from chest wall with 2 mm margins, 13 cm layered closure)
[2022-04-12 08:50] VITALS: BP 123/50; PULSE 65; RESP 14
[2022-04-12 09:10] VITALS: BP 127/48; PULSE 63; RESP 14
--- NOTE | 2022-04-12 09:58 | SUR.PHASEII ---
PT HAD NO PAIN OR NAUSEA AND SAID SHE WAS READY TO GO HOME. DISCHARGED WITHOUT ISSUE.
== END 2022-04-12 09:20 | disposition home or self-care (01) ==
PROVIDERS: PCP Family Medicine; Visit Provider Surgery
PROC: (CPT 11604; principal; 2022-04-12 07:30)
DX: C79.81 Secondary malignant neoplasm of breast (principal); I11.9 Hypertensive heart disease without heart failure; R73.03 Prediabetes; M81.0 Age-related osteoporosis without current pathological fracture; E55.9 Vitamin D deficiency, unspecified; K21.9 Gastro-esophageal reflux disease without esophagitis; J43.9 Emphysema, unspecified; F32.A Depression, unspecified; F41.9 Anxiety disorder, unspecified; Z79.51 Long term (current) use of inhaled steroids; Z90.2 Acquired absence of lung [part of]; Z90.13 Acquired absence of bilateral breasts and nipples; Z87.891 Personal history of nicotine dependence
CPT/HCPCS: 11604; 12035; 88305; A9270; J0690; J1885; J2370; J2405; J2704; J3010; J7120

== ENCOUNTER 2022-04-28 11:14 | Outpatient (CLI) | payer MEDICARE, SELFPAY ==
[2022-04-28 11:55] LABS: Basophils Percent Auto 0.4 % (0.2-1.2); Eosinophils Absolute Auto 0.2 K/mm3 (0-0.3); Hematocrit 39.8 % (37.0-47.0); Hemoglobin 12.5 g/dL (12.0-15.0); Immature Granulocyte Absolute 0.02 K/mm3 (0.00-0.031); Immature Granulocyte Percent A 0.2 % (0-0.5); Lymphocytes Absolute Auto 1.84 K/mm3 (0.9-3.2); Mean Corpuscular HGB Conc 31.4 g/dl (32-36); Mean Corpuscular Hemoglobin 30.8 pg (26-34); Mean Platelet Volume 10.7 fl (7.4-10.4); Monocytes Absolute Auto 0.9 K/mm3 (0.1-0.6); Monocytes Percent Auto 10.9 % (2.6-8.5); Neutrophils Absolute Auto 5.4 K/mm3 (1.3-6.7); Neutrophils Percent Auto 64.5 % (45.5-73.1); Platelet Count Result 304 k/mm3 (150-375); Red Blood Count 4.06 M/mm3 (4.2-5.4); White Blood Count 8.4 K/mm3 (4.5-10.0)
[2022-04-28 12:10] LABS: Anion Gap 4 mmol/L (8-16); Blood Urea Nitrogen 15 mg/dL (7-17); Calcium 10.1 mg/dL (8.4-10.2); Carbon Dioxide 32 mmol/L (22-30); Chloride 102 mmol/L (98-107); Estimated Glomerular Filt Rate 60; Glucose 95 mg/dL (65-110); Potassium 4.5 mmol/L (3.4-5.0); Sodium 138 mmol/L (137-145)
== END 2022-04-28 11:15 | disposition home or self-care (01) ==
PROVIDERS: PCP Family Medicine; Visit Provider Surgery
DX: C50.919 Malignant neoplasm of unspecified site of unspecified female breast (principal)
CPT/HCPCS: 36415; 80048; 85025

== ENCOUNTER 2022-05-02 00:10 | Day surgery (SDC) | payer MEDICARE, SELFPAY ==
--- NOTE | 2022-04-28 08:51 | PC.NURSE ---
Report to the Outpatient Waiting Room, entrance under the green pavilion located off [facility], at time _0830 on date __05/02/22 . OR Time: __1030 . - You and your visitor will be asked a series of questions to screen for COVID 19 for your protection. - Only one visitor is allowed at this time. - The patient visitor is requested to leave or wait in car when not with patient. - A mask is required within the hospital. Patients may have clear liquids (water, carbonated beverages, clear teas, apple juice) until 3 hours prior to surgery with a maximum of 20 ounces. - No food from midnight until time of surgery - Infants may have breast milk until 4 hours before surgery, infant formula 6 hours prior to surgery. - Children will be allowed to drink immediately following surgery. If applicable, please bring a bottle or sippy cup to assist with drinking. Juice, water, soda, and popsicles are readily available. For infants on formula, please bring formula the day of surgery. Pacifiers are allowed. Take the following medications with a SIP of water the morning of surgery: __TRELEGY INHALER,METOPROLOL,CITALOPRAM,CARBIDOPA-LEVODOPA Medications to discontinue per physician __ALL VITAMINS AND SUPPLEMENTS 3 DAYS PRE OP Date to take last dose_04/28/22 Please no make-up, nail greek, hairspray, perfume, deodorant, or body powder the day of surgery. No jewelry (including any body piercings) or valuables the day of surgery, leave them at home. Please take a shower or bath the night before, or the morning of, surgery with an antibacterial soap. Wear comfortable, loose fitting clothing. Children are encouraged to wear pajamas. - Jewelry must be removed prior to entering the operating room. Rings and piercings that are not removed may be cut off. - The hospital will not accept responsibility for valuables. - Please leave all valuables, including medications, at home the day of surgery. If you are going home after surgery, a licensed bus driver supervisor must drive you home. - NO public transportation without another adult. - We recommend that an adult stay with you for 24 hours following discharge. - We also recommend that you do not drive, make important decision, drink alcoholic beverages, or take any drugs that were not prescribed by your health care provider for at least 24 hours after your discharge time. For Pediatric surgeries, we recommend two adults accompany the child home (only one inside the building at this time). Follow any additional instructions given to you from your surgeon. If you or anyone in your household have experienced Covid symptoms in the past week, please notify your surgeon or the nurse liaison at the phone number below for possible testing. Telephone instructions given to ___PATIENT and asked if any additional questions and then verbalized understanding. Patient advised to call surgeon office or pre surgery nurse liaison [phone] if any additional questions.
[2022-04-28 09:01] VITALS: BMI 20.2
[2022-05-02] VITALS (8 sets, daily range): BP systolic 105–142; BP diastolic 54–80; PULSE 63–82; RESP 16–18; TEMP 36.5–36.8; O2SAT 94–100
[2022-05-02] MEDS: ACETAMINOPHEN 500 MG TABLET 1000 MG PO (08:39)
[2022-05-02] MEDS: LACTATED RINGERS 1,000 ML 30 ML IV CONT (09:00)
[2022-05-02] MEDS: KETOROLAC 15 MG/ML VIAL (*BKC) IV PUSH (09:01)
--- NOTE | 2022-05-02 09:10 | WPDANESEPPF ---
Anes - Initial Pre Proc Eval Procedure: Operation Date: 05/02/22 10:30 Proposed Procedures p Re-Excision Deep Margin Left Chest Wall, Evacuation Hematoma of Chest - Graeme Handy MD Date/Time: 05/02/22 09:10 Surgeon: Graeme Handy MD Pre Op Diagnosis: metastatic breast CA, post op hematoma Patient Data Age: 82 Gender: F Height: 1.73 m Weight: 59.4 kg Allergies Allergy/AdvReac Type Severity Reaction Status Date / Time hydrocodone AdvReac Mild vomiting Verified 05/02/22 08:34 adhesive AdvReac Unknown RASH, ITCH Verified 05/02/22 08:34 alendronate sodium [Fosamax] AdvReac Unknown Nausea Verified 05/02/22 08:34 doxycycline AdvReac Unknown Nausea Verified 05/02/22 08:34 Iodinated Contrast Media AdvReac Unknown Flushing Verified 05/02/22 08:34 Home Medications Medication Instructions Recorded Confirmed Type metoprolol tartrate 25 mg tablet 12.5 mg PO BID #60 tabs 02/13/22 04/28/22 Rx carbidopa 25 mg-levodopa 100 mg 1 tablet PO Q8HR #90 tabs 03/10/22 04/28/22 Rx tablet (Sinemet) albuterol sulfate 2.5 mg/3 mL 2.5 mg (3 mL) inhalation Q4-6H PRN 03/13/22 04/28/22 Rx (0.083 %) solution for nebulization shortness of breath or wheezing #90 mL albuterol sulfate 90 mcg/actuation 2 inh inhalation Q4-6H PRN 03/31/22 04/28/22 History aerosol inhaler Shortness Of Breath calcium carbonate 600 mg-vitamin 1 tablet PO DAILY 03/31/22 04/28/22 History D3 5 mcg (200 unit) tablet cholecalciferol (vitamin D3) 25 25 mcg PO DAILY 03/31/22 04/28/22 History mcg (1,000 unit) capsule citalopram 20 mg tablet 20 mg PO QAM 03/31/22 04/28/22 History fluticasone fur. 100 mcg-umeclid 1 inh inhalation QAM 03/31/22 04/28/22 History 62.5 mcg-vilant 25 mcg inhalat.powder (Trelegy Ellipta) olmesartan 40 mg-amlodipine 5 0.5 tablet PO QAM 03/31/22 04/28/22 History mg-hydrochlorothiazide 25 mg tablet Patient hx anesthesia problems: none Family hx anesthesia problems: none Results Review: All pre-operative results and documents have been reviewed as part of the pre-operative evaluation. [facility] Past Medical History Medical History Anxiety Cancer of left breast Constipation Depression Diastolic dysfunction Echocardiogram 01/201919 grade 1 diastolic dysfunction EF 60% mild left atrial enlargement Emphysema of lung Fracture of fifth metatarsal bone of right foot with routine healing GERD (gastroesophageal reflux disease) Hypertension Lung cancer Osteoporosis, unspecified Prediabetes Vitamin D deficiency Surgical History Surgical History H/O left mastectomy (~2009) DCIS H/O: hysterectomy (~1994) Due to dysfunctional uterine bleeding History of carpal tunnel release History of carpal tunnel surgery of left wrist History of excision of lesion Excision 2.9 cm metastatic breast cancer left chest wall with 2 mm margins, 3.3 cm excision. 13 cm layered closure. 04/12/2022 History of lobectomy of lung Right upper lobe 1994, left lower lung partial lobectomy 2005 History of right mastectomy (~2012) Family History Family History Mother CHF (congestive heart failure) Dementia Father Lung cancer Sibling Acute myocardial infarction Cerebrovascular accident Other Hypertension Social History Social History Social History: She is . She has a daughter and a son. 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 She does drink wine nightly. Code status: Full code Healthcare power of fig caprifier: Ursula Vega (daughter) Smoking packs per day: 1 Smoking cigarettes per day: 20.0 Years smoked: 20 Smoking pack-years: 20.00 Smoking status: Former smoker Tobacco type: cigarettes Smoking end date: 10/08/81 Alcohol intake: current Drinks per week: 5 Alcohol use details: WINE
--- NOTE | 2022-05-02 09:32 | WPDHPUPDATE1 ---
History and Physical Update Update Date/Time: 05/02/22 09:32 History and Physical has been reviewed, including an updated exam of the patient. There are NO changes in the patient's condition. Risks, benefits, and alternatives have been discussed and questions answered. Patient agrees to proceed with procedure.
[2022-05-02] MEDS: ceFAZolin 2 GM/D5W 50 ML 2 GM/50 ML BAG IVPB (11:18)
[2022-05-02] MEDS: BUPIVACAINE/EPINEPHRINE 0.25% 50 ML VIAL 30 ML INFILTRATE (11:57)
--- NOTE | 2022-05-02 12:49 | W.PM.PROC2 ---
Procedure Note - Detailed Date of Procedure 05/02/22 Pre-op Diagnosis metastatic breast CA, post op hematoma Post-op Diagnosis Same Procedure Performed Re-excision posterior chest wall margin, evacuate hematoma Surgeon Graeme Handy MD Gear Shaper Set Up Operator Leila MCALLISTER Anesthesia General (G IV S) and Local (0.25% Marcaine with epinephrine) Indications Patient has had bilateral mastectomies for breast cancer. Her left mastectomy was done in 2012. She was noted to have a chest wall lesion that was ulcerated just a few cm below her mastectomy scar on the left side. This was biopsied with needle core technique and found to be metastatic breast cancer. Patient was taken to surgery on April 12 and the metastatic chest wall implant was excised. The deep margin was microscopically positive. The patient was seen in the office for a 2 week follow-up and found to have a chest wall hematoma. She is taken back to surgery now for evacuation of the hematoma as well as re-excision of the deep or posterior margin of the left chest wall. Findings Hematoma as expected. No sign of infection. At least 3-4 mm of chest wall containing muscle and fascia were reexcised and sent as the new deep margin. No gross evidence of malignancy was seen Description of Procedure The patient was taken to surgery and anesthesia was introduced. The left chest was prepped and draped. Local anesthetic was infiltrated into the area of the old incision. The previous incision was then reopened and the dissection carried through the subcutaneous. The chest wall hematoma was found and evacuated. The chest wall was thoroughly irrigated any loose blood or debris was removed. There was no bleeding. I then infiltrated additional local over nearly all of the chest wall in the center of the wound where the previous metastatic implant had been located. Starting at the cephalad aspect of the wound, I excised at least 3-4 cm of additional chest wall covering more than the area of the previous implant. I then put a silk suture on the superficial or inner aspect of this new chest wall margin. The specimen was sent fresh to pathology. The wound was made hemostatic with the cautery. I then placed Surgiflo in the site of the excision and held some gentle pressure. From there hemostasis appeared excellent. A 15 Khmer Sina drain was then brought out through the lateral aspect of the incision near the axillary line. The drain was placed in the wound beneath the skin flaps. The wound was then closed in layers with interrupted 3-0 Vicryl suture as well as interrupted subcuticular 4-0 Vicryl suture. The skin was finally closed with a running 4-0 Monocryl skin suture. The wound was dressed with Exofin surgical adhesive. The drain was placed to bulb suction. Sponge and needle counts were correct x2. Estimated Blood Loss -5 Drains Yes (Sina DEBO drain left chest wall) Packing No Pathology Yes (Re-excision deep chest wall margin) Complications No immediate complications Condition Stable Disposition PACU [facility] Billing Surgery - Charge Forward: Surgery Billing (Re-excision chest wall margin of muscle and fascia for recurrent breast cancer, evacuation hematoma)
== END 2022-05-02 14:20 | disposition home or self-care (01) ==
PROVIDERS: PCP Family Medicine; Visit Provider Surgery
PROC: (CPT 21556; principal; 2022-05-02 10:30)
DX: C79.81 Secondary malignant neoplasm of breast (principal); L76.34 Postprocedural seroma of skin and subcutaneous tissue following other procedure; Y83.8 Other surgical procedures as the cause of abnormal reaction of the patient, or of later complication, without mention of misadventure at the time of the procedure; I11.9 Hypertensive heart disease without heart failure; K21.9 Gastro-esophageal reflux disease without esophagitis; M81.0 Age-related osteoporosis without current pathological fracture; R73.03 Prediabetes; J43.9 Emphysema, unspecified; F41.9 Anxiety disorder, unspecified; F32.A Depression, unspecified; E55.9 Vitamin D deficiency, unspecified; Z79.51 Long term (current) use of inhaled steroids; Z90.13 Acquired absence of bilateral breasts and nipples; Z90.2 Acquired absence of lung [part of]; Z87.891 Personal history of nicotine dependence
CPT/HCPCS: 21556; 88304; A9270; J0690; J1100; J1885; J2405; J2704; J3010; J7120

== ENCOUNTER 2022-06-13 09:59 | Outpatient (CLI) | payer MEDICARE, SELFPAY ==
--- NOTE | ~2022-06-13 | PE_ITS ---
EXAMINATION: PET skull to mid thigh DATE: 06/13/2022 11:46 INDICATION: Malignant neoplasm of the left breast. TECHNIQUE: Blood glucose level was 101 mg/dL. 7.481 mCi of 18-fluorodeoxyglucose (18-FDG) was adminis tered i.v. Low dose computed tomography (CT) images were acquired from the base of the brain to the p roximal thighs for attenuation correction and anatomic localization. Positron emission tomography (PE T) images were acquired in the same distribution beginning 71 minutes after injection. Images includi ng fused PET/CT images were reconstructed in axial, coronal, and sagittal planes. Automated exposure control technique was employed. The dose-length product was 421.46mGy-cm. COMPARISON: Chest CT dated 04/03/2022 FINDINGS: Head/neck: There is symmetric increased activity in the oral cavity, palatine tonsils, submandibular glands, lar yngeal muscles and ocular muscles without CT correlate, likely physiologic. No pathologically enlarge d cervical lymphadenopathy or suspicious foci of increased FDG uptake in the visualized head or neck. Chest: Postoperative change of prior bilateral mastectomies and likely axillary lymph node dissection with s urgical clips at the bilateral axilla. There has been interval resection of a subcutaneous nodule in the anterior left chest wall with pathology read as well differentiated invasive ductal carcinoma . There is a thin band of subcutaneous soft tissue measuring approximately 5 mm in thickness with mild increased FDG subcutaneous uptake with maximal SUV of 4.2 at the resection bed and which extends over an approximately 5.8 cm diameter region. Mild emphysema with mild biapical pleural-parenchymal scarr ing. Left upper lobectomy with suture line extends cephalad from the left hilum. There has also been a prior right upper lobectomy with suture line extending cephalad from the right hilum with right-david ed thoracotomy defect involving the fifth and sixth ribs. A couple unchanged 5 mm nodule without FDG uptake in the superior segment of the right lower lobe posterior to the suture line. There is a new 7 mm nodule in the superior segment of the left lower lobe with a couple 3 mm satellite nodules all of which are without associated FDG uptake and which given the relatively rapid development but without evident FDG uptake with favor sequela of intervening infection. Linear atelectasis/scarring at the l ingula and at the lateral basilar right lower lobe. Very small posterior layering left pleural effusi on. No pneumonia, pulmonary edema or right-sided pleural effusion. Heart size is normal. Atherosclero tic coronary artery calcifications along with aortic valve and mitral annular calcific lesion. No per icardial effusion. Thoracic aorta is normal in caliber. No pathologically enlarged or FDG avid thorac ic lymphadenopathy. Abdomen/pelvis/proximal thighs: Physiologic renal accumulation and excretion of FDG activity in the kidneys, bladder and along portio ns of ureters. Normal degree and heterogenous pattern of increased uptake throughout the liver withou t radiologic correlate or dominant FDG avid lesion. The gallbladder, pancreas, spleen and bilateral a drenal glands are normal. Mild to moderate uptake scattered throughout the bowels without radiologic correlate, also likely physiologic. The uterus is not identified and has likely been surgically resec sujit. No other abnormal foci of increased FDG uptake or pathologically enlarged lymphadenopathy in the abdomen, pelvis or proximal thighs. Musculoskeletal: No suspicious lytic, blastic or FDG avid bone lesions. Internal fixation pins at the proximal to mid left humerus. Thoracic kyphosis with mild anterior wedging of a few mid to lower thoracic vertebral b odies. There are bridging osteophytes at a few levels in the mid to upper thoracic spine. No suspicio us lytic, blastic or FDG avid bone lesions. IMPRESSION: 1
[2022-06-13 10:20] LABS: Glucose Point of Care 101 mg/dl (65-105)
== END 2022-06-13 10:00 | disposition home or self-care (01) ==
PROVIDERS: PCP Family Medicine; Visit Provider Internal Medicine Hematology & Oncology
DX: C50.812 Malignant neoplasm of overlapping sites of left female breast (principal); Z17.0 Estrogen receptor positive status [ER+]; J43.9 Emphysema, unspecified; R91.8 Other nonspecific abnormal finding of lung field; J90 Pleural effusion, not elsewhere classified
CPT/HCPCS: 78815; A9552

== ENCOUNTER 2022-06-28 08:40 | Outpatient (CLI) | payer MEDICARE, SELFPAY ==
--- NOTE | 2022-06-28 12:24 | WPDPFTINT ---
PFT Procedure Performed PFT Procedure Performed Spirometry with Pre/Post Bronchodilator Plethysmography (Lung Vol) Diffusing Cap (DLCO) Flow Vol Loop PFT Interpretation This is a pulmonary function test with pre and post-bronchodilator spirometry, plethysmography and diffusing capacity. The test was performed and results interpreted in accordance with the 2019 and 2005 ATS/ERS Task Force guidelines respectively using the Global Lung Function Initiative-2012 reference equations. Patient demonstrated good effort and cooperation. Reproducibility criteria were met. The quality of the pre bronchodilator spirometry maneuver was Grade A and post bronchodilator spirometry maneuver was Grade B. Findings: Spirometry: There is decreased maximal expiratory airflow at all lung volumes with concave expiratory flow tracing. The contour the inspiratory flow tracing is normal. The pre bronchodilator FVC is 2.13 L, 78% predicted. The pre bronchodilator FEV1 is 1.15 L, 56% predicted. The pre bronchodilator FEV1: FVC ratio is 54%. The post bronchodilator FVC is 2.08 L, representing a 2% decrease. The post bronchodilator FEV1 is 1.09 L, representing a 5% decrease. The post bronchodilator FEV1: FVC ratio is 53%. Plethysmography: Total lung capacity is 4.39 L, 80% predicted. The functional residual capacity is 3.38 L, 106% predicted. The residual volume is 2.26 L, 87% predicted. Diffusing capacity: The diffusing capacity unadjusted for hemoglobin and carboxyhemoglobin is 8.3, 41% predicted. The diffusing capacity adjusted for alveolar volume is 3.55, 90% predicted. Impression: There is a combined obstructive and restrictive ventilatory abnormality. There are no guidelines to assign the severity of obstruction and restriction with a combined abnormality. In my opinion, given the moderately concave expiratory flow tracing and moderately decreased FEV1: FVC ratio and very mild restrictive abnormality, I would state there is a moderately severe obstructive abnormality and a very mild restrictive abnormality resulting in a moderately severe decreased in the FEV1. There is no significant improvement after inhaling a single dose of albuterol. The diffusing capacity unadjusted for hemoglobin and carboxyhemoglobin is moderately decreased and normalizes when adjusted for alveolar volume. There are no prior studies for comparison
--- NOTE | 2022-06-30 13:08 | WPDSIXMINUTE ---
Six Minute Walk Procedure Procedure Performed Pulmonary Stress Test (6 min walk) Six Minute Walk Six Minute Walk: This is a 6 minute walk test. The test was performed and interpreted in accordance with the 2014 ERS/ATS task force guidelines. Findings: The patient's resting room air oxygen saturation measured by pulse oximetry was 94% and heart rate was 55 bpm. Patient ambulated for 305 meters and oxygen saturation remained 91 to 95%. Heart rate at the end of the study was 74 bpm. The patient did not qualify for supplemental oxygen at rest or with ambulation. There are no prior studies for comparison.
== END 2022-06-28 08:41 | disposition home or self-care (01) ==
LOC: ANHPFT 08:42
PROVIDERS: PCP Family Medicine; Visit Provider Internal Medicine Pulmonary Disease
DX: J44.9 Chronic obstructive pulmonary disease, unspecified (principal); R94.2 Abnormal results of pulmonary function studies
CPT/HCPCS: 94060; 94618; 94726; 94729

== ENCOUNTER 2022-08-07 09:13 | Emergency (ER) | payer MEDICARE, SELFPAY ==
[2022-08-07] VITALS (12 sets, daily range): BP systolic 115–136; BP diastolic 52–70; PULSE 56–84; RESP 12–19; TEMP 37.2; O2SAT 96–99
--- NOTE | ~2022-08-07 | XR_ITS ---
XR abdomen/kub 1V DATE: 08/07/2022 11:15 INDICATION: Nausea, constipation. Radiation therapy. TECHNIQUE: Portable supine AP view on 08/07/2022 at 1111 hours COMPARISON: None FINDINGS: There is a prominent amount of fecal material in the colon. No bowel obstruction is detecte d. The psoas shadows are intact. No visceromegaly is evident. Bilateral calcified pelvic lymph nodes. Abdominal aortic and iliac and femoral arterial calcification s. IMPRESSION: Prominent amount fecal material in the colon; no bowel obstruction Reviewed, dictated and finalized at [facility]. Reviewed, dictated and finalized at [facility].
--- NOTE | 2022-08-07 09:19 | ECG_ITS ---
Measurements Intervals [place] Rate: 52 P: -32 MD: 215 QRS: -8 QRSD: 98 T: 5 QT: 409 QTc: 383 Interpretive Statements SINUS BRADYCARDIA WITH FIRST DEGREE AV BLOCK VOLTAGE CRITERIA FOR LVH [MEETS CRITERIA IN ONE OF: R(aVL), S(V1), R(V5), R(V5/V6)+S(V1)] POSSIBLE SEPTAL MYOCARDIAL INFARCTION , OLD COMPARED WITH 04/03/22 NO CHANGE Electronically Signed On 08-07-2022 12:56:04 CDT by Luis العلي M.D.
--- NOTE | 2022-08-07 09:19 | ED.GENADULT ---
HPI - General Adult General Chief complaint: Weakness <Adrianna Chauhan PA-C - Last Filed: 08/07/22 17:44> Stated complaint: increased weakness/nausea <Adrianna Chauhan PA-C - Last Filed: 08/07/22 17:44> Time Seen by Provider: 08/07/22 09:19 <Adrianna Chauhan PA-C - Last Filed: 08/07/22 17:44> Source: patient, EMS and old records reviewed <KATHERINE Gu Last Filed: 08/07/22 17:44> Mode of arrival: EMS <KATHERINE Gu Last Filed: 08/07/22 17:44> Limitations: no limitations <Adrianna Chauhan PA-C - Last Filed: 08/07/22 17:44> History of Present Illness HPI narrative: Patient is an 82-year-old female who presents the ED via EMS with report of generalized weakness. 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 Radiation oncologist is Dr. Kharda Salas. She has received 08/01 treatments thus far, last Tx 08/04. Patient reports she did okay over the weekend, but was getting ready for her doctor's appointment this morning and became very weak and fatigued. She states she had a hard time even making her bed. She then began feeling very nauseous. She called her oncologist office and was referred to the ED for further evaluation. EMS was then called. EMS gave 4 mg Zofran in route, which improved patient's nausea. She does report some diffuse abdominal cramping and recent constipation, unable to tell me when the last bowel movement was. Denies focal weakness, rectal bleeding, fever, cough, congestion, rhinorrhea, sore throat, chest pain, difficulty breathing. <Adrianna Chauhan PA-C - Last Filed: 08/07/22 17:44> Related Data Home medications: Home Medications Medication Instructions Recorded Confirmed albuterol sulfate 90 mcg/actuation 2 inh inhalation Q4-6H PRN 03/31/22 08/08/22 aerosol inhaler Shortness Of Breath calcium carbonate 600 mg-vitamin 1 tablet PO DAILY 03/31/22 08/08/22 D3 5 mcg (200 unit) tablet cholecalciferol (vitamin D3) 25 25 mcg PO DAILY 03/31/22 08/08/22 mcg (1,000 unit) capsule citalopram 20 mg tablet 20 mg PO QAM 03/31/22 08/08/22 fluticasone fur. 100 mcg-umeclid 1 inh inhalation QAM 03/31/22 08/08/22 62.5 mcg-vilant 25 mcg inhalat.powder (Trelegy Ellipta) olmesartan 40 mg-amlodipine 5 0.5 tablet PO QAM 03/31/22 08/08/22 mg-hydrochlorothiazide 25 mg tablet <KATHERINE Gu Last Filed: 08/07/22 17:44> Allergies/adverse reactions: Allergies Allergy/AdvReac Type Severity Reaction Status Date / Time hydrocodone AdvReac Mild vomiting Verified 08/08/22 08:49 adhesive AdvReac Unknown RASH, ITCH Verified 08/08/22 08:49 alendronate sodium [Fosamax] AdvReac Unknown Nausea Verified 08/08/22 08:49 doxycycline AdvReac Unknown Nausea Verified 08/08/22 08:49 Iodinated Contrast Media AdvReac Unknown Flushing Verified 08/08/22 08:49 <Adrianna Chauhan PA-C - Last Filed: 08/07/22 17:44> Review of Systems Review of Systems: CONSTITUTIONAL: Reports generalized weakness, fatigue. Denies fever, chills, or sweats. ENT: Denies rhinorrhea, congestion, sore throat. CARDIOVASCULAR: Denies chest pain. RESPIRATORY: Denies cough or dyspnea. GASTROINTESTINAL: Reports diffuse abdominal cramping, nausea, constipation. Denies vomiting, rectal bleeding, or diarrhea. GENITOURINARY: Denies dysuria or hematuria. NEUROLOGIC: Denies headache, numbness, or focal weakness. <Adrianna Chauhan PA-C - Last Filed: 08/07/22 17:44> CONSTITUTIONAL: Admits fatigue EYES: No eye pain ENT: Denies rhinorrhea CARDIOVASCULAR: Denies palpitations RESPIRATORY: Denies hemoptysis GASTROINTESTINAL: admits abdominal cramping GENITOURINARY: Denies hematuria. SKIN: Denies rash MUSCULOSKELETAL: Denies myalgia. NEUROLOGIC: Denies weakness. PSYCHIATRIC: Denies delusions <Darren Alejandre MD - Last Filed: 1
[2022-08-07 09:28] LABS: Basophils Percent Auto 0.5 % (0.2-1.2); Eosinophils Absolute Auto 0.1 K/mm3 (0-0.3); Eosinophils Percent Auto 1.8 % (0-4.4); Hematocrit 40.1 % (37.0-47.0); Hemoglobin 13.1 g/dL (12.0-15.0); Immature Granulocyte Absolute 0.02 K/mm3 (0.00-0.031); Immature Granulocyte Percent A 0.5 % (0-0.5); Lymphocytes Absolute Auto 0.38 K/mm3 (0.9-3.2); Lymphocytes Percent Auto 8.8 % (18.3-44.2); Mean Corpuscular HGB Conc 32.7 g/dl (32-36); Mean Corpuscular Hemoglobin 33.1 pg (26-34); Mean Corpuscular Volume 101.3 fl (80-100); Mean Platelet Volume 10.1 fl (7.4-10.4); Monocytes Absolute Auto 0.7 K/mm3 (0.1-0.6); Monocytes Percent Auto 15.4 % (2.6-8.5); Neutrophils Absolute Auto 3.2 K/mm3 (1.3-6.7); Platelet Count Result 213 k/mm3 (150-375); Red Blood Count 3.96 M/mm3 (4.2-5.4); Red Cell Distribution Width 12.9 % (11.5-14.5); White Blood Count 4.3 K/mm3 (4.5-10.0)
[2022-08-07 09:39] LABS: Alanine Aminotransferase 6 U/L (6-35); Albumin Level 4.4 g/dL (3.5-5.1); Alkaline Phosphatase 46 U/L (38-126); Anion Gap 7 mmol/L (8-16); Aspartate Amino Transferase 22 U/L (14-36); Bilirubin,Total 1.3 mg/dL (0.2-1.3); Blood Urea Nitrogen 14 mg/dL (7-17); Calcium 9.8 mg/dL (8.4-10.2); Carbon Dioxide 29 mmol/L (22-30); Chloride 100 mmol/L (98-107); Estimated CRCL calculation 40 ml/min; Estimated Glomerular Filt Rate 60; Glucose 109 mg/dL (65-110); Potassium 3.9 mmol/L (3.4-5.0); Sodium 136 mmol/L (137-145)
[2022-08-07] MEDS: SODIUM CHLORIDE 0.9% IV 1,000 ML 999 ML IV CONT (09:55)
[2022-08-07 10:04] LABS: Appearance Urine Clear (Clear); Bilirubin Urine Negative (Negative); Blood Urine Negative (Negative); Color Urine Yellow (Yellow); Glucose Urine UA Negative (Negative); Ketones Urine Negative (Negative); Leukocyte Esterase Ur Negative LEU/UL (Negative); Nitrate Urine Negative (Negative); Protein Urine Negative (Negative)
[2022-08-07 10:05] LABS: Lactic Acid Reflex 1.5 mmol/L (0.7-2.0)
[2022-08-07 10:13] LABS: Add Urine Microscopic? NO
[2022-08-07 10:33] LABS: Influenza A QL RT-PCR Negative (Negative); Influenza B QL RT-PCR Negative (Negative); SARS-CoV-2 RNA PCR Negative
== END 2022-08-07 12:30 | disposition home or self-care (01) ==
PROVIDERS: Physician Assistant; Emergency Provider Emergency Medicine
DX: R53.1 Weakness (principal); K59.00 Constipation, unspecified; C79.89 Secondary malignant neoplasm of other specified sites; Z20.822 Contact with and (suspected) exposure to COVID-19; J43.9 Emphysema, unspecified; I10 Essential (primary) hypertension; E55.9 Vitamin D deficiency, unspecified; K21.9 Gastro-esophageal reflux disease without esophagitis; M81.0 Age-related osteoporosis without current pathological fracture; R73.03 Prediabetes; Z85.3 Personal history of malignant neoplasm of breast; Z85.118 Personal history of other malignant neoplasm of bronchus and lung; Z90.710 Acquired absence of both cervix and uterus; Z90.13 Acquired absence of bilateral breasts and nipples; Z90.2 Acquired absence of lung [part of]; R94.31 Abnormal electrocardiogram [ECG] [EKG]; R00.1 Bradycardia, unspecified; Z87.891 Personal history of nicotine dependence
CPT/HCPCS: 36415; 74018; 80053; 81003; 83605; 85025; 87502; 93005; 96360; 99284; J7030; U0003; U0005

== ENCOUNTER 2022-09-11 08:03 | Outpatient (CLI) | payer MEDICARE, SELFPAY ==
--- NOTE | ~2022-09-11 | CT_ITS ---
EXAMINATION: CT diagnostic chest wo con DATE: 09/11/2022 08:21 INDICATION: Restaging of malignant left breast neoplasm. A few nonspecific subcentimeter pulmonary no dules without increased FDG uptake were noted in the lower lobes on 06/13/2022 PET/CT scan TECHNIQUE: Computed tomography (CT) of the chest was performed without intravenous contrast. Automate d exposure control and iterative reconstruction technique were employed. Exam dose: 124.29 mGy-cm to camila exam DLP. COMPARISON: 06/13/2022 PET/CT scan 04/03/2022 2 view chest FINDINGS: Portions of the chest are excluded including the breast areas. Stable bilateral apical scarring. Status post bilateral upper lobe resections Minimal bilateral lower lobe tree-in-bud infiltrates, left greater than right, improved on the right, mildly increased on the left since 04/03/2022, due to infection or postinfection residue. Emphysematous changes are again noted, particularly in the anterior segment of the left upper lobe. B ilateral chronic discoid scarring.. Focal pleural thickening and pleural calcification, lateral left lower chest. Slight dependent left pleural effusion. Heart size is within normal range. Calcified mitral valve and/or mitral annulus. Coronary artery calc ifications. Aortic and great vessel calcifications. No thoracic aortic aneurysm. No pericardial or pl eural effusion. Normal morphology of the adrenal glands. Mild anterior wedge compression fracture deformity of T5, unchanged since 04/03/2022. Degenerative patrick nges of the thoracic and lumbar spine. Osteopenia. IMPRESSION: Emphysema Status post bilateral upper lobe resections Minimal bilateral lower lobe tree-in-bud infiltrates, left greater than right, improved on the right mildly increased on the left since 04/03/2022, likely due to infection or postoperative infection resi due Prior left anterior chest wall mass appears virtually resolved since 04/03/2022; this area is not comp letely included within the [id number] on the current examination. Reviewed, dictated and finalized at [facility]. Reviewed, dictated and finalized at [facility]. L HANGER IMPRESSION: Emphysema Status post bilateral upper lobe resections Minimal bilateral lower lobe tree-in-bud infiltrates, left greater than right, improved on the right mildly increased on the left since 04/03/2022, likely due to infection or postoperative infection residue Prior left anterior chest wall mass appears virtually resolved since 04/03/2022; this area is not completely included within the [id number] on the current e xamination.
== END 2022-09-11 08:04 | disposition home or self-care (01) ==
PROVIDERS: PCP Family Medicine; Visit Provider Internal Medicine Pulmonary Disease
DX: C50.912 Malignant neoplasm of unspecified site of left female breast (principal); J43.9 Emphysema, unspecified
CPT/HCPCS: 71250

== ENCOUNTER → 2022-10-05 15:36 | Outpatient (CLI) | payer MEDICARE, SELFPAY ==
--- NOTE | ~2022-10-05 | XR_ITS ---
EXAMINATION: XR chest 2V DATE: 10/05/2022 15:50 INDICATION: Cough. TECHNIQUE: Frontal and lateral views of the chest were obtained. COMPARISON: Chest 2 views 04/03/2022, chest CT 09/11/2022 FINDINGS: There are changes of right upper lobectomy and partial left upper lobectomy. There is stabl e scarring at left lung apex. There is mild scarring at right lung base. No pleural effusion or pneum othorax. Cardiomegaly is noted. There are old healed bilateral rib fractures. Surgical clips overlie left axilla. There is internal fixation of left humerus. IMPRESSION: 1. Right upper lobectomy and partial left upper lobectomy. 2. Stable scarring at right lung base and left lung apex. 3. Cardiomegaly. Reviewed, dictated and finalized at [facility]. ROOM WORKER
== END ==
PROVIDERS: PCP Clinical Nurse Specialist; Visit Provider Clinical Nurse Specialist
DX: R05.9 Cough, unspecified (principal); Z90.2 Acquired absence of lung [part of]; I51.7 Cardiomegaly; J98.4 Other disorders of lung
CPT/HCPCS: 71046

== ENCOUNTER 2022-10-29 08:27 | Emergency (ER) | payer MEDICARE, SELFPAY ==
[2022-10-29] VITALS (8 sets, daily range): BP systolic 104–154; BP diastolic 56–81; PULSE 60–70; RESP 14–20; TEMP 36.8; O2SAT 95–98
--- NOTE | 2022-10-29 08:54 | ECG_ITS ---
Measurements Intervals [place] Rate: 68 P: 96 HI: 215 QRS: 77 QRSD: 97 T: 55 QT: 381 QTc: 405 Interpretive Statements SINUS RHYTHM WITH FIRST DEGREE AV BLOCK CANNOT RULE OUT SEPTAL INFARCT, AGE INDETERMINATE BASELINE ARTIFACT- I, III, AVR, AVL, AVF ABNORMAL ECG COMPARED TO ECG 08/07/2022 09:35:01 SINUS RHYTHM NOW PRESENT Electronically Signed On 10-29-2022 9:08:27 STRATEGIC PARTNER DEVELOPMENT MANAGER by Aaron Victoria D.O.
[2022-10-29 09:20] LABS: Basophils Percent Auto 0.5 % (0.2-1.2); Eosinophils Absolute Auto 0.2 K/mm3 (0-0.3); Eosinophils Percent Auto 2.6 % (0-4.4); Hematocrit 40.2 % (37.0-47.0); Immature Granulocyte Absolute 0.01 K/mm3 (0.00-0.031); Immature Granulocyte Percent A 0.2 % (0-0.5); Lymphocytes Absolute Auto 0.78 K/mm3 (0.9-3.2); Lymphocytes Percent Auto 12.8 % (18.3-44.2); Mean Corpuscular HGB Conc 32.3 g/dl (32-36); Mean Corpuscular Hemoglobin 33.1 pg (26-34); Mean Corpuscular Volume 102.3 fl (80-100); Mean Platelet Volume 10.5 fl (7.4-10.4); Monocytes Absolute Auto 0.8 K/mm3 (0.1-0.6); Monocytes Percent Auto 13.8 % (2.6-8.5); Neutrophils Absolute Auto 4.3 K/mm3 (1.3-6.7); Neutrophils Percent Auto 70.1 % (45.5-73.1); Platelet Count Result 280 k/mm3 (150-375); Red Blood Count 3.93 M/mm3 (4.2-5.4); Red Cell Distribution Width 12.4 % (11.5-14.5); White Blood Count 6.1 K/mm3 (4.5-10.0)
[2022-10-29 09:32] LABS: Alanine Aminotransferase 26 U/L (6-35); Albumin Level 3.9 g/dL (3.5-5.1); Alkaline Phosphatase 59 U/L (38-126); Anion Gap 4 mmol/L (8-16); Aspartate Amino Transferase 33 U/L (14-36); Bilirubin,Total 0.9 mg/dL (0.2-1.3); Blood Urea Nitrogen 22 mg/dL (7-17); Calcium 9.3 mg/dL (8.4-10.2); Carbon Dioxide 32 mmol/L (22-30); Chloride 103 mmol/L (98-107); Estimated CRCL calculation 40 ml/min; Estimated Glomerular Filt Rate 60; Glucose 90 mg/dL (65-110); Potassium 4.2 mmol/L (3.4-5.0); Sodium 139 mmol/L (137-145)
[2022-10-29] MEDS: SODIUM CHLORIDE 0.9% IV 1,000 ML 999 ML IV CONT (10:50)
[2022-10-29 12:32] LABS: Appearance Urine Slightly Cloudy (Clear); Bilirubin Urine Negative (Negative); Blood Urine Trace-lysed (Negative); Color Urine Yellow (Yellow); Glucose Urine UA Negative (Negative); Ketones Urine Negative (Negative); Leukocyte Esterase Ur 3+ LEU/UL (Negative); Nitrate Urine Negative (Negative); Protein Urine Negative (Negative); Urobilinogen Urine 0.2 mg/dL (<2.0); pH Urine 6.5 (5.0-9.0)
--- NOTE | 2022-10-29 12:47 | ED.WEAKNESS ---
HPI - Weakness General Chief complaint: Weakness Stated complaint: near syncopal with constipation Time Seen by Provider: 10/29/22 10:14 History of Present Illness HPI Narrative: Patient is 82-year-old female who presents the ER with lightheadedness/dizziness. Patient reports she was up walking around and she began to feel dizzy and like she may pass out so she sat down. No slurred speech. No sweats/nausea/vomiting. Patient reports oral intake of food and water chronically. She reports she has history of breast mass that was being radiated but she has not had radiation since August because she is finished the treatment. She also endorses chronic constipation but is having no abdominal pain at this time. No urinary frequency but she does have some dysuria that is atypical for her. Related Data Home Medications Medication Instructions Recorded Confirmed albuterol sulfate 90 mcg/actuation 2 inh inhalation Q4-6H PRN 03/31/22 10/12/22 aerosol inhaler Shortness Of Breath calcium carbonate 600 mg-vitamin 1 tablet PO DAILY 03/31/22 10/12/22 D3 5 mcg (200 unit) tablet cholecalciferol (vitamin D3) 25 25 mcg PO DAILY 03/31/22 10/12/22 mcg (1,000 unit) capsule citalopram 20 mg tablet 20 mg PO QAM 03/31/22 10/12/22 fluticasone fur. 100 mcg-umeclid 1 inh inhalation QAM 03/31/22 10/12/22 62.5 mcg-vilant 25 mcg inhalat.powder (Trelegy Ellipta) anastrozole 1 mg tablet 1 mg PO DAILY 10/12/22 10/12/22 Allergies Allergy/AdvReac Type Severity Reaction Status Date / Time hydrocodone AdvReac Mild vomiting Verified 10/29/22 10:52 adhesive AdvReac Unknown RASH, ITCH Verified 10/29/22 10:52 alendronate sodium [Fosamax] AdvReac Unknown Nausea Verified 10/29/22 10:52 Iodinated Contrast Media AdvReac Unknown Flushing Verified 10/29/22 10:52 Review of Systems Review of Systems: All systems reviewed & are unremarkable except as noted in HPI and below Constitutional: Constitutional: Denies chills, Denies fatigue and Denies fever(s) ENT: Denies nasal congestion and Denies sore throat Cardiovascular: Cardiovascular: Denies rapid heart rate and Denies radiating jaw, neck or arm pain Respiratory: Respiratory: Denies cough, Denies dyspnea and Denies wheezing Gastrointestinal: Gastrointestinal: Denies abdominal pain, Denies nausea and Denies vomiting Neurologic: Reports dizziness, Denies syncope, Denies focal weakness and Denies numbness PMF Past Medical History Medical History Anxiety Cancer of left breast Constipation Depression Diastolic dysfunction Echocardiogram 01/201919 grade 1 diastolic dysfunction EF 60% mild left atrial enlargement Emphysema of lung Fracture of fifth metatarsal bone of right foot with routine healing GERD (gastroesophageal reflux disease) Hypertension Lung cancer Osteoporosis, unspecified Prediabetes Vitamin D deficiency Surgical History Surgical History 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 13 cm layered closure. 04/12/2022 History of lobectomy of lung Right upper lobe 1994, left lower lung partial lobectomy 2005 History of right mastectomy (~2012) Family History Family History Mother CHF (congestive heart failure) Dementia Father Lung cancer Sibling Acute myocardial infarction Cerebrovascular accident Other Hypertension Social History Social History (Updated 10/05/22 @ 15:16 by Elsie Guevara MA) Social History: She is . She has
[2022-10-29 12:49] LABS: Bacteria Urine Trace /hpf; Mucus Urine Rare /lpf; RBC Urine 0-2 /hpf (0-2); Squamous Epithelial Cell Urine Rare /hpf (Few); WBC Clumps Urine Present /HPF; WBC Urine >75 /hpf
[2022-10-29 12:51] LABS: Add Urine Microscopic? YES
--- NOTE | 2022-10-29 14:24 | PC.NURSE ---
pt ambulated around nurses station per edp. pt tolerated walk, no dizziness or sob noted. pt steady gait
== END 2022-10-29 14:40 | disposition home or self-care (01) ==
PROVIDERS: Emergency Provider Emergency Medicine
DX: N39.0 Urinary tract infection, site not specified (principal); J43.9 Emphysema, unspecified; I10 Essential (primary) hypertension; R73.03 Prediabetes; E55.9 Vitamin D deficiency, unspecified; K21.9 Gastro-esophageal reflux disease without esophagitis; M81.0 Age-related osteoporosis without current pathological fracture; Z90.2 Acquired absence of lung [part of]; Z90.13 Acquired absence of bilateral breasts and nipples; Z90.710 Acquired absence of both cervix and uterus; Z85.3 Personal history of malignant neoplasm of breast; Z85.118 Personal history of other malignant neoplasm of bronchus and lung; Z87.891 Personal history of nicotine dependence
CPT/HCPCS: 36415; 80053; 81001; 85025; 87077; 87086; 87186; 93005; 96361; 96365; 99284; J0696; J7030

== ENCOUNTER 2022-11-30 08:12 | Outpatient (CLI) | payer MEDICARE, SELFPAY ==
--- NOTE | ~2022-11-30 | NM_ITS ---
EXAMINATION: NM bone scan whole body DATE: 11/30/2022 12:57 INDICATION: Weakness. Metastatic breast cancer. TECHNIQUE: 24.7 mCi Tc-99m HDP was administered intravenously. Delayed whole-body scintigrams were o btained. COMPARISON: CT studies dated 02/04/2019 and 09/11/2022. FINDINGS: There is a single focus of abnormal increased uptake at the anterior right fifth rib which appears to correspond to the location of a old fracture dislocation on the most recent CT. No other suspicious lytic or blastic bone lesions dislocation on the CT from 2 months prior. No other suspicious foci of abnormal bone uptake. IMPRESSION: 1. Single focus of abnormal bone uptake at the anterior right fifth rib without corresponding lytic o r blastic bone lesion on prior CT likely related to an old fracture at this location. Reviewed, dictated and finalized at location A. END ENGINEER IMPRESSION: 1. Single focus of abnormal bone uptake at the anterior right fifth rib without corresponding lytic or blastic bone lesion on prior CT likely related to an ol d fracture at this location.
== END 2022-11-30 08:13 | disposition home or self-care (01) ==
PROVIDERS: PCP Family Medicine; Visit Provider Psychiatry & Neurology Neurology
DX: R53.1 Weakness (principal); C50.919 Malignant neoplasm of unspecified site of unspecified female breast
CPT/HCPCS: 78306; A9503

== ENCOUNTER 2023-01-01 08:53 | Emergency (ER) | payer MEDICARE, SELFPAY ==
[2023-01-01] VITALS (13 sets, daily range): BP systolic 91–132; BP diastolic 50–67; PULSE 63–73; RESP 16–21; TEMP 36.8; O2SAT 98–100
--- NOTE | ~2023-01-01 | XR_ITS ---
Clinical Indication: Shortness of breath AP and lateral views of the chest: Comparison: 10/05/2022 Findings: Stable COPD with probable chronic blunting of the costophrenic angles. No acute pulmonary a bnormality evident.. Cardiomediastinal silhouette is within normal limits. Stable evidence of prior right rib resections. Impression: No acute abnormality seen. COPD and chronic blunting of the costophrenic angles. Reviewed, dictated and finalized at location . Impression: No acute abnormality seen. COPD and chronic blunting of the costophrenic angles.
--- NOTE | ~2023-01-01 | CT_ITS ---
EXAMINATION: CT abdomen pelvis wo con DATE: 01/01/2023 13:23 INDICATION: Abdominal pain. Diarrhea for 3 days. Shortness of breath. TECHNIQUE: Computed tomography (CT) of the abdomen and pelvis was performed without intravenous contr ast. Automated exposure control and iterative reconstruction technique were employed. Exam dose: 398 .13 mGy-cm total exam DLP. COMPARISON: 08/07/2022 KUB 06/13/2022 PET/CT scan FINDINGS: Chronic bilateral lower lung and pleural scarring. Emphysematous change of the lungs. Cardiomegaly. Trace pericardial fluid. No pleural effusion. The liver, gallbladder, bile ducts, pancreas, pancreatic duct and spleen are unremarkable. The adrenal glands are unremarkable. No renal mass lesion or urinary tract calculus or hydroureteronephrosis. The urinary bladder is unrem arkable. Status post hysterectomy. There is extensive calcification but normal caliber of the abdominal aorta and iliac arteries. No int raperitoneal or retroperitoneal or pelvic mass lesion or adenopathy or ascites. No bowel obstruction or intraperitoneal free air is detected. Severe degenerative disc disease at L5-S1. Prominent degenerative change at the apophyseal joints in the lower lumbar and lumbosacral area with associated minimal grade 1 anterolisthesis at L4-5. No suspicious osteolytic or osteoblastic lesions. IMPRESSION: Cardiomegaly No bowel obstruction or free air Reviewed, dictated and finalized at Location A. Reviewed, dictated and finalized at location B.
--- NOTE | 2023-01-01 09:11 | ECG_ITS ---
Measurements Intervals [place] Rate: 63 P: 84 PA: 203 QRS: 43 QRSD: 102 T: 40 QT: 395 QTc: 406 Interpretive Statements SINUS RHYTHM ATRIAL PREMATURE COMPLEX BORDERLINE AV CONDUCTION DELAY CANNOT RULE OUT SEPTAL INFARCT, AGE INDETERMINATE BASELINE ARTIFACT- I, II, III, AVR, AVL, AVF ABNORMAL ECG COMPARED TO ECG 10/29/2022 09:01:25 NO SIGNIFICANT CHANGES Electronically Signed On 01-01-2023 9:45:33 CDT by Aaron Victoria D.O.
[2023-01-01 09:32] LABS: Basophils Percent Auto 0.3 % (0.2-1.2); Eosinophils Absolute Auto 0.1 K/mm3 (0-0.3); Eosinophils Percent Auto 1.2 % (0-4.4); Hematocrit 39.2 % (37.0-47.0); Hemoglobin 13.3 g/dL (12.0-15.0); Immature Granulocyte Absolute 0.02 K/mm3 (0.00-0.031); Immature Granulocyte Percent A 0.3 % (0-0.5); Lymphocytes Absolute Auto 0.58 K/mm3 (0.9-3.2); Lymphocytes Percent Auto 9.8 % (18.3-44.2); Mean Corpuscular HGB Conc 33.9 g/dl (32-36); Mean Corpuscular Hemoglobin 33.8 pg (26-34); Mean Corpuscular Volume 99.5 fl (80-100); Mean Platelet Volume 9.8 fl (7.4-10.4); Monocytes Absolute Auto 0.8 K/mm3 (0.1-0.6); Monocytes Percent Auto 13.1 % (2.6-8.5); Neutrophils Absolute Auto 4.4 K/mm3 (1.3-6.7); Neutrophils Percent Auto 75.3 % (45.5-73.1); Platelet Count Result 239 k/mm3 (150-375); Red Blood Count 3.94 M/mm3 (4.2-5.4); Red Cell Distribution Width 12.1 % (11.5-14.5); White Blood Count 5.9 K/mm3 (4.5-10.0)
[2023-01-01 09:44] LABS: Alanine Aminotransferase 24 U/L (6-35); Albumin Level 4.4 g/dL (3.5-5.1); Alkaline Phosphatase 49 U/L (38-126); Anion Gap 8 mmol/L (8-16); Aspartate Amino Transferase 24 U/L (14-36); Bilirubin,Total 1.3 mg/dL (0.2-1.3); Blood Urea Nitrogen 14 mg/dL (7-17); Calcium 9.4 mg/dL (8.4-10.2); Carbon Dioxide 27 mmol/L (22-30); Chloride 96 mmol/L (98-107); Estimated CRCL calculation 31 ml/min; Estimated Glomerular Filt Rate 43; Glucose 113 mg/dL (65-110); Potassium 4.2 mmol/L (3.4-5.0); Sodium 131 mmol/L (137-145)
--- NOTE | 2023-01-01 12:28 | ED.GENADULT ---
HPI - General Adult General Chief complaint: Shortness of Breath/Dyspnea Stated complaint: Sob Time Seen by Provider: 01/01/23 12:00 Source: family and RN notes reviewed History of Present Illness HPI narrative: Patient presents emergency department from home for shortness of breath. Patient states that she has felt short of breath for the past 3 days. States she feels like she cannot take a deep breath and does not get enough oxygen. She states that the symptoms are worse whenever she gets up and ambulates is improved with resting. She also states that she feels shaky with walking. Patient states she is currently on antibiotics for a UTI and this is her third round of antibiotics states that she has been having abdominal cramping as well in the mornings for the past 3 days she denies having any measured fevers or chills denies any chest pain denies any vomiting but does states she has had loose stool. Patient does note history of COPD but does not wear oxygen normally at home Related Data Home Medications Medication Instructions Recorded Confirmed albuterol sulfate 90 mcg/actuation 2 inh inhalation Q4-6H PRN 03/31/22 12/06/22 aerosol inhaler Shortness Of Breath calcium carbonate 600 mg-vitamin 1 tablet PO DAILY 03/31/22 12/06/22 D3 5 mcg (200 unit) tablet cholecalciferol (vitamin D3) 25 25 mcg PO DAILY 03/31/22 12/06/22 mcg (1,000 unit) capsule anastrozole 1 mg tablet 1 mg PO DAILY 11/21/22 12/06/22 Allergies Allergy/AdvReac Type Severity Reaction Status Date / Time hydrocodone AdvReac Mild vomiting Verified 12/18/22 10:30 adhesive AdvReac Unknown RASH, ITCH Verified 12/18/22 10:30 alendronate sodium [Fosamax] AdvReac Unknown Nausea Verified 12/18/22 10:30 Iodinated Contrast Media AdvReac Unknown Flushing Verified 12/18/22 10:30 Review of Systems Review of Systems: Gen.: Denies fevers or chills ENT: Denies congestion Respiratory: Reports shortness of CV: Denies chest pain or palpitations GI: Reports abdominal pain and diarrhea denies nausea or vomiting reports UTI Musculoskeletal: Denies back pain or muscle pain Neuro: Denies numbness, tingling, weakness or focal weakness Skin: Denies rash Except as documented, all other systems reviewed and negative PMFSH Past Medical History Medical History Anxiety Cancer of left breast Constipation Depression Diastolic dysfunction Echocardiogram 01/201919 grade 1 diastolic dysfunction EF 60% mild left atrial enlargement Emphysema of lung Fracture of fifth metatarsal bone of right foot with routine healing GERD (gastroesophageal reflux disease) Hypertension Lung cancer Osteoporosis, unspecified Prediabetes Vitamin D deficiency Surgical History Surgical History 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 13 cm layered closure. 04/12/2022 History of lobectomy of lung Right upper lobe 1994, left lower lung partial lobectomy 2005 History of right mastectomy (~2012) Family History Family History Mother CHF (congestive heart failure) Dementia Father Lung cancer Sibling Acute myocardial infarction Cerebrovascular accident Other Hypertension Social History Social History Social History: She is . She has a daughter and a son. 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 She does drink wine nightly. Code status: Full code Healthcare power of deputy attorney general: Ursula Vega (daughter)
[2023-01-01 12:41] LABS: Lipase 65 U/L (23-300)
[2023-01-01 12:54] LABS: NT Pro B Type Natriuretic Pept 274 pg/mL (19.9-100); Troponin I < 0.012 ng/mL (0.000-0.034)
[2023-01-01 12:59] LABS: Prothrombin Time 13.1 Seconds (11.1-14.7)
[2023-01-01 13:00] LABS: Partial Thromboplastin Time 24.2 SECONDS (22.3-36.8)
[2023-01-01 13:21] LABS: Appearance Urine Clear (Clear); Bacteria Urine None Seen /hpf; Bilirubin Urine Negative (Negative); Blood Urine Negative (Negative); Color Urine Yellow (Yellow); Glucose Urine UA Negative (Negative); Ketones Urine Negative (Negative); Leukocyte Esterase Ur 1+ LEU/UL (Negative); Need Manual Microscopic Reviewed; Nitrate Urine Negative (Negative); Non Pathogenic Casts 0-2; Protein Urine Negative (Negative); RBC Urine 0-2 /hpf (0-2); Specific Grav Ur 1.012 (1.001-1.035); Squamous Epithelial Cell Urine Occasional /hpf (Few); Urobilinogen Urine 0.2 mg/dL (<2.0); WBC Urine 0-5 /hpf; pH Urine 6.5 (5.0-9.0)
[2023-01-01 13:26] LABS: Add Urine Microscopic? YES
[2023-01-01 13:26] LABS: Influenza A QL RT-PCR Negative (Negative); Influenza B QL RT-PCR Negative (Negative); RSV RNA, RT-PCR Negative (Negative); SARS-CoV-2 RNA PCR Negative
--- NOTE | 2023-01-01 13:50 | PC.NURSE ---
ERP requested that pt have a walking SPO2. Pt ambulates out around ED and states she does feel a little weak, but denies any SOB. SPO2 was above 96% on room air and pulse in the 80s. Reported to ERP.
== END 2023-01-01 14:22 | disposition home or self-care (01) ==
PROVIDERS: Emergency Medicine; Emergency Provider Emergency Medicine; PCP Family Medicine
DX: J44.9 Chronic obstructive pulmonary disease, unspecified (principal); G20 Parkinson's disease; R06.00 Dyspnea, unspecified; R53.1 Weakness; Z20.822 Contact with and (suspected) exposure to COVID-19; I10 Essential (primary) hypertension; R73.03 Prediabetes; E55.9 Vitamin D deficiency, unspecified; K21.9 Gastro-esophageal reflux disease without esophagitis; M81.0 Age-related osteoporosis without current pathological fracture; F32.A Depression, unspecified; Z90.710 Acquired absence of both cervix and uterus; F41.9 Anxiety disorder, unspecified; Z90.2 Acquired absence of lung [part of]; Z90.13 Acquired absence of bilateral breasts and nipples; Z87.891 Personal history of nicotine dependence; Z85.3 Personal history of malignant neoplasm of breast; I49.1 Atrial premature depolarization; R94.31 Abnormal electrocardiogram [ECG] [EKG]; I51.7 Cardiomegaly
CPT/HCPCS: 36415; 71046; 74176; 80053; 81001; 83690; 83880; 84484; 85025; 85610; 85730; 87637; 93005; 99284

== ENCOUNTER 2023-01-04 11:13 | Observation (INO) | payer MEDICARE, SELFPAY ==
[2023-01-04] VITALS (21 sets, daily range): BP systolic 93–146; BP diastolic 47–74; PULSE 50–71; RESP 12–23; TEMP 36.4–36.8; O2SAT 95–100; BMI 19.9
--- NOTE | ~2023-01-04 | CT_ITS ---
EXAMINATION: CT brain wo con DATE: 01/05/2023 07:55 INDICATION: Dizziness. TECHNIQUE: Computed tomography (CT) of the head was performed without intravenous contrast. The mA wa s adjusted according to patient size. Iterative reconstruction technique was employed. The dose-lengt h product was 605.33 mGy-cm. COMPARISON: Head CT 03/16/2014 FINDINGS: There is no intracranial hemorrhage, acute infarction, or abnormal intracranial mass lesion . There are scattered areas of low attenuation in the cerebral white matter. The ventricles are franchesca l in size. The orbits are normal. There is a small osteoma in the paranasal sinuses on the left. The mastoid air cells are normal. IMPRESSION: 1. Worsened moderate nonspecific cerebral white matter disease, which likely represents chronic small vessel ischemic disease. Reviewed, dictated and finalized at location A. IMPRESSION: 1. Worsened moderate nonspecific cerebral white matter disease, which likely re presents chronic small vessel ischemic disease.
--- NOTE | ~2023-01-04 | XR_ITS ---
Portable chest x-ray Comparison: 01/01/2023 Clinical History: Syncope Findings: COPD pattern of the lungs present, with mild nonspecific haziness in the upper lobe region s. This appears stable from prior exam. Cardiomediastinal silhouette is stable. Chronic rib fracture deformities are noted. Impression: No definite acute abnormality. COPD and probable chronic mild haziness in the upper lobe regions. Reviewed, dictated and finalized at location . Impression: No definite acute abnormality. COPD and probable chronic mild haziness in the upper lobe regions.
--- NOTE | 2023-01-04 11:12 | ECG_ITS ---
Measurements Intervals [place] Rate: 63 P: 71 [place]: 222 QRS: 76 QRSD: 96 T: 51 QT: 397 QTc: 409 Interpretive Statements SINUS RHYTHM WITH FIRST DEGREE AV BLOCK CANNOT RULE OUT SEPTAL INFARCT, AGE INDETERMINATE BASELINE WANDER- I, III, V4, V6 ABNORMAL ECG COMPARED TO ECG 01/01/2023 09:21:21 FIRST DEGREE AV BLOCK NOW PRESENT Electronically Signed On 01-04-2023 13:41:34 CDT by Aaron Victoria D.O.
[2023-01-04 11:35] LABS: Basophils Percent Auto 0.4 % (0.2-1.2); Eosinophils Absolute Auto 0.1 K/mm3 (0-0.3); Eosinophils Percent Auto 1.9 % (0-4.4); Hematocrit 38.4 % (37.0-47.0); Hemoglobin 12.7 g/dL (12.0-15.0); Immature Granulocyte Absolute 0.03 K/mm3 (0.00-0.031); Immature Granulocyte Percent A 0.6 % (0-0.5); Lymphocytes Absolute Auto 0.86 K/mm3 (0.9-3.2); Mean Corpuscular HGB Conc 33.1 g/dl (32-36); Mean Corpuscular Hemoglobin 33.3 pg (26-34); Mean Corpuscular Volume 100.8 fl (80-100); Mean Platelet Volume 9.8 fl (7.4-10.4); Monocytes Absolute Auto 0.8 K/mm3 (0.1-0.6); Monocytes Percent Auto 15.6 % (2.6-8.5); Neutrophils Absolute Auto 3.5 K/mm3 (1.3-6.7); Neutrophils Percent Auto 65.5 % (45.5-73.1); Platelet Count Result 291 k/mm3 (150-375); Red Blood Count 3.81 M/mm3 (4.2-5.4); Red Cell Distribution Width 12.1 % (11.5-14.5); White Blood Count 5.4 K/mm3 (4.5-10.0)
[2023-01-04 11:45] LABS: Alanine Aminotransferase 9 U/L (6-35); Albumin Level 4.3 g/dL (3.5-5.1); Alkaline Phosphatase 43 U/L (38-126); Anion Gap 5 mmol/L (8-16); Aspartate Amino Transferase 23 U/L (14-36); Bilirubin,Total 0.8 mg/dL (0.2-1.3); Blood Urea Nitrogen 24 mg/dL (7-17); Calcium 9.6 mg/dL (8.4-10.2); Carbon Dioxide 29 mmol/L (22-30); Chloride 98 mmol/L (98-107); Estimated CRCL calculation 28 ml/min; Estimated Glomerular Filt Rate 39; Glucose 127 mg/dL (65-110); Potassium 4.3 mmol/L (3.4-5.0); Sodium 132 mmol/L (137-145)
[2023-01-04] MEDS: SODIUM CHLORIDE 0.9% IV 1,000 ML 999 ML (11:57)
[2023-01-04 12:28] LABS: Lipase 86 U/L (23-300)
[2023-01-04 12:41] LABS: Troponin I < 0.012 ng/mL (0.000-0.034)
[2023-01-04 12:45] LABS: Partial Thromboplastin Time 24.6 SECONDS (22.3-36.8); Prothrombin Time 13.1 Seconds (11.1-14.7)
--- NOTE | 2023-01-04 12:48 | ED.GENADULT ---
HPI - General Adult General Chief complaint: Syncope Stated complaint: near syncopy Time Seen by Provider: 01/04/23 12:01 Source: RN notes reviewed History of Present Illness HPI narrative: Patient presents emergency department from home for near syncopal episode. Patient states that she had gotten up and had been walking to the bathroom to have a bowel movement when she began to feel lightheaded and dizzy and felt like she was going to pass out. States that time she was able to make to the bathroom and had a bowel movement states that following the bowel movement again she had gotten up and was walking when she again felt lightheaded and dizzy had to lay down on the ground. States that this time she feels not quite right but does not feel like she is going to pass out. She states that she has had numerous similar episodes in the past year and has been seen in the emergency department 5 times prior for that she states she is also been seen by cardiology and her neurologist. Patient does have a history of prior Parkinson's disease states she has been taking all of her medications she denies having any fevers or chills she denies any chest pain shortness of breath abdominal pain or any other symptoms. States she has had no recent illness Related Data Home Medications Medication Instructions Recorded Confirmed albuterol sulfate 90 mcg/actuation 2 inh inhalation Q4-6H PRN 03/31/22 12/06/22 aerosol inhaler Shortness Of Breath calcium carbonate 600 mg-vitamin 1 tablet PO DAILY 03/31/22 12/06/22 D3 5 mcg (200 unit) tablet cholecalciferol (vitamin D3) 25 25 mcg PO DAILY 03/31/22 12/06/22 mcg (1,000 unit) capsule anastrozole 1 mg tablet 1 mg PO DAILY 11/21/22 12/06/22 Allergies Allergy/AdvReac Type Severity Reaction Status Date / Time hydrocodone AdvReac Mild vomiting Verified 12/18/22 10:30 adhesive AdvReac Unknown RASH, ITCH Verified 12/18/22 10:30 alendronate sodium [Fosamax] AdvReac Unknown Nausea Verified 12/18/22 10:30 Iodinated Contrast Media AdvReac Unknown Flushing Verified 12/18/22 10:30 Review of Systems Review of Systems: Gen.: Denies fevers or chills Eyes: Denies eye pain or visual change ENT: Denies congestion Respiratory: Denies shortness of breath or cough CV: See HPI GI: Denies abdominal pain nausea, emesis or diarrhea Musculoskeletal: Denies back pain or muscle pain Neuro: Denies numbness, tingling, weakness or focal weakness Skin: Denies rash Except as documented, all other systems reviewed and negative [facility] Past Medical History Medical History Anxiety Cancer of left breast Constipation Depression Diastolic dysfunction Echocardiogram 01/201919 grade 1 diastolic dysfunction EF 60% mild left atrial enlargement Emphysema of lung Fracture of fifth metatarsal bone of right foot with routine healing GERD (gastroesophageal reflux disease) Hypertension Lung cancer Osteoporosis, unspecified Prediabetes Vitamin D deficiency Surgical History Surgical History 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 13 cm layered closure. 04/12/2022 History of lobectomy of lung Right upper lobe 1994, left lower lung partial lobectomy 2005 History of right mastectomy (~2012) Family History Family History Mother CHF (congestive heart failure) Dementia Father Lung cancer Sibling Acute myocardial infarction Cerebrovascular accident Other Hypertension Social History Social History
[2023-01-04 13:53] LABS: Appearance Urine Clear (Clear); Bilirubin Urine Negative (Negative); Blood Urine Negative (Negative); Color Urine Yellow (Yellow); Glucose Urine UA Negative (Negative); Ketones Urine Negative (Negative); Leukocyte Esterase Ur Negative LEU/UL (Negative); Nitrate Urine Negative (Negative); Protein Urine Negative (Negative); Specific Grav Ur 1.009 (1.001-1.035); Urobilinogen Urine 0.2 mg/dL (<2.0)
[2023-01-04 14:02] LABS: Add Urine Microscopic? NO
--- NOTE | 2023-01-04 14:22 | PM.IMHP ---
H&P: HPI History of Present Illness Date/Time: 01/04/23 14:22 Chief Complaint: Syncope Narrative: This is an 82-year-old female patient who has felt tired and shaky since February of last year. She does see Dr. Riddle for Parkinson's disease and she is on carbidopa levodopa. The patient was recently in the emergency room on 01/01/2023 and was encouraged to finish out her Bactrim. She was being treated for UTI. Today the patient came back to the emergency room for near syncopal episode. The patient states that she had gotten up and had been walking in the bathroom to have a bowel movement when she began had feel lightheaded and dizzy. She felt like she was going to pass out. The patient was able to make it to the bathroom to have a bowel movement. She then had gotten up and was walking again when she felt lightheaded and dizzy. The patient laid down on the floor. The patient felt like she was going to pass out at that time. The patient stated that she had numerous similar episodes in the past year and was seen in the emergency room department 5 times prior to that and was seen by Cardiology and Neurology. She has no fever chills. The patient had a heart rate down in the 50s and 60s which is normal for the patient. Her blood pressure is low at 93/48 and then came up to 146/74. She is on metoprolol. Her creatinine is bumped up to 1.3 with a normal baseline. Chest x-ray was read as no definite acute abnormality COPD and probable chronic mild haziness in the upper lobe regions. Urine is negative and 3 days ago the patient was negative for influenza A/B RSV and COVID. Cardiology had been consulted for the bradycardia. The patient is being admitted to observation status on the date of service of 01/04/2023. Review of Systems Review of Systems: All systems reviewed & are unremarkable except as noted in HPI and below Constitutional: Constitutional: Reports as per HPI and Reports no additional constitutional complaints Eyes: Eyes: Reports as per HPI and Reports no additional eye complaints ENT: Reports system reviewed and no additional complaints, except as documented and Reports Normal hearing present Cardiovascular: Cardiovascular: Reports no additional cardiovascular complaints Respiratory: Respiratory: Reports no additional respiratory complaints and Reports no additional respiratory complaints Gastrointestinal: Gastrointestinal: Reports as per HPI and Reports no additional gastrointestinal complaints Musculoskeletal: Musculoskeletal: Reports no additional musculoskeletal complaints Integumentary/Breasts: Skin/Breast: Reports system reviewed and no additional complaints, except as docu and Reports as per HPI Neurologic: Reports system reviewed and no additional complaints, except as documented, Reports as per HPI and Reports Normal hearing present Psychiatric: Psychiatric: Reports no additional psychiatric complaints and Reports as per HPI Endocrine: Endocrine: Reports no additional endocrine complaints Hematologic/Lymphatic: Hematologic/Lymphatic: Reports no additional hematologic/lymphatic complaints Allergic/Immunologic: Allergic/Immunologic: Reports no additional allergic/immunologic complaints [facility] Past Medical History Medical History Anxiety Cancer of left breast Constipation Depression Diastolic dysfunction Echocardiogram 01/201919 grade 1 diastolic dysfunction EF 60% mild left atrial enlargement Emphysema of lung Fracture of fifth metatarsal bone of right foot with routine healing GERD (gastroesophageal reflux disease) Hypertension Lung cancer Osteoporosis, unspecified Prediabetes Vitamin D deficiency Surgical History Surgical History H/O left mastectomy (~2009) DCIS H/O: hysterectomy (~1994) Due to dysfunctional uterine bleeding History of breast lump/mass excision Re-excision posterior chest wall mar
--- NOTE | 2023-01-04 17:40 | ADMGEN ---
This patient, Tigist Trejo, was admitted to IMU Room 203-01. Patient/family oriented to hospital policies and general routines including ID bracelet, bed and alarms, visiting hours, pain management, procedures, bathroom and other care routines, personal items, smoking policy, room service/diet, and visiting hours. Information on how to activate the Rapid Response Team has been discussed. Patient/Family are encouraged to report perceived risks to care and to ask questions if they do not understand what they are told or what they should do.
[2023-01-04 18:34] LABS: Troponin I < 0.012 ng/mL (0.000-0.034)
[2023-01-04 20:27] LABS: Troponin I < 0.012 ng/mL (0.000-0.034)
[2023-01-04] MEDS: SODIUM CHLORIDE 0.9% IV 250 ML 50 ML IV CONT (21:05)
[2023-01-05] VITALS (23 sets, daily range): BP systolic 89–114; BP diastolic 45–60; PULSE 56–84; RESP 14–20; TEMP 36.3–37.2; O2SAT 95–100
[2023-01-05] MEDS: LEVALBUTEROL NEB 1.25 MG/3 ML 0.63 MG INHALATION ×4 (01:20→20:06)
[2023-01-05 04:50] LABS: Basophils Percent Auto 0.5 % (0.2-1.2); Eosinophils Absolute Auto 0.1 K/mm3 (0-0.3); Eosinophils Percent Auto 3.1 % (0-4.4); Hematocrit 36.5 % (37.0-47.0); Hemoglobin 12.1 g/dL (12.0-15.0); Immature Granulocyte Absolute 0.02 K/mm3 (0.00-0.031); Immature Granulocyte Percent A 0.5 % (0-0.5); Lymphocytes Absolute Auto 0.67 K/mm3 (0.9-3.2); Lymphocytes Percent Auto 17.2 % (18.3-44.2); Mean Corpuscular HGB Conc 33.2 g/dl (32-36); Mean Corpuscular Hemoglobin 33.3 pg (26-34); Mean Corpuscular Volume 100.6 fl (80-100); Mean Platelet Volume 9.9 fl (7.4-10.4); Monocytes Absolute Auto 0.6 K/mm3 (0.1-0.6); Monocytes Percent Auto 16.2 % (2.6-8.5); Neutrophils Absolute Auto 2.4 K/mm3 (1.3-6.7); Neutrophils Percent Auto 62.5 % (45.5-73.1); Platelet Count Result 241 k/mm3 (150-375); Red Blood Count 3.63 M/mm3 (4.2-5.4); White Blood Count 3.9 K/mm3 (4.5-10.0)
[2023-01-05 05:05] LABS: Alanine Aminotransferase 21 U/L (6-35); Albumin Level 3.6 g/dL (3.5-5.1); Alkaline Phosphatase 41 U/L (38-126); Anion Gap 3 mmol/L (8-16); Aspartate Amino Transferase 22 U/L (14-36); Bilirubin,Total 0.9 mg/dL (0.2-1.3); Blood Urea Nitrogen 19 mg/dL (7-17); Carbon Dioxide 30 mmol/L (22-30); Chloride 102 mmol/L (98-107); Estimated CRCL calculation 35 ml/min; Estimated Glomerular Filt Rate 53; Glucose 95 mg/dL (65-110); Magnesium 1.8 mg/dL (1.6-2.3); Sodium 135 mmol/L (137-145)
[2023-01-05 05:12] LABS: Lactic Acid Reflex 0.8 mmol/L (0.7-2.0)
[2023-01-05] MEDS: CARBIDOPA/LEVODOPA 25/100 MG TABLET 1 TABLET PO ×3 (08:01→16:50)
[2023-01-05] MEDS: CHOLECALCIFEROL 1,000 UNITS TABLET 1000 UNITS PO (08:01)
[2023-01-05] MEDS: CITALOPRAM HYDROBROMIDE 20 MG TABLET 40 MG PO (08:01)
[2023-01-05] MEDS: ANASTROZOLE (*CHEMO) 1 MG TABLET PO (08:01)
[2023-01-05] MEDS: FLUTICASONE/UMECLIDIN/VILANTER 100-62.5-25 MCG ELLIPTA 1 PUFF INHALATION (08:43)
--- NOTE | 2023-01-05 09:23 | WPDNEURCNPN ---
Assessment and Plan Assessment and plan (1) Near syncope: Code(s): R55 - Syncope and collapse Status: Acute (2) Bradycardia, sinus: Code(s): R00.1 - Bradycardia, unspecified Status: Acute (3) Parkinson's disease: Code(s): G20 - Parkinson's disease Status: Acute Plan Tigist Trejo is a 82 year old female with a history of breast cancer, prediabetes, anxiety/depression, and Parkinson's disease presenting due to near syncopal episodes. Etiology could be orthostatic intolerance vs cardiogenic. Sinemet can cause orthostatic hypotension at higher doses, but with patient only taking 1 tablet TID, I do not feel that this is the source of her blood pressure fluctuations. Autonomic dysfunction can be seen in the setting of PD, so if she does have hypotension despite cessation of metoprolol and possible adjustment of her BP medications, can consider adding Florinef or droxidopa. Consult date: 01/05/23 Reason for consult: Near syncope HPI: Tigist Trejo is a 82 year old female with a history of breast cancer, prediabetes, anxiety/depression, and Parkinson's disease presenting due to near syncopal episodes. Patient presented to the emergency room yesterday after developing lightheadedness. She had gotten up to go to the bathroom, but felt lightheaded and dizzy. She did not pass out. When she got up to leave the bathroom, she felt lightheaded again. Patient laid down on the floor afterwards. Patient has had similar episodes several times in the past year. She has seen both Cardiology and Neurology. She sees Dr. Jerome for her PD, and is on Sinemet 1 tablet TID. While she was being evaluated in the ED, her HR did drop to 38. Her metoprolol is currently being held. Her blood pressure droped to 93/48 as well. Her lab work was unrevealing. EKG showed sinus rhythm with 1st degree AV block. [facility] Past Medical History Medical History Anxiety Cancer of left breast Constipation Depression Diastolic dysfunction Echocardiogram 01/201919 grade 1 diastolic dysfunction EF 60% mild left atrial enlargement Emphysema of lung Fracture of fifth metatarsal bone of right foot with routine healing GERD (gastroesophageal reflux disease) Hypertension Lung cancer Osteoporosis, unspecified Prediabetes Vitamin D deficiency Surgical History Surgical History 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 13 cm layered closure. 04/12/2022 History of lobectomy of lung Right upper lobe 1994, left lower lung partial lobectomy 2005 History of right mastectomy (~2012) Family History Family History Mother CHF (congestive heart failure) Dementia Father Lung cancer Sibling Acute myocardial infarction Cerebrovascular accident Other Hypertension Social History Social History Social History: She is . She has a daughter and a son. 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 She does drink wine nightly. However she is not drink anyone in the last 4 days. She lives alone. Code status: Full code [facility] power of corporate attorney: Ursula Vega (daughter) Smoking packs per day: 1 Smoking cigarettes per day: 20.0 Years smoked: 20 Smoking pack-years: 20.00 Smoking status: Former smoker Tobacco type: cigarettes Second hand tobacco smoke exposure: No Smoking end date: 10/08/81 Alcohol in
--- NOTE | 2023-01-05 10:55 | PM.IMPN ---
Progress Note: A&P Assessment and Plan (1) Near syncope: Code(s): R55 - Syncope and collapse Status: Acute Assessment and Plan: Monitor orthostatic blood pressure Patient's heart rate drops down between 50 and 60 which appears to be her normal. Hold metoprolol Neurology and Cardiology have both been consulted for this admission. The patient visited ER here 3 days ago and was found to be negative for COVID influenza A/B and RSV. The patient has no focal weakness and is moving all extremities. CT head negative for acute findings (2) Bradycardia, sinus: Code(s): R00.1 - Bradycardia, unspecified Status: Acute Assessment and Plan: I am going to hold the metoprolol for now. Orthostatic pressures (3) Benign essential hypertension: Code(s): I10 - Essential (primary) hypertension Status: Acute Assessment and Plan: Metoprolol on hold at this time. (4) History of bilateral breast cancer: Code(s): Z85.3 - Personal history of malignant neoplasm of breast Status: Acute Assessment and Plan: Continue with anastrozole (5) COPD (chronic obstructive pulmonary disease) case management patient: Code(s): J44.9 - Chronic obstructive pulmonary disease, unspecified Status: Acute Assessment and Plan: Continue with albuterol treatments Continue with trilogy (6) Parkinsonian features: Code(s): R25.9 - Unspecified abnormal involuntary movements Status: Acute Assessment and Plan: Continue with carbidopa levodopa Neurology has been consulted. (7) Anxiety: Code(s): F41.9 - Anxiety disorder, unspecified Status: Acute Assessment and Plan: Continue with Celexa Subjective Date/time seen: 01/05/23 10:55 Patient states she feels very weak. Denies any syncopal episode at this time Review of Systems Review of Systems: All systems reviewed & are unremarkable except as noted in HPI and below Constitutional: Constitutional: Reports as per HPI and Reports no additional constitutional complaints Eyes: Eyes: Reports as per HPI and Reports no additional eye complaints ENT: Reports system reviewed and no additional complaints, except as documented and Reports Normal hearing present Cardiovascular: Cardiovascular: Reports no additional cardiovascular complaints Respiratory: Respiratory: Reports no additional respiratory complaints and Reports no additional respiratory complaints Gastrointestinal: Gastrointestinal: Reports as per HPI and Reports no additional gastrointestinal complaints Musculoskeletal: Musculoskeletal: Reports no additional musculoskeletal complaints Integumentary/Breasts: Skin/Breast: Reports system reviewed and no additional complaints, except as docu and Reports as per HPI Neurologic: Reports system reviewed and no additional complaints, except as documented, Reports as per HPI and Reports Normal hearing present Psychiatric: Psychiatric: Reports no additional psychiatric complaints and Reports as per HPI Endocrine: Endocrine: Reports no additional endocrine complaints Hematologic/Lymphatic: Hematologic/Lymphatic: Reports no additional hematologic/lymphatic complaints Allergic/Immunologic: Allergic/Immunologic: Reports no additional allergic/immunologic complaints Exam Const: General: cooperative, healthy appearing, comfortable, no acute distress, well developed, awake, Physically active, average body habitus and well nourished Nutritional Appearance: average body habitus and well nourished Orientation/consciousness: oriented to person, oriented to place, oriented to time and patient oriented x3 Limitations: no limitations HENMT: Head: normal to inspection, No palpable skull fracture present, normocephalic and atraumatic Ears: hearing grossly normal bilaterally and external ears normal Face/Nose/Sinus: Normal external nose present and Normal nares present Eyes: General: appearance normal, both
--- NOTE | 2023-01-05 11:34 | PM.CNCAR ---
Assessment and Plan Assessment and plan (1) Bradycardia, sinus: Code(s): R00.1 - Bradycardia, unspecified Status: Acute Plan This is an 82-year-old woman who was hospitalized yesterday after an episode of significant weakness resulting in her nearly taking a fall in her home. She did not have a syncopal episode. She has never had a syncopal episode that she can recall. She was notably bradycardic for a period of time yesterday evening. Appropriately her beta-aramis has been stopped. For some reason troponin levels were done x3 sets following admission especially in this lady who we know angiographically did not have any coronary disease less than a year ago. At this point other than rib holding beta-aramis therapy there are no other specific cardiac recommendations to make. If you have questions regarding this opinion please let me know Luis العلي MD [facility] History of Present Illness History of Present Illness Consult date/time: 01/05/23 11:34 Reason For Visit: Near Syncope,Sinus Bradycardia,Renal Insufficiency Narrative: This is an 82-year-old woman I am seeing at the request of the hospitalist because of bradycardia that was noted in the emergency room and shortly after admission to the hospital yesterday. The patient is known to me/our service from last year when we were participating in her evaluation because of chest pain. The patient came to the hospital into the emergency room yesterday because of symptoms of extreme weakness as she was getting up off the commode yesterday at her home. She felt extremely weak and her legs felt weak to the point where she thought she would be in danger of falling for that reason she laid down on the floor and called for help. She was brought to the emergency department where she was evaluated and admitted to the hospital. Upon arrival her ECG showed sinus rhythm with a heart rate in the 60s. On telemetry she had some episodes where her heart rate was down in the 30s it looks like a sinus bradycardia with some occasional junctional complexes. For this reason I have been consulted to see her. The patient has a baseline is has been taking metoprolol at a low dosage of 12.5 mg twice daily as well as olmesartan with hydrochlorothiazide for hypertension. As far as I can tell she is not known to have significant heart disease. Last year we were consulted to see her because of intermittent episodes of chest pain. Because of this a coronary angiogram was recommended which was done by myself and was an unremarkable examination. She apparently is known to have significant chronic lung disease with a prior history of heavy cigarette smoking as well as a history of breast cancer and a history according to the chart of lung cancer as well. She had a local recurrence of her breast cancer and the left chest wall last year which was treated with surgical removal of the lesion and radiation therapy following this it looks like she completed radiation therapy in September of last year. Other than generalized weakness she has no current/active complaints. Currently she is in sinus rhythm with a heart rate in the low 70s. Review of Systems Constitutional: Constitutional: Reports no additional constitutional complaints Eyes: Eyes: Reports no additional eye complaints ENT: Reports system reviewed and no additional complaints, except as documented Cardiovascular: Cardiovascular: Reports no additional cardiovascular complaints Respiratory: Respiratory: Reports no additional respiratory complaints Gastrointestinal: Gastrointestinal: Reports no additional gastrointestinal complaints Musculoskeletal: Musculoskeletal: Reports as per HPI Integumentary/Breasts: Skin/Breast: Reports as per HPI Neurologic: Reports system reviewed and no additional complaints, except as documented Endocrine: Endocrine: Reports no additional endocrine complaints Hematologic/Lymphatic: Hematologic/Lymphatic: Repor
[2023-01-05] MEDS: ACETAMINOPHEN 325 MG TABLET 650 MG PO (14:07)
[2023-01-05] MEDS: SODIUM CHLORIDE 0.9% IV 500 ML IV CONT (16:50)
[2023-01-06] VITALS (21 sets, daily range): BP systolic 100–128; BP diastolic 49–68; PULSE 64–92; RESP 14–18; TEMP 36–36.9; O2SAT 96–100
[2023-01-06] MEDS: LEVALBUTEROL NEB 1.25 MG/3 ML 0.63 MG INHALATION ×4 (02:05→20:32)
[2023-01-06] MEDS: ANASTROZOLE (*CHEMO) 1 MG TABLET PO (08:08)
[2023-01-06] MEDS: CHOLECALCIFEROL 1,000 UNITS TABLET 1000 UNITS PO (08:08)
[2023-01-06] MEDS: CITALOPRAM HYDROBROMIDE 20 MG TABLET 40 MG PO (08:08)
[2023-01-06] MEDS: CARBIDOPA/LEVODOPA 25/100 MG TABLET 1 TABLET PO ×3 (08:08→16:17)
[2023-01-06] MEDS: FLUTICASONE/UMECLIDIN/VILANTER 100-62.5-25 MCG ELLIPTA 1 PUFF INHALATION (08:25)
--- NOTE | 2023-01-06 10:51 | PM.IMPN ---
Progress Note: A&P Assessment and Plan (1) Near syncope: Code(s): R55 - Syncope and collapse Status: Acute Assessment and Plan: Likely from bradycardia from metoprolol. Symptoms are resolved after holding metoprolol Neurology and Cardiology have both been consulted for this admission. CT head negative for acute findings (2) Bradycardia, sinus: Code(s): R00.1 - Bradycardia, unspecified Status: Acute Assessment and Plan: Discontinue metoprolol Orthostatic pressures (3) Benign essential hypertension: Code(s): I10 - Essential (primary) hypertension Status: Acute Assessment and Plan: Metoprolol on hold at this time. (4) History of bilateral breast cancer: Code(s): Z85.3 - Personal history of malignant neoplasm of breast Status: Acute Assessment and Plan: Continue with anastrozole (5) COPD (chronic obstructive pulmonary disease) case management patient: Code(s): J44.9 - Chronic obstructive pulmonary disease, unspecified Status: Acute Assessment and Plan: Continue with albuterol treatments Continue with trilogy (6) Parkinsonian features: Code(s): R25.9 - Unspecified abnormal involuntary movements Status: Acute Assessment and Plan: Continue with carbidopa levodopa Neurology has been consulted. (7) Anxiety: Code(s): F41.9 - Anxiety disorder, unspecified Status: Acute Assessment and Plan: Continue with Celexa Subjective Date/time seen: 01/06/23 10:51 Patient denies any dizziness, syncope at this time. She is working with therapy Review of Systems Constitutional: Constitutional: Reports no additional constitutional complaints Eyes: Eyes: Reports no additional eye complaints ENT: Reports system reviewed and no additional complaints, except as documented Cardiovascular: Cardiovascular: Reports no additional cardiovascular complaints Respiratory: Respiratory: Reports no additional respiratory complaints Gastrointestinal: Gastrointestinal: Reports no additional gastrointestinal complaints Musculoskeletal: Musculoskeletal: Reports as per HPI Integumentary/Breasts: Skin/Breast: Reports as per HPI Neurologic: Reports system reviewed and no additional complaints, except as documented Endocrine: Endocrine: Reports no additional endocrine complaints Hematologic/Lymphatic: Hematologic/Lymphatic: Reports no additional hematologic/lymphatic complaints Allergic/Immunologic: Allergic/Immunologic: Reports no additional allergic/immunologic complaints Exam Const: General: cooperative, healthy appearing, comfortable, no acute distress, well developed, awake, Physically active, average body habitus and well nourished Nutritional Appearance: average body habitus and well nourished Orientation/consciousness: oriented to person, oriented to place, oriented to time and patient oriented x3 Limitations: no limitations HENMT: Head: normal to inspection, No palpable skull fracture present, normocephalic and atraumatic Ears: hearing grossly normal bilaterally and external ears normal Face/Nose/Sinus: Normal external nose present and Normal nares present Eyes: General: appearance normal, both eyes and all related structures Alignment and Position: alignment normal Periorbital: periorbital findings normal Eyelids: eyelids normal Sclera: sclerae normal Pupils: Equal, round and reactive pupils present EOM: EOMs intact bilaterally Neck: Neck: normal visual inspection, full ROM, no lymphadenopathy, trachea midline and supple Chest: Chest palpation & inspection: normal inspection of the chest Resp: Effort & Inspection: normal respiratory effort Auscultation: clear to auscultation bilaterally Cardio: Palpation: normal PMI Rate: regular rate Rhythm: regular rhythm Heart sounds: S1 normal heart sound present and S2 normal heart sound present Peripheral pulses: Peripheral pulses 2+ throughout GI:
[2023-01-07] VITALS (19 sets, daily range): BP systolic 91–138; BP diastolic 51–74; PULSE 58–84; RESP 16–20; TEMP 35.9–36.6; O2SAT 93–100
[2023-01-07] MEDS: LEVALBUTEROL NEB 1.25 MG/3 ML 0.63 MG INHALATION ×3 (07:45→20:51)
[2023-01-07] MEDS: FLUTICASONE/UMECLIDIN/VILANTER 100-62.5-25 MCG ELLIPTA 1 PUFF INHALATION (07:46)
[2023-01-07] MEDS: CARBIDOPA/LEVODOPA 25/100 MG TABLET 1 TABLET PO ×3 (08:20→16:20)
[2023-01-07] MEDS: ANASTROZOLE (*CHEMO) 1 MG TABLET PO (08:20)
[2023-01-07] MEDS: CHOLECALCIFEROL 1,000 UNITS TABLET 1000 UNITS PO (08:20)
[2023-01-07] MEDS: CITALOPRAM HYDROBROMIDE 20 MG TABLET 40 MG PO (08:20)
[2023-01-07 09:59] LABS: Basophils Percent Auto 0.6 % (0.2-1.2); Eosinophils Absolute Auto 0.1 K/mm3 (0-0.3); Eosinophils Percent Auto 2.7 % (0-4.4); Hematocrit 36.7 % (37.0-47.0); Hemoglobin 12.2 g/dL (12.0-15.0); Immature Granulocyte Absolute 0.01 K/mm3 (0.00-0.031); Immature Granulocyte Percent A 0.3 % (0-0.5); Lymphocytes Absolute Auto 0.45 K/mm3 (0.9-3.2); Lymphocytes Percent Auto 13.5 % (18.3-44.2); Mean Corpuscular HGB Conc 33.2 g/dl (32-36); Mean Corpuscular Hemoglobin 33.7 pg (26-34); Mean Corpuscular Volume 101.4 fl (80-100); Mean Platelet Volume 9.4 fl (7.4-10.4); Monocytes Absolute Auto 0.5 K/mm3 (0.1-0.6); Monocytes Percent Auto 13.8 % (2.6-8.5); Neutrophils Absolute Auto 2.3 K/mm3 (1.3-6.7); Neutrophils Percent Auto 69.1 % (45.5-73.1); Platelet Count Result 248 k/mm3 (150-375); Red Blood Count 3.62 M/mm3 (4.2-5.4); Red Cell Distribution Width 12.1 % (11.5-14.5); White Blood Count 3.3 K/mm3 (4.5-10.0)
[2023-01-07 10:16] LABS: Alanine Aminotransferase 12 U/L (6-35); Alkaline Phosphatase 37 U/L (38-126); Anion Gap 4 mmol/L (8-16); Aspartate Amino Transferase 20 U/L (14-36); Bilirubin,Total 0.8 mg/dL (0.2-1.3); Blood Urea Nitrogen 12 mg/dL (7-17); Calcium 9.6 mg/dL (8.4-10.2); Carbon Dioxide 32 mmol/L (22-30); Chloride 99 mmol/L (98-107); Estimated CRCL calculation 52 ml/min; Estimated Glomerular Filt Rate > 60; Glucose 125 mg/dL (65-110); Potassium 4.1 mmol/L (3.4-5.0); Sodium 135 mmol/L (137-145)
--- NOTE | 2023-01-07 13:54 | PM.IMPN ---
Progress Note: A&P Assessment and Plan (1) Near syncope: Code(s): R55 - Syncope and collapse Status: Acute Assessment and Plan: Likely from bradycardia from metoprolol. Symptoms are resolved after holding metoprolol, cardiology is recommending to discharge off metoprolol Neurology consult appreciated CT head negative for acute findings (2) Bradycardia, sinus: Code(s): R00.1 - Bradycardia, unspecified Status: Acute Assessment and Plan: Discontinue metoprolol Orthostatic pressures (3) Benign essential hypertension: Code(s): I10 - Essential (primary) hypertension Status: Acute Assessment and Plan: Metoprolol on hold at this time. Also holding patient's olmesartan/hydrochlorothiazide, would discontinue all antihypertensives at discharge With her age and comorbidities, risk of hypotension appears to be much higher than the benefit of these medications (4) History of bilateral breast cancer: Code(s): Z85.3 - Personal history of malignant neoplasm of breast Status: Acute Assessment and Plan: Continue with anastrozole (5) COPD (chronic obstructive pulmonary disease) case management patient: Code(s): J44.9 - Chronic obstructive pulmonary disease, unspecified Status: Acute Assessment and Plan: Continue with albuterol treatments Continue with trilogy (6) Parkinsonian features: Code(s): R25.9 - Unspecified abnormal involuntary movements Status: Acute Assessment and Plan: Continue with carbidopa levodopa Neurology has been consulted. (7) Anxiety: Code(s): F41.9 - Anxiety disorder, unspecified Status: Acute Assessment and Plan: Continue with Celexa Plan DVT prophylaxis with SCDs GI prophylaxis not indicated Code status full code Subjective Date/time seen: 01/07/23 13:54 Interval history: 82-year-old female with past medical history significant for Parkinson's and currently being treated for a UTI with Bactrim came to the ER for a presyncopal episode after walking back from the bathroom when she had a bowel movement, found to be bradycardic in the ER. No overnight events noted. No chest pain or shortness of breath. No nausea, vomiting or diarrhea. No fevers or chills. Review of Systems Review of Systems: 12 point review of systems was assessed and was negative except as noted in the HPI Exam Narrative: General: No acute distress, alert and oriented per baseline HEENT: Atraumatic, normocephalic, mucous membranes moist CV: Regular rate and rhythm, S1, S2 Lungs: Clear to auscultation bilaterally, no rales or crackles noted, no wheezes, good air entry Abdomen: Soft, nontender, nondistended Extremities: Normal to inspection Skin: No rashes noted, no lesions or wounds seen Psych: Euthymic, normal affect Objective Data Vital Signs Vital Signs: Vital Signs - 24 hr 01/06/23 14:28 01/06/23 14:40 01/06/23 16:00 Temperature Pulse Rate 72 75 74 Respiratory Rate 16 16 Blood Pressure Pulse Oximetry Oxygen Delivery 01/06/23 16:00 01/06/23 16:30 01/06/23 20:00 Temperature 97.6 F 97.6 F 97 F L Pulse Rate 70 70 74 Respiratory Rate 18 18 16 Blood Pressure 105/56 L 105/56 L 109/49 L Pulse Oximetry 96 96 100 Oxygen Delivery 01/06/23 20:00 01/06/23 20:00 01/06/23 20:00 Temperature Pulse Rate 67 Respiratory Rate Blood Pressure 106/68 111/64 Pulse Oximetry Oxygen Delivery 01/06/23 20:00 01/06/23 20:33 01/06/23 22:00 Temperature Pulse Rate 74 71 Respiratory Rate 14 Blood Pressure Pulse Oximetry Oxygen Delivery Room Air 01/06/23 23:41 01/07/23 00:00 01/07/23 02:00 Temperature 96.8 F L Pulse Rate 64 66 65 Respiratory Rate 18 Blood Pressure 116/52 L Pulse Oximetry 100 Oxygen Delivery 01/07/23 04:00 01/07/23 04:00 01/07/23 07:45 Temperature 98
[2023-01-08] VITALS (16 sets, daily range): BP systolic 112–132; BP diastolic 51–76; PULSE 62–89; RESP 16–18; TEMP 36.2–36.6; O2SAT 97–100
[2023-01-08] MEDS: LEVALBUTEROL NEB 1.25 MG/3 ML 0.63 MG INHALATION ×3 (02:37→14:03)
[2023-01-08 05:07] LABS: Basophils Percent Auto 0.6 % (0.2-1.2); Eosinophils Absolute Auto 0.2 K/mm3 (0-0.3); Eosinophils Percent Auto 4.4 % (0-4.4); Hematocrit 33.2 % (37.0-47.0); Immature Granulocyte Absolute 0.01 K/mm3 (0.00-0.031); Immature Granulocyte Percent A 0.3 % (0-0.5); Lymphocytes Percent Auto 17.4 % (18.3-44.2); Mean Corpuscular HGB Conc 33.1 g/dl (32-36); Mean Corpuscular Hemoglobin 32.9 pg (26-34); Mean Corpuscular Volume 99.4 fl (80-100); Mean Platelet Volume 9.7 fl (7.4-10.4); Monocytes Absolute Auto 0.6 K/mm3 (0.1-0.6); Monocytes Percent Auto 16.3 % (2.6-8.5); Neutrophils Absolute Auto 2.1 K/mm3 (1.3-6.7); Platelet Count Result 235 k/mm3 (150-375); Red Blood Count 3.34 M/mm3 (4.2-5.4); Red Cell Distribution Width 11.9 % (11.5-14.5); White Blood Count 3.4 K/mm3 (4.5-10.0)
--- NOTE | 2023-01-08 05:08 | PC.NURSE ---
Patient transferring to room 321. SBAR and verbal report given to Lluvia RHODES
[2023-01-08 05:14] LABS: Alanine Aminotransferase 16 U/L (6-35); Albumin Level 3.7 g/dL (3.5-5.1); Alkaline Phosphatase 35 U/L (38-126); Anion Gap 5 mmol/L (8-16); Aspartate Amino Transferase 18 U/L (14-36); Bilirubin,Total 0.8 mg/dL (0.2-1.3); Blood Urea Nitrogen 14 mg/dL (7-17); Calcium 9.2 mg/dL (8.4-10.2); Carbon Dioxide 29 mmol/L (22-30); Chloride 99 mmol/L (98-107); Estimated CRCL calculation 52 ml/min; Estimated Glomerular Filt Rate > 60; Glucose 99 mg/dL (65-110); Potassium 3.9 mmol/L (3.4-5.0); Sodium 133 mmol/L (137-145)
--- NOTE | 2023-01-08 05:14 | PC.NURSE ---
Patient transported to room 321 via wheel chair.
--- NOTE | 2023-01-08 05:38 | PC.NURSE ---
This patient, Tigist Trejo, was received from [[id number]] on 01/08/23 at 0538. Patient/family oriented to unit policies and routines. report from Rina RHODES
[2023-01-08] MEDS: FLUTICASONE/UMECLIDIN/VILANTER 100-62.5-25 MCG ELLIPTA 1 PUFF INHALATION (07:52)
[2023-01-08] MEDS: CITALOPRAM HYDROBROMIDE 20 MG TABLET 40 MG PO (09:36)
[2023-01-08] MEDS: CHOLECALCIFEROL 1,000 UNITS TABLET 1000 UNITS PO (09:36)
[2023-01-08] MEDS: ANASTROZOLE (*CHEMO) 1 MG TABLET PO (09:36)
[2023-01-08] MEDS: CARBIDOPA/LEVODOPA 25/100 MG TABLET 1 TABLET PO ×2 (09:36→12:06)
--- NOTE | 2023-01-08 10:27 | PM.DS ---
DS: Admitting Diagnosis Discharge Date 01/08/23 Admitting Diagnosis near syncope DS: Discharge Diagnosis Discharge Diagnosis (1) Near syncope: Code(s): R55 - Syncope and collapse Status: Acute Assessment and Plan: Likely from bradycardia from metoprolol. Symptoms are resolved after holding metoprolol, cardiology is recommending to discharge off metoprolol Neurology consult appreciated CT head negative for acute findings (2) Bradycardia, sinus: Code(s): R00.1 - Bradycardia, unspecified Status: Acute Assessment and Plan: Discontinue metoprolol Orthostatic pressures (3) Benign essential hypertension: Code(s): I10 - Essential (primary) hypertension Status: Acute Assessment and Plan: Metoprolol on hold at this time. Also holding patient's olmesartan/hydrochlorothiazide, would discontinue all antihypertensives at discharge With her age and comorbidities, risk of hypotension appears to be much higher than the benefit of these medications (4) History of bilateral breast cancer: Code(s): Z85.3 - Personal history of malignant neoplasm of breast Status: Acute Assessment and Plan: Continue with anastrozole (5) COPD (chronic obstructive pulmonary disease) case management patient: Code(s): J44.9 - Chronic obstructive pulmonary disease, unspecified Status: Acute Assessment and Plan: Continue with albuterol treatments Continue with trilogy (6) Parkinsonian features: Code(s): R25.9 - Unspecified abnormal involuntary movements Status: Acute Assessment and Plan: Continue with carbidopa levodopa Neurology has been consulted. (7) Anxiety: Code(s): F41.9 - Anxiety disorder, unspecified Status: Acute Assessment and Plan: Continue with Celexa Plan DVT prophylaxis with SCDs GI prophylaxis not indicated Code status full code DS: Summary Hospital Course Hospital Course: 82-year-old female with past medical history significant for Parkinson's and currently being treated for a UTI with Bactrim came to the ER for a presyncopal episode after walking back from the bathroom when she had a bowel movement, found to be bradycardic in the ER. Cardiology and Neurology were consulted. Symptoms were thought to be likely secondary to bradycardia from metoprolol. Orthostatic vital signs were essentially within normal limits. Symptoms are resolved after holding metoprolol, cardiology is recommending to discharge off metoprolol. Also holding patient's olmesartan/hydrochlorothiazide, would discontinue all antihypertensives at discharge. With her age and comorbidities, risk of hypotension appears to be much higher than the benefit of these medications. CT head negative for acute findings. Neurology consult appreciated, their consult said: Etiology could be orthostatic intolerance vs cardiogenic. Sinemet can cause orthostatic hypotension at higher doses, but with patient only taking 1 tablet TID, I do not feel that this is the source of her blood pressure fluctuations. Autonomic dysfunction can be seen in the setting of PD, so if she does have hypotension despite cessation of metoprolol and possible adjustment of her BP medications, can consider adding Florinef or droxidopa. See above and med rec for details. Time Spent with Patient Time attestation: Total time spent providing and/or coordinating discharge services: Exam Narrative: General: No acute distress, alert and oriented per baseline HEENT: Atraumatic, normocephalic, mucous membranes moist CV: Regular rate and rhythm, S1, S2 Lungs: Clear to auscultation bilaterally, no rales or crackles noted, no wheezes, good air entry Abdomen: Soft, nontender, nondistended Extremities: Normal to inspection Skin: No rashes noted, no lesions or wounds seen Psych: Euthymic, normal affect DS: Data Data Completed and Pending
--- NOTE | 2023-01-08 14:25 | PCOTNOTE ---
Attempted to see patient this pm, however patient declined due to discharge. Pt reported needing to wait until daughter comes to bring clothes. Pt had no concerns as pertains to ADLs prior to discharge.
== END 2023-01-08 16:20 | disposition home or self-care (01) ==
LOC: ANHED 14:22 → ANHIMU 20:25 → ANH3MEDSUR 01-08 12:29 → ANHIMU 01-09 12:26
PROVIDERS: Emergency Medicine; Nurse Practitioner; Student in an Organized Health Care Education/Training Program; Admitting Provider Family Medicine; Emergency Provider Emergency Medicine; PCP Family Medicine; Visit Provider Hospitalist
DX: R55 Syncope and collapse (principal); R00.1 Bradycardia, unspecified; I11.9 Hypertensive heart disease without heart failure; J44.9 Chronic obstructive pulmonary disease, unspecified; R25.9 Unspecified abnormal involuntary movements; F41.9 Anxiety disorder, unspecified; F32.A Depression, unspecified; K21.9 Gastro-esophageal reflux disease without esophagitis; R90.82 White matter disease, unspecified; M81.0 Age-related osteoporosis without current pathological fracture; N17.9 Acute kidney failure, unspecified; R53.1 Weakness; E55.9 Vitamin D deficiency, unspecified; R73.03 Prediabetes; Z85.3 Personal history of malignant neoplasm of breast; F10.90 Alcohol use, unspecified, uncomplicated; Z87.891 Personal history of nicotine dependence; Z79.51 Long term (current) use of inhaled steroids; Z79.899 Other long term (current) drug therapy; Z82.49 Family history of ischemic heart disease and other diseases of the circulatory system; Z81.8 Family history of other mental and behavioral disorders; Z84.89 Family history of other specified conditions
CPT/HCPCS: 36415; 70450; 71045; 80053; 81003; 83605; 83690; 83735; 84443; 84484; 85025; 85610; 85730; 93005; 94640; 96360; 96361; 97110; 97116; 97161; 97165; 99285; A9270; G0378; J7030; J7040; J7050

== ENCOUNTER 2023-01-31 05:23 | Inpatient (IN) | payer MEDICARE, SELFPAY ==
[2023-01-31] VITALS (15 sets, daily range): BP systolic 103–180; BP diastolic 52–90; PULSE 71–90; RESP 16–24; TEMP 35.9–36.5; O2SAT 91–100; BMI 21.4
--- NOTE | 2023-01-31 | ECHO_ITS ---
Patient Info Name: Tigist Trejo Age: 82 years : 1940 Gender: Female Ht: 68 in Wt: 141 lbs BSA: 1.75 m2 HR: 83 bpm BP: 103 / 52 mmHg Heart Rhythm: Sinus Rhythm Technical Quality: Fair Exam Date: 01/31/2023 4:35 PM Exam Location: [facility] Card Pulmonary Patient Status: Inpatient Admit Date: 01/31/2023 Staff Ordering Physician: Khadra Johns NP Key Punch Operator: Kylie Rush RDCS Attending Provider: Tamera Castellon MD Referring Physician: Andreas SMITH; Exam Type: CA echo doppler color flow Study Info Indications - diastolic dysfunction Complete two-dimensional, color flow and Doppler transthoracic echocardiogram is performed. Summary 1. Complete two-dimensional, color flow and Doppler transthoracic echocardiogram is performed. 2. Left ventricular chamber dimension is normal. 3. Left ventricular systolic function is hyperdynamic, estimated at >70%. 4. There is no increased left ventricular wall thickness. 5. The left ventricular diastolic function is grade I diastolic dysfunction. 6. Left atrial chamber dimension is mildly enlarged. 7. There is mild mitral valve stenosis. 8. The mitral valve has thickened leaflets. 9. There is mild mitral valve regurgitation. 10. There is mild tricuspid valve regurgitation. 11. Mild pulmonary hypertension, estimated pulmonary arterial systolic pressure is 41 mmHg. 12. There is mild pulmonic regurgitation. Left Ventricle Left ventricular chamber dimension is normal. Left ventricular systolic function is hyperdynamic, estimated at >70%. There is no increased left ventricular wall thickness. The left ventricular diastolic function is grade I diastolic dysfunction. Right Ventricle Right ventricular chamber dimension is normal. Right ventricular systolic function is normal. Left Atria Left atrial chamber dimension is mildly enlarged. Right Atria Right atrial chamber dimension is normal. Atrial Septum Intact interatrial septum visualized by color flow imaging. Aortic Valve The aortic valve is trileaflet. There is mild aortic valve sclerosis. There is no aortic valve stenosis. There is trace aortic valve regurgitation. Pulmonic Valve The pulmonic valve is normal. There is no pulmonic valve stenosis. There is mild pulmonic regurgitation. Mitral Valve The mitral valve has thickened leaflets. There is mild mitral valve stenosis. There is mild mitral valve regurgitation. Tricuspid Valve The tricuspid valve leaflets are normal. There is no significant tricuspid valve stenosis. There is mild tricuspid valve regurgitation. Mild pulmonary hypertension, estimated pulmonary arterial systolic pressure is 41 mmHg. Pericardium/Pleural The pericardium appears normal. There is trivial pericardial effusion. Inferior Vena Cava Normal inferior vena cava with >50% collapse upon inspiration consistent with normal right atrial pressure, 10 mmHg. Aorta The aortic root size at the sinus of Valsalva is normal. The prox ascending aorta size is normal. Left Ventricular Outflow Tract Name Value Normal LVOT 2D LVOT Diameter 2.0 cm LVOT Doppler LVOT Peak Gradient 9 mmHg LVOT Mean Gradient 4 mmHg
--- NOTE | ~2023-01-31 | XR_ITS ---
EXAMINATION: XR chest 1V portable DATE: 01/31/2023 06:30 INDICATION: Shortness of breath. TECHNIQUE: A single frontal view of the chest was obtained. COMPARISON: chest single view 01/04/23, chest CT 09/11/2022, CT abdomen and pelvis 01/01/2023 FINDINGS: There are changes of partial resection of left upper lobe. There are airspace opacities in all lung zones, worst in left lower lung zone. There is diffuse architectural distortion. There are s mall pleural effusions. No pneumothorax. Cardiomegaly is noted. There are surgical clips in the axill ae. There is internal fixation of left humerus. There are defects of right fifth and sixth ribs from prior thoracotomy. There are old healed bilateral rib fractures. IMPRESSION: 1. Worsened diffuse lung disease, consistent with pulmonary edema versus pneumonia superimposed on ch ronic lung disease. 2. Small pleural effusions. 3. Cardiomegaly. Reviewed, dictated and finalized at location A. IMPRESSION: 1. Worsened diffuse lung disease, consistent with pulmonary edema versus pneumo leticia superimposed on chronic lung disease. 2. Small pleural effusions. 3. Cardiomegaly.
--- NOTE | ~2023-01-31 | CT_ITS ---
Clinical Indication: Shortness of breath CT Scan of the Chest with Contrast: Technique: Contiguous sections were acquired throughout the chest after intravenous administration of 100 cc of Omnipaque 350. Dose reduction technique was used on this scan by utilizing automated expos ure control and iterative reconstruction technique. The dose-length product (DLP) was 191.64 mGy-cm. COMPARISON: 09/11/2022 Findings: There is no evidence of any significant mediastinal, hilar or axillary lymphadenopathy. There is no f illing defect in the pulmonary arterial tree to suggest pulmonary embolus. There is no evidence of ao rtic dissection or aneurysm. Atherosclerotic calcifications of the aorta and coronary vessels are pre sent. No pericardial effusion. Moderate left pleural effusion and small right pleural effusion are present, with bibasilar atelectat ic change. There is stable biapical scarring and probable postoperative change at the left upper lobe . Probable minimal emphysematous change in the lungs. Images through the upper abdomen reveal no abnormalities. Impression: No evidence of pulmonary embolus, aortic dissection, or aortic aneurysm. Moderate left pleural effusion and small right pleural effusion with bibasilar atelectatic change. Minimal emphysema and stable biapical scarring/postoperative change. Reviewed, dictated and finalized at [facility]. Impression: No evidence of pulmonary embolus, aortic dissection, or aortic aneurysm. Moderate left pleural effusion and small right pleural effusion with bibasilar atelectatic change. Minimal emphysema and stable biapical scarring/postoperative change.
--- NOTE | ~2023-01-31 | US_ITS ---
EXAMINATION: US venous doppler [facility] DATE: 02/01/2023 15:20 INDICATION: Shortness of breath TECHNIQUE: Fernandez scale images without and with compression and Doppler images of the bilateral lower e xtremity veins were obtained. COMPARISON: 03/09/2022 FINDINGS: The right common femoral vein, profunda femoral vein, femoral vein, popliteal vein, peroneal trunk, p osterior tibial veins, and greater saphenous vein are patent. The left common femoral vein, profunda femoral vein, femoral vein, popliteal vein, peroneal trunk, po sterior tibial veins, and greater saphenous vein are patent. IMPRESSION: 1. Patent bilateral lower extremity veins. No evidence of deep venous thrombosis. Reviewed, dictated and finalized at location L. IMPRESSION: 1. Patent bilateral lower extremity veins. No evidence of deep venous thrombosi s.
--- NOTE | 2023-01-31 05:29 | ECG_ITS ---
Measurements Intervals [place] Rate: 76 P: 83 OR: 199 QRS: 47 QRSD: 108 T: 53 QT: 372 QTc: 419 Interpretive Statements SINUS RHYTHM WITH OCCASIONAL VENTRICULAR PREMATURE COMPLEXES ANTEROSEPTAL MYOCARDIAL INFARCTION , OF INDETERMINATE AGE [40+ ms Q WAVE IN V1-V4] COMPARED TO ECG 01/04/2023 11:18:37 NO SIGNIFICANT CHANGES Electronically Signed On 01-31-2023 9:46:20 CDT by Belén Crowell M.D.
[2023-01-31 05:44] LABS: Basophils Percent Auto 0.5 % (0.2-1.2); Eosinophils Absolute Auto 0.1 K/mm3 (0-0.3); Eosinophils Percent Auto 2.1 % (0-4.4); Hematocrit 41.3 % (37.0-47.0); Hemoglobin 13.5 g/dL (12.0-15.0); Immature Granulocyte Absolute 0.01 K/mm3 (0.00-0.031); Immature Granulocyte Percent A 0.2 % (0-0.5); Lymphocytes Absolute Auto 0.63 K/mm3 (0.9-3.2); Lymphocytes Percent Auto 14.4 % (18.3-44.2); Mean Corpuscular HGB Conc 32.7 g/dl (32-36); Mean Corpuscular Hemoglobin 33.7 pg (26-34); Mean Platelet Volume 9.7 fl (7.4-10.4); Monocytes Absolute Auto 0.5 K/mm3 (0.1-0.6); Monocytes Percent Auto 12.1 % (2.6-8.5); Neutrophils Absolute Auto 3.1 K/mm3 (1.3-6.7); Neutrophils Percent Auto 70.7 % (45.5-73.1); Platelet Count Result 281 k/mm3 (150-375); Red Blood Count 4.01 M/mm3 (4.2-5.4); Red Cell Distribution Width 13.2 % (11.5-14.5); White Blood Count 4.4 K/mm3 (4.5-10.0)
[2023-01-31 05:54] LABS: Alanine Aminotransferase 20 U/L (6-35); Albumin Level 4.5 g/dL (3.5-5.1); Alkaline Phosphatase 56 U/L (38-126); Anion Gap 5 mmol/L (8-16); Aspartate Amino Transferase 24 U/L (14-36); Blood Urea Nitrogen 13 mg/dL (7-17); Calcium 9.7 mg/dL (8.4-10.2); Carbon Dioxide 31 mmol/L (22-30); Chloride 103 mmol/L (98-107); Estimated CRCL calculation 45 ml/min; Estimated Glomerular Filt Rate > 60; Glucose 112 mg/dL (65-110); Potassium 4.1 mmol/L (3.4-5.0); Sodium 139 mmol/L (137-145)
--- NOTE | 2023-01-31 06:08 | ED.GENADULT ---
HPI - General Adult General Chief complaint: Shortness of Breath/Dyspnea Stated complaint: SOB History of Present Illness HPI narrative: Is an 82-year-old female with history of COPD, multiple lobectomies and grade 2 diastolic dysfunction presenting ED with shortness of breath. Patient says she woke up at midnight went to her bathroom and became short of breath. She gave herself a breathing treatment and then went back until 4:30 a.m.. She then woke up again from sleep and had even worse shortness of breath. She then called EMS who brought her to the hospital. The patient denies fever, chills, productive cough or chest pain. She does have some chest tightness that she associates with COPD. The patient notes that she did have swelling of her ankles last week but it is intermittent at this time she does not have lower extremity edema. Related Data Home Medications Medication Instructions Recorded Confirmed albuterol sulfate 90 mcg/actuation 2 inh inhalation Q4-6H PRN 03/31/22 01/04/23 aerosol inhaler Shortness Of Breath calcium carbonate 600 mg-vitamin 1 tablet PO DAILY 03/31/22 01/04/23 D3 5 mcg (200 unit) tablet cholecalciferol (vitamin D3) 25 25 mcg PO DAILY 03/31/22 01/04/23 mcg (1,000 unit) capsule anastrozole 1 mg tablet 1 mg PO DAILY 11/21/22 01/04/23 Allergies Allergy/AdvReac Type Severity Reaction Status Date / Time hydrocodone AdvReac Mild vomiting Verified 01/31/23 05:37 adhesive AdvReac Unknown RASH, ITCH Verified 01/31/23 05:37 alendronate sodium [Fosamax] AdvReac Unknown Nausea Verified 01/31/23 05:37 Iodinated Contrast Media AdvReac Unknown [place] Verified 01/31/23 05:37 PMFSH Past Medical History Medical History Anxiety Cancer of left breast Constipation Depression Diastolic dysfunction Echocardiogram 01/201919 grade 1 diastolic dysfunction EF 60% mild left atrial enlargement Emphysema of lung Fracture of fifth metatarsal bone of right foot with routine healing GERD (gastroesophageal reflux disease) Hypertension Lung cancer Osteoporosis, unspecified Prediabetes Vitamin D deficiency Surgical History Surgical History 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 13 cm layered closure. 04/12/2022 History of lobectomy of lung Right upper lobe 1994, left lower lung partial lobectomy 2005 History of right mastectomy (~2012) Family History Family History Mother CHF (congestive heart failure) Dementia Father Lung cancer Sibling Acute myocardial infarction Cerebrovascular accident Other Hypertension Social History Social History Social History: She is . She has a daughter and a son. 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 She does drink wine nightly. However she is not drink anyone in the last 4 days. She lives alone. Code status: Full code Healthcare power of senior attorney: Ursula Vega (daughter) Smoking packs per day: 1 Smoking cigarettes per day: 20.0 Years smoked: 20 Smoking pack-years: 20.00 Smoking status: Former smoker Tobacco type: cigarettes Second hand tobacco smoke exposure: No Smoking end date: 10/08/81 Alcohol intake: current Drinks per week: 7 Alcohol use details: WINE Substance use: never Substance use type: does not use Lack of Transportation: No Lack of Food: Never True Current Housing: I Have Housing
[2023-01-31] MEDS: IPRATROPIUM BR 0.02% INH SOLN 0.5 MG/2.5 ML VIAL 1 MG INHALATION (06:13)
[2023-01-31] MEDS: ALBUTEROL SULFATE NEB 2.5 MG/3 ML INH 5 MG INHALATION (06:13)
[2023-01-31] MEDS: methylPREDNISolone SOD SUCC 125 MG VIAL IV PUSH (06:36)
[2023-01-31 06:43] LABS: NT Pro B Type Natriuretic Pept 763 pg/mL (19.9-100); Troponin I < 0.012 ng/mL (0.000-0.034)
[2023-01-31 06:50] LABS: D Dimer 1.02 ug/mL (<0.48)
[2023-01-31 07:00] LABS: Troponin I < 0.012 ng/mL (0.000-0.034)
[2023-01-31 07:20] LABS: Influenza A QL RT-PCR Negative (Negative); Influenza B QL RT-PCR Negative (Negative); RSV RNA, RT-PCR Negative (Negative); SARS-CoV-2 RNA PCR Negative (Negative)
[2023-01-31] MEDS: CEFEPIME 2 GM/NS 50 ML 2 GM/50 ML BAG IVPB ×2 (07:42→20:45)
--- NOTE | 2023-01-31 09:05 | ADMGEN ---
This patient, Tigist Trejo, was admitted to [facility] Surg Room 305-01. Patient/family oriented to hospital policies and general routines including ID bracelet, bed and alarms, visiting hours, pain management, procedures, bathroom and other care routines, personal items, smoking policy, room service/diet, and visiting hours. Information on how to activate the Rapid Response Team has been discussed. Patient/Family are encouraged to report perceived risks to care and to ask questions if they do not understand what they are told or what they should do.
--- NOTE | 2023-01-31 13:14 | PM.IMHP ---
H&P: HPI History of Present Illness Date/Time: 01/31/23 13:14 Chief Complaint: Shortness of breath Narrative: This is an 82-year-old female patient who has a history of COPD, multiple lumpectomies and grade 2 diastolic dysfunction. The patient came to the emergency room with complaints of shortness of breath. The patient stated that this Sunday she noticed that she was more short of breath when she got up and ambulated however she was able to recover quickly. Today the patient woke up at midnight and went to the bathroom became short of breath. The patient stated at this time she could not recover she gave herself a breathing treatment and then went back to bed at 4:30 a.m.. When she woke up from sleep she was worse than midnight. She denied any fever chills or productive cough or chest pain. The patient does not wear oxygen at home. She had swelling to her ankles last week but does not have any at this time. Her son is at the bedside helping with answering history questions. H&H is 4.4. D-dimer is 1.02. Troponin is 0.1012. BNP 763. Influenza a PE RSV and COVID are negative. Chest x-ray was read asWorsened diffuse lung disease, consistent with pulmonary edema versus pneumonia superimposed on chronic lung disease. 2. Small pleural effusions. 3. Cardiomegaly. The patient was given Lasix, nebulizer treatments Solu-Medrol, azithromycin, cefepime and vancomycin. The patient is being admitted to observation status on the date of service of 01/31/2023. Review of Systems Review of Systems: All systems reviewed & are unremarkable except as noted in HPI and below Constitutional: Constitutional: Reports as per HPI and Reports no additional constitutional complaints Eyes: Eyes: Reports as per HPI and Reports no additional eye complaints ENT: Reports system reviewed and no additional complaints, except as documented and Reports Normal hearing present Cardiovascular: Cardiovascular: Reports no additional cardiovascular complaints Respiratory: Respiratory: Reports no additional respiratory complaints and Reports no additional respiratory complaints Gastrointestinal: Gastrointestinal: Reports as per HPI and Reports no additional gastrointestinal complaints Musculoskeletal: Musculoskeletal: Reports no additional musculoskeletal complaints Integumentary/Breasts: Skin/Breast: Reports system reviewed and no additional complaints, except as docu and Reports as per HPI Neurologic: Reports system reviewed and no additional complaints, except as documented, Reports as per HPI and Reports Normal hearing present Psychiatric: Psychiatric: Reports no additional psychiatric complaints and Reports as per HPI Endocrine: Endocrine: Reports no additional endocrine complaints Hematologic/Lymphatic: Hematologic/Lymphatic: Reports no additional hematologic/lymphatic complaints Allergic/Immunologic: Allergic/Immunologic: Reports no additional allergic/immunologic complaints [facility] Past Medical History Medical History Anxiety Cancer of left breast Constipation Depression Diastolic dysfunction Echocardiogram 01/201919 grade 1 diastolic dysfunction EF 60% mild left atrial enlargement Emphysema of lung Fracture of fifth metatarsal bone of right foot with routine healing GERD (gastroesophageal reflux disease) Hypertension Lung cancer Osteoporosis, unspecified Prediabetes Vitamin D deficiency Surgical History Surgical History 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 13 cm layered
[2023-01-31] MEDS: CARBIDOPA/LEVODOPA 25/100 MG TABLET 1 TABLET PO (17:32)
[2023-01-31] MEDS: methylPREDNISolone SOD SUCC 125 MG VIAL 60 MG IV PUSH ×2 (17:32→23:58)
[2023-01-31] MEDS: IPRATROPIUM BR 0.02% INH SOLN 0.5 MG/2.5 ML VIAL INHALATION (20:41)
[2023-01-31] MEDS: LEVALBUTEROL NEB 1.25 MG/3 ML 0.63 MG INHALATION (20:41)
[2023-02-01] VITALS (20 sets, daily range): BP systolic 103–143; BP diastolic 60–67; PULSE 70–140; RESP 16–22; TEMP 36–36.6; O2SAT 94–96
[2023-02-01] MEDS: LEVALBUTEROL NEB 1.25 MG/3 ML 0.63 MG INHALATION ×4 (02:55→19:50)
[2023-02-01] MEDS: IPRATROPIUM BR 0.02% INH SOLN 0.5 MG/2.5 ML VIAL INHALATION ×3 (02:56→19:50)
[2023-02-01] MEDS: methylPREDNISolone SOD SUCC 125 MG VIAL 60 MG IV PUSH (05:30)
[2023-02-01 06:14] LABS: Basophils Percent Auto 0.1 % (0.2-1.2); Hematocrit 36.1 % (37.0-47.0); Hemoglobin 11.8 g/dL (12.0-15.0); Immature Granulocyte Absolute 0.04 K/mm3 (0.00-0.031); Immature Granulocyte Percent A 0.5 % (0-0.5); Lymphocytes Absolute Auto 0.32 K/mm3 (0.9-3.2); Lymphocytes Percent Auto 3.8 % (18.3-44.2); Mean Corpuscular HGB Conc 32.7 g/dl (32-36); Mean Corpuscular Hemoglobin 33.4 pg (26-34); Mean Corpuscular Volume 102.3 fl (80-100); Monocytes Absolute Auto 0.3 K/mm3 (0.1-0.6); Neutrophils Absolute Auto 7.8 K/mm3 (1.3-6.7); Neutrophils Percent Auto 91.6 % (45.5-73.1); Platelet Count Result 264 k/mm3 (150-375); Red Blood Count 3.53 M/mm3 (4.2-5.4); Red Cell Distribution Width 13.3 % (11.5-14.5); White Blood Count 8.5 K/mm3 (4.5-10.0)
[2023-02-01 06:30] LABS: Alanine Aminotransferase 22 U/L (6-35); Albumin Level 3.6 g/dL (3.5-5.1); Alkaline Phosphatase 45 U/L (38-126); Anion Gap 4 mmol/L (8-16); Aspartate Amino Transferase 18 U/L (14-36); Bilirubin,Total 0.6 mg/dL (0.2-1.3); Blood Urea Nitrogen 14 mg/dL (7-17); Calcium 8.8 mg/dL (8.4-10.2); Carbon Dioxide 27 mmol/L (22-30); Chloride 105 mmol/L (98-107); Estimated CRCL calculation 53 ml/min; Estimated Glomerular Filt Rate > 60; Glucose 148 mg/dL (65-110); Sodium 136 mmol/L (137-145)
[2023-02-01 07:18] LABS: Thyroid Stimulating Hormone Reflex 0.427 uIU/mL (0.465-4.68)
[2023-02-01] MEDS: CITALOPRAM HYDROBROMIDE 20 MG TABLET 40 MG PO (07:57)
[2023-02-01] MEDS: CARBIDOPA/LEVODOPA 25/100 MG TABLET 1 TABLET PO ×3 (07:57→17:13)
[2023-02-01] MEDS: ANASTROZOLE (*CHEMO) 1 MG TABLET PO (07:58)
[2023-02-01] MEDS: CHOLECALCIFEROL 1,000 UNITS TABLET 1000 UNITS PO (07:58)
[2023-02-01 09:19] LABS: Total Triiodothyronine (T3) 0.77 NG/ML (0.97-1.69)
[2023-02-01] MEDS: FLUTICASONE/UMECLIDIN/VILANTER 100-62.5-25 MCG ELLIPTA 1 PUFF INHALATION (10:20)
--- NOTE | 2023-02-01 12:29 | ECG_ITS ---
Measurements Intervals [place] Rate: 127 P: NV: 0 QRS: 69 QRSD: 122 T: 102 QT: 309 QTc: 450 Interpretive Statements ATRIAL FIBRILLATION WITH RAPID VENTRICULAR RESPONSE SEPTAL MYOCARDIAL INFARCTION , POSSIBLY ACUTE [40+ ms Q WAVE IN V1/V2] ST ELEVATION, CONSIDER ANTERIOR INJURY [MARKED ST ELEVATION W/O NORMALLY INFLECTED T WAVE IN V2-V5] ACUTE DC ABDOMEN ECG COMPARED TO ECG 01/31/2023 05:32:12 ATRIAL FIBRILLATION NOW PRESENT Electronically Signed On 02-01-2023 14:25:41 CDT by Avery Villa M.D.
[2023-02-01] MEDS: ACETAMINOPHEN 325 MG TABLET 650 MG PO (12:53)
[2023-02-01] MEDS: METOPROLOL TARTRATE INJ 5 MG/5 ML VIAL IV PUSH (12:54)
--- NOTE | 2023-02-01 12:56 | PC.NURSE ---
1225 Dr Hernandez notified of pt on tele and heart rate jumping up in 140's, appears to be afib. Bp 108/70 o2 on RA. Pt c/o of sob and back pain. New orders received.
[2023-02-01 13:26] LABS: Troponin I < 0.012 ng/mL (0.000-0.034)
--- NOTE | 2023-02-01 13:49 | PM.IMPN ---
Progress Note: A&P Assessment and Plan (1) Acute dyspnea: Code(s): R06.00 - Dyspnea, unspecified Status: Acute (2) Pneumonia: Code(s): J18.9 - Pneumonia, unspecified organism Status: Acute Plan 82-year-old female patient who has a history of COPD, multiple lumpectomies and grade 2 diastolic dysfunction.? The patient came to the emergency room with complaints of shortness of breath,?The patient does not wear oxygen at home.? She had swelling to her ankles last week but does not have any at this time.?Influenza a PE RSV and COVID are negative.? Chest x-ray was read asWorsened diffuse lung disease, consistent with pulmonary edema versus pneumonia 1)Acute Resp Distress: ?COPD exacerbation Currently on RA c/w bronchodilator c/w Solumderol c/w Azithromycin, add ceftriaxone DC vanc+Cefepime obtain procalcitonin Pulmonary consult echo shows mild pulmonary HTN Elevated D dimer Obtain VQ scan 2)DVT ppx: hep SQ 3)Code: Full 4)Dispo:pending improvement Time Spent With Patient Time with patient: 15 - 25 minutes Subjective Date/time seen: 02/01/23 13:49 Interval history: Continues to have SOB on RA had an episode of tachycardia, responded to IV metoprolol Troponin unremarkable Review of Systems Review of Systems: All systems reviewed & are unremarkable except as noted in HPI and below Exam Const: General: no acute distress HENMT: Mouth: Yes moist mucous membranes Eyes: Sclera: sclerae normal Neck: Neck: supple Resp: Other: B/L decreased breath sounds, no wheezing, very tight air movement Cardio: Rate: regular rate Rhythm: regular rhythm GI: GI Palp: Yes Soft to palpation Auscultation: normal bowel sounds Skin: General skin exam: normal color Neuro: Speech: normal speech Extrem: General: normal to inspection Psych: Mental Status: mental status grossly normal Objective Data Vital Signs Vital Signs: Vital Signs - 24 hr 01/31/23 14:00 01/31/23 16:00 01/31/23 20:00 Temperature 97.2 F L Pulse Rate 83 75 75 Respiratory Rate 16 16 Blood Pressure 103/52 L Pulse Oximetry 95 95 Oxygen Delivery Room Air 01/31/23 22:00 01/31/23 20:42 02/01/23 02:57 Temperature 96.9 F L Pulse Rate 79 70 Respiratory Rate 20 16 Blood Pressure 129/71 Pulse Oximetry 95 95 Oxygen Delivery Room Air 01/31/23 20:44 01/31/23 20:58 01/31/23 20:00 Temperature Pulse Rate 78 75 80 Respiratory Rate 18 18 Blood Pressure Pulse Oximetry Oxygen Delivery 02/01/23 00:00 02/01/23 04:00 02/01/23 06:00 Temperature 96.8 F L Pulse Rate 76 89 82 Respiratory Rate 16 Blood Pressure 143/67 H Pulse Oximetry 95 Oxygen Delivery 02/01/23 08:00 02/01/23 10:15 02/01/23 10:21 Temperature Pulse Rate 74 Respiratory Rate 16 Blood Pressure Pulse Oximetry 96 Oxygen Delivery Room Air Room Air 02/01/23 08:00 02/01/23 12:54 02/01/23 13:42 Temperature Pulse Rate 83 140 H 82 Respiratory Rate 16 Blood Pressure Pulse Oximetry Oxygen Delivery Intake/Output Intake/Output: Intake & Output 01/29/23 01/30/23 01/31/23 02/01/23 23:59 23:59 23:59 23:59 Intake Total 1930 1710 Output Total 200 Balance 1930 1510 Meds/Results Medications: Active Medications Generic Name Dose Route Start Last Admin Trade Name Freq PRN Reason Stop Dose Admin Acetaminophen 650 mg 02/01/23 12:27 02/01/23 12:53 Acetaminophen 325 Mg Tablet PO 650 mg Q4H PRN Administration Mild Pain (1-3) or Fever Anastrozole 1 mg 02/01/23 09:00 02/01/23 07:58 Anastrozole (*Chemo) 1 Mg Tablet PO 1 mg DAILY NIURKA Administration Calcium Carbonate 500 mg 02/01/23 09:00 02/01/23 07:58 Calcium/Vitamin D 500 Mg Tablet PO 500 mg DAILY NIURKA Administration Carbidopa/Levodopa 1 tablet 01/31/23 17:00 02/01/23 12:25 Carbidopa/Levodopa 25/100 Mg Tablet PO 1 tablet TID NIURKA Administration Citalopram Hydr
--- NOTE | 2023-02-01 14:13 | PM.CNPUL ---
Assessment and Plan Assessment and plan (1) Acute dyspnea: Code(s): R06.00 - Dyspnea, unspecified Status: Acute Assessment and Plan: this 82-year-old female with history of COPD previous history of hypoxemic respiratory failure, also history of lung resection for lung cancer, history of bilateral mastectomy for breast cancer, recent radiation Rx to chest wall for metastatic breast cancer to skin presented with 1 day history of shortness of breath. The patient has no symptoms to suggest lower respiratory tract infection. Chest imaging studies show bilateral pleural effusions small size question left lower lobe infiltrate. Patient was found to have atrial fibrillation with rapid ventricular response. Patient has been treated for COPD exacerbation and pneumonia with antibiotics, IV steroids, bronchodilators. I suspect the patient's hospitalization was precipitated by congestive heart failure as patient had new-onset orthopnea for the last month, weight gain of about 20 lb over the last few months and also evidence of lung congestion ob CXR. Need to exclude however pulmonary embolism as she is at high risk for DVT/thromboembolic disease given history of metastatic breast cancer to skin treated with radiation treatment. Patient is allergic to IV contrast which consists of hot flashes. She had no anaphylaxis related to IV contrast. just prior to the last CT PA in February of 2022 she was premedicated. I discussed the need for CT with Dr. Hernandez the patient's hospitalist. Will discontinue Solu-Medrol IV start prednisone treatment and Benadryl according to standard premedication IV dye allergy protocol. further recommendations based upon the results of CT PA. V/Q scan has no diagnostic value given patient's history of advanced disease with previous lung surgeries and extensive emphysema. (2) Parkinson's disease: Code(s): G20 - Parkinson's disease Status: Acute (3) Recurrent breast cancer: Code(s): C50.919 - Malignant neoplasm of unspecified site of unspecified female breast Status: Acute (4) History of lung cancer: Code(s): Z85.118 - Personal history of other malignant neoplasm of bronchus and lung Status: Acute (5) History of bilateral breast cancer: Code(s): Z85.3 - Personal history of malignant neoplasm of breast Status: Acute (6) Metastatic cancer to chest wall: Code(s): C79.89 - Secondary malignant neoplasm of other specified sites Status: Acute (7) COPD (chronic obstructive pulmonary disease) case management patient: Code(s): J44.9 - Chronic obstructive pulmonary disease, unspecified Status: Acute History of Present Illness History of Present Illness Consult date: 02/01/23 Chief complaint: Dyspnea Narrative: This 82-year-old female presented with 1 day history of shortness of breath. The patient is well known to me. She has got history of moderate obstructive airway disease chronically on maintenance bronchodilators evidence of radiographic emphysema chest imaging studies, previous history of lung cancer treated twice with left lung surgery, previous history of breast cancer with a newly diagnosed Mets to skin for which she completed radiation to left lower chest approximately 5 months ago. Patient was in her usual state of health until approximately yesterday morning when she woke up with some shortness of breath. She use her regular bronchodilator medications with no improvement. She had no fever chills hemoptysis chest pain. There has been no worsening of her cough. For the last month or so she has had orthopnea. She has history of arrhythmia hypertension as well and had been on some cardiac medications which were discontinued approximately 3 weeks ago. Earlier today the patient had palpitations and chest CT showed atrial fibrillation with right ventricular response. When evaluated in the emergency room chest x-ray showed increased pulmonary co
--- NOTE | 2023-02-01 15:00 | PC.NURSE ---
Dr Hernandez notified of pt hr jumping to 120's and then back to low 100's . BP 110/60
[2023-02-01] MEDS: METOPROLOL TARTRATE 12.5 MG TABLET PO ×2 (15:42→20:26)
[2023-02-01] MEDS: predniSONE 10 MG TABLET 50 MG PO (18:28)
[2023-02-01] MEDS: HEPARIN SODIUM 5,000 UNITS/ML VIAL 5000 UNITS SUB-Q (20:27)
[2023-02-02] VITALS (17 sets, daily range): BP systolic 117–138; BP diastolic 60–67; PULSE 69–89; RESP 16–18; TEMP 36–36.6; O2SAT 94–98
[2023-02-02] MEDS: LEVALBUTEROL NEB 1.25 MG/3 ML 0.63 MG INHALATION ×4 (01:23→20:11)
[2023-02-02] MEDS: IPRATROPIUM BR 0.02% INH SOLN 0.5 MG/2.5 ML VIAL INHALATION ×4 (01:23→20:11)
[2023-02-02] MEDS: predniSONE 40 MG, predniSONE 10 MG 50 MG PO (01:35)
[2023-02-02 06:03] LABS: Basophils Percent Auto 0.1 % (0.2-1.2); Hematocrit 38.6 % (37.0-47.0); Hemoglobin 12.2 g/dL (12.0-15.0); Immature Granulocyte Absolute 0.08 K/mm3 (0.00-0.031); Immature Granulocyte Percent A 0.7 % (0-0.5); Lymphocytes Absolute Auto 0.45 K/mm3 (0.9-3.2); Lymphocytes Percent Auto 3.8 % (18.3-44.2); Mean Corpuscular HGB Conc 31.6 g/dl (32-36); Mean Corpuscular Hemoglobin 32.4 pg (26-34); Mean Corpuscular Volume 102.4 fl (80-100); Mean Platelet Volume 10.1 fl (7.4-10.4); Monocytes Absolute Auto 0.6 K/mm3 (0.1-0.6); Neutrophils Absolute Auto 10.6 K/mm3 (1.3-6.7); Neutrophils Percent Auto 90.4 % (45.5-73.1); Platelet Count Result 312 k/mm3 (150-375); Red Blood Count 3.77 M/mm3 (4.2-5.4); Red Cell Distribution Width 13.3 % (11.5-14.5); White Blood Count 11.7 K/mm3 (4.5-10.0)
[2023-02-02 06:22] LABS: Anion Gap 9 mmol/L (8-16); Blood Urea Nitrogen 22 mg/dL (7-17); Calcium 9.2 mg/dL (8.4-10.2); Carbon Dioxide 26 mmol/L (22-30); Chloride 103 mmol/L (98-107); Estimated CRCL calculation 47 ml/min; Estimated Glomerular Filt Rate > 60; Glucose 133 mg/dL (65-110); Potassium 4.2 mmol/L (3.4-5.0); Sodium 138 mmol/L (137-145)
[2023-02-02] MEDS: predniSONE 10 MG TABLET 50 MG PO (06:35)
[2023-02-02] MEDS: diphenhydrAMINE HCl CAP 25 MG CAPSULE 50 MG PO (06:35)
[2023-02-02] MEDS: HEPARIN SODIUM 5,000 UNITS/ML VIAL 5000 UNITS SUB-Q ×2 (06:35→12:59)
[2023-02-02 06:54] LABS: Procalcitonin 0.1 ng/mL
[2023-02-02] MEDS: FLUTICASONE/UMECLIDIN/VILANTER 100-62.5-25 MCG ELLIPTA 1 PUFF INHALATION (07:15)
[2023-02-02] MEDS: CITALOPRAM HYDROBROMIDE 20 MG TABLET 40 MG PO (08:19)
[2023-02-02] MEDS: METOPROLOL TARTRATE 12.5 MG TABLET PO ×2 (08:19→21:30)
[2023-02-02] MEDS: ANASTROZOLE (*CHEMO) 1 MG TABLET PO (08:19)
[2023-02-02] MEDS: CARBIDOPA/LEVODOPA 25/100 MG TABLET 1 TABLET PO ×3 (08:19→17:05)
[2023-02-02] MEDS: CHOLECALCIFEROL 1,000 UNITS TABLET 1000 UNITS PO (08:19)
--- NOTE | 2023-02-02 09:08 | PM.PNPUL ---
Progress Note: A&P Assessment and Plan (1) Acute dyspnea: Code(s): R06.00 - Dyspnea, unspecified Status: Acute Assessment and Plan: 02/01 this 82-year-old female with history of COPD previous history of hypoxemic respiratory failure, also history of lung resection for lung cancer, history of bilateral mastectomy for breast cancer, recent radiation Rx to chest wall for metastatic breast cancer? to skin presented with 1 day history of shortness of breath.? The patient has no symptoms to suggest lower respiratory tract infection.? Chest imaging studies show bilateral pleural effusions small size question left lower lobe infiltrate.? Patient was found to have atrial fibrillation with rapid ventricular response.? Patient has been treated for COPD exacerbation? and pneumonia with antibiotics, IV steroids, bronchodilators.? I suspect the patient's hospitalization was precipitated by congestive heart failure as patient had new-onset orthopnea for the last month, weight gain of about 20 lb over the last few months and also evidence of lung congestion ob CXR.? 02/02. she underwent CT PA to exclude pulmonary embolism. CTA showed no evidence of pulmonary embolism. She has bilateral pleural effusions with associated basilar atelectasis greater on left. No evidence of pneumonia. Elevated white cell count on today's testing probably related to recent use of IV steroids. Patient has no clinical symptoms to suggest lower respiratory tract infection. most likely the patient's symptoms are related to bilateral pleural effusions due to congestive heart failure/ intermittent atrial fibrillation. Patient has COPD and has been on triple inhaler although she has had no COPD exacerbations. Will need to switch her to new inhaler without ICS. Plan: No need to continue with IV steroids or antibiotics for lung disease. Consider gentle diuresis starting in a day or so, given recent IV dye for CT PA. she will need workup and treatment for intermittent atrial fibrillation. continue with nebulized short-acting bronchodilators but only on p.r.n. basis. will follow with you (2) Pleural effusion: Code(s): J90 - Pleural effusion, not elsewhere classified Status: Acute (3) Parkinson's disease: Code(s): G20 - Parkinson's disease Status: Acute (4) Recurrent breast cancer: Code(s): C50.919 - Malignant neoplasm of unspecified site of unspecified female breast Status: Acute (5) Metastatic breast cancer: Code(s): C50.919 - Malignant neoplasm of unspecified site of unspecified female breast Status: Acute (6) History of lung cancer: Code(s): Z85.118 - Personal history of other malignant neoplasm of bronchus and lung Status: Acute (7) COPD (chronic obstructive pulmonary disease) case management patient: Code(s): J44.9 - Chronic obstructive pulmonary disease, unspecified Status: Acute (8) Bilateral pleural effusion: Code(s): J90 - Pleural effusion, not elsewhere classified Status: Acute (9) Atrial fibrillation: Code(s): I48.91 - Unspecified atrial fibrillation Status: Acute Subjective Date/time seen: 02/02/23 09:08 patient has no new respiratory symptoms. She remains on room air. Was diagnosed with AFib with rapid ventricular response. Underwent CT PA earlier today post premedication for possible allergy to IV dye. She has no cough sputum production. Review of Systems Review of Systems: All systems reviewed & are unremarkable except as noted in HPI and below ( HPI and below) Exam Narrative: GENERAL APPEARANCE: Well developed, well nourished, alert and cooperative, and appears to be in no acute distress While on room air SKIN: Inspection of the skin reveals no rashes, ulcerations or petechiae. HEENT: Sclerae anicteric and conjunctivae pink and moist. Extraocular movements were intact and pupils were equal. The oral mucosa, hard and soft palate, tong
--- NOTE | 2023-02-02 09:49 | PM.CNCAR ---
Assessment and Plan Assessment and plan (1) Atrial fibrillation: Code(s): I48.91 - Unspecified atrial fibrillation Status: Acute Assessment and Plan: New onset atrial fibrillation noted on telemetry yesterday. She has converted back to sinus rhythm at this point. She was restarted on a low dose of metoprolol by the primary service. Will see how she tolerates this as she was recently hospitalized with pre-syncope and bradycardia which resolved with discontinuation of her metoprolol. Concern for tachy-lisa syndrome. She has a [id number] score of at least 4 (female gender, age, HTN, CHF). Anticoagulation is indicated - will d/c heparin and start her on Xarelto. Will order outpatient desk monitor to assess for recurrence/burden of atrial fibrillation. Echo shows stable mitral valve disease with mild MS/MR. She has hyperdynamic LVSF with EF >70%, grade I diastolic dysfunction. (2) (HFpEF) heart failure with preserved ejection fraction: Code(s): I50.30 - Unspecified diastolic (congestive) heart failure Status: Acute Assessment and Plan: Echo findings as above. She has moderate left and small right sided pleural effusions noted on chest CT this morning. Will diurese with 40mg IV lasix daily. Monitor BMP while diuresing. (3) Acute dyspnea: Code(s): R06.00 - Dyspnea, unspecified Status: Acute Assessment and Plan: Secondary to above and COPD (4) Abnormal EKG: Code(s): R94.31 - Abnormal electrocardiogram [ECG] [EKG] Status: Acute Assessment and Plan: EKG yesterday interpreted as acute CA. EKG performed in the setting of rapid atrial fibrillation. ST changes could be rate related. No clinical evidence to support STEMI. Furthermore, she is known to be angiographically free from coronary disease with coronary angiogram performed in February of 2022. Will repeat an EKG now. History of Present Illness History of Present Illness Consult date/time: 02/02/23 09:49 Requesting physician: Briana Hernandez MD Consult reason: atrial fibrillation Reason For Visit: Dyspnea Narrative: Ms. Trejo is am 82 year old female with a history of lung cancer and COPD. She also has mitral valve stenosis with mild mitral regurgitation, diastolic dysfunction, and a history of PAC's, PVC's and paroxysmal atrial tachycardia. She was recently hospitalized here at [facility] with a chief complaint of near-syncope. She was found to be bradycardic and her beta aramis was stopped. She reports feeling much better since that time and has not experienced any further dizziness or pre-syncope. She presents to the hospital now with complaints of shortness of breath. Cardiology is being asked to see her because of atrial fibrillation. She does have an EKG this admission demonstrating atrial fibrillation with rapid ventricular response. She was symptomatic with this and reports feeling a sensation as if she were going to have a panic attack. She was not significantly short of breath at the time. She did report chest tightness, but no chest pain. Her telemetry does show atrial fibrillation and atrial tachycardia yesterday, but she has since converted to sinus rhythm and is maintaining sinus rhythm with frequent PAC's. Review of Systems Review of Systems: All systems reviewed & are unremarkable except as noted in HPI and below PMFSH Past Medical History Medical History Anxiety Cancer of left breast Constipation Depression Diastolic dysfunction Echocardiogram 01/201919 grade 1 diastolic dysfunction EF 60% mild left atrial enlargement Emphysema of lung Fracture of fifth metatarsal bone of right foot with routine healing GERD (gastroesophageal reflux disease) Hypertension Lung cancer Osteoporosis, unspecified Prediabetes Vitamin D deficiency Surgical History Surgical History
--- NOTE | 2023-02-02 10:43 | PM.IMPN ---
Progress Note: A&P Assessment and Plan (1) Acute dyspnea: Code(s): R06.00 - Dyspnea, unspecified Status: Acute (2) Pneumonia: Code(s): J18.9 - Pneumonia, unspecified organism Status: Acute Plan 82-year-old female patient who has a history of COPD, multiple lumpectomies and grade 2 diastolic dysfunction.? The patient came to the emergency room with complaints of shortness of breath,?The patient does not wear oxygen at home.? She had swelling to her ankles last week but does not have any at this time.?Influenza a PE RSV and COVID are negative.? Chest x-ray was read asWorsened diffuse lung disease, consistent with pulmonary edema versus pneumonia 1)Acute Resp Distress: ?COPD exacerbation Currently on RA c/w bronchodilator c/w Solumderol c/w Azithromycin, add ceftriaxone DC vanc+Cefepime obtain procalcitonin Pulmonary consult echo shows mild pulmonary HTN Elevated D dimer Obtain VQ scan 2)DVT ppx: hep SQ 3)Code: Full 4)Dispo:pending improvement 02/02/2023 Patient's CTA chest is negative for PE. Patient venous Doppler lower extremity negative for DVT. Plan is to continue current treatment with antibiotics and steroid. Continue with oxygen and monitor closely. Subjective Date/time seen: 02/02/23 10:43 Patient was seen during the morning rounds today. Mild shortness of breath. No chest pain. No abdominal pain, nausea, no vomiting. Mood stable. Review of Systems Review of Systems: All systems reviewed & are unremarkable except as noted in HPI and below Constitutional: Constitutional: Reports as per HPI and Reports no additional constitutional complaints Eyes: Eyes: Reports as per HPI and Reports no additional eye complaints ENT: Reports system reviewed and no additional complaints, except as documented and Reports Normal hearing present Cardiovascular: Cardiovascular: Reports no additional cardiovascular complaints Respiratory: Respiratory: Reports no additional respiratory complaints and Reports no additional respiratory complaints Gastrointestinal: Gastrointestinal: Reports as per HPI and Reports no additional gastrointestinal complaints Musculoskeletal: Musculoskeletal: Reports no additional musculoskeletal complaints Integumentary/Breasts: Skin/Breast: Reports system reviewed and no additional complaints, except as docu and Reports as per HPI Neurologic: Reports system reviewed and no additional complaints, except as documented, Reports as per HPI and Reports Normal hearing present Psychiatric: Psychiatric: Reports no additional psychiatric complaints and Reports as per HPI Endocrine: Endocrine: Reports no additional endocrine complaints Hematologic/Lymphatic: Hematologic/Lymphatic: Reports no additional hematologic/lymphatic complaints Allergic/Immunologic: Allergic/Immunologic: Reports no additional allergic/immunologic complaints Exam Const: General: cooperative, healthy appearing, comfortable, no acute distress, well developed, alert, awake, Physically active, average body habitus, well nourished and thin Nutritional Appearance: average body habitus, well nourished and thin Orientation/consciousness: oriented to person, oriented to place, oriented to time and patient oriented x3 Limitations: no limitations HENMT: Head: normal to inspection, No palpable skull fracture present, normocephalic and atraumatic Ears: hearing grossly normal bilaterally and external ears normal Face/Nose/Sinus: Normal external nose present and Normal nares present Mouth: Yes moist mucous membranes Other: She has bilateral hearing aids Eyes: General: appearance normal, both eyes and all related structures Alignment and Position: alignment normal Eyelids: eyelids normal Sclera: sclerae normal Pupils: Equal, round and reactive pupils present EOM: EOMs intact bilaterally Neck: Neck: normal visual inspection, full ROM, no lymphadenopathy, trachea midline and supple Chest: Chest palpation & i
[2023-02-02] MEDS: RIVAROXABAN 20 MG TABLET PO (17:05)
[2023-02-03] VITALS (16 sets, daily range): BP systolic 107–134; BP diastolic 59–83; PULSE 59–94; RESP 16–24; TEMP 36–36.5; O2SAT 93–97
[2023-02-03 06:08] LABS: Alanine Aminotransferase 27 U/L (6-35); Albumin Level 3.3 g/dL (3.5-5.1); Alkaline Phosphatase 37 U/L (38-126); Anion Gap 1 mmol/L (8-16); Aspartate Amino Transferase 23 U/L (14-36); Bilirubin,Total 0.5 mg/dL (0.2-1.3); Blood Urea Nitrogen 26 mg/dL (7-17); Calcium 8.8 mg/dL (8.4-10.2); Carbon Dioxide 31 mmol/L (22-30); Chloride 105 mmol/L (98-107); Estimated CRCL calculation 47 ml/min; Estimated Glomerular Filt Rate > 60; Glucose 87 mg/dL (65-110); Potassium 3.9 mmol/L (3.4-5.0); Sodium 137 mmol/L (137-145)
[2023-02-03] MEDS: METOPROLOL TARTRATE 12.5 MG TABLET PO ×2 (08:09→20:29)
[2023-02-03] MEDS: PANTOPRAZOLE 40 MG TABLET PO (08:09)
[2023-02-03] MEDS: CITALOPRAM HYDROBROMIDE 20 MG TABLET 40 MG PO (08:09)
[2023-02-03] MEDS: CHOLECALCIFEROL 1,000 UNITS TABLET 1000 UNITS PO (08:09)
[2023-02-03] MEDS: FUROSEMIDE INJ 40 MG/4 ML VIAL IV PUSH (08:09)
[2023-02-03] MEDS: ANASTROZOLE (*CHEMO) 1 MG TABLET PO (08:09)
[2023-02-03] MEDS: CARBIDOPA/LEVODOPA 25/100 MG TABLET 1 TABLET PO ×3 (08:09→16:28)
--- NOTE | 2023-02-03 09:39 | PM.PNCARD ---
Progress Note: A&P Assessment and Plan (1) Atrial fibrillation: Qualifiers: Atrial fibrillation type: paroxysmal Qualified Code(s): I48.0 - Paroxysmal atrial fibrillation Code(s): I48.91 - Unspecified atrial fibrillation Status: Acute Assessment and Plan: New onset atrial fibrillation noted on telemetry.? She has converted back to sinus rhythm at this point.? She was restarted on a low dose of metoprolol by the primary service.? Will see how she tolerates this as she was recently hospitalized with pre-syncope and bradycardia which resolved with discontinuation of her metoprolol.? Concern for possible tachy-lisa syndrome if she develops bradycardia again with the Metoprolol.? She has a [id number] score of at least 4 (female gender, age, HTN, CHF).? Anticoagulation is indicated - started her on Xarelto.? Ordered outpatient night monitor to assess for recurrence/burden of atrial fibrillation.? Echo shows stable mitral valve disease with mild MS/MR.? She has hyperdynamic LVSF with EF >70%, grade I diastolic dysfunction.? (2) (HFpEF) heart failure with preserved ejection fraction: Qualifiers: Heart failure chronicity: acute on chronic Qualified Code(s): I50.33 - Acute on chronic diastolic (congestive) heart failure Code(s): I50.30 - Unspecified diastolic (congestive) heart failure Status: Acute Assessment and Plan: Echo findings as above.? She has moderate left and small right sided pleural effusions noted on chest CT. Diuresing with 40mg IV lasix daily.? Monitor BMP while diuresing. Recommend to transition to PO Lasix 40mg once daily once euvolemic. Subjective Date/time seen: 02/03/23 09:39 Interval history: Reason for visit: Atrial fibrillation HPI: Ms. Trejo is am 82 year old female with a history of lung cancer and COPD.? She also has mitral valve stenosis with mild mitral regurgitation, diastolic dysfunction, and a history of PAC's, PVC's and paroxysmal atrial tachycardia.? She was recently hospitalized here at [facility] with a chief complaint of near-syncope.? She was found to be bradycardic and her beta aramis was stopped.? She reports feeling much better since that time and has not experienced any further dizziness or pre-syncope.? She presents to the hospital now with complaints of shortness of breath.? Cardiology is being asked to see her because of atrial fibrillation.? She does have an EKG this admission demonstrating atrial fibrillation with rapid ventricular response.? She was symptomatic with this and reports feeling a sensation as if she were going to have a panic attack.? She was not significantly short of breath at the time.? She did report chest tightness, but no chest pain.? Her telemetry does show atrial fibrillation and atrial tachycardia yesterday, but she has since converted to sinus rhythm and is maintaining sinus rhythm with frequent PAC's. Date of service 02/03: No acute events overnight. Feeling better. No shortness of breath this morning. Remains in sinus rhythm. No issues with bradycardia. Review of Systems Review of Systems: 8 point ROS obtained. Negative, unless stated in HPI. Exam Const: General: no acute distress Other: Elderly frail female Eyes: General: appearance normal, both eyes and all related structures Sclera: sclerae normal Neck: Neck: supple Resp: Effort & Inspection: normal respiratory effort Auscultation: diminished lung sounds Cardio: Rate: regular rate Rhythm: regular rhythm Heart sounds: no murmurs GI: GI Palp: Yes Soft to palpation and No Tenderness to palpation present (GI) Skin: General skin exam: normal color Neuro: Speech: normal speech Extrem: General: normal to inspection Psych: Mental Status: mental status grossly normal Affect: normal affect Objective Data Vital Signs Vital Signs: Vital Signs - 24 hr 02/02/23 12:00 02/02/23 13:30 02/02/23 13:40 Temperature Pulse Rate 74 69
--- NOTE | 2023-02-03 09:43 | PM.PNPUL ---
Progress Note: A&P Assessment and Plan (1) Acute dyspnea: Code(s): R06.00 - Dyspnea, unspecified Status: Acute Assessment and Plan: 02/01 this 82-year-old female with history of COPD previous history of hypoxemic respiratory failure, also history of lung resection for lung cancer, history of bilateral mastectomy for breast cancer, recent radiation Rx to chest wall for metastatic breast cancer? to skin presented with 1 day history of shortness of breath.? The patient has no symptoms to suggest lower respiratory tract infection.? Chest imaging studies show bilateral pleural effusions small size question left lower lobe infiltrate.? Patient was found to have atrial fibrillation with rapid ventricular response.? Patient has been treated for COPD exacerbation? and pneumonia with antibiotics, IV steroids, bronchodilators.? I suspect the patient's hospitalization was precipitated by congestive heart failure as patient had new-onset orthopnea for the last month, weight gain of about 20 lb over the last few months and also evidence of lung congestion ob CXR.? 02/02. she underwent CT PA to exclude pulmonary embolism. CTA showed no evidence of pulmonary embolism. She has bilateral pleural effusions with associated basilar atelectasis greater on left. No evidence of pneumonia. Elevated white cell count on today's testing probably related to recent use of IV steroids. Patient has no clinical symptoms to suggest lower respiratory tract infection. most likely the patient's symptoms are related to bilateral pleural effusions due to congestive heart failure/ intermittent atrial fibrillation. Patient has COPD and has been on triple inhaler although she has had no COPD exacerbations. Will need to switch her to new inhaler without ICS. Plan: No need to continue with IV steroids or antibiotics for lung disease. Consider gentle diuresis starting in a day or so, given recent IV dye for CT PA. she will need workup and treatment for intermittent atrial fibrillation. continue with nebulized short-acting bronchodilators but only on p.r.n. basis. will follow with you 02/03. Clinical condition improving while on diuretics. She has no new respiratory symptoms. she is back into normal sinus rhythm. Continue with same treatment. Consider repeat chest x-ray prior to DC home. (2) Pleural effusion: Code(s): J90 - Pleural effusion, not elsewhere classified Status: Acute (3) Parkinson's disease: Code(s): G20 - Parkinson's disease Status: Acute (4) Recurrent breast cancer: Code(s): C50.919 - Malignant neoplasm of unspecified site of unspecified female breast Status: Acute (5) Metastatic breast cancer: Code(s): C50.919 - Malignant neoplasm of unspecified site of unspecified female breast Status: Acute (6) History of lung cancer: Code(s): Z85.118 - Personal history of other malignant neoplasm of bronchus and lung Status: Acute (7) COPD (chronic obstructive pulmonary disease) case management patient: Code(s): J44.9 - Chronic obstructive pulmonary disease, unspecified Status: Acute (8) Bilateral pleural effusion: Code(s): J90 - Pleural effusion, not elsewhere classified Status: Acute (9) Atrial fibrillation: Qualifiers: Atrial fibrillation type: paroxysmal Qualified Code(s): I48.0 - Paroxysmal atrial fibrillation Code(s): I48.91 - Unspecified atrial fibrillation Status: Acute Subjective Date/time seen: 02/03/23 09:43 patient feeling little better today. No new respiratory symptoms like cough, fever sputum production or wheezing. Has been urinating a lot following Lasix twice daily. Review of Systems Review of Systems: All systems reviewed & are unremarkable except as noted in HPI and below ( HPI and below) Exam Narrative: GENERAL APPEARANCE: Well developed, well nourished, alert and cooperative, and appears to be in no acute
[2023-02-03] MEDS: IPRATROPIUM BR 0.02% INH SOLN 0.5 MG/2.5 ML VIAL INHALATION ×3 (10:14→19:29)
[2023-02-03] MEDS: LEVALBUTEROL NEB 1.25 MG/3 ML 0.63 MG INHALATION ×3 (10:15→19:29)
[2023-02-03] MEDS: FLUTICASONE/UMECLIDIN/VILANTER 100-62.5-25 MCG ELLIPTA 1 PUFF INHALATION (10:17)
[2023-02-03] MEDS: RIVAROXABAN 20 MG TABLET PO (16:28)
--- NOTE | 2023-02-03 16:58 | PM.IMPN ---
Progress Note: A&P Assessment and Plan (1) (HFpEF) heart failure with preserved ejection fraction: Qualifiers: Heart failure chronicity: acute on chronic Qualified Code(s): I50.33 - Acute on chronic diastolic (congestive) heart failure Code(s): I50.30 - Unspecified diastolic (congestive) heart failure Status: Acute Assessment and Plan: Clinically improving Continue diuresis (2) Atrial fibrillation: Qualifiers: Atrial fibrillation type: paroxysmal Qualified Code(s): I48.0 - Paroxysmal atrial fibrillation Code(s): I48.91 - Unspecified atrial fibrillation Status: Acute Assessment and Plan: 02/03 in sinus rhythm (3) Parkinson's disease: Code(s): G20 - Parkinson's disease Status: Acute Assessment and Plan: continue home meds (4) Benign essential hypertension: Code(s): I10 - Essential (primary) hypertension Status: Acute Assessment and Plan: control adequate (5) Metastatic breast cancer: Code(s): C50.919 - Malignant neoplasm of unspecified site of unspecified female breast Status: Acute Assessment and Plan: continue home meds (6) History of lung cancer: Code(s): Z85.118 - Personal history of other malignant neoplasm of bronchus and lung Status: Acute (7) COPD (chronic obstructive pulmonary disease) case management patient: Code(s): J44.9 - Chronic obstructive pulmonary disease, unspecified Status: Acute (8) Anemia, unspecified: Code(s): D64.9 - Anemia, unspecified Status: Acute Subjective Date/time seen: 02/03/23 16:58 Interval history: Breathing much better. Swelling and legs resolved. Tolerating diet. Denied chest pain or palpitations. Denies shortness of breath at rest. Denied GI or issues. Denied abnormal bleeding. Denied focal weakness or numbness. Review of Systems Review of Systems: All systems reviewed & are unremarkable except as noted in HPI and below Exam Narrative: HEENT: sclerae nonicteric, pharyngeal mucosa pink and intact NECK: No JVD CHEST: Clear to auscultation. Normal effort. HEART: NL S1/S2, regular, no murmur ABDOMEN: BS+, soft, nontender, no mass, no bruits EXTREMITIES: No cyanosis, edema, or clubbing NEUROLOGIC: CN intact and symmetric to inspection. MUSCULOSKELETAL: Tone and strength symmetric. PSYCH: Alert. Oriented to person, place, and time. Objective Data Vital Signs Vital Signs: Vital Signs - 24 hr 02/02/23 20:13 02/02/23 21:03 02/02/23 20:00 Temperature 96.8 F L Pulse Rate 74 73 73 Respiratory Rate 18 16 16 Blood Pressure 117/64 Pulse Oximetry 98 98 Oxygen Delivery Room Air 02/03/23 06:00 02/02/23 20:00 02/03/23 00:00 Temperature 97.7 F Pulse Rate 66 73 69 Respiratory Rate 20 Blood Pressure 134/83 Pulse Oximetry 97 Oxygen Delivery 02/03/23 04:00 02/03/23 08:09 02/03/23 08:00 Temperature Pulse Rate 64 68 Respiratory Rate Blood Pressure Pulse Oximetry Oxygen Delivery Room Air 02/03/23 08:00 02/03/23 10:18 02/03/23 10:18 Temperature Pulse Rate 76 94 69 Respiratory Rate 20 20 Blood Pressure Pulse Oximetry 94 Oxygen Delivery Room Air 02/03/23 12:00 02/03/23 10:28 02/03/23 14:41 Temperature Pulse Rate 69 73 63 Respiratory Rate 20 18 Blood Pressure Pulse Oximetry Oxygen Delivery 02/03/23 15:03 02/03/23 16:00 02/03/23 15:00 Temperature 96.8 F L Pulse Rate 65 68 59 L Respiratory Rate 18 24 H Blood Pressure 107/69 Pulse Oximetry 93 Oxygen Delivery Intake/Output Intake/Output: Intake & Output 01/31/23 02/01/23 02/02/23 02/03/23 23:59 23:59 23:59 23:59 Intake Total 1929 2239 1879 760 Output Total 200 Balance 1929 2039 1879 760 Meds/Results Medications: Active Medications Generic Name Dose Route Start Last Admin Trade Name Freq PRN Reason Stop Dose Admin
[2023-02-04] VITALS (17 sets, daily range): BP systolic 100–152; BP diastolic 50–78; PULSE 62–79; RESP 14–20; TEMP 35.9–36.1; O2SAT 92–100
[2023-02-04] MEDS: CITALOPRAM HYDROBROMIDE 20 MG TABLET 40 MG PO (07:57)
[2023-02-04] MEDS: METOPROLOL TARTRATE 12.5 MG TABLET PO ×2 (07:57→20:28)
[2023-02-04] MEDS: CHOLECALCIFEROL 1,000 UNITS TABLET 1000 UNITS PO (07:57)
[2023-02-04] MEDS: ANASTROZOLE (*CHEMO) 1 MG TABLET PO (07:57)
[2023-02-04] MEDS: FUROSEMIDE INJ 40 MG/4 ML VIAL IV PUSH (07:57)
[2023-02-04] MEDS: CARBIDOPA/LEVODOPA 25/100 MG TABLET 1 TABLET PO ×3 (07:57→16:51)
[2023-02-04] MEDS: PANTOPRAZOLE 40 MG TABLET PO (07:58)
[2023-02-04] MEDS: LEVALBUTEROL NEB 1.25 MG/3 ML 0.63 MG INHALATION ×3 (08:10→19:20)
[2023-02-04] MEDS: FLUTICASONE/UMECLIDIN/VILANTER 100-62.5-25 MCG ELLIPTA 1 PUFF INHALATION (08:11)
[2023-02-04] MEDS: IPRATROPIUM BR 0.02% INH SOLN 0.5 MG/2.5 ML VIAL INHALATION ×3 (08:11→19:20)
--- NOTE | 2023-02-04 10:42 | PM.PNPUL ---
Progress Note: A&P Assessment and Plan (1) Acute dyspnea: Code(s): R06.00 - Dyspnea, unspecified Status: Acute Assessment and Plan: 02/01 this 82-year-old female with history of COPD previous history of hypoxemic respiratory failure, also history of lung resection for lung cancer, history of bilateral mastectomy for breast cancer, recent radiation Rx to chest wall for metastatic breast cancer? to skin presented with 1 day history of shortness of breath.? The patient has no symptoms to suggest lower respiratory tract infection.? Chest imaging studies show bilateral pleural effusions small size question left lower lobe infiltrate.? Patient was found to have atrial fibrillation with rapid ventricular response.? Patient has been treated for COPD exacerbation? and pneumonia with antibiotics, IV steroids, bronchodilators.? I suspect the patient's hospitalization was precipitated by congestive heart failure as patient had new-onset orthopnea for the last month, weight gain of about 20 lb over the last few months and also evidence of lung congestion ob CXR.? 02/02. she underwent CT PA to exclude pulmonary embolism. CTA showed no evidence of pulmonary embolism. She has bilateral pleural effusions with associated basilar atelectasis greater on left. No evidence of pneumonia. Elevated white cell count on today's testing probably related to recent use of IV steroids. Patient has no clinical symptoms to suggest lower respiratory tract infection. most likely the patient's symptoms are related to bilateral pleural effusions due to congestive heart failure/ intermittent atrial fibrillation. Patient has COPD and has been on triple inhaler although she has had no COPD exacerbations. Will need to switch her to new inhaler without ICS. Plan: No need to continue with IV steroids or antibiotics for lung disease. Consider gentle diuresis starting in a day or so, given recent IV dye for CT PA. she will need workup and treatment for intermittent atrial fibrillation. continue with nebulized short-acting bronchodilators but only on p.r.n. basis. will follow with you 02/03. Clinical condition improving while on diuretics. She has no new respiratory symptoms. she is back into normal sinus rhythm. Continue with same treatment. Consider repeat chest x-ray prior to DC home. 02/03. Respiratory status stable while on treatment for congestive heart failure atrial fibrillation remains on room air. On DC home, please d/c Trelegy and replace it with Anoro inhaler 1 puff daily. she has no history of COPD exacerbations. She will continue with the remainder bronchodilators for COPD. she has appointment to return to [facility] for follow-up next month. Will sign off. Please call with any questions. (2) Pleural effusion: Code(s): J90 - Pleural effusion, not elsewhere classified Status: Acute (3) Parkinson's disease: Code(s): G20 - Parkinson's disease Status: Acute (4) Recurrent breast cancer: Code(s): C50.919 - Malignant neoplasm of unspecified site of unspecified female breast Status: Acute (5) Metastatic breast cancer: Code(s): C50.919 - Malignant neoplasm of unspecified site of unspecified female breast Status: Acute (6) History of lung cancer: Code(s): Z85.118 - Personal history of other malignant neoplasm of bronchus and lung Status: Acute (7) COPD (chronic obstructive pulmonary disease) case management patient: Code(s): J44.9 - Chronic obstructive pulmonary disease, unspecified Status: Acute (8) Bilateral pleural effusion: Code(s): J90 - Pleural effusion, not elsewhere classified Status: Acute (9) Atrial fibrillation: Qualifiers: Atrial fibrillation type: paroxysmal Qualified Code(s): I48.0 - Paroxysmal atrial fibrillation Code(s): I48.91 - Unspecified atrial fibrillation Status: Acute Subjective Date/time seen:
--- NOTE | 2023-02-04 13:26 | PM.PNCARD ---
Progress Note: A&P Assessment and Plan (1) Atrial fibrillation: Qualifiers: Atrial fibrillation type: paroxysmal Qualified Code(s): I48.0 - Paroxysmal atrial fibrillation Code(s): I48.91 - Unspecified atrial fibrillation Status: Acute Assessment and Plan: New onset atrial fibrillation noted on telemetry.? She has converted back to sinus rhythm at this point.? She was restarted on a low dose of metoprolol by the primary service.? Will see how she tolerates this as she was recently hospitalized with pre-syncope and bradycardia which resolved with discontinuation of her metoprolol.? Concern for possible tachy-lisa syndrome if she develops bradycardia again with the Metoprolol.? She has a [id number] score of at least 4 (female gender, age, HTN, CHF).? Anticoagulation is indicated - started her on Xarelto.? Ordered outpatient youth nutritional monitor to assess for recurrence/burden of atrial fibrillation.? Echo shows stable mitral valve disease with mild MS/MR.? She has hyperdynamic LVSF with EF >70%, grade I diastolic dysfunction.? (2) (HFpEF) heart failure with preserved ejection fraction: Qualifiers: Heart failure chronicity: acute on chronic Qualified Code(s): I50.33 - Acute on chronic diastolic (congestive) heart failure Code(s): I50.30 - Unspecified diastolic (congestive) heart failure Status: Acute Assessment and Plan: Echo findings as above.? She has moderate left and small right sided pleural effusions noted on chest CT. Diuresed with IV Lasix. Feeling much better now without any shortness of breath. Will stop IV Lasix (last dose today) and start PO Lasix tomorrow. Subjective Date/time seen: 02/04/23 13:26 Interval history: Reason for visit: Atrial fibrillation HPI: Ms. Trejo is am 82 year old female with a history of lung cancer and COPD.? She also has mitral valve stenosis with mild mitral regurgitation, diastolic dysfunction, and a history of PAC's, PVC's and paroxysmal atrial tachycardia.? She was recently hospitalized here at [facility] with a chief complaint of near-syncope.? She was found to be bradycardic and her beta aramis was stopped.? She reports feeling much better since that time and has not experienced any further dizziness or pre-syncope.? She presents to the hospital now with complaints of shortness of breath.? Cardiology is being asked to see her because of atrial fibrillation.? She does have an EKG this admission demonstrating atrial fibrillation with rapid ventricular response.? She was symptomatic with this and reports feeling a sensation as if she were going to have a panic attack.? She was not significantly short of breath at the time.? She did report chest tightness, but no chest pain.? Her telemetry does show atrial fibrillation and atrial tachycardia yesterday, but she has since converted to sinus rhythm and is maintaining sinus rhythm with frequent PAC's. Date of service 02/03: No acute events overnight. Feeling better. No shortness of breath this morning. Remains in sinus rhythm. No issues with bradycardia. Date of service 02/04: No issues overnight. Feeling much better. No shortness of breath. Review of Systems Review of Systems: 8 point ROS obtained. Negative, unless stated in HPI. Exam Const: General: no acute distress Other: Elderly frail female Eyes: General: appearance normal, both eyes and all related structures Sclera: sclerae normal Neck: Neck: supple Resp: Effort & Inspection: normal respiratory effort Auscultation: diminished lung sounds Cardio: Rate: regular rate Rhythm: regular rhythm Heart sounds: no murmurs GI: GI Palp: Yes Soft to palpation and No Tenderness to palpation present (GI) Skin: General skin exam: normal color Neuro: Speech: normal speech Extrem: General: normal to inspection Psych: Mental Status: mental status grossly normal Affect: normal affect Objective Data Vital Signs Vital Sign
[2023-02-04] MEDS: RIVAROXABAN 20 MG TABLET PO (16:51)
--- NOTE | 2023-02-04 16:57 | PM.IMPN ---
Progress Note: A&P Assessment and Plan (1) (HFpEF) heart failure with preserved ejection fraction: Qualifiers: Heart failure chronicity: acute on chronic Qualified Code(s): I50.33 - Acute on chronic diastolic (congestive) heart failure Code(s): I50.30 - Unspecified diastolic (congestive) heart failure Status: Acute Assessment and Plan: Clinically improving IV furosemide stopped today, to begin PO tomorrow Note antibiotics were begun at admission and to receive last dose of ceftriaxone 02/05 (2) Atrial fibrillation: Qualifiers: Atrial fibrillation type: paroxysmal Qualified Code(s): I48.0 - Paroxysmal atrial fibrillation Code(s): I48.91 - Unspecified atrial fibrillation Status: Acute Assessment and Plan: 02/03 in sinus rhythm 02/04 NSR (3) Parkinson's disease: Code(s): G20 - Parkinson's disease Status: Acute Assessment and Plan: continue home meds (4) Benign essential hypertension: Code(s): I10 - Essential (primary) hypertension Status: Acute Assessment and Plan: control adequate (5) Metastatic breast cancer: Code(s): C50.919 - Malignant neoplasm of unspecified site of unspecified female breast Status: Acute Assessment and Plan: continue home meds (6) History of lung cancer: Code(s): Z85.118 - Personal history of other malignant neoplasm of bronchus and lung Status: Acute (7) COPD (chronic obstructive pulmonary disease) case management patient: Code(s): J44.9 - Chronic obstructive pulmonary disease, unspecified Status: Acute (8) Anemia, unspecified: Code(s): D64.9 - Anemia, unspecified Status: Acute Subjective Date/time seen: 02/04/23 16:57 Interval history: A little more tired today. But slept and ate well. Denied chest pain or palpitations. Denies shortness of breath at rest. Denied GI or issues. Denied abnormal bleeding. Denied focal weakness or numbness. Review of Systems Review of Systems: All systems reviewed & are unremarkable except as noted in HPI and below Exam Narrative: HEENT: sclerae nonicteric, pharyngeal mucosa pink and intact NECK: No JVD CHEST: Few crackles in left base, minimal on right. Normal effort. HEART: NL S1/S2, regular, no murmur ABDOMEN: BS+, soft, nontender, no mass, no bruits EXTREMITIES: No cyanosis, edema, or clubbing NEUROLOGIC: CN intact and symmetric to inspection. MUSCULOSKELETAL: Tone and strength symmetric. PSYCH: Alert. Oriented to person, place, and time. Objective Data Vital Signs Vital Signs: Vital Signs - 24 hr 02/03/23 19:31 02/03/23 19:36 02/03/23 20:00 Temperature Pulse Rate 66 65 68 Respiratory Rate 18 18 Blood Pressure Pulse Oximetry Oxygen Delivery 02/03/23 20:00 02/03/23 22:00 02/04/23 00:00 Temperature 97.3 F L Pulse Rate 65 71 62 Respiratory Rate 18 16 Blood Pressure 108/59 L Pulse Oximetry 93 94 Oxygen Delivery Room Air 02/04/23 04:00 02/04/23 06:00 02/04/23 07:57 Temperature 96.8 F L Pulse Rate 62 64 78 Respiratory Rate 14 Blood Pressure 152/78 H Pulse Oximetry 93 Oxygen Delivery 02/04/23 08:11 02/04/23 08:14 02/04/23 08:23 Temperature Pulse Rate 71 71 Respiratory Rate 18 18 18 Blood Pressure Pulse Oximetry 93 Oxygen Delivery Room Air 02/04/23 08:00 02/04/23 08:00 02/04/23 14:20 Temperature Pulse Rate 66 73 Respiratory Rate 18 Blood Pressure Pulse Oximetry Oxygen Delivery Room Air 02/04/23 14:37 02/04/23 14:35 Temperature 97.0 F L Pulse Rate 70 77 Respiratory Rate 18 20 Blood Pressure 100/50 L Pulse Oximetry 100 Oxygen Delivery Intake/Output Intake/Output: Intake & Output 02/01/23 02/02/23 02/03/23 02/04/23 23:59 23:59 23:59 23:59 Intake Total 2240 1880 760 750 Output Total 200 Balance 20390 760 750 Meds/Results Medications:
[2023-02-05] VITALS (9 sets, daily range): BP systolic 109–117; BP diastolic 48–66; PULSE 62–81; RESP 14–16; TEMP 36.1; O2SAT 92–96
[2023-02-05 05:07] LABS: Legionella pneumophila Ag Ur Not Detected (Not Detected)
[2023-02-05] MEDS: IPRATROPIUM BR 0.02% INH SOLN 0.5 MG/2.5 ML VIAL INHALATION (07:43)
[2023-02-05] MEDS: LEVALBUTEROL NEB 1.25 MG/3 ML 0.63 MG INHALATION (07:43)
[2023-02-05] MEDS: FLUTICASONE/UMECLIDIN/VILANTER 100-62.5-25 MCG ELLIPTA 1 PUFF INHALATION (07:43)
[2023-02-05] MEDS: ANASTROZOLE (*CHEMO) 1 MG TABLET PO (09:05)
[2023-02-05] MEDS: CARBIDOPA/LEVODOPA 25/100 MG TABLET 1 TABLET PO ×2 (09:05→12:41)
[2023-02-05] MEDS: CITALOPRAM HYDROBROMIDE 20 MG TABLET 40 MG PO (09:05)
[2023-02-05] MEDS: PANTOPRAZOLE 40 MG TABLET PO (09:05)
[2023-02-05] MEDS: FUROSEMIDE 40 MG TABLET PO (09:05)
[2023-02-05] MEDS: CHOLECALCIFEROL 1,000 UNITS TABLET 1000 UNITS PO (09:05)
[2023-02-05] MEDS: METOPROLOL TARTRATE 12.5 MG TABLET PO (09:09)
--- NOTE | 2023-02-05 10:38 | PM.DS ---
DS: Admitting Diagnosis Discharge Date 02/05/2023 Admitting Diagnosis CHF exacerbation AFib DS: Discharge Diagnosis Discharge Diagnosis (1) (HFpEF) heart failure with preserved ejection fraction: Qualifiers: Heart failure chronicity: acute on chronic Qualified Code(s): I50.33 - Acute on chronic diastolic (congestive) heart failure Code(s): I50.30 - Unspecified diastolic (congestive) heart failure Status: Acute (2) Atrial fibrillation: Qualifiers: Atrial fibrillation type: paroxysmal Qualified Code(s): I48.0 - Paroxysmal atrial fibrillation Code(s): I48.91 - Unspecified atrial fibrillation Status: Acute DS: Summary Hospital Course Hospital Course: Patient was admitted with CHF exacerbation. She was started on IV Lasix. She had good response to IV diuresis and it was changed to p.o. Lasix. Cardiology was consulted for new onset atrial fibrillation noted on telemetry.? She has converted back to sinus rhythm at this point.? She was restarted on a low dose of metoprolol.? Concern for possible tachy-lisa syndrome if she develops bradycardia again with the Metoprolol.? She has a [id number] score of at least 4 (female gender, age, HTN, CHF).? Anticoagulation is indicated - started her on Xarelto.? Ordered outpatient playground monitor to assess for recurrence/burden of atrial fibrillation.? Echo shows stable mitral valve disease with mild MS/MR.? She has hyperdynamic LVSF with EF >70%, grade I diastolic dysfunction. Patient is currently stable and is being discharged home Time Spent with Patient Time attestation: Total time spent providing and/or coordinating discharge services: Exam Const: General: cooperative and comfortable Orientation/consciousness: patient oriented x3 HENMT: Head: normal to inspection Mouth: Yes Normal oral and palatal mucosa present Eyes: General: appearance normal, both eyes and all related structures Resp: Effort & Inspection: normal respiratory effort Auscultation: clear to auscultation bilaterally Cardio: Rate: regular rate Rhythm: regular rhythm Heart sounds: S1 normal heart sound present and S2 normal heart sound present GI: GI Palp: Yes Soft to palpation Auscultation: normal bowel sounds Skin: General skin exam: normal color and no rashes or lesions noted Neuro: General: patient oriented x3, no focal motor deficits and CN's II-XI intact bilaterally Speech: normal speech Extrem: General: full ROM Psych: Appearance: grossly normal DS: Data Data Completed and Pending Labs on day of discharge: Labs from last 24 hours 02/01/23 12:23 Ur L.pneumophila Ag Not detected Preliminary micro results at discharge 01/31/23 07:29 Blood Culture - Preliminary Blood 01/31/23 07:29 Blood Culture - Preliminary Blood Discharge Plan Discharge Consulting providers: Earl Mcgraw; Belén Crowell Discharging Clinician: Arnel Manrique Anticipated Discharge Date/Time: 02/05/23 10:36 Patient Disposition: Home Health Service Activity: no preference Diet: heart healthy Discharge Instructions: Per Care Coordination Patient has been accepted to have [facility] for R, PT, [phone]. [facility] will call to arrange a time to see you in your home after discharge Patient Instructions: Antibiotic Form, Rivaroxaban (By mouth), Pain Management (DC) Stand Alone Forms: General Discharge Information Follow-up/Referrals: Avery Villa MD [Physician] - 4 Weeks Discharge Medications: New Xarelto 20 mg Tablet 20 mg PO DAILY@1700 Qty: 30 0RF furosemide 40 mg Tablet 40 mg PO DAILY Qty: 30 0RF metoprolol tartrate 25 mg tablet 12.5 mg PO BID Qty: 60 0RF Continued anastrozole 1 mg tablet 1 mg PO DAILY citalopram 40 mg tablet 40 mg PO DAILY Qty: 90 1RF albuterol sulfate 2.5 mg /3 mL (0.083 %) solution for nebulization 2.5 mg inhalation Q4-6H PRN (Reason: shor
--- NOTE | 2023-02-05 12:04 | PC.NURSE ---
Patient spoke with son in regards to discharge and ride home. Son is refusing to pickup driver patient until the hospitalist calls him and explains why this continues to happens. [employer] asked patient what this means. Patient explained that son does not understand why patient becomes short of breath and has to be admitted into the hospital every other week. Spike Machine Heater called Dr. Manrique and explained situation. Gave phone number to Dr. Manrique and he stated he would call son to speak with him.
== END 2023-02-05 14:35 | disposition home health service (06) | DRG 291 ==
LOC: ANHED 06:45 → ANH3MEDSUR 08:26
PROVIDERS: Internal Medicine; Nurse Practitioner; Admitting Provider Family Medicine; Emergency Provider Emergency Medicine; PCP Family Medicine; Visit Provider Hospitalist
DX: I11.0 Hypertensive heart disease with heart failure (principal); I50.33 Acute on chronic diastolic (congestive) heart failure; I48.0 Paroxysmal atrial fibrillation; Z79.01 Long term (current) use of anticoagulants; J44.9 Chronic obstructive pulmonary disease, unspecified; K21.9 Gastro-esophageal reflux disease without esophagitis; F32.A Depression, unspecified; M81.0 Age-related osteoporosis without current pathological fracture; F41.9 Anxiety disorder, unspecified; Z20.822 Contact with and (suspected) exposure to COVID-19; Z85.3 Personal history of malignant neoplasm of breast; Z85.118 Personal history of other malignant neoplasm of bronchus and lung; Z90.12 Acquired absence of left breast and nipple; Z82.49 Family history of ischemic heart disease and other diseases of the circulatory system; Z87.891 Personal history of nicotine dependence; Z79.899 Other long term (current) drug therapy; Z88.5 Allergy status to narcotic agent
CPT/HCPCS: 36415; 71045; 71275; 80048; 80053; 83605; 83735; 83880; 84145; 84439; 84443; 84480; 84484; 85025; 85380; 87040; 87081; 87449; 87637; 93005; 93306; 93970; 94640; 96365; 96366; 96367; 96368; 96375; 96376; 99285; A9270; G0378; J0456; J0692; J0696; J1644; J1940; J2930; J3370; J7512; Q9967

== ENCOUNTER 2023-03-26 09:19 | Emergency (ER) | payer MEDICARE, SELFPAY ==
[2023-03-26] VITALS (21 sets, daily range): BP systolic 102–132; BP diastolic 43–65; PULSE 56–68; RESP 14–22; TEMP 37; O2SAT 94–99
--- NOTE | ~2023-03-26 | XR_ITS ---
XR chest 2V 03/26/2023 10:19 Indication: Labored breathing. Cough. Procedure: 2 view chest Comparison: Comparison to multiple prior studies sequentially, with oldest reviewed study dated 09/08. Findings: The lungs are hyperinflated which is consistent with, but not diagnostic of chronic obstruc tive pulmonary disease. There are thoracotomy changes in the right upper thorax. There are surgical c hanges in the left upper thorax with adjacent scarring and pleural thickening. No acute focal pneumon ia, edema or effusion. Small bilateral pleural effusions versus pleural thickening. Cardiomegaly. Impression: 1: No acute cardiopulmonary disease. No significant change from prior studies. 2: Small bilateral pleural effusions versus pleural thickening. Reviewed, dictated and finalized at location [] Impression: 1: No acute cardiopulmonary disease. No significant change from prior studies. 2: Small bilateral pleural effusions versus pleural thickening.
--- NOTE | 2023-03-26 09:39 | ECG_ITS ---
Measurements Intervals [place] Rate: 65 P: 79 VT: 210 QRS: 70 QRSD: 101 T: 57 QT: 410 QTc: 429 Interpretive Statements SINUS RHYTHM WITH FIRST DEGREE AV BLOCK WITH OCCASIONAL VENTRICULAR PREMATURE COMPLEXES LEFT VENTRICULAR HYPERTROPHY AND ST-T CHANGE [VOLTAGE CRITERIA PLUS ST/T ABNORMALITY] POSSIBLE SEPTAL MYOCARDIAL INFARCTION , OF INDETERMINATE AGE [30 ms Q WAVE IN V1/V2] COMPARED TO ECG 02/01/2023 12:44:26 SINUS RHYTHM REPLACES ATRIAL FIBRILLATION HEART RATE IS REDUCED LEFT BUNDLE BRANCH BLOCK IS NO LONGER SEEN CLEARLY WAS A RATE DEPENDENT PHENOMENON Electronically Signed On 03-26-2023 15:51:04 CDT by Luis العلي M.D.
[2023-03-26 10:59] LABS: Basophils Percent Auto 0.3 % (0.2-1.2); Eosinophils Percent Auto 0.3 % (0-4.4); Hematocrit 41.4 % (37.0-47.0); Hemoglobin 13.4 g/dL (12.0-15.0); Immature Granulocyte Absolute 0.01 K/mm3 (0.00-0.031); Immature Granulocyte Percent A 0.3 % (0-0.5); Lymphocytes Absolute Auto 0.65 K/mm3 (0.9-3.2); Lymphocytes Percent Auto 17.4 % (18.3-44.2); Mean Corpuscular HGB Conc 32.4 g/dl (32-36); Mean Corpuscular Hemoglobin 32.9 pg (26-34); Mean Corpuscular Volume 101.7 fl (80-100); Mean Platelet Volume 10.1 fl (7.4-10.4); Monocytes Absolute Auto 0.7 K/mm3 (0.1-0.6); Monocytes Percent Auto 17.4 % (2.6-8.5); Neutrophils Absolute Auto 2.4 K/mm3 (1.3-6.7); Neutrophils Percent Auto 64.3 % (45.5-73.1); Platelet Count Result 217 k/mm3 (150-375); Red Blood Count 4.07 M/mm3 (4.2-5.4); Red Cell Distribution Width 13.2 % (11.5-14.5); White Blood Count 3.7 K/mm3 (4.5-10.0)
[2023-03-26 11:11] LABS: Alanine Aminotransferase 11 U/L (6-35); Albumin Level 4.1 g/dL (3.5-5.1); Alkaline Phosphatase 49 U/L (38-126); Anion Gap 1 mmol/L (8-16); Aspartate Amino Transferase 43 U/L (14-36); Bilirubin,Total 0.8 mg/dL (0.2-1.3); Blood Urea Nitrogen 14 mg/dL (7-17); Calcium 9.1 mg/dL (8.4-10.2); Carbon Dioxide 38 mmol/L (22-30); Chloride 97 mmol/L (98-107); Estimated CRCL calculation 41 ml/min; Estimated Glomerular Filt Rate 60; Glucose 90 mg/dL (65-110); Potassium 3.6 mmol/L (3.4-5.0); Sodium 136 mmol/L (137-145)
[2023-03-26 11:47] LABS: NT Pro B Type Natriuretic Pept 736 pg/mL (19.9-100)
[2023-03-26 12:07] LABS: Influenza A QL RT-PCR Negative (Negative); Influenza B QL RT-PCR Negative (Negative); SARS-CoV-2 RNA PCR Negative (Negative)
--- NOTE | 2023-03-26 12:41 | PC.NURSE ---
ambulated pt w/ pulse ox. pt was 96% on room air while ambulating.
--- NOTE | 2023-03-26 12:56 | ED.SOB ---
HPI - SOB/Dyspnea General Chief Complaint: Shortness of Breath/Dyspnea Stated Complaint: resp sx Time Seen by Provider: 03/26/23 09:22 History of Present Illness HPI Narrative: Patient is an 82-year-old female who presents ER with shortness of breath. Began this morning. Associate with some sinus congestion and sore throat. She used an inhaler which improved her symptoms. Patient denies chest pain or chest pressure. No fevers or chills. No known sick contacts. Related Data Home Medications Medication Instructions Recorded Confirmed calcium carbonate 600 mg-vitamin 1 tablet PO DAILY 03/31/22 03/01/23 D3 5 mcg (200 unit) tablet cholecalciferol (vitamin D3) 25 25 mcg PO DAILY 03/31/22 03/01/23 mcg (1,000 unit) capsule anastrozole 1 mg tablet 1 mg PO DAILY 11/21/22 03/01/23 Allergies Allergy/AdvReac Type Severity Reaction Status Date / Time adhesive Allergy Unknown Unknown,RASH, Unverified 03/01/23 18:45 ITCH doxycycline Allergy Unknown Nausea Unverified 03/01/23 18:45 latex Allergy Unknown Unknown Unverified 03/01/23 18:45 hydrocodone AdvReac Mild vomiting Verified 03/01/23 18:45 alendronate sodium [Fosamax] AdvReac Unknown Nausea Verified 03/01/23 18:45 Iodinated Contrast Media AdvReac Unknown Flushing Verified 03/01/23 18:45 Contrast Media Allergy Unknown BURNING Uncoded 03/01/23 18:45 AND RED ALL OVER Review of Systems Review of Systems: All systems reviewed & are unremarkable except as noted in HPI and below Constitutional: Constitutional: Denies chills, Denies fatigue and Denies fever(s) ENT: Reports nasal congestion and Reports sore throat Comments: Hoarseness of the voice Cardiovascular: Cardiovascular: Denies chest pain, Denies rapid heart rate and Denies radiating jaw, neck or arm pain Respiratory: Respiratory: Denies cough, Reports dyspnea and Denies wheezing Gastrointestinal: Gastrointestinal: Denies abdominal pain, Denies nausea and Denies vomiting PMFSH Past Medical History Medical History Anxiety Cancer of left breast Constipation Depression Diastolic dysfunction Echocardiogram 01/201919 grade 1 diastolic dysfunction EF 60% mild left atrial enlargement Emphysema of lung Fracture of fifth metatarsal bone of right foot with routine healing GERD (gastroesophageal reflux disease) Hypertension Lung cancer Osteoporosis, unspecified Prediabetes Vitamin D deficiency Surgical History Surgical History 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 13 cm layered closure. 04/12/2022 History of lobectomy of lung Right upper lobe 1994, left lower lung partial lobectomy 2005 History of right mastectomy (~2012) Family History Family History Mother CHF (congestive heart failure) Dementia Father Lung cancer Sibling Acute myocardial infarction Daughter Cerebrovascular accident Social History Social History Social History: She is . She has a daughter and a son. 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 She does drink wine nightly. However she is not drink anyone in the last 4 days. She lives alone. She lives in a duplex that her daughter owns. Code status: Full code Healthcare power of state's attorney: Ursula Vega (daughter) Smoking packs per day: 1 Smoking cigarettes per day: 20.0 Years smoked: 20 Smoking pack-years:
== END 2023-03-26 13:18 | disposition home or self-care (01) ==
PROVIDERS: Emergency Provider Emergency Medicine; PCP Family Medicine
DX: J06.9 Acute upper respiratory infection, unspecified (principal); Z20.822 Contact with and (suspected) exposure to COVID-19; J43.9 Emphysema, unspecified; I10 Essential (primary) hypertension; K21.9 Gastro-esophageal reflux disease without esophagitis; M81.0 Age-related osteoporosis without current pathological fracture; R73.03 Prediabetes; E55.9 Vitamin D deficiency, unspecified; F32.A Depression, unspecified; F41.9 Anxiety disorder, unspecified; Z85.3 Personal history of malignant neoplasm of breast; Z85.118 Personal history of other malignant neoplasm of bronchus and lung; Z87.891 Personal history of nicotine dependence; Z90.12 Acquired absence of left breast and nipple; Z90.710 Acquired absence of both cervix and uterus; Z90.2 Acquired absence of lung [part of]; I44.0 Atrioventricular block, first degree; I49.3 Ventricular premature depolarization; I51.7 Cardiomegaly; R94.31 Abnormal electrocardiogram [ECG] [EKG]; Z79.01 Long term (current) use of anticoagulants
CPT/HCPCS: 36415; 71046; 80053; 83880; 85025; 87636; 93005; 99284

== ENCOUNTER 2023-06-20 03:39 | Emergency (ER) | payer MEDICARE, SELFPAY ==
--- NOTE | ~2023-06-20 | CT_ITS ---
Noncontrast CT scan of the cervical spine Technique: Multiple contiguous axial [address] images of the cervical spine were obtained and rec onstructed in 2D sagittal and coronal planes on the acquisition scanner. Dose reduction technique was used on this scan by utilizing automated exposure control, adjustment of the mA and/or kV according to patient size. The dose-length product (DLP) was 229.44 mGy-cm. Clinical History: Pain Findings: No fractures or dislocations. There is advanced degenerative disc narrowing at C5-C6. Ther e is moderate degenerative disc narrowing at C4-C5. There is mild disc osteophyte complex at C4-C5 wi th probable bilateral neural foraminal narrowing. There is disc osteophyte complex at C5-C6, with azeem ateral neural foraminal narrowing. No prevertebral soft tissue swelling. Impression: No fracture or subluxation of the cervical spine. Degenerative changes, as detailed above. Reviewed, dictated and finalized at [facility]. Impression: No fracture or subluxation of the cervical spine. Degenerative changes, as detailed above.
--- NOTE | ~2023-06-20 | XR_ITS ---
Portable chest x-ray Comparison: 03/26/2023 Clinical History: Chest pain Findings: There is biapical pulmonary scarring. Possible minimal pleural effusions. COPD suspected. Cardiomediastinal silhouette is stable. Evidence of prior right rib resections. Impression: Biapical pulmonary scarring. Possible minimal pleural effusions, versus chronic blunting the costophrenic angles related to underl viola COPD. Reviewed, dictated and finalized at location . Impression: Biapical pulmonary scarring. Possible minimal pleural effusions, versus chronic blunting the costophrenic an gles related to underlying COPD.
--- NOTE | ~2023-06-20 | CT_ITS ---
CT head without contrast Indication: Head injury COMPARISON: 01/05/2023 Technique: Serial scans were obtained through the brain without the administration of contrast. Dose reduction technique was used on this scan by utilizing automated exposure control and iterative recon struction technique. The dose-length product (DLP) was 681.00 mGy-cm. Findings: There is no evidence of intracranial hemorrhage, mass lesion, or acute infarct. The ventri cles and subarachnoid spaces are dilated, consistent with mild atrophy. Low attenuation regions are seen within the periventricular white matter bilaterally, likely representing changes from chronic mi crovascular ischemic disease. There is no evidence of edema, mass effect or midline shift. The visu alized paranasal sinuses and mastoid air cells are clear. Impression: No intracranial hemorrhage, mass, or acute infarct. Atrophy and chronic white matter changes, as above. Reviewed, dictated and finalized at [facility]. Impression: No intracranial hemorrhage, mass, or acute infarct. Atrophy and chronic white matter changes, as above.
--- NOTE | ~2023-06-20 | XR_ITS ---
Right Shoulder Technique: AP and scapular Y views were obtained. Clinical History: Pain Findings: No fracture or dislocation is seen. Osseous alignment is anatomic. The glenohumeral and acr omioclavicular joint spaces are preserved. Soft tissues are unremarkable. Impression: Unremarkable right shoulder radiographs. Reviewed, dictated and finalized at [facility]. Impression: Unremarkable right shoulder radiographs.
--- NOTE | ~2023-06-20 | XR_ITS ---
Right Knee Technique: AP, lateral, and oblique views were obtained. Clinical History: Pain Findings: No fracture or dislocation is seen. Osseous alignment is anatomic. Joint spaces are preserv ed without degenerative or erosive change. Soft tissues are unremarkable. No joint effusion is seen. Impression: Unremarkable right knee radiographs. Reviewed, dictated and finalized at location . Impression: Unremarkable right knee radiographs.
--- NOTE | ~2023-06-20 | CT_ITS ---
Noncontrast CT scan of the thoracic spine CLINICAL HISTORY: Back pain TECHNIQUE: Axial noncontrast imaging of the thoracic spine was performed. Sagittal and coronal reform atted images were constructed. Dose reduction technique was used on this scan by utilizing automated exposure control and iterative reconstruction technique. The dose-length product (DLP) was 409.07 mGy -cm. FINDINGS: No acute fracture or subluxation seen in the thoracic spine. There is kyphosis of the thora cic spine. 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 There is extensive degenerative disc colin rowing throughout the mid thoracic spine. No definite disc bulge or herniation evident. No definite spinal canal stenosis or cord compression e vident. There are bilateral areas of pulmonary scarring present. Evidence of prior right rib resections. Impression: No fracture or subluxation of the thoracic spine. Kyphosis. Reviewed, dictated and finalized at [facility]. Impression: No fracture or subluxation of the thoracic spine. Kyphosis.
[2023-06-20 03:33] VITALS: BP 153/86; PULSE 72; RESP 18; TEMP 36.4; O2SAT 100
--- NOTE | 2023-06-20 04:20 | ECG_ITS ---
Measurements Intervals [place] Rate: 64 P: 96 FL: 229 QRS: 74 QRSD: 114 T: 56 QT: 422 QTc: 438 Interpretive Statements SINUS RHYTHM WITH FIRST DEGREE AV BLOCK INTRAVENTRICULAR CONDUCTION DELAY LEFT VENTRICULAR HYPERTROPHY AND ST-T CHANGE ANTEROSEPTAL INFARCT, AGE INDETERMINATE BASELINE ARTIFACT- II, III, AVL, AVF ABNORMAL ECG COMPARED TO ECG 03/26/2023 10:00:19 NO SIGNIFICANT CHANGES Electronically Signed On 06-20-2023 6:33:50 CDT by Aaron Victoria D.O.
[2023-06-20 05:00] VITALS: BP 138/67; PULSE 58; RESP 16; O2SAT 95
--- NOTE | 2023-06-20 05:49 | ED.GENADULT ---
HPI - General Adult General Chief complaint: Fall Stated complaint: head pain Time Seen by Provider: 06/20/23 05:19 History of Present Illness HPI narrative: Patient 83-year-old female who presents the emergency department with chief complaint of headache and neck pain patient reports that several days ago she fell out of her bed and reports she struck her head the patient states a couple days after the fall she started noticing that she had pain in the occipital region of her head and radiating down into her neck patient states the pain is subsequently moved to where it is in the upper back and also in the right shoulder area patient reports she is on anticoagulants. Patient states that while she has been in the emergency department she started having discomfort in her chest. Related Data Home Medications Medication Instructions Recorded Confirmed calcium carbonate 600 mg-vitamin 1 tablet PO DAILY 03/31/22 05/15/23 D3 5 mcg (200 unit) tablet cholecalciferol (vitamin D3) 25 25 mcg PO DAILY 03/31/22 05/15/23 mcg (1,000 unit) capsule anastrozole 1 mg tablet 1 mg PO DAILY 11/21/22 05/15/23 Allergies Allergy/AdvReac Type Severity Reaction Status Date / Time adhesive Allergy Unknown Unknown,RASH, Verified 06/20/23 03:40 ITCH doxycycline Allergy Unknown Nausea Verified 06/20/23 03:40 latex Allergy Unknown Unknown Verified 06/20/23 03:40 hydrocodone AdvReac Mild vomiting Verified 06/20/23 03:40 alendronate sodium [Fosamax] AdvReac Unknown Nausea Verified 06/20/23 03:40 Iodinated Contrast Media AdvReac Unknown Flushing Verified 06/20/23 03:40 Contrast Media Allergy Unknown BURNING Uncoded 05/15/23 14:50 AND RED ALL OVER Review of Systems Review of Systems: A 10 system review of systems was completed on the patient and is negative except for what is stated in the HPI. Nursing and ancillary documentation was reviewed. [facility] Past Medical History Medical History Anxiety Cancer of left breast Constipation Depression Diastolic dysfunction Echocardiogram 01/201919 grade 1 diastolic dysfunction EF 60% mild left atrial enlargement Emphysema of lung Fracture of fifth metatarsal bone of right foot with routine healing GERD (gastroesophageal reflux disease) Hypertension Lung cancer Osteoporosis, unspecified Prediabetes Vitamin D deficiency Surgical History Surgical History 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 13 cm layered closure. 04/12/2022 History of lobectomy of lung Right upper lobe 1994, left lower lung partial lobectomy 2005 History of right mastectomy (~2012) Family History Family History Mother CHF (congestive heart failure) Dementia Father Lung cancer Sibling Acute myocardial infarction Daughter Cerebrovascular accident Social History Social History Social History: She is . She has a daughter and a son. 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 She does drink wine nightly. However she is not drink anyone in the last 4 days. She lives alone. She lives in a duplex that her daughter owns. Code status: Full code Healthcare power of criminal attorney: Ursula Vega (daughter) Smoking packs per day: 1 Smoking cigarettes per day: 20.0 Years smoked: 20 Smoking pack-years: 20.00 Smoking status: Former smoker Second
--- NOTE | 2023-06-20 05:53 | PC.NURSE ---
pt urinated prior to EDP Dr. Acharya putting orders in on pt. Pt made aware of a specimen needed.
[2023-06-20 06:04] LABS: Basophils Percent Auto 0.6 % (0.2-1.2); Eosinophils Absolute Auto 0.2 K/mm3 (0-0.3); Hematocrit 38.2 % (37.0-47.0); Hemoglobin 12.8 g/dL (12.0-15.0); Immature Granulocyte Absolute 0.02 K/mm3 (0.00-0.031); Immature Granulocyte Percent A 0.4 % (0-0.5); Mean Corpuscular HGB Conc 33.5 g/dl (32-36); Mean Corpuscular Hemoglobin 33.9 pg (26-34); Mean Corpuscular Volume 101.1 fl (80-100); Monocytes Absolute Auto 0.6 K/mm3 (0.1-0.6); Monocytes Percent Auto 11.8 % (2.6-8.5); Neutrophils Absolute Auto 3.2 K/mm3 (1.3-6.7); Neutrophils Percent Auto 64.2 % (45.5-73.1); Platelet Count Result 276 k/mm3 (150-375); Red Blood Count 3.78 M/mm3 (4.2-5.4); Red Cell Distribution Width 12.3 % (11.5-14.5)
[2023-06-20 06:14] LABS: Alanine Aminotransferase 13 U/L (6-35); Albumin Level 3.9 g/dL (3.5-5.1); Alkaline Phosphatase 61 U/L (38-126); Anion Gap 2 mmol/L (8-16); Aspartate Amino Transferase 19 U/L (14-36); Bilirubin,Total 0.9 mg/dL (0.2-1.3); Blood Urea Nitrogen 18 mg/dL (7-17); Calcium 9.5 mg/dL (8.4-10.2); Carbon Dioxide 36 mmol/L (22-30); Chloride 100 mmol/L (98-107); Estimated CRCL calculation 33 ml/min; Estimated Glomerular Filt Rate 53; Glucose 108 mg/dL (65-110); Magnesium 2.1 mg/dL (1.6-2.3); Potassium 3.3 mmol/L (3.4-5.0); Sodium 138 mmol/L (137-145)
[2023-06-20 06:25] LABS: NT Pro B Type Natriuretic Pept 443 pg/mL (19.9-100); Troponin I < 0.012 ng/mL (0.000-0.034)
[2023-06-20 06:39] LABS: INR 1.7; Prothrombin Time 20.5 Seconds (11.1-14.7)
[2023-06-20 07:13] LABS: Partial Thromboplastin Time 32.7 SECONDS (22.3-36.8)
[2023-06-20] MEDS: traMADol HCL (*CRX) 50 MG TABLET PO (07:15)
== END 2023-06-20 07:20 | disposition home or self-care (01) ==
PROVIDERS: Emergency Provider Emergency Medicine; PCP Family Medicine
DX: S09.90XA Unspecified injury of head, initial encounter (principal); M54.2 Cervicalgia; J43.9 Emphysema, unspecified; I10 Essential (primary) hypertension; E55.9 Vitamin D deficiency, unspecified; R73.03 Prediabetes; K21.9 Gastro-esophageal reflux disease without esophagitis; M81.0 Age-related osteoporosis without current pathological fracture; Z85.118 Personal history of other malignant neoplasm of bronchus and lung; Z85.3 Personal history of malignant neoplasm of breast; Z87.891 Personal history of nicotine dependence; Z90.13 Acquired absence of bilateral breasts and nipples; Z90.2 Acquired absence of lung [part of]; Z90.710 Acquired absence of both cervix and uterus; Z79.01 Long term (current) use of anticoagulants; W06.XXXA Fall from bed, initial encounter
CPT/HCPCS: 36415; 70450; 71045; 72125; 72128; 73030; 73562; 80053; 83735; 83880; 84484; 85025; 85610; 85730; 93005; 99284; A9270

== ENCOUNTER 2023-07-01 08:06 | Emergency (ER) | payer MEDICARE, SELFPAY ==
[2023-07-01] VITALS (25 sets, daily range): BP systolic 130–167; BP diastolic 58–87; PULSE 57–75; RESP 16–24; TEMP 36.9; O2SAT 96–100
--- NOTE | ~2023-07-01 | XR_ITS ---
XR chest 1V portable 07/01/2023 08:28 Indication: Chest tightness and pain since 3:00 AM Procedure: AP portable chest Comparison: Comparison to multiple prior studies sequentially, with oldest reviewed study dated 01/04. Findings: Cardiomegaly. Right thoracotomy defect noted. There are changes of partial left pneumonecto my in the lower peripheral thorax. There are surgical clips in the axilla bilaterally. There is an or thopedic pin transfixing the proximal left humerus. There is chronic apical pleural thickening/scarri ng. There is a surgical suture line in the right mid thorax. The lungs are hyperinflated which is con sistent with, but not diagnostic of chronic obstructive pulmonary disease. Chronic blunting of the co stophrenic recesses. Impression: 1: No acute cardiopulmonary disease. No significant change. Reviewed, dictated and finalized at location A. Impression: 1: No acute cardiopulmonary disease. No significant change.
--- NOTE | ~2023-07-01 | CT_ITS ---
EXAMINATION: CT brain wo con DATE: 07/01/2023 08:47 INDICATION: Status post fall 2 weeks ago. Right-sided headache. TECHNIQUE: Computed tomography (CT) of the head was performed without intravenous contrast. The dose- length product was 605.33 mGy-cm. Automated exposure control and iterative reconstruction technique w ere employed. COMPARISON: CT dated 06/20/2023 FINDINGS: Generalized atrophy. There are scattered moderate-severe periventricular and subcortical wh ite matter changes, most likely related to small vessel ischemic disease (microangiopathy). No ventri culomegaly or midline shift. There is intracranial atherosclerosis. There is mild mucosal thickening of the left maxillary sinus. Mastoids are pneumatized. No depressed skull fractures. Midline sagittal images demonstrate a normal corpus callosum and craniovertebral junction. IMPRESSION: 1. No acute intracranial abnormality. No significant interval change. Reviewed, dictated and finalized at location [facility].
--- NOTE | 2023-07-01 08:13 | ECG_ITS ---
Measurements Intervals [place] Rate: 64 P: 101 WV: 216 QRS: 66 QRSD: 100 T: 56 QT: 394 QTc: 407 Interpretive Statements SINUS RHYTHM WITH FIRST DEGREE AV BLOCK ANTEROSEPTAL INFARCT, AGE INDETERMINATE BORDERLINE ST ABNORMALITY- LATERAL LEADS BASELINE ARTIFACT- II, III, AVL, AVF ABNORMAL ECG COMPARED TO ECG 06/20/2023 04:25:00 NO SIGNIFICANT CHANGES Electronically Signed On 07-01-2023 11:23:45 CDT by Aaron Victoria D.O.
--- NOTE | 2023-07-01 08:13 | ED.CHESTPAIN ---
HPI - Chest Pain General Chief Complaint: Chest Pain Stated Complaint: cp/sob History of Present Illness HPI narrative: 83-year-old female presented ED for evaluation of chest pressure and headache. Patient reports that the chest pressure has been going on for approximately 2 years. Patient states the headache has been going on since last week. Patient had a fall a few weeks ago and was evaluated last week and had a negative work-up. Patient states she has had no worsening of the symptoms of the chest pressure and headache but states that they have been persistent so she wanted to be evaluated. Patient denies any other pain or complaints. Patient denies any recent falls. Patient does have a cardiac history. Patient has history of A-fib and is on anticoagulation. Patient also takes metoprolol. Related Data Home Medications Medication Instructions Recorded Confirmed calcium carbonate 600 mg-vitamin 1 tablet PO DAILY 03/31/22 05/15/23 D3 5 mcg (200 unit) tablet cholecalciferol (vitamin D3) 25 25 mcg PO DAILY 03/31/22 05/15/23 mcg (1,000 unit) capsule anastrozole 1 mg tablet 1 mg PO DAILY 11/21/22 05/15/23 Allergies Allergy/AdvReac Type Severity Reaction Status Date / Time adhesive Allergy Unknown Unknown,RASH, Verified 07/01/23 08:24 ITCH doxycycline Allergy Unknown Nausea Verified 07/01/23 08:24 latex Allergy Unknown Unknown Verified 07/01/23 08:24 hydrocodone AdvReac Mild vomiting Verified 07/01/23 08:24 alendronate sodium [Fosamax] AdvReac Unknown Nausea Verified 07/01/23 08:24 Iodinated Contrast Media AdvReac Unknown Flushing Verified 07/01/23 08:24 acetaminophen [From Vicodin] AdvReac Vomiting Verified 07/01/23 08:24 Contrast Media Allergy Unknown BURNING Uncoded 06/21/23 14:56 AND RED ALL OVER Review of Systems Review of Systems: All systems reviewed & are unremarkable except as noted in HPI and below PMFSH Past Medical History Medical History Anxiety Cancer of left breast Constipation Depression Diastolic dysfunction Echocardiogram 01/201919 grade 1 diastolic dysfunction EF 60% mild left atrial enlargement Emphysema of lung Fracture of fifth metatarsal bone of right foot with routine healing GERD (gastroesophageal reflux disease) Hypertension Lung cancer Osteoporosis, unspecified Prediabetes Vitamin D deficiency Surgical History Surgical History 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 13 cm layered closure. 04/12/2022 History of lobectomy of lung Right upper lobe 1994, left lower lung partial lobectomy 2005 History of right mastectomy (~2012) Family History Family History Mother CHF (congestive heart failure) Dementia Father Lung cancer Sibling Acute myocardial infarction Daughter Cerebrovascular accident Social History Social History Social History: She is . She has a daughter and a son. 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 She does drink wine nightly. However she is not drink anyone in the last 4 days. She lives alone. She lives in a duplex that her daughter owns. Code status: Full code Healthcare power of staff attorney: Ursula Vega (daughter) Smoking packs per day: 1 Smoking cigarettes per day: 20.0 Years smoked: 20 Smoking pack-years: 20.00 Smoking status: Former smoker Second hand tobacco smoke exposure: No Alcohol
[2023-07-01 08:25] LABS: Basophils Percent Auto 0.6 % (0.2-1.2); Eosinophils Absolute Auto 0.2 K/mm3 (0-0.3); Eosinophils Percent Auto 3.9 % (0-4.4); Hemoglobin 13.2 g/dL (12.0-15.0); Immature Granulocyte Absolute 0.01 K/mm3 (0.00-0.031); Immature Granulocyte Percent A 0.2 % (0-0.5); Lymphocytes Percent Auto 26.4 % (18.3-44.2); Mean Corpuscular HGB Conc 33.8 g/dl (32-36); Mean Corpuscular Hemoglobin 34.4 pg (26-34); Mean Corpuscular Volume 101.6 fl (80-100); Monocytes Absolute Auto 0.5 K/mm3 (0.1-0.6); Monocytes Percent Auto 9.5 % (2.6-8.5); Neutrophils Absolute Auto 2.9 K/mm3 (1.3-6.7); Neutrophils Percent Auto 59.4 % (45.5-73.1); Platelet Count Result 260 k/mm3 (150-375); Red Blood Count 3.84 M/mm3 (4.2-5.4); Red Cell Distribution Width 11.9 % (11.5-14.5); White Blood Count 4.9 K/mm3 (4.5-10.0)
[2023-07-01 08:38] LABS: Alanine Aminotransferase 14 U/L (6-35); Albumin Level 3.8 g/dL (3.5-5.1); Alkaline Phosphatase 60 U/L (38-126); Anion Gap 5 mmol/L (8-16); Aspartate Amino Transferase 21 U/L (14-36); Blood Urea Nitrogen 17 mg/dL (7-17); Calcium 9.3 mg/dL (8.4-10.2); Carbon Dioxide 29 mmol/L (22-30); Chloride 104 mmol/L (98-107); Estimated CRCL calculation 37 ml/min; Estimated Glomerular Filt Rate 60; Glucose 98 mg/dL (65-110); Potassium 3.8 mmol/L (3.4-5.0); Sodium 138 mmol/L (137-145)
[2023-07-01 08:48] LABS: INR 1.6; Prothrombin Time 20.2 Seconds (11.1-14.7)
[2023-07-01 08:49] LABS: Partial Thromboplastin Time 30.8 SECONDS (22.3-36.8); Troponin I < 0.012 ng/mL (0.000-0.034)
[2023-07-01 08:54] LABS: Appearance Urine Turbid (Clear); Bacteria Urine 4+ /hpf; Bilirubin Urine Negative (Negative); Blood Urine Trace (Negative); Color Urine Yellow (Yellow); Glucose Urine UA Negative (Negative); Ketones Urine Negative (Negative); Leukocyte Esterase Ur 3+ LEU/UL (Negative); Need Manual Microscopic Reviewed; Nitrate Urine Positive (Negative); Non Pathogenic Casts 0-2; Protein Urine Trace mg/dL (Negative); RBC Urine 0-2 /hpf (0-2); Specific Grav Ur 1.029 (1.001-1.035); Squamous Epithelial Cell Urine Few /hpf (Few); WBC Urine >100 /hpf; pH Urine 6.5 (5.0-9.0)
[2023-07-01 08:55] LABS: Add Urine Microscopic? YES
--- NOTE | 2023-07-01 11:21 | PC.NURSE ---
Patient report received from CARMELO Joyce. All questions answered and care of patient assumed.
[2023-07-01 11:43] LABS: Troponin I < 0.012 ng/mL (0.000-0.034)
[2023-07-01 12:26] LABS: Influenza A QL RT-PCR Negative (Negative); Influenza B QL RT-PCR Negative (Negative); RSV RNA, RT-PCR Negative (Negative); SARS-CoV-2 RNA PCR Negative (Negative)
== END 2023-07-01 12:33 | disposition home or self-care (01) ==
PROVIDERS: Emergency Provider Emergency Medicine; PCP Family Medicine
DX: N39.0 Urinary tract infection, site not specified (principal); R53.1 Weakness; R51.9 Headache, unspecified; R07.89 Other chest pain; Z20.822 Contact with and (suspected) exposure to COVID-19; I48.91 Unspecified atrial fibrillation; I10 Essential (primary) hypertension; J43.9 Emphysema, unspecified; E55.9 Vitamin D deficiency, unspecified; R73.03 Prediabetes; M81.0 Age-related osteoporosis without current pathological fracture; K21.9 Gastro-esophageal reflux disease without esophagitis; Z85.3 Personal history of malignant neoplasm of breast; Z85.118 Personal history of other malignant neoplasm of bronchus and lung; Z87.891 Personal history of nicotine dependence; Z90.710 Acquired absence of both cervix and uterus; Z90.2 Acquired absence of lung [part of]; Z90.13 Acquired absence of bilateral breasts and nipples; Z79.01 Long term (current) use of anticoagulants; I44.0 Atrioventricular block, first degree; R94.31 Abnormal electrocardiogram [ECG] [EKG]
CPT/HCPCS: 36415; 70450; 71045; 80053; 81001; 84484; 85025; 85610; 85730; 87040; 87077; 87086; 87186; 87637; 93005; 96365; 99284; J0696

== ENCOUNTER 2023-09-06 05:57 | Emergency (ER) | payer MEDICARE, SELFPAY ==
[2023-09-06] VITALS (9 sets, daily range): BP systolic 131–143; BP diastolic 62–72; PULSE 60–66; RESP 14–20; TEMP 36.6; O2SAT 96–97
--- NOTE | ~2023-09-06 | XR_ITS ---
Clinical Indication: Chest heaviness, history of lung cancer AP and lateral views of the chest: Comparison: 07/01/2023 Findings: There are stable is a vertical density, suggestive of possible post therapy/postsurgical ch coni. There is probable chronic blunting of costophrenic angles, unchanged.. Cardiomediastinal silho uette is within normal limits. Bones and soft tissues are stable. Impression: No acute abnormality seen. Probable chronic post therapy or postoperative changes left lung apex. Chronic appearing mild blunting of the bilateral costophrenic angles. Suspected COPD. Reviewed, dictated and finalized at location . [facility] Impression: No acute abnormality seen. Probable chronic post therapy or postoperative changes left lung apex. Chronic appearing mild blunting of the bilateral costophrenic angles. Suspected COPD.
--- NOTE | 2023-09-06 06:15 | ECG_ITS ---
Measurements Intervals [place] Rate: 63 P: 89 SD: 210 QRS: 72 QRSD: 108 T: 55 QT: 408 QTc: 418 Interpretive Statements SINUS RHYTHM WITH FIRST DEGREE AV BLOCK LEFT VENTRICULAR HYPERTROPHY AND ST-T CHANGE ANTEROSEPTAL INFARCT, AGE INDETERMINATE BASELINE ARTIFACT- I, III, AVR, AVL, AVF, V6 ABNORMAL ECG COMPARED TO ECG 07/01/2023 08:17:29 LEFT VENTRICULAR HYPERTROPHY NOW PRESENT Electronically Signed On 09-06-2023 7:50:42 TEXTILE CUTTING MACHINE OPERATOR by Aaron Victoria D.O.
[2023-09-06 07:00] LABS: Basophils Percent Auto 0.5 % (0.2-1.2); Eosinophils Absolute Auto 0.2 K/mm3 (0-0.3); Eosinophils Percent Auto 3.9 % (0-4.4); Hematocrit 38.9 % (37.0-47.0); Hemoglobin 12.8 g/dL (12.0-15.0); Immature Granulocyte Absolute 0.01 K/mm3 (0.00-0.031); Immature Granulocyte Percent A 0.2 % (0-0.5); Lymphocytes Absolute Auto 0.84 K/mm3 (0.9-3.2); Lymphocytes Percent Auto 19.1 % (18.3-44.2); Mean Corpuscular HGB Conc 32.9 g/dl (32-36); Mean Corpuscular Hemoglobin 33.5 pg (26-34); Mean Corpuscular Volume 101.8 fl (80-100); Mean Platelet Volume 10.2 fl (7.4-10.4); Monocytes Absolute Auto 0.5 K/mm3 (0.1-0.6); Monocytes Percent Auto 11.6 % (2.6-8.5); Neutrophils Absolute Auto 2.8 K/mm3 (1.3-6.7); Neutrophils Percent Auto 64.7 % (45.5-73.1); Platelet Count Result 221 k/mm3 (150-375); Red Blood Count 3.82 M/mm3 (4.2-5.4); Red Cell Distribution Width 12.2 % (11.5-14.5); White Blood Count 4.4 K/mm3 (4.5-10.0)
[2023-09-06 07:09] LABS: Alanine Aminotransferase 21 U/L (6-35); Alkaline Phosphatase 51 U/L (38-126); Anion Gap 6 mmol/L (8-16); Aspartate Amino Transferase 25 U/L (14-36); Bilirubin,Total 1.7 mg/dL (0.2-1.3); Blood Urea Nitrogen 16 mg/dL (7-17); Calcium 9.6 mg/dL (8.4-10.2); Carbon Dioxide 30 mmol/L (22-30); Chloride 103 mmol/L (98-107); Estimated CRCL calculation 36 ml/min; Estimated Glomerular Filt Rate 60; Glucose 93 mg/dL (65-110); Lipase 82 U/L (23-300); Potassium 3.8 mmol/L (3.4-5.0); Sodium 139 mmol/L (137-145)
[2023-09-06 07:09] LABS: Appearance Urine Cloudy (Clear); Bacteria Urine None Seen /hpf; Bilirubin Urine Negative (Negative); Blood Urine Negative (Negative); Color Urine Yellow (Yellow); Glucose Urine UA Negative (Negative); Ketones Urine Negative (Negative); Leukocyte Esterase Ur 1+ LEU/UL (Negative); Nitrate Urine Negative (Negative); Non Pathogenic Casts 0-2; Protein Urine Negative (Negative); RBC Urine 0-2 /hpf (0-2); Specific Grav Ur 1.006 (1.001-1.035); Squamous Epithelial Cell Urine None seen /hpf (Few); pH Urine 7.5 (5.0-9.0)
[2023-09-06 07:20] LABS: Troponin I < 0.012 ng/mL (0.000-0.034)
--- NOTE | 2023-09-06 07:26 | ED.GENADULT ---
HPI - General Adult General Chief complaint: Unspecified Stated complaint: feels hot on inside Time Seen by Provider: 09/06/23 07:25 Source: patient, family and EMS Mode of arrival: EMS Limitations: no limitations History of Present Illness HPI narrative: 83 years old white female lives alone, came by ambulance from home complaining of intermittent onset of burning sensation inside her body with dry mouth for few days. Patient also been feeling funny across the chest for the last 2 years. Today is not different than before. Also reports several episodes of urinary tract infection. Currently patient is asymptomatic, her son at the bedside. Related Data Home Medications Medication Instructions Recorded Confirmed calcium carbonate 600 mg-vitamin 1 tablet PO DAILY 03/31/22 07/22/23 D3 5 mcg (200 unit) tablet cholecalciferol (vitamin D3) 25 25 mcg PO DAILY 03/31/22 07/22/23 mcg (1,000 unit) capsule anastrozole 1 mg tablet 1 mg PO DAILY 11/21/22 07/22/23 Allergies Allergy/AdvReac Type Severity Reaction Status Date / Time adhesive Allergy Unknown Unknown,RASH, Verified 07/22/23 16:44 ITCH doxycycline Allergy Unknown Nausea Verified 07/22/23 16:44 latex Allergy Unknown Unknown Verified 07/22/23 16:44 hydrocodone AdvReac Mild vomiting Verified 07/22/23 16:44 alendronate sodium [Fosamax] AdvReac Unknown Nausea Verified 07/22/23 16:44 Iodinated Contrast Media AdvReac Unknown Flushing Verified 07/22/23 16:44 acetaminophen [From Vicodin] AdvReac Vomiting Verified 07/22/23 16:44 Contrast Media Allergy Unknown BURNING Uncoded 07/22/23 16:44 AND RED ALL OVER Review of Systems Review of Systems: All systems reviewed & are unremarkable except as noted in HPI and below PMFSH Past Medical History Medical History Anxiety Cancer of left breast Constipation Depression Diastolic dysfunction Echocardiogram 01/201919 grade 1 diastolic dysfunction EF 60% mild left atrial enlargement Emphysema of lung Fracture of fifth metatarsal bone of right foot with routine healing GERD (gastroesophageal reflux disease) Hypertension Lung cancer Osteoporosis, unspecified Prediabetes Vitamin D deficiency Surgical History Surgical History 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 13 cm layered closure. 04/12/2022 History of lobectomy of lung Right upper lobe 1994, left lower lung partial lobectomy 2005 History of right mastectomy (~2012) Family History Family History Mother CHF (congestive heart failure) Dementia Father Lung cancer Sibling Acute myocardial infarction Daughter Cerebrovascular accident Social History Social History Social History: She is . She has a daughter and a son. 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 She does drink wine nightly. However she is not drink anyone in the last 4 days. She lives alone. She lives in a duplex that her daughter owns. Code status: Full code Healthcare power of assistant prosecuting attorney: Ursula Vega (daughter) Smoking packs per day: 1 Smoking cigarettes per day: 20.0 Years smoked: 20 Smoking pack-years: 20.00 Smoking status: Former smoker Second hand tobacco smoke exposure: No Alcohol intake: current Drinks per week: 7 Alcohol use details: WINE Substance use: never Substance use type: does not use Lack of Transportation: No [place]
[2023-09-06 07:29] LABS: INR 1.4; Prothrombin Time 18.3 Seconds (11.1-14.7)
[2023-09-06 07:29] LABS: Add Urine Microscopic? YES
[2023-09-06 07:32] LABS: Partial Thromboplastin Time 28.8 SECONDS (22.3-36.8)
== END 2023-09-06 08:32 | disposition home or self-care (01) ==
PROVIDERS: Emergency Medicine; Emergency Provider Emergency Medicine; PCP Family Medicine
DX: R20.8 Other disturbances of skin sensation (principal); R07.9 Chest pain, unspecified; J43.9 Emphysema, unspecified; I10 Essential (primary) hypertension; Z85.118 Personal history of other malignant neoplasm of bronchus and lung; Z87.891 Personal history of nicotine dependence; Z87.440 Personal history of urinary (tract) infections
CPT/HCPCS: 36415; 71046; 80053; 81001; 83690; 84484; 85025; 85610; 85730; 87086; 93005; 99284

== ENCOUNTER 2023-11-05 03:58 | Emergency (ER) | payer MEDICARE, SELFPAY ==
[2023-11-05] VITALS (9 sets, daily range): BP systolic 122–150; BP diastolic 61–99; PULSE 55–71; RESP 15–20; TEMP 37.2; O2SAT 95–100
--- NOTE | ~2023-11-05 | XR_ITS ---
Portable chest x-ray Comparison: 09/06/2023 Clinical History: Shortness of breath Findings: There is chronic blunting of the left costophrenic angle. Stable postoperative change in t he left lung apex region. Stable haziness right upper lobe, possibly postoperative in nature. Cardio mediastinal silhouette is stable. Bones and soft tissues are unremarkable. Impression: No acute pulmonary abnormality seen. Stable probable postoperative changes bilaterally. Chronic blunting of the left costophrenic angle. Reviewed, dictated and finalized at location M. NOMIST Impression: No acute pulmonary abnormality seen. Stable probable postoperative changes bilaterally. Chronic blunting of the left costophrenic angle.
--- NOTE | 2023-11-05 03:58 | ECG_ITS ---
Measurements Intervals [place] Rate: 61 P: 104 AL: 221 QRS: 72 QRSD: 109 T: 64 QT: 413 QTc: 419 Interpretive Statements SINUS RHYTHM WITH FIRST DEGREE AV BLOCK VOLTAGE CRITERIA FOR LVH ANTEROSEPTAL INFARCT, AGE INDETERMINATE BASELINE ARTIFACT- I, II, III, AVR, AVL, AVF, V1, V4-V6 ABNORMAL ECG COMPARED TO ECG 09/06/2023 06:55:42 NO SIGNIFICANT CHANGES Electronically Signed On 11-05-2023 6:14:01 SUPERINTENDENT GENERATING PLANT by Aaron Victoria D.O.
[2023-11-05 04:31] LABS: Basophils Percent Auto 0.5 % (0.2-1.2); Eosinophils Absolute Auto 0.3 K/mm3 (0-0.3); Eosinophils Percent Auto 6.5 % (0-4.4); Hematocrit 38.6 % (37.0-47.0); Hemoglobin 12.4 g/dL (12.0-15.0); Immature Granulocyte Absolute 0.01 K/mm3 (0.00-0.031); Immature Granulocyte Percent A 0.3 % (0-0.5); Lymphocytes Percent Auto 23.4 % (18.3-44.2); Mean Corpuscular HGB Conc 32.1 g/dl (32-36); Mean Corpuscular Hemoglobin 32.8 pg (26-34); Mean Corpuscular Volume 102.1 fl (80-100); Mean Platelet Volume 10.7 fl (7.4-10.4); Monocytes Absolute Auto 0.6 K/mm3 (0.1-0.6); Monocytes Percent Auto 14.6 % (2.6-8.5); Neutrophils Absolute Auto 2.1 K/mm3 (1.3-6.7); Neutrophils Percent Auto 54.7 % (45.5-73.1); Platelet Count Result 212 k/mm3 (150-375); Red Blood Count 3.78 M/mm3 (4.2-5.4); Red Cell Distribution Width 12.1 % (11.5-14.5); White Blood Count 3.8 K/mm3 (4.5-10.0)
[2023-11-05 04:45] LABS: Alanine Aminotransferase 20 U/L (6-35); Albumin Level 3.7 g/dL (3.5-5.1); Alkaline Phosphatase 42 U/L (38-126); Anion Gap 3 mmol/L (8-16); Aspartate Amino Transferase 33 U/L (14-36); Blood Urea Nitrogen 17 mg/dL (7-17); Calcium 9.5 mg/dL (8.4-10.2); Carbon Dioxide 33 mmol/L (22-30); Chloride 102 mmol/L (98-107); Estimated CRCL calculation 37 ml/min; Estimated Glomerular Filt Rate 60; Glucose 93 mg/dL (65-110); INR 1.3; Lipase 87 U/L (23-300); Partial Thromboplastin Time 29.1 SECONDS (22.3-36.8); Potassium 3.8 mmol/L (3.4-5.0); Prothrombin Time 17.1 Seconds (11.1-14.7); Sodium 138 mmol/L (137-145)
[2023-11-05 04:56] LABS: Troponin I < 0.012 ng/mL (0.000-0.034)
--- NOTE | 2023-11-05 06:52 | ED.GENADULT ---
HPI - General Adult General Chief complaint: Chest Pain <Darren Alejandre MD - Last Filed: 11/05/23 22:18> Stated complaint: chest pain <Darren Alejandre MD - Last Filed: 11/05/23 22:18> Time Seen by Provider: 11/05/23 04:29 <Darren Alejandre MD - Last Filed: 11/05/23 22:18> History of Present Illness HPI narrative: This is an 83-year-old female presenting ED with a chief complaint of chest pain. Patient says that at 1:00 a.m. she was woken from sleep by a pressure in the center chest. Nonradiating, 8/10 intensity and comes and goes. She has never experienced pain like this before there are no exacerbating alleviating factors. No diaphoresis of the she felt warm, no vomiting or exertional component. No fever chills shortness of breath abdominal pain urinary symptoms. Patient has a nuclear medicine stress test planned with Dr. Villa tomorrow. <Darren Alejandre MD - Last Filed: 11/05/23 22:18> This is an 83-year-old female to the presenting ED with a chief complaint of chest pain. Patient says that at 1:00 a.m. she was woken from sleep by a pressure in the center chest. Nonradiating, 8/10 intensity and comes and goes. She has never experienced pain like this before there are no exacerbating alleviating factors. No diaphoresis of the she felt warm, no vomiting or exertional component. No fever chills shortness of breath abdominal pain urinary symptoms. Patient has a nuclear medicine stress test planned with Dr. Villa tomorrow. <Ced Blackmon MD - Last Filed: 11/05/23 16:45> Related Data Home medications: Home Medications Medication Instructions Recorded Confirmed calcium carbonate 600 mg-vitamin 1 tablet PO DAILY 03/31/22 09/19/23 D3 5 mcg (200 unit) tablet cholecalciferol (vitamin D3) 25 25 mcg PO DAILY 03/31/22 09/19/23 mcg (1,000 unit) capsule anastrozole 1 mg tablet 1 mg PO DAILY 11/21/22 09/19/23 <Darren Alejandre MD - Last Filed: 11/05/23 22:18> Allergies/adverse reactions: Allergies Allergy/AdvReac Type Severity Reaction Status Date / Time adhesive Allergy Unknown Unknown,RASH, Verified 09/19/23 15:16 ITCH doxycycline Allergy Unknown Nausea Verified 09/19/23 15:16 latex Allergy Unknown Unknown Verified 09/19/23 15:16 hydrocodone AdvReac Mild vomiting Verified 09/19/23 15:16 alendronate sodium [Fosamax] AdvReac Unknown Nausea Verified 09/19/23 15:16 Iodinated Contrast Media AdvReac Unknown Flushing Verified 09/19/23 15:16 acetaminophen [From Vicodin] AdvReac Vomiting Verified 09/19/23 15:16 Contrast Media Allergy Unknown BURNING Uncoded 09/19/23 15:16 AND RED ALL OVER <Darren Alejandre MD - Last Filed: 11/05/23 22:18> PMFSH Past Medical History Medical History: Medical History Anxiety Cancer of left breast Constipation Depression Diastolic dysfunction Echocardiogram 01/201919 grade 1 diastolic dysfunction EF 60% mild left atrial enlargement Emphysema of lung Fracture of fifth metatarsal bone of right foot with routine healing GERD (gastroesophageal reflux disease) Hypertension Lung cancer Osteoporosis, unspecified Prediabetes Vitamin D deficiency <Darren Alejandre MD - Last Filed: 11/05/23 22:18> Surgical History Surgical History: Surgical History 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 13 cm layered closure. 04/12/2022 History of lobectomy of lung Right upper lobe 1994, left lower lung partial lobectomy 2005 History of right mastectomy (~2012) <Jonathan
--- NOTE | 2023-11-05 07:15 | ECG_ITS ---
Measurements Intervals [place] Rate: 60 P: 93 MS: 230 QRS: 69 QRSD: 96 T: 45 QT: 413 QTc: 414 Interpretive Statements SINUS RHYTHM WITH FIRST DEGREE AV BLOCK LEFT VENTRICULAR HYPERTROPHY AND ST-T CHANGE ANTEROSEPTAL INFARCT, AGE INDETERMINATE BASELINE WANDER- II, V3 ABNORMAL ECG COMPARED TO ECG 11/05/2023 04:06:26 NO SIGNIFICANT CHANGES Electronically Signed On 11-05-2023 7:32:35 [employer] by Aaorn Victoria D.O.
[2023-11-05 07:33] LABS: Troponin I 0.016 ng/mL (0.000-0.034)
[2023-11-05] MEDS: BELLADONNA ALK/PHENOB ELIX 10 ML, MAG HYDROX/ALUMINUM HYD/SIMETH 30 ML, LIDOCAINE HCL 2... PO (08:19)
[2023-11-05 08:29] LABS: Appearance Urine Cloudy (Clear); Bacteria Urine 1+ /hpf; Bilirubin Urine Negative (Negative); Blood Urine Negative (Negative); Color Urine Yellow (Yellow); Glucose Urine UA Negative (Negative); Ketones Urine Trace mg/dL (Negative); Leukocyte Esterase Ur 2+ LEU/UL (Negative); Nitrate Urine Negative (Negative); Non Pathogenic Casts 0-2; Protein Urine Negative (Negative); Specific Grav Ur 1.019 (1.001-1.035); Squamous Epithelial Cell Urine Moderate /hpf (Few); WBC Urine 51-100 /hpf; pH Urine 5.5 (5.0-9.0)
[2023-11-05 08:38] LABS: Add Urine Microscopic? YES
[2023-11-05] MEDS: CEPHALEXIN 500 MG CAPSULE PO (09:16)
== END 2023-11-05 09:30 | disposition home or self-care (01) ==
PROVIDERS: Emergency Medicine; Emergency Provider Emergency Medicine; PCP Family Medicine
DX: R07.9 Chest pain, unspecified (principal); N39.0 Urinary tract infection, site not specified; I10 Essential (primary) hypertension; J43.9 Emphysema, unspecified; Z85.3 Personal history of malignant neoplasm of breast; Z85.118 Personal history of other malignant neoplasm of bronchus and lung; Z87.891 Personal history of nicotine dependence
CPT/HCPCS: 36415; 71045; 80053; 81001; 83690; 84484; 85025; 85610; 85730; 87086; 93005; 99284; A9270

== ENCOUNTER 2023-11-08 05:34 | Emergency (ER) | payer MEDICARE, SELFPAY ==
--- NOTE | 2023-11-08 | ECG_ITS ---
Measurements Intervals [place] Rate: 67 P: 107 PA: 213 QRS: 81 QRSD: 101 T: 83 QT: 399 QTc: 423 Interpretive Statements SINUS RHYTHM WITH FIRST DEGREE AV BLOCK WITH OCCASIONAL SUPRAVENTRICULAR PREMATURE COMPLEXES MINIMAL VOLTAGE CRITERIA FOR LVH, CONSIDER NORMAL VARIANT [MEETS CRITERIA IN ONE OF: R(aVL), S(V1), R(V5), R(V5/V6)+S(V1)] CONSIDER PREVIOUS sEPTAL MYOCARDIAL INFARCTION , OF INDETERMINATE AGE [40+ ms Q WAVE IN V1/V2] ABNORMAL ECG COMPARED TO ECG 11/05/2023 07:22:48 NO SIGNIFICANT CHANGES Electronically Signed On 11-09-2023 7:00:25 PRODUCTION WELDING SUPERVISOR by Luis العلي M.D.
--- NOTE | ~2023-11-08 | XR_ITS ---
Portable chest x-ray Comparison: 11/05/2023 Clinical History: Chest pain Findings: Minimal blunting of the costophrenic angles could reflect small pleural effusions. Probabl e COPD. Probable left upper lobe scarring/postoperative change. Cardiomediastinal silhouette is stab le. Bones and soft tissues are unremarkable. Impression: COPD and probable left upper lobe scarring/postoperative change. Possible minimal pleural effusions bilaterally. Reviewed, dictated and finalized at location . SE CONSULTANT Impression: COPD and probable left upper lobe scarring/postoperative change. Possible minimal pleural effusions bilaterally.
[2023-11-08 05:30] VITALS: BP 157/68; PULSE 70; RESP 19; TEMP 36.4; O2SAT 100
[2023-11-08 05:39] VITALS: PULSE 68; O2SAT 100
--- NOTE | 2023-11-08 05:52 | ED.GENADULT ---
HPI - General Adult General Chief complaint: Chest Pain <Darren Alejandre MD - Last Filed: 11/08/23 06:28> Stated complaint: chest pain <Darren Alejandre MD - Last Filed: 11/08/23 06:28> Time Seen by Provider: 11/08/23 06:14 <Darren Alejandre MD - Last Filed: 11/08/23 06:28> History of Present Illness HPI narrative: This is an 83-year-old female with a history of anxiety presenting to the ED with chief complaint of chest pain. Patient said that she started having a heaviness in her chest at 1:00 a.m., it was followed by a wave of warmth that started at her head and went down to her feet. She said that this came in waves for several hours. It is associated with significant anxiety. Patient states that she has been having this intermittently for the last year. She has not been able to figure out what it is but it is causing her significant distress. She was seen here yesterday with this same complaint and had a negative chest pain workup at that time. Patient is tearful and frustrated during the interview as she does not know why she keeps having these symptoms. Patient is scheduled for a nuclear medicine cardiac evaluation on Sunday. <Darren Alejandre MD - Last Filed: 11/08/23 06:28> Related Data Home medications: Home Medications Medication Instructions Recorded Confirmed calcium carbonate 600 mg-vitamin 1 tablet PO DAILY 03/31/22 09/19/23 D3 5 mcg (200 unit) tablet cholecalciferol (vitamin D3) 25 25 mcg PO DAILY 03/31/22 09/19/23 mcg (1,000 unit) capsule anastrozole 1 mg tablet 1 mg PO DAILY 11/21/22 09/19/23 <Darren Alejandre MD - Last Filed: 11/08/23 06:28> Allergies/adverse reactions: Allergies Allergy/AdvReac Type Severity Reaction Status Date / Time adhesive Allergy Unknown Unknown,RASH, Verified 09/19/23 15:16 ITCH doxycycline Allergy Unknown Nausea Verified 09/19/23 15:16 latex Allergy Unknown Unknown Verified 09/19/23 15:16 hydrocodone AdvReac Mild vomiting Verified 09/19/23 15:16 alendronate sodium [Fosamax] AdvReac Unknown Nausea Verified 09/19/23 15:16 Iodinated Contrast Media AdvReac Unknown Flushing Verified 09/19/23 15:16 acetaminophen [From Vicodin] AdvReac Vomiting Verified 09/19/23 15:16 Contrast Media Allergy Unknown BURNING Uncoded 09/19/23 15:16 AND RED ALL OVER <Darren Alejandre MD - Last Filed: 11/08/23 06:28> PMFSH Past Medical History Medical History: Medical History Anxiety Cancer of left breast Constipation Depression Diastolic dysfunction Echocardiogram 01/201919 grade 1 diastolic dysfunction EF 60% mild left atrial enlargement Emphysema of lung Fracture of fifth metatarsal bone of right foot with routine healing GERD (gastroesophageal reflux disease) Hypertension Lung cancer Osteoporosis, unspecified Prediabetes Vitamin D deficiency <Darren Alejandre MD - Last Filed: 11/08/23 06:28> Surgical History Surgical History: Surgical History 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 13 cm layered closure. 04/12/2022 History of lobectomy of lung Right upper lobe 1994, left lower lung partial lobectomy 2005 History of right mastectomy (~2012) <Darren Alejandre MD - Last Filed: 11/08/23 06:28> Family History Family History: Family History Mother CHF (congestive heart failure) Dementia Father Lung cancer Sibling Acute myocardial infarction Daughter Cerebrovascular accide
[2023-11-08] MEDS: LORazepam (*CRX) 0.5 MG TABLET PO (05:56)
[2023-11-08 06:00] LABS: Basophils Percent Auto 0.3 % (0.2-1.2); Eosinophils Absolute Auto 0.2 K/mm3 (0-0.3); Eosinophils Percent Auto 5.2 % (0-4.4); Hematocrit 39.4 % (37.0-47.0); Hemoglobin 12.9 g/dL (12.0-15.0); Immature Granulocyte Absolute 0.01 K/mm3 (0.00-0.031); Immature Granulocyte Percent A 0.3 % (0-0.5); Lymphocytes Absolute Auto 0.91 K/mm3 (0.9-3.2); Lymphocytes Percent Auto 25.1 % (18.3-44.2); Mean Corpuscular HGB Conc 32.7 g/dl (32-36); Mean Corpuscular Volume 100.8 fl (80-100); Monocytes Absolute Auto 0.4 K/mm3 (0.1-0.6); Monocytes Percent Auto 11.6 % (2.6-8.5); Neutrophils Absolute Auto 2.1 K/mm3 (1.3-6.7); Neutrophils Percent Auto 57.5 % (45.5-73.1); Platelet Count Result 216 k/mm3 (150-375); Red Blood Count 3.91 M/mm3 (4.2-5.4); Red Cell Distribution Width 12.1 % (11.5-14.5); White Blood Count 3.6 K/mm3 (4.5-10.0)
[2023-11-08 06:04] VITALS: O2SAT 100
[2023-11-08 06:11] LABS: Alanine Aminotransferase 21 U/L (6-35); Albumin Level 3.7 g/dL (3.5-5.1); Alkaline Phosphatase 47 U/L (38-126); Anion Gap 3 mmol/L (8-16); Aspartate Amino Transferase 28 U/L (14-36); Bilirubin,Total 1.2 mg/dL (0.2-1.3); Blood Urea Nitrogen 18 mg/dL (7-17); Calcium 9.6 mg/dL (8.4-10.2); Carbon Dioxide 34 mmol/L (22-30); Chloride 101 mmol/L (98-107); Estimated CRCL calculation 35 ml/min; Estimated Glomerular Filt Rate 53; Glucose 111 mg/dL (65-110); Lipase 81 U/L (23-300); Potassium 4.3 mmol/L (3.4-5.0); Sodium 138 mmol/L (137-145)
[2023-11-08 06:17] LABS: INR 1.5; Prothrombin Time 18.5 Seconds (11.1-14.7)
[2023-11-08 06:18] LABS: Partial Thromboplastin Time 32.4 SECONDS (22.3-36.8)
[2023-11-08 06:22] LABS: Troponin I < 0.012 ng/mL (0.000-0.034)
[2023-11-08 07:06] VITALS: BP 111/55; PULSE 61; RESP 16; O2SAT 99
--- NOTE | 2023-11-08 08:50 | ECG_ITS ---
Measurements Intervals [place] Rate: 62 P: 90 NC: 230 QRS: 73 QRSD: 105 T: 63 QT: 422 QTc: 431 Interpretive Statements SINUS RHYTHM WITH SINUS ARRHYTHMIA WITH FIRST DEGREE AV BLOCK VOLTAGE CRITERIA FOR LVH [MEETS CRITERIA IN ONE OF: R(aVL), S(V1), R(V5), R(V5/V6)+S(V1)] POSSIBLE SEPTAL MYOCARDIAL INFARCTION , PROBABLY OLD [30 ms Q WAVE IN V1/V2] COMPARED TO ECG 11/05/2023 07:22:48 SINUS ARRHYTHMIA NOW PRESENT Electronically Signed On 11-08-2023 13:58:56 [employer]ATRE [employer]S PROFESSOR by Belén Crowell M.D.
[2023-11-08 09:18] VITALS: BP 118/64; PULSE 64; RESP 18; O2SAT 96
[2023-11-08 09:23] LABS: Troponin I < 0.012 ng/mL (0.000-0.034)
[2023-11-08 09:50] VITALS: BP 118/64; PULSE 66; RESP 16; O2SAT 99
== END 2023-11-08 09:51 | disposition home or self-care (01) ==
PROVIDERS: Emergency Medicine; Emergency Provider Emergency Medicine; PCP Family Medicine
DX: F41.9 Anxiety disorder, unspecified (principal); R20.2 Paresthesia of skin; J43.9 Emphysema, unspecified; I10 Essential (primary) hypertension; R73.03 Prediabetes; E55.9 Vitamin D deficiency, unspecified; K21.9 Gastro-esophageal reflux disease without esophagitis; M81.0 Age-related osteoporosis without current pathological fracture; Z85.3 Personal history of malignant neoplasm of breast; Z85.118 Personal history of other malignant neoplasm of bronchus and lung; Z87.891 Personal history of nicotine dependence; Z90.710 Acquired absence of both cervix and uterus; Z90.2 Acquired absence of lung [part of]; Z90.13 Acquired absence of bilateral breasts and nipples; I44.0 Atrioventricular block, first degree; I49.1 Atrial premature depolarization; R94.31 Abnormal electrocardiogram [ECG] [EKG]
CPT/HCPCS: 36415; 71045; 80053; 83690; 84484; 85025; 85610; 85730; 93005; 99284; A9270

== ENCOUNTER 2024-01-24 09:33 | Outpatient (CLI) | payer MEDICARE, SELFPAY ==
--- NOTE | ~2024-01-24 | NM_ITS ---
EXAMINATION: NM bone scan whole body DATE: 01/24/2024 13:27 INDICATION: Malignant left breast cancer in a female TECHNIQUE: 26.4 mCi Tc-99m HDP was administered intravenously. Delayed whole-body scintigrams were o btained. COMPARISON: Bone scan and CT of the abdomen and pelvis both dated 11/30/2022 FINDINGS: Small focus of mild likely degenerative uptake along the caudal aspect of the left sacroiliac joint. 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 Interval resolution of the prior increased uptake at the process noted fracture of the anterior right fifth rib consistent with interval healing. No other suspicious foci of abnormal bone uptake to suggest malignancy/metastatic disease. IMPRESSION: 1. No suspicious foci of abnormal bone uptake to suggest metastatic disease. Reviewed, dictated and finalized at location A.
== END 2024-01-24 09:34 | disposition home or self-care (01) ==
LOC: ANHIMG 09:35
PROVIDERS: PCP Family Medicine; Visit Provider Internal Medicine Hematology & Oncology
DX: C50.912 Malignant neoplasm of unspecified site of left female breast (principal)
CPT/HCPCS: 78306; A9503

== ENCOUNTER 2024-05-28 09:06 | Emergency (ER) | payer MEDICARE, SELFPAY ==
--- NOTE | 2024-05-28 09:08 | ED.WOUNDLAC ---
HPI - Wound/Laceration General Chief Complaint: Extremity Problem,Nontraumatic Stated Complaint: rt hand injury Time Seen by Provider: 05/28/24 09:08 Source: patient Mode of arrival: ambulatory Limitations: no limitations History of Present Illness HPI narrative: Tigist is an 84 year old female patient presenting to the clinic today with c/o right hand injury/wound. She reports last Sunday she was carrying in the groceries and this caused a skin tear to her right hand. States the hand has become more painful, swollen, and is draining some yellow discharge. Tetanus unknown. Related Data Home Medications Medication Instructions Recorded Confirmed calcium carbonate 600 mg-vitamin 1 tablet PO DAILY 03/31/22 05/28/24 D3 5 mcg (200 unit) tablet cholecalciferol (vitamin D3) 25 25 mcg PO DAILY 03/31/22 05/28/24 mcg (1,000 unit) capsule anastrozole 1 mg tablet 1 mg PO DAILY 11/21/22 05/28/24 Allergies Allergy/AdvReac Type Severity Reaction Status Date / Time adhesive Allergy Unknown Unknown,RASH, Verified 05/28/24 09:23 ITCH doxycycline Allergy Unknown Nausea Verified 05/28/24 09:23 latex Allergy Unknown Unknown Verified 05/28/24 09:23 hydrocodone AdvReac Mild vomiting Verified 05/28/24 09:23 alendronate sodium [Fosamax] AdvReac Unknown Nausea Verified 05/28/24 09:23 Iodinated Contrast Media AdvReac Unknown Flushing Verified 05/28/24 09:23 acetaminophen [From Vicodin] AdvReac Vomiting Verified 05/28/24 09:23 Contrast Media Allergy Unknown BURNING Uncoded 05/28/24 09:23 AND RED ALL OVER Review of Systems Review of Systems: Pertinent positives per HPI. Patient denies any fever, chills, rash, headache, visual changes, dizziness, cough, runny nose, sore throat, shortness of breath, chest pain, palpitations, nausea, vomiting, diarrhea, constipation, abdominal pain, or any urinary issues. [facility] Past Medical History Medical History Anxiety Anxiety attack Cancer of left breast Constipation Depression Diastolic dysfunction Echocardiogram 01/201919 grade 1 diastolic dysfunction EF 60% mild left atrial enlargement Emphysema of lung Fracture of fifth metatarsal bone of right foot with routine healing GERD (gastroesophageal reflux disease) Hypertension Lung cancer Osteoporosis, unspecified Prediabetes Vitamin D deficiency Surgical History Surgical History 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 13 cm layered closure. 04/12/2022 History of lobectomy of lung Right upper lobe 1994, left lower lung partial lobectomy 2005 History of right mastectomy (~2012) Family History Family History Mother CHF (congestive heart failure) Dementia Father Lung cancer Sibling Acute myocardial infarction Daughter Cerebrovascular accident Social History Social History Social History: She is . She has a daughter and a son. 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 She lives alone. She lives in a duplex that her daughter owns. Code status: Full code [facility] power of employment attorney: Ursula Vega (daughter) Smoking packs per day: 1 Smoking cigarettes per day: 20.0 Years smoked: 20 Smoking pack-years: 20.00 Smoking status: Former smoker Second hand tobacco smoke exposure: No Alcohol intake: current Drinks per week: 7 Alcohol use details: WINE Substa
[2024-05-28 09:20] VITALS: BP 107/67; PULSE 63; RESP 18; TEMP 36.9; O2SAT 95
[2024-05-28 09:25] VITALS: BP 107/67; PULSE 63; RESP 18; TEMP 36.9; O2SAT 95
[2024-05-28] MEDS: TETANUS,DIPHTHERIA,AC PERTUSSIS ADULT (0.5 ML) BOOSTRIX IM (09:50)
== END 2024-05-28 10:00 | disposition home or self-care (01) ==
PROVIDERS: Emergency Provider Nurse Practitioner Family; PCP Family Medicine
DX: S61.411A Laceration without foreign body of right hand, initial encounter (principal); L08.9 Local infection of the skin and subcutaneous tissue, unspecified; X58.XXXA Exposure to other specified factors, initial encounter; Z23 Encounter for immunization; Z87.891 Personal history of nicotine dependence; K21.9 Gastro-esophageal reflux disease without esophagitis; J43.9 Emphysema, unspecified; I10 Essential (primary) hypertension; M81.0 Age-related osteoporosis without current pathological fracture; R73.03 Prediabetes; E55.9 Vitamin D deficiency, unspecified; Z85.3 Personal history of malignant neoplasm of breast; Z85.118 Personal history of other malignant neoplasm of bronchus and lung; Z90.12 Acquired absence of left breast and nipple; Z90.2 Acquired absence of lung [part of]
CPT/HCPCS: 87070; 87205; 90471; 90715; 99213; G0463

== ENCOUNTER 2024-06-03 09:42 | Emergency (ER) | payer MEDICARE, SELFPAY ==
[2024-06-03 10:21] VITALS: BP 174/76; PULSE 67; RESP 16; TEMP 36.7; O2SAT 96
--- NOTE | 2024-06-03 10:47 | ED.GENADULT ---
HPI - General Adult General Chief complaint: Skin/Abscess/Foreign Body Stated complaint: wrsit swelling and pain + fatigue Time Seen by Provider: 06/03/24 10:48 Source: patient, RN notes reviewed and old records reviewed Mode of arrival: ambulatory Limitations: no limitations History of Present Illness HPI narrative: 84-year-old female presents to the [facility] with concerns of a wound. Was seen treated and discharged on 05/28, 6 days ago. Cannot get in with her primary and till Sunday Patient states the swelling and redness have gotten better, has full range of motion of the thumb and 2nd finger. Sensation intact capillary refill 2 seconds Related Data Home Medications Medication Instructions Recorded Confirmed calcium carbonate 600 mg-vitamin 1 tablet PO DAILY 03/31/22 06/03/24 D3 5 mcg (200 unit) tablet cholecalciferol (vitamin D3) 25 25 mcg PO DAILY 03/31/22 06/03/24 mcg (1,000 unit) capsule anastrozole 1 mg tablet 1 mg PO DAILY 11/21/22 06/03/24 Allergies Allergy/AdvReac Type Severity Reaction Status Date / Time acetaminophen [From Vicodin] AdvReac Intermediate Vomiting Verified 06/03/24 10:16 alendronate sodium [Fosamax] AdvReac Intermediate Nausea Verified 06/03/24 10:16 doxycycline AdvReac Intermediate Nausea Verified 06/03/24 10:16 hydrocodone AdvReac Intermediate vomiting Verified 06/03/24 10:16 adhesive AdvReac Mild Unknown,RASH, Verified 06/03/24 10:16 ITCH Iodinated Contrast Media AdvReac Mild Flushing Verified 06/03/24 10:16 latex AdvReac Mild Hives Verified 06/03/24 10:16 Contrast Media AdvReac Intermediate BURNING Uncoded 06/03/24 10:16 AND RED ALL OVER Review of Systems Review of Systems: All systems reviewed & are unremarkable except as noted in HPI and below Constitutional: Constitutional: Reports no additional constitutional complaints Eyes: Eyes: Reports no additional eye complaints ENT: Reports system reviewed and no additional complaints, except as documented Cardiovascular: Cardiovascular: Reports no additional cardiovascular complaints, Denies chest pain and Denies dyspnea Respiratory: Respiratory: Reports no additional respiratory complaints, Denies chest congestion, Denies cough and Denies dyspnea Gastrointestinal: Gastrointestinal: Reports no additional gastrointestinal complaints, Denies abdominal pain, Denies nausea and Denies vomiting Musculoskeletal: Musculoskeletal: Reports no additional musculoskeletal complaints Integumentary/Breasts: Skin/Breast: Reports as per HPI Neurologic: Reports system reviewed and no additional complaints, except as documented Psychiatric: Psychiatric: Reports no additional psychiatric complaints Allergic/Immunologic: Allergic/Immunologic: Reports no additional allergic/immunologic complaints [facility] Past Medical History Medical History Anxiety Anxiety attack Cancer of left breast Constipation Depression Diastolic dysfunction Echocardiogram 01/201919 grade 1 diastolic dysfunction EF 60% mild left atrial enlargement Emphysema of lung Fracture of fifth metatarsal bone of right foot with routine healing GERD (gastroesophageal reflux disease) Hypertension Lung cancer Osteoporosis, unspecified Prediabetes Vitamin D deficiency Surgical History Surgical History 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 13 cm layered closure. 04/12/2022 History of lobectomy of lung Right upper lobe 1994, left lower lung partial lobectomy 2005 History of right mastectomy (~
== END 2024-06-03 11:03 | disposition home or self-care (01) ==
PROVIDERS: Emergency Provider Nurse Practitioner; PCP Family Medicine
DX: Z48.00 Encounter for change or removal of nonsurgical wound dressing (principal); J43.9 Emphysema, unspecified; K21.9 Gastro-esophageal reflux disease without esophagitis; I10 Essential (primary) hypertension; M81.0 Age-related osteoporosis without current pathological fracture; R73.03 Prediabetes; E55.9 Vitamin D deficiency, unspecified; Z85.3 Personal history of malignant neoplasm of breast; Z85.118 Personal history of other malignant neoplasm of bronchus and lung; Z90.13 Acquired absence of bilateral breasts and nipples; Z90.2 Acquired absence of lung [part of]; Z87.891 Personal history of nicotine dependence
CPT/HCPCS: 99211; G0463

== ENCOUNTER 2024-09-11 11:22 | Outpatient (CLI) | payer MEDICARE, SELFPAY ==
[2024-09-11 11:59] LABS: Basophils Percent Auto 0.6 % (0.2-1.2); Eosinophils Absolute Auto 0.1 K/mm3 (0-0.3); Eosinophils Percent Auto 2.8 % (0-4.4); Hematocrit 40.9 % (37.0-47.0); Hemoglobin 13.4 g/dL (12.0-15.0); Immature Granulocyte Absolute 0.02 K/mm3 (0.00-0.031); Immature Granulocyte Percent A 0.4 % (0-0.5); Lymphocytes Absolute Auto 1.15 K/mm3 (0.9-3.2); Lymphocytes Percent Auto 22.7 % (18.3-44.2); Mean Corpuscular HGB Conc 32.8 g/dl (32-36); Mean Corpuscular Hemoglobin 32.8 pg (26-34); Mean Corpuscular Volume 100.2 fl (80-100); Mean Platelet Volume 10.1 fl (7.4-10.4); Monocytes Absolute Auto 0.7 K/mm3 (0.1-0.6); Monocytes Percent Auto 13.2 % (2.6-8.5); Neutrophils Absolute Auto 3.1 K/mm3 (1.3-6.7); Neutrophils Percent Auto 60.3 % (45.5-73.1); Platelet Count Result 250 k/mm3 (150-375); Red Blood Count 4.08 M/mm3 (4.2-5.4); Red Cell Distribution Width 12.4 % (11.5-14.5); White Blood Count 5.1 K/mm3 (4.5-10.0)
[2024-09-11 14:21] LABS: Alanine Aminotransferase 14 U/L (6-35); Albumin Level 4.3 g/dL (3.5-5.1); Alkaline Phosphatase 63 U/L (38-126); Anion Gap 4 mmol/L (4-12); Aspartate Amino Transferase 22 U/L (14-36); Bilirubin,Total 1.2 mg/dL (0.2-1.3); Blood Urea Nitrogen 21 mg/dL (7-17); Calcium 9.8 mg/dL (8.4-10.2); Carbon Dioxide 32 mmol/L (22-30); Chloride 102 mmol/L (98-107); Estimated Glomerular Filt Rate 47; Glucose 101 mg/dL (65-110); Potassium 4.1 mmol/L (3.4-5.0); Sodium 138 mmol/L (137-145)
[2024-09-13 05:43] LABS: CA 15-3 21 U/mL (<32)
== END 2024-09-11 11:23 | disposition home or self-care (01) ==
LOC: ANHLAB 11:24
PROVIDERS: PCP Family Medicine; Visit Provider Internal Medicine Hematology & Oncology
DX: C50.912 Malignant neoplasm of unspecified site of left female breast (principal); Z17.0 Estrogen receptor positive status [ER+]
CPT/HCPCS: 36415; 80053; 85025; 86300

== ENCOUNTER 2024-12-15 07:27 | Emergency (ER) | payer MEDICARE, SELFPAY ==
--- NOTE | ~2024-12-15 | XR_ITS ---
EXAMINATION: XR chest 2V DATE: 12/15/2024 09:18 INDICATION: Shortness of breath. TECHNIQUE: Frontal and lateral views of the chest were obtained. COMPARISON: Chest single view 11/08/2023, chest CT 02/02/2023 FINDINGS: There are changes of partial left upper lobectomy. There is chronic scarring at left lung a pex. There are changes of right upper lobectomy. There is a small left pleural effusion. There is mil d atelectasis and scarring bilaterally. No pneumothorax. Cardiomegaly is noted. There are right-sided rib defects from prior thoracotomy. There is ryne fixation of left humerus. There are old healed left rib fractures. IMPRESSION: 1. Small left pleural effusion. 2. Right upper lobectomy. 3. Partial left upper lobectomy. 4. Cardiomegaly. Reviewed, dictated and finalized at location B.
[2024-12-15 07:32] VITALS: BP 138/127; PULSE 69; RESP 16; TEMP 36.8; O2SAT 96
--- NOTE | 2024-12-15 07:33 | ECG_ITS ---
Test Date: 2024-12-15 07:39:03 Measurements Intervals [place] Rate: 64 P: 86 CT: 199 QRS: 59 QRSD: 98 T: 48 QT: 374 QTc: 388 Interpretive Statements SINUS RHYTHM WITH OCCASIONAL VENTRICULAR PREMATURE COMPLEXES LEFT VENTRICULAR HYPERTROPHY AND ST-T CHANGE [VOLTAGE CRITERIA PLUS ST/T ABNORMALITY] No previous ECG available for comparison Electronically Signed On 12-15-2024 11:39:44 CDT by Km Ryan M.D.
--- NOTE | 2024-12-15 07:35 | ED_ITS ---
HPI - SOB/Dyspnea General Chief Complaint: Shortness of Breath/Dyspnea Stated Complaint: SOB, chest tightness Time Seen by Provider: 12/15/24 07:30 History of Present Illness HPI Narrative: Pt with Hx of CCOPD presents with SOB for 5 days and a minimally productive cough. Pt denies fever or CP has some tightness. Pt is concerned about getting pneumonia. Related Data Home Medications ?Medication ?Instructions ?Recorded ?Confirmed ?Last Taken ?Type calcium 600 mg (as 1 tablet PO DAILY 03/31/22 12/15/24 01/30/23 History carbonate)-vitamin D3 5 mcg (200 unit) tablet cholecalciferol (vitamin D3) 25 25 mcg PO DAILY 03/31/22 12/15/24 01/30/23 History mcg (1,000 unit) capsule anastrozole 1 mg tablet 1 mg PO DAILY 11/21/22 12/15/24 01/30/23 History furosemide 20 mg tablet (Lasix) 10 mg PO QAM 12/15/24 12/15/24 Unknown History midodrine 2.5 mg tablet 2.5 mg PO QID 12/15/24 12/15/24 Unknown History rivaroxaban 20 mg tablet (Xarelto) 5 mg PO DAILY@1700 12/15/24 12/15/24 Unknown History Allergies Allergy/AdvReac Type Severity Reaction Status Date / Time acetaminophen (From Vicodin) AdvReac Intermediate Vomiting Verified 12/15/24 07:40 alendronate sodium (Fosamax) AdvReac Intermediate Nausea Verified 12/15/24 07:40 doxycycline AdvReac Intermediate Nausea Verified 12/15/24 07:40 hydrocodone AdvReac Intermediate vomiting Verified 12/15/24 07:40 adhesive AdvReac Mild Unknown,RASH, Verified 12/15/24 07:40 ITCH Iodinated Contrast Media AdvReac Mild Flushing Verified 12/15/24 07:40 latex AdvReac Mild Hives Verified 12/15/24 07:40 Contrast Media AdvReac Intermediate BURNING Uncoded 12/15/24 07:40 AND RED ALL OVER Review of Systems 2 Review of Systems: All systems reviewed & are unremarkable except as noted in HPI and below PMFSH Past Medical History Medical History Anxiety Anxiety attack Cancer of left breast Constipation Depression Diastolic dysfunction Echocardiogram 01/201919 grade 1 diastolic dysfunction EF 60% mild left atrial enlargement Emphysema of lung Fracture of fifth metatarsal bone of right foot with routine healing GERD (gastroesophageal reflux disease) Hypertension Lung cancer Osteoporosis, unspecified Prediabetes Vitamin D deficiency Surgical History Surgical History 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 13 cm layered closure. 04/12/2022 History of lobectomy of lung Right upper lobe 1994, left lower lung partial lobectomy 2005 History of right mastectomy (~2012) Family History Family History Mother CHF (congestive heart failure) Dementia Father Lung cancer Sibling Acute myocardial infarction Daughter Cerebrovascular accident Social History Social History Social History: She is . She has a daughter and a son. 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 She lives alone. She lives in a duplex that her daughter owns. Code status: Full code Healthcare power of real estate associate attorney: Ursula Vega (daughter) Smoking packs per day: 1 Smoking cigarettes per day: 20.0 Years smoked: 20 Smoking pack-years: 20.00 Smoking status: Former smoker Second hand tobacco smoke exposure: No Alcohol intake: current Drinks per week: 7 Alcohol use details: WINE Substance use: never Substance use type: does not use Do You Feel Safe in your Home?: Yes Lack of Transportation: No Lack of Food: Never True Current Housing: I Have Housing Concerned About Future Housing: No Difficulty Paying Gas/Electric Bills: No Difficulty Paying for Meds: No Currently Unemployed: No Education: High School Diploma/GED Difficulty w/ Childcare or Family Care: No Living arrangements: alone Occupation/Education: retired Gender identity (if verbalized by the patient): Female Spiritual care concerns: No Exam 2 Const: General: healthy appearing and no acute distress Nutritional Appearance: well nourished Orientation/consciousness: patient oriented x3 Limitations: no limitations Neck: Neck: normal visual inspection Chest: Chest palpation & inspection: normal inspection of the chest Resp: Effort & Inspection: normal respiratory effort Auscultation: clear to auscultation bilaterally Cardio: Rate: regular rate Rhythm: regular rhythm GI: GI Palp: Yes Soft to palpation and No Tenderness to palpation present (GI) Auscultation: normal bowel sounds Skin: General skin exam: normal color Rashes: no rashes Neuro: General: patient oriented x3, moves all extremities and no focal motor deficits Speech: normal speech Extrem: General: normal to inspection and no clubbing, cyanosis or edema Psych: Mental Status: mental status grossly normal Affect: normal affect Attitude: cooperative Course Vital Signs Vital signs: Vital Signs Temperature 98.3 F 12/15/24 07:32 Pulse Rate 69 12/15/24 07:32 Respiratory Rate 16 12/15/24 07:32 Blood Pressure 138/127 H 12/15/24 07:32 Pulse Oximetry 96 12/15/24 07:32 Oxygen Delivery Room Air 12/15/24 07:32 Temperature 98.3 F 12/15/24 07:32 Pulse Rate 94 12/15/24 10:10 Respiratory Rate 20 12/15/24 10:10 Blood Pressure 104/50 L 12/15/24 10:10 Pulse Oximetry 96 12/15/24 10:10 Oxygen Delivery Room Air 12/15/24 07:37 MDM - SOB/Dyspnea MDM Narrative Medical decision making narrative: Pt presents with SOB for 5 days. has Hx of copd and could be exacerbation of this. will check labs and ekg for cardiac cause and bnp for chf and cxr to rul eout pneumonia and chf. will test for covid flu and rsv and give neb. Pt feels much better after neb. pt has some effuson on cxr and bnp elevation. pt does not want to be admitted to hospital. Pt has had elevation of bnp in past. Pt also says her bp sometimes runs low. Will give dose of lasix 20 mg x 1 and send home on prednisone and z pack. Lab Data 12/15/24 07:37 12/15/24 07:37 Labs: Lab Results 12/15/24 Range/Units 07:37 WBC 3.6 L (4.5-10.0) K/mm3 RBC 3.93 L (4.2-5.4) M/mm3 Hgb 13.0 (12.0-15.0) g/dL Hct 40.1 (37.0-47.0) % MCV 102.0 H (80-100) fl MCH 33.1 (26-34) pg MCHC 32.4 (32-36) g/dl RDW 12.7 (11.5-14.5) % Plt Count 213 (150-375) k/mm3 MPV 10.6 H (7.4-10.4) fl Immature Gran % (Auto) 0.3 (0-0.5) % Neut % (Auto) 64.9 (45.5-73.1) % Lymph % (Auto) 18.0 L (18.3-44.2) % [place] % (Auto) 15.7 H (2.6-8.5) % Eos % (Auto) 0.8 (0-4.4) % Baso % (Auto) 0.3 (0.2-1.2) % Lymph # (Auto) 0.64 L (0.9-3.2) K/mm3 [place] # (Auto) 0.6 (0.1-0.6) K/mm3 Eos # (Auto) 0.0 (0-0.3) K/mm3 Baso # (Auto) 0.0 (0.0-0.1) K/mm3 Abs Immat Gran (auto) 0.01 (0.00-0.031) K/mm3 Absolute Neuts (auto) 2.3 (1.3-6.7) K/mm3 Absolute Nucleated RBC 0.000 (0.0-0.012) K/mm3 Nucleated RBC % 0.0 (0.0-0.2) % Sodium 138 (137-145) mmol/L Potassium 3.8 (3.4-5.0) mmol/L Chloride 104 (98-107) mmol/L Carbon Dioxide 27 (22-30) mmol/L Anion Gap 7 (4-12) mmol/L BUN 10 D (7-17) mg/dL Creatinine 0.83 (0.7-1.0) mg/dL Estim Creat Clear Calc 44 ml/min Estimated GFR > 60 (59 - ) Glucose 105 (65-110) mg/dL Calcium 8.8 (8.4-10.2) mg/dL Magnesium 1.8 (1.6-2.3) mg/dL Total Bilirubin 0.9 (0.2-1.3) mg/dL AST 22 (14-36) U/L ALT 19 (6-35) U/L Alkaline Phosphatase 55 (38-126) U/L NT-Pro-B Natriuret Pep 1210 H (19.9-100) pg/mL Total Protein 6.0 L (6.3-8.2) g/dL Albumin 3.9 (3.5-5.1) g/dL Influenza A (RT-PCR) Negative (Negative) Influenza B (RT-PCR) Negative (Negative) RSV (RT-PCR) Negative (Negative) SARS-CoV-2 RNA (RT-PCR) Negative (Negative) Discharge Plan Discharge Clinical Impression: COPD exacerbation Patient Disposition: Home, Self-Care Condition: Improved Instructions: Antibiotic Form, COPD (Chronic Obstructive Pulmonary Disease) (DC) Patient Language: Lao Prescriptions: New prednisone 10 mg tablets,dose pack See Rx Instructions .ROUTE .COMPLEX Qty: 21 0RF Rx Instructions: orally per package directions azithromycin [Zithromax Z-Kory] 250 mg tablet See Rx Instructions .ROUTE .COMPLEX Qty: 6 0RF Rx Instructions: For 250 mg dose pack: take 500 mg today (day 1), then 250 mg for 4 days (days 2-5) No Action anastrozole 1 mg tablet 1 mg PO DAILY escitalopram oxalate [Lexapro] 20 mg tablet 20 mg PO DAILY Qty: 90 1RF albuterol sulfate 2.5 mg /3 mL (0.083 %) solution for nebulization 2.5 mg inhalation Q4-6H PRN (Reason: shortness of breath or wheezing) Qty: 90 3RF lorazepam [Ativan] 0.5 mg tablet 0.5 mg PO QHS PRN (Reason: anxiety) Qty: 30 1RF carbidopa-levodopa 25-100 mg tablet 1 tablet PO TID Qty: 270 3RF Rx Instructions: May increase to 1 tablet 4 times a day if needed albuterol sulfate 90 mcg/actuation HFA aerosol inhaler 1 - 2 puff inhalation Q4-6H PRN (Reason: shortness of breath or wheezing) Qty: 8.5 2RF calcium carbonate-vitamin D3 600 mg-5 mcg (200 unit) Tablet 1 tablet PO DAILY cholecalciferol (vitamin D3) 25 mcg (1,000 unit) Capsule 25 mcg PO DAILY metoprolol tartrate 25 mg tablet 12.5 mg PO BID Qty: 60 0RF midodrine 2.5 mg tablet 2.5 mg PO QID furosemide [Lasix] 20 mg tablet 10 mg PO QAM Xarelto 20 mg tablet 5 mg PO DAILY@1700 Anoro Ellipta 62.5-25 mcg/actuation blister with device 1 inh inhalation DAILY Qty: 180 3RF Follow-up/Referrals: Brittney Vazquez DO [Primary Care Provider] -
[2024-12-15 07:36] VITALS: PULSE 71
[2024-12-15 07:37] VITALS: O2SAT 94
[2024-12-15 07:43] LABS: Basophils Percent Auto 0.3 % (0.2-1.2); Eosinophils Percent Auto 0.8 % (0-4.4); Hematocrit 40.1 % (37.0-47.0); Immature Granulocyte Absolute 0.01 K/mm3 (0.00-0.031); Immature Granulocyte Percent A 0.3 % (0-0.5); Lymphocytes Absolute Auto 0.64 K/mm3 (0.9-3.2); Mean Corpuscular HGB Conc 32.4 g/dl (32-36); Mean Corpuscular Hemoglobin 33.1 pg (26-34); Mean Platelet Volume 10.6 fl (7.4-10.4); Monocytes Absolute Auto 0.6 K/mm3 (0.1-0.6); Monocytes Percent Auto 15.7 % (2.6-8.5); Neutrophils Absolute Auto 2.3 K/mm3 (1.3-6.7); Neutrophils Percent Auto 64.9 % (45.5-73.1); Platelet Count Result 213 k/mm3 (150-375); Red Blood Count 3.93 M/mm3 (4.2-5.4); Red Cell Distribution Width 12.7 % (11.5-14.5); White Blood Count 3.6 K/mm3 (4.5-10.0)
[2024-12-15] MEDS: IPRATROPIUM 0.5 MG/ALBUTEROL SULFATE 2.5 MG AMPUL.NEB 3 ML INHALATION ×3 (07:54)
[2024-12-15 07:56] VITALS: PULSE 63; RESP 18
[2024-12-15 07:58] LABS: Alanine Aminotransferase 19 U/L (6-35); Albumin Level 3.9 g/dL (3.5-5.1); Alkaline Phosphatase 55 U/L (38-126); Anion Gap 7 mmol/L (4-12); Aspartate Amino Transferase 22 U/L (14-36); Bilirubin,Total 0.9 mg/dL (0.2-1.3); Blood Urea Nitrogen 10 mg/dL (7-17); Calcium 8.8 mg/dL (8.4-10.2); Carbon Dioxide 27 mmol/L (22-30); Chloride 104 mmol/L (98-107); Estimated CRCL calculation 44 ml/min; Estimated Glomerular Filt Rate > 60; Glucose 105 mg/dL (65-110); Potassium 3.8 mmol/L (3.4-5.0); Sodium 138 mmol/L (137-145)
[2024-12-15 08:05] LABS: Magnesium 1.8 mg/dL (1.6-2.3)
--- OUTSIDE RECORDS SUMMARY | 2024-12-15 08:14 | XMS_ITS | Clinical Summary ---
Author Organization [facility] [address] Address [address] [place] [address] Care Team Providers Care Chemical Worker Name Role Phone Brittney Vazquez DO Primary Care Provider + Allergies Active Allergy Reactions Criticality Noted Date Comments Iodinated Contrast Media Flushing (skin) Low 2021 Hydrocodone-Acetaminophen Vomiting Low 03/17/2022 Medications albuterol 2.5 mg /3 mL (0.083 %) nebulizer solution USE 1 VIAL PER NEBULIZER EVERY 4 TO 6 HOURS NEEDED FOR SHORTNESS OF BREATH OR WHEEZING. 2 Active carbidopa-levodop a (SINEMET) 25-100 mg per tablet Take 1 tablet by mouth every 8 (eight) hours 2 Active anastrozole (ARIMIDEX) 1 mg tablet 3 Active Anoro Ellipta 62.5-25 mcg/actuation blister with device 3 Active furosemide (LASIX) 40 mg tablet Take 0.5 tablets (20 mg total) by mouth daily 3 Active meclizine (ANTIVERT) 12.5 mg tablet TAKE 1 TABLET BY MOUTH FOUR TIMES DAILY NEEDED FOR DIZZINESS 3 Active metoprolol tartrate (LOPRESSOR) 25 mg immediate release tabletIndications :Paroxysmal atrial fibrillation (HCC) TAKE 1/2 TABLET(12.5 MG) BY MOUTH TWICE DAILY 90 tablet 3 4 Active escitalopram (LEXAPRO) 20 mg tablet Take 1 tablet (20 mg total) by mouth daily 4 Active midodrine (PROAMATINE) 2.5 mg tabletIndications :Symptomatic Orthostatic Hypotension Take 1 tablet (2.5 mg total) by mouth 3 (three) times a day 90 tablet 11 4 02/28/20 25 Active rivaroxaban (XARELTO) 15 mg tablet Take 1 tablet (15 mg total) by mouth daily with dinner 30 tablet 11 4 Active Active Problems Problem Noted Date Diagnosed Date Orthostasis 02/28/2024 Chronic anticoagulation 02/28/2024 Chest discomfort 10/24/2023 SOB (shortness of breath) 01/25/2023 Essential hypertension 07/20/2022 PAC (premature atrial contraction) 07/20/2022 PVC (premature ventricular contraction) 07/20/20 Paroxysmal atrial tachycardia 07/20/2022 Mitral valve disease 07/20/2022 Social History Tobacco Use Types Packs/Day Years Used Date Smoking Tobacco: Former Cigarettes Q uit: 03/09/1982 Tobacco Cessation:Counseling Given: Not Answered AUDIT-C Answer Date Recorded Q1: How often do you have a drink containing alcohol? Monthly or less 03/17/2022 Q2: How many drinks containi ng alcohol do you have on a typical day when you are drinking? 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 Gender Identity Not on file Sexual Orientation Not on file Obstetrics History Last Filed Vital Signs Vital Sign Reading Time Taken Comments Blood Pressure 124/70 02/28/2024 2:30 PM CDT Pulse 66 02/28/2024 2:30 PM CDT Temperature - - Respiratory Rate - - Oxygen Saturation 97% 02/28/2024 2:30 PM CDT Inhaled Oxygen Concentration - - Weight 58.5 kg (129 lb) 02/28/2024 2:30 PM CDT Height 172.7 cm (5' 8 ) 02/28/2024 2:30 PM CDT Body Mass Index 19.61 02/28/2024 2:30 PM CDT Plan of Treatment Health Maintenance Due Date Last Done Comments Depression Screening 1940 Fall Risk Assessment 1940 Osteoporosis Screening-Bone Density Scan 1939 DTaP/Tdap/Td Vaccine (1 - Tdap) 1950 Hepatitis B Screening 1957 Pneumococcal vaccine 65+ (1 of 2 - PCV) 1958 Zoster Vaccine (1 of 2) 1958 Well Visit 65+ 2004 Covid-19 Vaccine (4 - 2023-2 5 season) 2024 10/10/2021, 01/03/2021, 12/06/2020 Influenza Vaccine (#1) 2024 , 07/13/2020, 07/16/2019, Additional history exists Insurance MEDICARE [employer] [facility] Address: [address] [address] [facility]IC[employer] [facility] MEDIC[facility] Address: [facility] [address] [place] [address] Care Teams Chemical Worker Relationship Specialty Start Date End Date Brittney Vazquez DO PCP - General Family Medicine 01/25/23
--- OUTSIDE RECORDS SUMMARY | 2024-12-15 08:14 | XMS_ITS | Referral Summary ---
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
--- OUTSIDE RECORDS SUMMARY | 2024-12-15 08:14 | XMS_ITS | Patient Health Summary ---
Author Organization [facility] [employer] Address [address] [place] [address] Care Team Providers Care Compensation And Benefits Analyst Name Role Phone Manjinder Ruiz MD Primary Care Provider [phone] Note from [facility],non-owned Affiliates and Associated Physician Practices is amultiple site organization consisting of ambulatory clinics and hospital sitesin [place], [place], [place] and [place]. This disclosure is being madepursuant to the Care Everywhere program and may not contain all information available regarding this patient. Last updated 18.[facility] Allergies No known active allergies Social History Tobacco Use Types Packs/Day Years Used Date Smoking Tobacco: Never Assessed Sex and Gender Information Value Date Recorded Sex Assigned at Not on file Gender Identity Not on file Sexual Orientation Not on file Procedures * MRI BREAST BILAT WWO CONTRAST(Performed 02/04/2010) Performed for Malignant Neoplasm Of Breast (Female), Unspecified Site (Hcc) * BUN+CREATININE BLOOD PNL - POINT OF CARE(Performed 02/04/2010) Performed for Malignant Neoplasm Of Breast (Female), Unspecified Site (Hcc) Results * MRI BREAST W/WO CONTRAST BILAT (02/04/2010 8:44 AM CDT) Anatomical Region Laterality Modality Breast Bilateral Magnetic Resonan ce 02/04/2010 2:04 PM CDT Impressions 02/04/2010 5:59 PM CDT BIRADS category 4c - Suspicious abnormality, biopsy should be considered. Recommendation: Percutaneous biopsy, if not already performed, of the right breast lesion. No other lesions are noted. Narrative 02/04/2010 5:59 PM CDT MRI Breasts without/with contrast Indication: Prior history of breast cancer, now abnormal mammogram and ultrasound. Technique: Standard multiplanar multisequence images of the breasts are obtained pre- and postcontrast. The patient received 20 mL gadolinium rescan IV contrast. DynaCAD software was utilized for interpretation. Findings: There is some architectural distortion of the right breast, which may be prior surgical change. Additionally, within the right breast at the 11:00 to 12:00 position, there is an enhancing nodule with an unfavorable profile concerning for malignancy. This probably is consistent with a solid lesion seen on outside mammogram and ultrasound 01/25/2010. The nodule itself measures approximately 1.0 x 0.9 cm. No other masses are identified in either breast. No axillary adenopathy is appreciated. Procedure Note Eve Lynn MD - 02/04/2010 MRI Breasts without/with contrast Indication: Prior history of breast cancer, now abnormal mammogram and ultrasound. Technique: Standard multiplanar multisequence images of the breasts are obtained pre- and postcontrast. The patient received 20 mL gadolinium rescan IV contrast. DynaCAD software was utilized for interpretation. Findings: There is some architectural distortion of the right breast, which may be prior surgical change. Additionally, within the right breast at the 11:00 to 12:00 position, there is an enhancing nodule with an unfavorable profile concerning for malignancy. This probably is consistent with a solid lesion seen on outside mammogram and ultrasound 01/25/2010. The nodule itself measures approximately 1.0 x 0.9 cm. No other masses are identified in either breast. No axillary adenopathy is appreciated. IMPRESSION BIRADS category 4c - Suspicious abnormality, biopsy should be considered. Recommendation: Percutaneous biopsy, if not already performed, of the right breast lesion. No other lesions are noted. Signed On Paper Physician MR ORDERABLES * BUN+CREATININE BLOOD PNL - POINT OF CARE (02/04/2010 7:14 AM CDT) BUN POCT 13 7 - 17 mg/dL [facility] POCT TESTING Creatinine POCT 0.7 0.7 - 1.2 mg/dL [facility] POCT TEST[facility] QC Verified yes Yes [facility] POC T TESTING Blood specimen (specimen) BLOOD SPECIMEN / Unknown 02/04/2010 7:14 AM CDT Signed On Paper Physician LAB - POINT OF CARE ORDERABLES [facility] POCT TESTING [address] [address] Care Teams Compensation And Benefits Analyst Relationship Specialty Start Date End Date Manjinder Ruiz MD [address] [place], [place] [id number] PCP - General 03/22/22
--- OUTSIDE RECORDS SUMMARY | 2024-12-15 08:14 | XMS_ITS | Encounter Summary ---
Author Organization [facility] Address [address] [place] [address] Care Team Providers Care Swaging Machine Operator Name Role Phone Unavailable Primary Care Provider Unavailabl e Encounter Details Date Type Department Care Team (Late st Contact Info) Description 12/12/2024 External Device Data [facility] ABSTRACTION Provider, Abstract NO ADDRESS ON FILE Social History Tobacco Use Types Packs/Day Years Used Date Smoking Tobacco: Former Cigarettes 1 20 Q uit: 10/08/1981 Smokeless Tobacco: Never Alcohol Use Standard Drinks/Week Comments Yes 1 (1 standard drink = 0.6 oz pur e alcohol) everyday Comments Unknown Sex and Gender Information Value Date Recorded Sex Assigned at Not on file Legal Sex Female 10:40 PM CDT Gender Identity Not on file Sexual Orientation Not on file documented as of this encounter Plan of Treatment Upcoming Encounters Date Type Department Care Team (Late st Contact Info) Description 01/30/2025 10:15 AM CDT Office Visit [facility] Oncology and Hematology - [place] [address] [place] [address] [facility] [address] [place] [address] Alex Webster MD [address] [place] [address] documented as of this encounter Visit Diagnoses Not on filedocumented in this encounter
--- OUTSIDE RECORDS SUMMARY | 2024-12-15 08:14 | XMS_ITS | Continuity of Care Document ---
Author Organization [facility] Address [address] [place] [address] [address] [place] [address] Phone Care Team Providers Care Personnel And Payroll Technician Name Role Phone [facility] Unavailable Unavail able Arely Caballero Unavailable Unavailable Advance Directives Directive Yes / No Effective Date File Name No Information Encounters Encounter Description Practice Location Reason(s) For Visit Diagnoses Date Provider Providers Copied on Encounter [facility], [address], [place], [place], [id number], [place] tel:[phone] [facility] No Information Mar-0 2-200 1 [facility] [address] [facility], [facility] [address], [place], [place], [id number] , [place]. tel:[phone] Referring Provider: Nelson Ramsey, [address], [place], [address]. tel:[phone] g Provider: Arely Caballero, [address] [place] [address], [address]. tel:[phone] Family History Family Member Type Diagnosis Age At Onset No Information Payers Payer name Insurance type Covered democrat ID Authoriza tion(s) No Information Social History [...]
--- OUTSIDE RECORDS SUMMARY | 2024-12-15 08:14 | XMS_ITS | Referral Summary ---
Author Organization [facility] Address [address] [place] [address] Care Team Providers Care Rubber Factory Worker Name Role Phone Manjinder Ruiz MD Primary Care Provider [phone] Source Comments [facility],non-owned Affiliates and Associated Physician Practices is amultiple site organization consisting of ambulatory clinics and hospital sitesin [place], [place], [place] and [place]. This disclosure is being madepursuant to the Care Everywhere program and may not contain all information available regarding this patient. Last updated 18.[facility] Allergies No known active allergies Social History Tobacco Use Types Packs/Day Years Used Date Smoking Tobacco: Never Assessed Sex and Gender Information Value Date Recorded Sex Assigned at Not on file Gender Identity Not on file Sexual Orientation Not on file Plan of Treatment Not on file Care Teams Rubber Factory Worker Relationship Specialty Start Date End Date Manjinder Ruiz MD [address] [place] [address] [facility] - General 03/22/22
--- OUTSIDE RECORDS SUMMARY | 2024-12-15 08:14 | XMS_ITS | Clinical Summary ---
Author Organization [facility] Pat ragland [facility] Address [address] [place] [address] Care Team Providers Care Analytical Lab Technician Name Role Phone Unavailable Primary Care Provider Unavailabl e Allergies Active Allergy Reactions Criticality Noted Date Comments Hydrocodone-Acetaminophen Nausea and Vomiting Low 0 03/17/2022 Iodinated Contrast Media Other (See Comments) Low 0 03/17/2022 Medications albuterol (PROVENTIL,VENTOL IN) 2.5 mg /3 mL (0.083 %) Solution for Nebulization USE 1 VIAL PER NEBULIZER EVERY 4 TO 6 HOURS NEEDED FOR SHORTNESS OF BREATH OR WHEEZING. 2 Active carbidopa-levodop a (SINEMET) 25-100 mg tablet Take 1 Tablet by mouth every 8 hours. 2 Active citalopram (CeleXA) 20 mg tablet Take 20 mg by mouth daily. 2 Active Trelegy Ellipta 100-62.5-25 mcg Disk with Device INHALE 1 PUFF BY MOUTH DAILY 2 Active ibuprofen (MOTRIN) 600 mg tablet Take 600 mg by mouth every 6 hours as needed. 2 Active metoprolol tartrate (LOPRESSOR) 25 mg tablet 2 Active traMADoL (ULTRAM) 50 mg tablet Take 50 mg by mouth every 6 hours as needed. 2 Active anastrozole (ARIMIDEX) 1 mg tabletIndications :Malignant neoplasm of left breast in female, estrogen receptor positive, unspecified site of breast (CMS/HCC) Take 1 Tablet (1 mg) by mouth daily. 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, estrogen receptor positive 05/29/2022 Encounters Date Type Department Care Team Description 12/12/2024 External Device Data STL ABSTRACTION Provider, Abstract 11/26/2024 External Device Data ST[facility] ABSTRACTION Provider, Abstract 10/30/2024 External Device Data ST[facility] ABSTRACTION Provider, Abstract 09/23/2024 11:30 AM MICROFILM MOUNTER Office Visit [facility] Oncology and Hematology [facility] [address] [place] [address] Alex Webster MD Malignant neoplasm of left breast in female, estrogen receptor positive, unspecified site of breast (CMS/HCC) (Primary Dx) 09/16/2024 Orders Only [facility] Oncology and Hematology [facility] [address] [place] [id number] Alex Webster MD from Last 3 Months Family History Medical History Relation Name Comments Heart Disease Brother Cancer Father Relation Name Status Comments Brother Father Mother Social History Tobacco Use Types Packs/Day Years Used Date Smoking Tobacco: Former Cigarettes 1 20 Q uit: 10/08/1981 Smokeless Tobacco: Never Tobacco Cessation:Counseling Given: Not Answered Alcohol Use Standard Drinks/Week Comments Yes 1 (1 standard drink = 0.6 oz pur e alcohol) everyday Comments Unknown Sex and Gender Information Value Date Recorded Sex Assigned at Not on file Legal Sex Female 10:40 PM CDT Gender Identity Not on file Sexual Orientation Not on file Last Filed Vital Signs Vital Sign Reading Time Taken Comments Blood Pressure 132/74 09/23/2024 11:28 AM MICROFILM MOUNTER Pulse 58 09/23/2024 11:28 AM MICROFILM MOUNTER Temperature 36.9 C (98.5 F) 09/23/2024 11:28 AM MICROFILM MOUNTER Respiratory Rate 16 09/23/2024 11:28 AM MICROFILM MOUNTER Oxygen Saturation 90% 09/23/2024 11:28 AM MICROFILM MOUNTER Inhaled Oxygen Concentration - - Weight 60.3 kg (133 lb) 09/23/2024 11:28 AM MICROFILM MOUNTER Height 172.7 cm (5' 8 ) 05/29/2022 4:10 PM CDT Body Mass Index 20.22 05/29/2022 4:10 PM CDT Plan of Treatment Upcoming Encounters Date Type Department Care Team (Late st Contact Info) Description 01/30/2025 10:15 AM CDT Office Visit [facility] Oncology and Hematology [facility] [address] [place] [address] Alex Webster MD [address] [place] [address] Health Maintenance Due Date Last Done Comments DTAP/TDAP/TD VACCINES (1 - Tdap) 1959 PNEUMOCOCCAL VACCINE 50+ YEARS (1 of 1 - PCV) 04/28/19 89 ZOSTER VACCINE (1 of 2) 1989 OSTEOPOROSIS SCREENING 2004 RSV VACCINE (60+ or ) (1 - 1-dose 75+ series) 2014 INFLUENZA VACCINE (#1) 2024 Insurance
--- OUTSIDE RECORDS SUMMARY | 2024-12-15 08:14 | XMS_ITS | Encounter Summary ---
Author Organization [facility] Address [address] [place] [address] Care Team Providers Care Hotel Lobby Concierge Name Role Phone Unavailable Primary Care Provider Unavailabl e Encounter Details Date Type Department Care Team (Late st Contact Info) Description 12/26/2023 Abstract [facility] Oncology and Hematology - [place] [address] [place] [address] Becca López Social History Tobacco Use Types Packs/Day Years Used Date Smoking Tobacco: Never Smokeless Tobacco: Never Alcohol Use Standard Drinks/Week Comments Yes 0 (1 standard drink = 0.6 oz pur [...] Description 01/30/2025 10:15 AM CDT Office Visit [facility] Oncology and Hematology [facility] [address] [place] [address] Alex Webster MD [address] [place] [address] documented as of this encounter Visit Diagnoses Not on filedocumented in this encounter
--- OUTSIDE RECORDS SUMMARY | 2024-12-15 08:14 | XMS_ITS | Clinical Summary ---
Author Organization [facility] [employer] Address [address] [place] [address] Care Team Providers Care Realty Loan Specialist Name Role Phone Manjinder Ruiz MD Primary Care Provider [phone] Source Comments [facility],non-owned Affiliates and Associated Physician Practices is amultiple site organization consisting of ambulatory clinics and hospital sitesin [place], [place], [place] and [place]. This disclosure is being madepursuant to the Care Everywhere program and may not contain all information available regarding this patient. Last updated 18.[facility] [employer] Allergies No known active allergies Social History Tobacco Use Types Packs/Day Years Used Date Smoking Tobacco: Never Assessed Sex and Gender Information Value Date Recorded Sex Assigned at Not on file Gender Identity Not on file Sexual Orientation Not on file Plan of Treatment Health Maintenance Due Date Last Done Comments BONE DENSITY TESTING 1939 DTAP/TDAP/TD VACCINES (1 - Tdap) 1958 PNEUMOCOCCAL VACCINE 50+ (1 of 1 - PCV) 1989 ZOSTER VACCINE (1 of 2) 1989 Respiratory Syncytial Virus (RSV) Vaccine Pt: or over 60 yrs (1 - 1-dose 75+ series) 2014 COVID-19 VACCINE ( - 2023-2 5 season) 2024 INFLUENZA VACCINE (#1) 2024 DEPRESSION SCREENING 10/08/2024 MEDICARE AWV CALENDAR YEAR 2024 HEPATITIS B VACCINE Aged Out No longe r eligible based on patient's age to complete this topic HIB VACCINE Aged Out No longer eligi ble based on patient's age to complete this topic HPV VACCINE Aged Out No longer eligi ble based on patient's age to complete this topic MENINGOCOCCAL (Group B) VACCINE Aged Out No longer eligible based on patient's age to complete this topic MENINGOCOCCAL VACCINE Aged Out No owen cat eligible based on patient's age to complete this topic Care Teams Realty Loan Specialist Relationship Specialty Start Date End Date Manjinder Ruiz MD [address] [place] [address] PCP - General 03/22/22
[2024-12-15 08:15] LABS: NT Pro B Type Natriuretic Pept 1210 pg/mL (19.9-100)
[2024-12-15 08:23] LABS: Influenza A QL RT-PCR Negative (Negative); Influenza B QL RT-PCR Negative (Negative); RSV RNA, RT-PCR Negative (Negative); SARS-CoV-2 RNA PCR Negative (Negative)
[2024-12-15] MEDS: FUROSEMIDE INJ 40 MG/4 ML VIAL 20 MG IV PUSH (09:50)
[2024-12-15 10:10] VITALS: BP 104/50; PULSE 94; RESP 20; O2SAT 96
== END 2024-12-15 10:12 | disposition home or self-care (01) ==
PROVIDERS: Emergency Provider Emergency Medicine; PCP Family Medicine
DX: J44.1 Chronic obstructive pulmonary disease with (acute) exacerbation (principal); J43.9 Emphysema, unspecified; I10 Essential (primary) hypertension; E55.9 Vitamin D deficiency, unspecified; K21.9 Gastro-esophageal reflux disease without esophagitis; M81.0 Age-related osteoporosis without current pathological fracture; F41.9 Anxiety disorder, unspecified; F32.A Depression, unspecified; Z85.118 Personal history of other malignant neoplasm of bronchus and lung; Z85.3 Personal history of malignant neoplasm of breast; Z90.710 Acquired absence of both cervix and uterus; Z90.2 Acquired absence of lung [part of]; Z90.13 Acquired absence of bilateral breasts and nipples; I51.7 Cardiomegaly
CPT/HCPCS: 36415; 71046; 80053; 83735; 83880; 85025; 87637; 93005; 94640; 96374; 99284; J1940

== ENCOUNTER 2024-12-16 03:01 | Emergency (ER) | payer MEDICARE, SELFPAY ==
[2024-12-16 03:01] VITALS: BP 152/75; PULSE 79; RESP 22; TEMP 36.8; O2SAT 94; O2SAT 96
--- NOTE | 2024-12-16 03:06 | ECG_ITS ---
Test Date: 2024-12-16 03:10:39 Measurements Intervals [place] Rate: 76 P: 53 CO: 209 QRS: 66 QRSD: 103 T: 50 QT: 364 QTc: 410 Interpretive Statements SINUS RHYTHM WITH OCCASIONAL VENTRICULAR PREMATURE COMPLEXES LEFT VENTRICULAR HYPERTROPHY AND ST-T CHANGE [VOLTAGE CRITERIA PLUS ST/T ABNORMALITY] POSSIBLE SEPTAL MYOCARDIAL INFARCTION , OF INDETERMINATE AGE [30 ms Q WAVE IN V1/V2] Compared to ECG 12/15/2024 07:39:03 NO SIGNIFICANT CHANGES Electronically Signed On 12-16-2024 14:50:26 CDT by Belén Crowell M.D.
--- NOTE | 2024-12-16 03:13 | ED.GENADULT ---
HPI - General Adult General Chief complaint: Shortness of Breath/Dyspnea Stated complaint: IVERSON, SOB, RECENT COPD EXACERBATION History of Present Illness HPI narrative: Patient is an 84-year-old female who presents to the emergency department this evening complaining of shortness of breath, headache and nausea. Patient states that she was recently seen here yesterday for the same symptoms and had a full workup and was sent home on a Z-Kory and steroids for her COPD. Patient states that she fell asleep in her recliner and then when she woke up to go to the bathroom she felt weak, nauseous and had some shortness of breath which prompted her to come to the emergency department again for evaluation. Currently, patient denies any nausea, stating that her headache has resolved and denying any shortness of breath. Patient does not appear to be in any distress. Denies any chest pain. No additional symptoms or concerns at this time. Related Data Home Medications ?Medication ?Instructions ?Recorded ?Confirmed ?Last Taken ?Type calcium 600 mg (as 1 tablet PO DAILY 03/31/22 12/15/24 01/30/23 History carbonate)-vitamin D3 5 mcg (200 unit) tablet cholecalciferol (vitamin D3) 25 25 mcg PO DAILY 03/31/22 12/15/24 01/30/23 History mcg (1,000 unit) capsule anastrozole 1 mg tablet 1 mg PO DAILY 11/21/22 12/15/24 01/30/23 History furosemide 20 mg tablet (Lasix) 10 mg PO QAM 12/15/24 12/15/24 Unknown History midodrine 2.5 mg tablet 2.5 mg PO QID 12/15/24 12/15/24 Unknown History rivaroxaban 20 mg tablet (Xarelto) 5 mg PO DAILY@1700 12/15/24 12/15/24 Unknown History Allergies Allergy/AdvReac Type Severity Reaction Status Date / Time acetaminophen (From Vicodin) AdvReac Intermediate Vomiting Verified 12/16/24 03:08 alendronate sodium (Fosamax) AdvReac Intermediate Nausea Verified 12/16/24 03:08 doxycycline AdvReac Intermediate Nausea Verified 12/16/24 03:08 hydrocodone AdvReac Intermediate vomiting Verified 12/16/24 03:08 adhesive AdvReac Mild Unknown,RASH, Verified 12/16/24 03:08 ITCH Iodinated Contrast Media AdvReac Mild Flushing Verified 12/16/24 03:08 latex AdvReac Mild Hives Verified 12/16/24 03:08 Contrast Media AdvReac Intermediate BURNING Uncoded 12/16/24 03:08 AND RED ALL OVER Review of Systems Review of Systems: All systems are reviewed and are negative unless stated otherwise in the HPI. FOR[facility]LY [facility], [facility] Past Medical History Medical History Anxiety attack Depression Cancer of left breast Vitamin D deficiency Diastolic dysfunction Echocardiogram 01/201919 grade 1 diastolic dysfunction EF 60% mild left atrial enlargement Lung cancer Anxiety Constipation GERD (gastroesophageal reflux disease) Hypertension Emphysema of lung Fracture of fifth metatarsal bone of right foot with routine healing Osteoporosis, unspecified Prediabetes Surgical History Surgical History History of breast lump/mass excision Re-excision posterior chest wall margin, evacuate hematoma 05/02/22 History of excision of lesion Excision 2.9 cm metastatic breast cancer left chest wall with 2 mm margins, 3.3 cm excision. 13 cm layered closure. 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 She has a daughter and a son. 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 She lives alone. She lives in a duplex that her daughter owns. Code status: Full code Healthcare power of estate planning attorney: Ursula Vega (daughter) Smoking packs per day: 1 Smoking cigarettes per day: 20.0 Years smoked: 20 Smoking pack-years: 20.00 Smoking status: Former smoker Second hand tobacco smoke exposure: No Alcohol intake: current Drinks per week: 7 Alcohol use details: WINE Substance use: never Substance use type: does not use Do You Feel Safe in your Home?: Yes Lack of Transportation: No Lack of Food: Never True Current Housing: I Have Housing Concerned About Future Housing: No Difficulty Paying Gas/Electric Bills: No Difficulty Paying for Meds: No Currently Unemployed: No Education: High School Diploma/GED Difficulty w/ Childcare or Family Care: No Living arrangements: alone Occupation/Education: retired Gender identity (if verbalized by the patient): Female Spiritual care concerns: No Exam Narrative: General: Alert, awake, afebrile, in no acute distress, pleasant elderly female. HEENT: PERRL, no rhinorrhea, no post nasal drip, oropharynx clear. Neck: Trachea midline, no JVD, no lymphadenopathy. Cardiovascular: Regular rate and rhythm, no murmurs, rubs or gallops, no peripheral edema. Respiratory: Clear to auscultation bilaterally, no tachypnea, no wheezing, no rhonchi, no rubs, no respiratory distress. Abdomen: Soft, nontender, nondistended, no rebound, no guarding, no peritoneal signs. Musculoskeletal: No joint swelling or deformity, normal muscle tone. Skin: No rashes or petechia, no signs of infection. Psychiatric: Alert and oriented, normal behavior and judgment for situation. Neurological: Alert and oriented to person, place, and time. Follows all commands. No focal deficits, speech is clear and fluent. Course Vital Signs Vital signs: Vital Signs Temperature 98.2 F 12/16/24 03:01 Pulse Rate 79 12/16/24 03:01 Respiratory Rate 22 H 12/16/24 03:01 Blood Pressure 152/75 H 12/16/24 03:01 Pulse Oximetry 94 12/16/24 03:01 Oxygen Delivery Room Air 12/16/24 03:01 Temperature 98.2 F 12/16/24 03:01 Pulse Rate 79 12/16/24 03:01 Respiratory Rate 22 H 12/16/24 03:01 Blood Pressure 152/75 H 12/16/24 03:01 Pulse Oximetry 96 12/16/24 03:01 Oxygen Delivery Room Air 12/16/24 03:01 Medical Decision Making [facility] Narrative Medical decision making narrative: The patient was evaluated by myself in the emergency department. History is obtained from patient who is an independent historian and physical exam was performed. External medical records were reviewed at this time. IV was established and pertinent tests were ordered. Patient was informed that her lung examination was clear, did not hear any wheezing. She was administered 4 mg of IV Zofran for nausea and an oral Tylenol 650 mg for headache. EKG was obtained which revealed sinus rhythm rate of 76 beats per minute, no evidence of acute ischemia. EKG was independently interpreted by me and is currently pending official cardiology read. Laboratory results obtained including a troponin revealed no acute process. Patient's imaging results from yesterday included a chest x-ray less than 24 hours ago revealing small left pleural effusion, right upper lobectomy and partial left upper lobectomy, cardiomegaly, no consolidation or evidence of pneumonia, no acute process Differential diagnosis considerations include COPD exacerbation, acute viral syndrome, infectious process such as pneumonia. Comorbidities impacting this visit include history of COPD. I have evaluated and discussed social determinants of health with the patient that could potentially impact subsequent diagnosis and treatment plans. On repeat assessment of the patient, reevaluation revealed that the patient is doing well and is in no acute distress. Patient symptoms have improved since she arrived to our emergency department. Repeat vital signs were all reviewed and noted to be stable. Differential diagnosis and treatment plan were discussed with the patient at bedside. Shared medical decision-making with the patient at this time regarding admission versus discharge was discussed, patient states does not want to stay, she is concerned that she will pharmacy picking tech COVID or influenza stating that she told her daughter not to come and visit her because her daughter is sick and she does not want to pharmacy picking tech her daughter has and would like to go home. Patient states that she feels well to go home. Patient will follow up with her PCP in 3-5 days. Patient was provided with strict return precautions and instructed to return to the emergency department if any new or worsening symptoms develop. The patient was discharged in stable condition. Vital Signs Vital Signs: Vital Signs Temperature 98.2 F 12/16/24 03:01 Pulse Rate 79 12/16/24 03:01 Respiratory Rate 22 H 12/16/24 03:01 Blood Pressure 152/75 H 12/16/24 03:01 Pulse Oximetry 94 12/16/24 03:01 Oxygen Delivery Room Air 12/16/24 03:01 Temperature 98.2 F 12/16/24 03:01 Pulse Rate 79 12/16/24 03:01 Respiratory Rate 22 H 12/16/24 03:01 Blood Pressure 152/75 H 12/16/24 03:01 Pulse Oximetry 96 12/16/24 03:01 Oxygen Delivery Room Air 12/16/24 03:01 Lab Data 12/16/24 03:09 12/16/24 03:09 Labs: Lab Results 12/16/24 Range/Units 03:09 WBC 3.8 L (4.5-10.0) K/mm3 RBC 4.01 L (4.2-5.4) M/mm3 Hgb 13.3 (12.0-15.0) g/dL Hct 40.0 (37.0-47.0) % MCV 99.8 (80-100) fl MCH 33.2 (26-34) pg MCHC 33.3 (32-36) g/dl RDW 12.8 (11.5-14.5) % Plt Count 214 (150-375) k/mm3 MPV 10.7 H (7.4-10.4) fl Immature Gran % (Auto) 0.3 (0-0.5) % Neut % (Auto) 60.8 (45.5-73.1) % Lymph % (Auto) 21.0 (18.3-44.2) % Shelby % (Auto) 17.3 H (2.6-8.5) % Eos % (Auto) 0.3 (0-4.4) % Baso % (Auto) 0.3 (0.2-1.2) % Lymph # (Auto) 0.79 L (0.9-3.2) K/mm3 Shelby # (Auto) 0.7 H (0.1-0.6) K/mm3 Eos # (Auto) 0.0 (0-0.3) K/mm3 Baso # (Auto) 0.0 (0.0-0.1) K/mm3 Abs Immat Gran (auto) 0.01 (0.00-0.031) K/mm3 Absolute Neuts (auto) 2.3 (1.3-6.7) K/mm3 Absolute Nucleated RBC 0.000 (0.0-0.012) K/mm3 Nucleated RBC % 0.0 (0.0-0.2) % PT 14.8 H (11.1-14.7) Seconds INR 1.1 APTT 29.8 (22.3-36.8) Seconds Sodium 136 L (137-145) mmol/L Potassium 4.2 (3.4-5.0) mmol/L Chloride 99 (98-107) mmol/L Carbon Dioxide 28 (22-30) mmol/L Anion Gap 9 (4-12) mmol/L BUN 15 D (7-17) mg/dL Creatinine 0.90 (0.7-1.0) mg/dL Estim Creat Clear Calc 37 ml/min Estimated GFR 60 (59 - ) Glucose 115 H (65-110) mg/dL Calcium 9.6 (8.4-10.2) mg/dL Magnesium 1.9 (1.6-2.3) mg/dL Total Bilirubin 1.1 (0.2-1.3) mg/dL AST 23 (14-36) U/L ALT 14 (6-35) U/L Alkaline Phosphatase 54 (38-126) U/L Troponin I < 0.012 (0.000-0.034) ng/mL NT-Pro-B Natriuret Pep 1070 H (19.9-100) pg/mL Total Protein 7.0 (6.3-8.2) g/dL Albumin 4.1 (3.5-5.1) g/dL Discharge Plan Discharge Clinical Impression: SOB (shortness of breath), Nausea Patient Disposition: Home, Self-Care Condition: Improved Instructions: Antibiotic Form, Shortness of Breath (ED) Additional Instructions: Please follow-up with your family doctor within the next 3-5 days. Use the prescribed antibiotic from ER visit yesterday including use steroids and Z-Kory as instructed. Return to the ED if any new or worsening symptoms develop. Patient Language: Afghan Prescriptions: No Action anastrozole 1 mg tablet 1 mg PO DAILY escitalopram oxalate [Lexapro] 20 mg tablet 20 mg PO DAILY Qty: 90 1RF albuterol sulfate 2.5 mg /3 mL (0.083 %) solution for nebulization 2.5 mg inhalation Q4-6H PRN (Reason: shortness of breath or wheezing) Qty: 90 3RF lorazepam [Ativan] 0.5 mg tablet 0.5 mg PO QHS PRN (Reason: anxiety) Qty: 30 1RF carbidopa-levodopa 25-100 mg tablet 1 tablet PO TID Qty: 270 3RF Rx Instructions: May increase to 1 tablet 4 times a day if needed albuterol sulfate 90 mcg/actuation HFA aerosol inhaler 1 - 2 puff inhalation Q4-6H PRN (Reason: shortness of breath or wheezing) Qty: 8.5 2RF calcium carbonate-vitamin D3 600 mg-5 mcg (200 unit) Tablet 1 tablet PO DAILY cholecalciferol (vitamin D3) 25 mcg (1,000 unit) Capsule 25 mcg PO DAILY metoprolol tartrate 25 mg tablet 12.5 mg PO BID Qty: 60 0RF midodrine 2.5 mg tablet 2.5 mg PO QID furosemide [Lasix] 20 mg tablet 10 mg PO QAM Xarelto 20 mg tablet 5 mg PO DAILY@1700 prednisone 10 mg tablets,dose pack See Rx Instructions .ROUTE .COMPLEX Qty: 21 0RF Rx Instructions: orally per package directions azithromycin [Zithromax Z-Kory] 250 mg tablet See Rx Instructions .ROUTE .COMPLEX Qty: 6 0RF Rx Instructions: For 250 mg dose pack: take 500 mg today (day 1), then 250 mg for 4 days (days 2-5) Anoro Ellipta 62.5-25 mcg/actuation blister with device 1 inh inhalation DAILY Qty: 180 3RF Follow-up/Referrals: Brittney Vazquez DO [Primary Care Provider] - 3 Days Time of Disposition: 04:02
[2024-12-16 03:20] LABS: Basophils Percent Auto 0.3 % (0.2-1.2); Eosinophils Percent Auto 0.3 % (0-4.4); Hemoglobin 13.3 g/dL (12.0-15.0); Immature Granulocyte Absolute 0.01 K/mm3 (0.00-0.031); Immature Granulocyte Percent A 0.3 % (0-0.5); Lymphocytes Absolute Auto 0.79 K/mm3 (0.9-3.2); Mean Corpuscular HGB Conc 33.3 g/dl (32-36); Mean Corpuscular Hemoglobin 33.2 pg (26-34); Mean Corpuscular Volume 99.8 fl (80-100); Mean Platelet Volume 10.7 fl (7.4-10.4); Monocytes Absolute Auto 0.7 K/mm3 (0.1-0.6); Monocytes Percent Auto 17.3 % (2.6-8.5); Neutrophils Absolute Auto 2.3 K/mm3 (1.3-6.7); Neutrophils Percent Auto 60.8 % (45.5-73.1); Platelet Count Result 214 k/mm3 (150-375); Red Blood Count 4.01 M/mm3 (4.2-5.4); Red Cell Distribution Width 12.8 % (11.5-14.5); White Blood Count 3.8 K/mm3 (4.5-10.0)
--- OUTSIDE RECORDS SUMMARY | 2024-12-16 03:21 | XMS_ITS | Clinical Summary ---
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
--- OUTSIDE RECORDS SUMMARY | 2024-12-16 03:21 | XMS_ITS | Clinical Summary ---
Author Organization [facility] [employer] Address [address] [place] [address] Care Team Providers Care Bankruptcy Judge Name Role Phone Manjinder Ruiz MD Primary Care Provider [phone] Source Comments [facility],non-owned Affiliates and Associated Physician Practices is amultiple site organization consisting of ambulatory clinics and hospital sitesin [place], [place], [place] and [place]. This disclosure is being madepursuant to the Care Everywhere program and may not contain all information available regarding this patient. Last updated 18.[facility] [employer] Allergies No known active allergies Social History [...] age to complete this topic Care Teams Bankruptcy Judge Relationship Specialty Start Date End Date Manjinder Ruiz MD [address] [place] [address] PCP - General 03/22/22
--- OUTSIDE RECORDS SUMMARY | 2024-12-16 03:21 | XMS_ITS | Referral Summary ---
Author Organization [facility] Address [address] [place] [address] Care Team Providers Care Ambulatory Service Representative Name Role Phone Manjinder Ruiz MD Primary Care Provider [phone] Source Comments [facility],non-owned Affiliates and Associated Physician Practices is amultiple site organization consisting of ambulatory clinics and hospital sitesin [place], [place], [place] and [place]. This disclosure is being madepursuant to the Care Everywhere program and may not contain all information available regarding this patient. Last updated 18.[facility] Allergies No known active allergies Social History Tobacco Use Types Packs/Day Years Used Date Smoking Tobacco: Never Assessed Sex and Gender Information Value Date Recorded Sex Assigned at Not on file Gender Identity Not on file Sexual Orientation Not on file Plan of Treatment Not on file Care Teams Ambulatory Service Representative Relationship Specialty Start Date End Date Manjinder Ruiz MD [address] [place] [address] [facility] - General 03/22/22
--- OUTSIDE RECORDS SUMMARY | 2024-12-16 03:21 | XMS_ITS | Encounter Summary ---
Author Organization [facility] BRICE Dubon [facility] Address [address] [place] [address] Care Team Providers Care Hide Inspector And Sorter Name Role Phone Unavailable Primary Care Provider Unavailabl e Encounter Details Date Type Department Care Team (Late st Contact Info) Description 12/26/2023 Abstract [facility] Oncology and Hematology - Kareem [address] [place] [address] Becca López Social History Tobacco [...] Description 01/30/2025 10:15 AM CDT Office Visit [facility] Oncology and Hematology [facility] [address] [place] [address] Alex Webster MD [address] [place] [address] documented as of this encounter Visit Diagnoses Not on filedocumented in this encounter
--- OUTSIDE RECORDS SUMMARY | 2024-12-16 03:21 | XMS_ITS | Patient Health Summary ---
Author Organization [facility] [email or web address] Address [address] [place] [address] Care Team Providers Care Bobtail Driver Name Role Phone Manjinder Ruiz MD Primary Care Provider [phone] Note from [facility],non-owned Affiliates and Associated Physician Practices is amultiple site organization consisting of ambulatory clinics and hospital sitesin [place], [place], [place] and [place]. This disclosure is being madepursuant to the Care Everywhere program and may not contain all information available regarding this patient. Last updated 18.[facility] [email or web address] Allergies No known active allergies Social History [...] Physician LAB - POINT OF CARE ORDERABLES [facility] POCT TESTING [address] [address] Care Teams Bobtail Driver Relationship Specialty Start Date End Date Manjinder Ruiz MD [address] [place], [place] [id number] PCP - General 03/22/22
--- OUTSIDE RECORDS SUMMARY | 2024-12-16 03:21 | XMS_ITS | Referral Summary ---
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
--- OUTSIDE RECORDS SUMMARY | 2024-12-16 03:21 | XMS_ITS | Clinical Summary ---
Author Organization [facility] [facility] Address [address] [place] [address] Care Team Providers Care Pharmacy District Manager Name Role Phone Unavailable Primary Care Provider [...] STL ABSTRACTION Provider, Abstract 09/23/2024 11:30 AM KEYMODULE ASSEMBLY SUPERVISOR Office Visit [facility] Oncology and [facility] [address] [place] [address] Alex Webster MD Malignant neoplasm of left breast in female, estrogen receptor positive, unspecified site of breast (CMS/HCC) (Primary Dx) from Last 3 Months Family History Medical [...] Comments Blood Pressure 132/74 09/23/2024 11:28 AM KEYMODULE ASSEMBLY SUPERVISOR Pulse 58 09/23/2024 11:28 AM KEYMODULE ASSEMBLY SUPERVISOR Temperature 36.9 C (98.5 F) 09/23/2024 11:28 AM KEYMODULE ASSEMBLY SUPERVISOR Respiratory Rate 16 09/23/2024 11:28 AM KEYMODULE ASSEMBLY SUPERVISOR Oxygen Saturation 90% 09/23/2024 11:28 AM KEYMODULE ASSEMBLY SUPERVISOR Inhaled Oxygen Concentration - - Weight 60.3 kg (133 lb) 09/23/2024 11:28 AM KEYMODULE ASSEMBLY SUPERVISOR Height 172.7 cm (5' 8 ) 05/29/2022 4:10 PM CDT Body Mass Index 20.22 05/29/2022 4:10 PM CDT Plan of Treatment Upcoming Encounters Date Type Department Care Team (Late st Contact Info) Description 01/30/2025 10:15 AM CDT Office Visit [facility]cology and [facility] [address] [place] [address] Alex Webster MD [address] [place] [address] Health Maintenance Due Date Last Done Comments DTAP/TDAP/TD VACCINES (1 - Tdap) 1958 PNEUMOCOCCAL VACCINE 50+ YEARS (1 of 1 - PCV) 04/28/19 89 ZOSTER VACCINE (1 of 2) 1989 OSTEOPOROSIS SCREENING 2004 RSV VACCINE (60+ or ) (1 - 1-dose 75+ series) 2014 INFLUENZA VACCINE (#1) 2024 Insurance
--- OUTSIDE RECORDS SUMMARY | 2024-12-16 03:21 | XMS_ITS | Continuity of Care Document ---
Author Organization [facility] Address [address] [place] [address] [address] [place] [address] Phone Care Team Providers Care Spinning Lathe Operator Hydraulic Name Role Phone [facility] Unavailable Unavail able Arely Caballero Unavailable Unavailable Advance Directives Directive Yes / No Effective Date File Name No Information Encounters Encounter Description Practice Location Reason(s) For Visit Diagnoses Date Provider Providers Copied on Encounter [facility], [address], [place], [place], [id number], [place] tel:[phone] [facility] No Information Mar-0 2-200 1 [facility] [address] [facility], [facility] [address], [place], [place], [id number] , [place]. tel:[phone] Referring Provider: Nelson Ramsey, [address], [place], [address]. tel:[phone] g Provider: Arely Caballero, [address] [place] [address], [address]. tel:[phone] Family History Family Member Type Diagnosis Age At Onset No Information Payers Payer name Insurance type Covered libertarian ID Authoriza tion(s) No Information Social History [...]
[2024-12-16 03:33] LABS: Alanine Aminotransferase 14 U/L (6-35); Albumin Level 4.1 g/dL (3.5-5.1); Alkaline Phosphatase 54 U/L (38-126); Anion Gap 9 mmol/L (4-12); Aspartate Amino Transferase 23 U/L (14-36); Bilirubin,Total 1.1 mg/dL (0.2-1.3); Blood Urea Nitrogen 15 mg/dL (7-17); Calcium 9.6 mg/dL (8.4-10.2); Carbon Dioxide 28 mmol/L (22-30); Chloride 99 mmol/L (98-107); Estimated CRCL calculation 37 ml/min; Estimated Glomerular Filt Rate 60; Glucose 115 mg/dL (65-110); Potassium 4.2 mmol/L (3.4-5.0); Sodium 136 mmol/L (137-145)
[2024-12-16 03:35] LABS: Magnesium 1.9 mg/dL (1.6-2.3)
[2024-12-16 03:41] LABS: INR 1.1; Prothrombin Time 14.8 Seconds (11.1-14.7)
[2024-12-16 03:42] LABS: Partial Thromboplastin Time 29.8 Seconds (22.3-36.8)
[2024-12-16 03:43] LABS: NT Pro B Type Natriuretic Pept 1070 pg/mL (19.9-100)
[2024-12-16 03:45] LABS: Troponin I < 0.012 ng/mL (0.000-0.034)
[2024-12-16] MEDS: ONDANSETRON INJ 4 MG/2 ML VIAL IV PUSH (04:09)
[2024-12-16] MEDS: ACETAMINOPHEN 325 MG TABLET 650 MG PO (04:09)
[2024-12-16 04:30] VITALS: BP 120/69; PULSE 72; RESP 18; O2SAT 93
== END 2024-12-16 04:34 | disposition home or self-care (01) ==
PROVIDERS: Emergency Provider Emergency Medicine; PCP Family Medicine
DX: R06.02 Shortness of breath (principal); R11.0 Nausea; F41.9 Anxiety disorder, unspecified; F32.A Depression, unspecified; K21.9 Gastro-esophageal reflux disease without esophagitis; I10 Essential (primary) hypertension
CPT/HCPCS: 36415; 80053; 83735; 83880; 84484; 85025; 85610; 85730; 93005; 96374; 99284; A9270; J2405

== ENCOUNTER 2024-12-23 09:41 | Emergency (ER) | payer MEDICARE, SELFPAY ==
[2024-12-23 09:42] VITALS: BP 149/67; PULSE 65; RESP 16; TEMP 36.4; O2SAT 97
--- OUTSIDE RECORDS SUMMARY | 2024-12-23 10:36 | XMS_ITS | Clinical Summary ---
Author Organization [facility] [employer] Address [address] [place] [address] Care Team Providers Care Ball Point Splitter Name Role Phone Manjinder Ruiz MD Primary Care Provider [phone] Source Comments [facility],non-owned Affiliates and Associated Physician Practices is amultiple site organization consisting of ambulatory clinics and hospital sitesin [place], [place], [place] and [place]. This disclosure is being madepursuant to the Care Everywhere program and may not contain all information available regarding this patient. Last updated 18[facility] [employer] Allergies No known active allergies Social History [...] to complete this topic MENINGOCOCCAL (Group B) VACC INE SHARED DECISION-MAKING Aged Out No longer eligibl e based on patient's age to complete this topic MENINGOCOCCAL GROUPS A/C/Y/W VACCINE Aged Out No longer eligible b ased on patient's age to complete this topic Care Teams Ball Point Splitter Relationship Specialty Start Date End Date Manjinder Ruiz MD [address] [place] [address] PCP - General 03/22/22
--- OUTSIDE RECORDS SUMMARY | 2024-12-23 10:36 | XMS_ITS | Clinical Summary ---
Author Organization [facility] Pat ragland [facility] Address [address] [place] [address] Care Team Providers Care Stockholder Name Role Phone Unavailable Primary Care Provider [...] Encounters Date Type Department Care Team Description 12/13/2024 External Device Data STL ABSTRACTION Provider, Abstract 12/12/2024 External Device Data STL ABSTRACTION Provider, Abstract 11/26/2024 External Device Data STL ABSTRACTION Provider, Abstract 10/30/2024 External Device Data STL ABSTRACTION Provider, Abstract from Last 3 Months Family History Medical [...] Comments Blood Pressure 132/74 09/23/2024 11:28 AM SCREED OPERATOR Pulse 58 09/23/2024 11:28 AM SCREED OPERATOR Temperature 36.9 C (98.5 F) 09/23/2024 11:28 AM SCREED OPERATOR Respiratory Rate 16 09/23/2024 11:28 AM SCREED OPERATOR Oxygen Saturation 90% 09/23/2024 11:28 AM SCREED OPERATOR Inhaled Oxygen Concentration - - Weight 60.3 kg (133 lb) 09/23/2024 11:28 AM SCREED OPERATOR Height 172.7 cm (5' 8 ) 05/29/2022 4:10 PM CDT Body Mass Index 20.22 05/29/2022 4:10 PM CDT Plan of Treatment Upcoming Encounters Date Type Department Care Team (Late st Contact Info) Description 01/30/2025 10:15 AM CDT Office Visit [facility] Oncology and Hematology - Kareem [address] [facility] [address] [place] [address] Alex Webster MD [address] [place] [address] Health Maintenance Due Date Last Done Comments DTAP/TDAP/TD VACCINES (1 - Tdap) 1958 PNEUMOCOCCAL VACCINE 50+ YEARS (1 of 1 - PCV) 07/22/19 89 ZOSTER VACCINE (1 of 2) 1989 OSTEOPOROSIS SCREENING 2004 RSV VACCINE (60+ or ) (1 - 1-dose 75+ series) 2014 INFLUENZA VACCINE (#1) 2024 Insurance [facility] [id number] [place] [id number]
--- OUTSIDE RECORDS SUMMARY | 2024-12-23 10:36 | XMS_ITS | Clinical Summary ---
Author Organization [facility] [address] Address [address] [place] [address] Care Team Providers Care Manager Radiation Name Role Phone Brittney Vazquez DO Primary [...] on file Legal Sex Female 2:33 AM BLOCK LAYER Gender Identity Not on file Sexual Orientation [...] 07/16/2019, Additional history exists Insurance MEDICARE [facility] [facility] MEDICARE Address: [address] [address] MEDICARE [employer] [facility] MEDICARE Address: [address] [address] [place] [address] Care Teams Manager Radiation Relationship Specialty Start Date End Date Brittney Vazquez DO PCP - General Family Medicine 01/25/23
--- OUTSIDE RECORDS SUMMARY | 2024-12-23 10:36 | XMS_ITS | Encounter Summary ---
Author Organization [facility] BRICE Dubon [facility] Address [address] [place] [address] Care Team Providers Care Tenon Machine Operator Name Role Phone Unavailable Primary Care Provider Unavailabl e Encounter Details Date Type Department Care Team (Late st Contact Info) Description 12/26/2023 Abstract [facility] Oncology and Hematology - Kareem [address] [place] [address] Becca López Social History Tobacco [...] Description 01/30/2025 10:15 AM CDT Office Visit [facility] Oncology and Hematology [facility] [address] [place] [address] Alex Webster MD [address] [facility] [address] [facility] [facility] [address] [place] [address] documented as of this encounter Visit Diagnoses Not on filedocumented in this encounter
--- OUTSIDE RECORDS SUMMARY | 2024-12-23 10:36 | XMS_ITS | Continuity of Care Document ---
Author Organization [facility] Address [address] [place] [address] [address] [place] [address] Phone Care Team Providers Care Lobster Fisherman Name Role Phone [facility] Unavailable Unavail able Arely Caballero Unavailable Unavailable Advance Directives Directive Yes / No Effective Date File Name No Information Encounters Encounter Description Practice Location Reason(s) For Visit Diagnoses Date Provider Providers Copied on Encounter [facility], [address], [place], [place], [id number], [place] tel:[phone] [facility] No Information Mar-0 2-200 1 [facility] [address] [facility], [facility] [address], [place], [place], [id number] , [place]. tel:[phone] Referring Provider: Nelson Ramsey, [address], [place], [address]. tel:[phone] g Provider: Arely Caballero, [address] [place] [address], [address]. tel:[phone] Family History Family Member Type Diagnosis Age [...]
--- OUTSIDE RECORDS SUMMARY | 2024-12-23 10:36 | XMS_ITS | Referral Summary ---
Author Organization [facility] [address] Address [address] [place] [address] Care Team Providers Care Retail Banking Manager Name Role Phone Brittney Vazquez DO Primary [...] on file Legal Sex Female 2:33 AM LAYER OUT PLATE GLASS Gender Identity Not on file Sexual Orientation [...] Insurance MEDICARE SOLUTIONS MEDICARE SOLUTIONS Care Teams Retail Banking Manager Relationship Specialty Start Date End Date Brittney Vazquez DO PCP - General Family Medicine 01/25/23
--- NOTE | 2024-12-23 11:22 | PC.NURSE ---
Pts daughter ambulates to intake desk to this RN and states, my mom wants to just go home, can you take her IV out?
--- OUTSIDE RECORDS SUMMARY | 2024-12-23 13:04 | XMS_ITS | Clinical Summary ---
Author Organization [facility] [employer] Address [address] [place] [address] Care Team Providers Care Garment Sorter Name Role Phone Manjinder Ruiz MD Primary Care Provider [phone] Source Comments [facility],non-owned Affiliates and Associated Physician Practices is amultiple site organization consisting of ambulatory clinics and hospital sitesin [place], [place], [place] and [place]. This disclosure is being madepursuant to the Care Everywhere program and may not contain all information available regarding this patient. Last updated 18.[facility] [employer] Allergies No known active allergies Social History [...] age to complete this topic Care Teams Garment Sorter Relationship Specialty Start Date End Date Manjinder Ruiz MD [address] [place] [address] PCP - General 03/22/22
--- OUTSIDE RECORDS SUMMARY | 2024-12-23 13:04 | XMS_ITS | Clinical Summary ---
Author Organization [facility] [place] [facility] Address [address] [place] [address] Care Team Providers Care Pie Bakery Laborer Name Role Phone Unavailable Primary Care Provider [...] Comments Blood Pressure 132/74 09/23/2024 11:28 AM BOBBIN LOOSE END FINDER Pulse 58 09/23/2024 11:28 AM BOBBIN LOOSE END FINDER Temperature 36.9 C (98.5 F) 09/23/2024 11:28 AM BOBBIN LOOSE END FINDER Respiratory Rate 16 09/23/2024 11:28 AM BOBBIN LOOSE END FINDER Oxygen Saturation 90% 09/23/2024 11:28 AM BOBBIN LOOSE END FINDER Inhaled Oxygen Concentration - - Weight 60.3 kg (133 lb) 09/23/2024 11:28 AM BOBBIN LOOSE END FINDER Height 172.7 cm (5' 8 ) 05/29/2022 4:10 PM CDT Body Mass Index 20.22 05/29/2022 4:10 PM CDT Plan of Treatment Upcoming Encounters Date Type Department Care Team (Late st Contact Info) Description 01/30/2025 10:15 AM CDT Office Visit [facility] Oncology and Hematology - Kareem [address] [facility] [address] [place] [address] Alex Webster MD [address] [facility] [address] [place] [address] Health Maintenance Due Date Last Done Comments DTAP/TDAP/TD VACCINES (1 - Tdap) 1958 PNEUMOCOCCAL VACCINE 50+ YEARS (1 of 1 - PCV) 07/22/19 89 ZOSTER VACCINE (1 of 2) 1989 OSTEOPOROSIS SCREENING 2004 RSV VACCINE (60+ or ) (1 - 1-dose 75+ series) 2014 INFLUENZA VACCINE (#1) 2024 Insurance [facility] [id number] [place] [id number]
--- OUTSIDE RECORDS SUMMARY | 2024-12-23 13:04 | XMS_ITS | Referral Summary ---
Author Organization [facility] [address] Address [address] [place] [address] Care Team Providers Care Oracle Ebs Developer Name Role Phone Brittney Vazquez DO Primary [...] on file Legal Sex Female 2:33 AM DEVELOPER PROVER MECHANICAL Gender Identity Not on file Sexual Orientation [...] Insurance MEDICARE SOLUTIONS MEDICARE SOLUTIONS Care Teams Oracle Ebs Developer Relationship Specialty Start Date End Date Brittney Vazquez DO PCP - General Family Medicine 01/25/23
--- OUTSIDE RECORDS SUMMARY | 2024-12-23 13:04 | XMS_ITS | Continuity of Care Document ---
Author Organization [facility] Address [address] [place] [address] [address] [place] [address] Phone Care Team Providers Care Certified Solid Waste Facility Operator Name Role Phone [facility] Unavailable Unavail able Arely Caballero Unavailable Unavailable Advance Directives Directive Yes / No Effective Date File Name No Information Encounters Encounter Description Practice Location Reason(s) For Visit Diagnoses Date Provider Providers Copied on Encounter [facility], [address], [place], [place], [id number], [place] tel:[phone] [facility] No Information Mar-0 2-200 1 [facility] [address] [facility], [facility] [address], [place], [place], [id number] , [place]. tel:[phone] Referring Provider: Nelson Ramsey, [address], [place], [address]. tel:[phone] g Provider: Arely Caballero, [address] [place] [address], [address]. tel:[phone] Family History Family Member Type Diagnosis Age [...]
--- OUTSIDE RECORDS SUMMARY | 2024-12-23 13:04 | XMS_ITS | Clinical Summary ---
Author Organization [facility] [address] Address [address] [place] [address] Care Team Providers Care Well Drill Operator Helper Cable Tool Name Role Phone Brittney Vazquez DO Primary [...] on file Legal Sex Female 2:33 AM SWITCH INSPECTOR Gender Identity Not on file Sexual Orientation [...] 07/16/2019, Additional history exists Insurance MEDICARE SOL[facility]IONS [facility] MEDICARE Address: [address] [address] MEDICARE [employer]IONS [facility] MEDICARE Address: [facility] [address] [place] [address] Care Teams Well Drill Operator Helper Cable Tool Relationship Specialty Start Date End Date Brittney Vazquez DO PCP - General Family Medicine 01/25/23
--- OUTSIDE RECORDS SUMMARY | 2024-12-23 13:04 | XMS_ITS | Encounter Summary ---
Author Organization [facility] BRICE Dubon [facility] Address [address] [place] [address] Care Team Providers Care Glove Cutter Name Role Phone Unavailable Primary Care Provider Unavailabl e Encounter Details Date Type Department Care Team (Late st Contact Info) Description 12/26/2023 Abstract [facility] Oncology and Hematology - Kareem [address] [place] [address] Becca López Social History Tobacco [...] [facility] H[facility] [address] [place] [address] Alex Webster MD [address] [facility] [address] [place] [address] documented as of this encounter Visit Diagnoses Not on filedocumented in this encounter
== END 2024-12-23 11:29 | disposition left against medical advice (07) ==
LOC: ANHED 11:24
PROVIDERS: PCP Family Medicine
DX: R53.1 Weakness (principal)
CPT/HCPCS: 99199

== ENCOUNTER → 2025-01-05 10:31 | Outpatient (REF) | payer MEDICARE, SELFPAY ==
--- OUTSIDE RECORDS SUMMARY | 2025-01-05 11:48 | XMS_ITS | Clinical Summary ---
Author Organization [facility] [address] Address [address] [place] [address] Care Team Providers Care Intermodal Dispatcher Name Role Phone Brittney Vazquez DO Primary [...] on file Legal Sex Female 2:33 AM COMMUNITY INTEGRATION SPECIALIST Gender Identity Not on file Sexual Orientation [...] , 07/13/2020, 07/16/2019, Additional history exists Insurance [facility] MEDICARE [facility]AGE [facility] Address: [address] [address] [facility] MEDICARE ADVANTAGE [facility] Address: [facility] [address] [place] [address] Care Teams Intermodal Dispatcher Relationship Specialty Start Date End Date Brittney Vazquez DO PCP - General Family Medicine 01/25/23
--- OUTSIDE RECORDS SUMMARY | 2025-01-05 11:48 | XMS_ITS | Clinical Summary ---
Author Organization [facility] Address [address] [place] [address] Care Team Providers Care Assembler Arranger Name Role Phone Manjinder Ruiz MD Primary Care Provider [phone] Source Comments [facility],non-owned Affiliates and Associated Physician Practices is amultiple site organization consisting of ambulatory clinics and hospital sitesin [place], [place], [place] and [place]. This disclosure is being madepursuant to the Care Everywhere program and may not contain all information available regarding this patient. Last updated 18.[facility] Allergies No known active allergies Social History [...] age to complete this topic Care Teams Assembler Arranger Relationship Specialty Start Date End Date Manjinder Ruiz MD [address] [place] [address] PCP - General 03/22/22
--- OUTSIDE RECORDS SUMMARY | 2025-01-05 11:48 | XMS_ITS | Referral Summary ---
Author Organization [facility] [address] Address [address] [place] [address] Care Team Providers Care Catering Chef Name Role Phone Brittney Vazquez DO Primary [...] on file Legal Sex Female 2:33 AM ORDER PICKER Gender Identity Not on file Sexual Orientation [...] Plan of Treatment Not on file Insurance [facility] MEDICARE ADVANTAGE [facility] MEDICARE ADVANTAGE Care Teams Catering Chef Relationship Specialty Start Date End Date Brittney Vazquez DO PCP - General Family Medicine 01/25/23
--- OUTSIDE RECORDS SUMMARY | 2025-01-05 11:48 | XMS_ITS | Encounter Summary ---
Author Organization [facility] BRICE Dubon [facility] Address [address] [place] [address] Care Team Providers Care Sticker Machine Operator Name Role Phone Unavailable Primary Care Provider Unavailabl e Encounter Details Date Type Department Care Team (Late st Contact Info) Description 12/26/2023 Abstract [facility] Oncology and Hematology - Kareem [address] [place] [address] Becca López Social History Tobacco [...] Encounters Date Type Department Care Team (Late Contact Info) Description 01/30/2025 10:15 AM CDT Office Visit [facility] Oncology and Hematology [facility] [address] [place] [address] Alex Webster MD [address] [facility] [address] [place] [address] documented as of this encounter Visit Diagnoses Not on filedocumented in this encounter
--- OUTSIDE RECORDS SUMMARY | 2025-01-05 11:48 | XMS_ITS | Clinical Summary ---
Author Organization [facility] Pat ragland [facility] Address [address] [place] [address] Care Team Providers Care Terrestrial Ecologist Name Role Phone Unavailable Primary Care Provider [...] Encounters Date Type Department Care Team Description 12/24/2024 External Device Data STL ABSTRACTION Provider, Abstract 12/13/2024 External Device Data STL ABSTRACTION Provider, [...] Comments Blood Pressure 132/74 09/23/2024 11:28 AM ORACLE ARCHITECT Pulse 58 09/23/2024 11:28 AM ORACLE ARCHITECT Temperature 36.9 C (98.5 F) 09/23/2024 11:28 AM ORACLE ARCHITECT Respiratory Rate 16 09/23/2024 11:28 AM ORACLE ARCHITECT Oxygen Saturation 90% 09/23/2024 11:28 AM ORACLE ARCHITECT Inhaled Oxygen Concentration - - Weight 60.3 kg (133 lb) 09/23/2024 11:28 AM ORACLE ARCHITECT Height 172.7 cm (5' 8 ) 05/29/2022 4:10 PM CDT Body Mass Index 20.22 05/29/2022 4:10 PM CDT Plan of Treatment Upcoming Encounters Date Type Department Care Team (Late st Contact Info) Description 01/30/2025 10:15 AM CDT Office Visit [facility] Oncology and Hematology - Kareem [address] [place] [address] Alex Webster MD [address] [facility] [address] [place] [address] Health Maintenance Due Date Last Done Comments DTAP/TDAP/TD VACCINES (1 - Tdap) 1959 PNEUMOCOCCAL VACCINE 50+ YEARS (1 of 1 - PCV) 04/28/19 89 ZOSTER VACCINE (1 of 2) 1989 OSTEOPOROSIS SCREENING 2004 RSV VACCINE (60+ or ) (1 - 1-dose 75+ series) 2014 INFLUENZA VACCINE (#1) 2024 Insurance [facility] [id number] [address] [address] [id number]
--- OUTSIDE RECORDS SUMMARY | 2025-01-05 11:48 | XMS_ITS | Continuity of Care Document ---
Author Organization [facility] Address [address] [place] [address] [address] [place] [address] Phone Care Team Providers Care Supervisor Name Role Phone [facility] Unavailable Unavail able Arely Caballero Unavailable Unavailable Advance Directives Directive Yes / No Effective Date File Name No Information Encounters Encounter Description Practice Location Reason(s) For Visit Diagnoses Date Provider Providers Copied on Encounter [facility], [address], [place], [place], [id number], [place] tel:[phone] [facility] No Information Mar-0 2-200 1 [facility] [facility], [facility] [address], [place], [place], [id number] , [place]. tel:[phone] Referring Provider: Nelson Ramsey, [address], [place], [address]. tel:[phone] g Provider: Arely Caballero, [address] [place] [address], [address]. tel:[phone] Family History Family Member Type Diagnosis Age [...]
== END ==
LOC: ANHLAB 10:31
PROVIDERS: PCP Family Medicine; Visit Provider Physician Assistant Surgical
DX: L98.9 Disorder of the skin and subcutaneous tissue, unspecified (principal)
CPT/HCPCS: 88305

== ENCOUNTER 2025-03-27 08:56 | Outpatient (CLI) | payer MEDICARE, SELFPAY ==
[2025-03-27 09:11] LABS: Basophils Percent Auto 0.5 % (0.2-1.2); Eosinophils Absolute Auto 0.2 K/mm3 (0-0.3); Eosinophils Percent Auto 2.8 % (0-4.4); Hematocrit 43.3 % (37.0-47.0); Hemoglobin 14.1 g/dL (12.0-15.0); Immature Granulocyte Absolute 0.02 K/mm3 (0.00-0.031); Immature Granulocyte Percent A 0.3 % (0-0.5); Lymphocytes Percent Auto 16.8 % (18.3-44.2); Mean Corpuscular HGB Conc 32.6 g/dl (32-36); Mean Corpuscular Hemoglobin 32.8 pg (26-34); Mean Corpuscular Volume 100.7 fl (80-100); Mean Platelet Volume 9.9 fl (7.4-10.4); Monocytes Absolute Auto 0.6 K/mm3 (0.1-0.6); Monocytes Percent Auto 9.5 % (2.6-8.5); Neutrophils Absolute Auto 4.6 K/mm3 (1.3-6.7); Neutrophils Percent Auto 70.1 % (45.5-73.1); Platelet Count Result 309 k/mm3 (150-375); Red Cell Distribution Width 12.8 % (11.5-14.5); White Blood Count 6.5 K/mm3 (4.5-10.0)
[2025-03-27 09:43] LABS: Alanine Aminotransferase 7 U/L (6-35); Albumin Level 4.5 g/dL (3.5-5.1); Alkaline Phosphatase 61 U/L (38-126); Anion Gap 8 mmol/L (4-12); Aspartate Amino Transferase 35 U/L (14-36); Bilirubin,Total 1.7 mg/dL (0.2-1.3); Blood Urea Nitrogen 18 mg/dL (7-17); Calcium 10.4 mg/dL (8.4-10.2); Carbon Dioxide 30 mmol/L (22-30); Chloride 103 mmol/L (98-107); Estimated Glomerular Filt Rate 55; Glucose 120 mg/dL (65-110); Potassium 4.1 mmol/L (3.4-5.0); Sodium 141 mmol/L (137-145); Total Protein 7.5 g/dL (6.3-8.2)
[2025-03-28 05:30] LABS: CA 15-3 20 U/mL (<32)
== END 2025-03-27 08:57 | disposition home or self-care (01) ==
LOC: ANHLAB 08:58
PROVIDERS: PCP Family Medicine; Visit Provider Internal Medicine Hematology & Oncology
DX: C50.912 Malignant neoplasm of unspecified site of left female breast (principal); Z17.0 Estrogen receptor positive status [ER+]
CPT/HCPCS: 36415; 80053; 85025; 86300

== ENCOUNTER 2025-04-15 18:59 | Emergency (ER) | payer MEDICARE, SELFPAY ==
[2025-04-15] VITALS (19 sets, daily range): BP systolic 92–145; BP diastolic 44–75; PULSE 72–94; RESP 14–27; TEMP 36.8–37.4; O2SAT 94–100
--- NOTE | ~2025-04-15 | XR_ITS ---
XR chest 1V Ordering provider: Shauna Erwin MD History: 84 years Female with . weak . Comparison: December 15, 2024 FINDINGS: MEDIASTINUM: The cardiac silhouette is slightly enlarged. LUNGS: No infiltrates, effusions or pneumothorax. Emphysematous changes of the lungs. Left upper lobe resection is highly suggestive. OTHER: No free air under the diaphragm. Postoperative changes in the left humerus. Opacification is s een in the right hemithorax. In IMPRESSION: No acute cardiopulmonary pathology. Reviewed, dictated and finalized at location A.
--- OUTSIDE RECORDS SUMMARY | 2025-04-15 19:01 | XMS_ITS | Clinical Summary ---
Author Organization [facility] Pat Akhtar Address [address] [place] [address] Care Team Providers Care Office Clerk Routine Name Role Phone Unavailable Primary Care Provider Unavailabl e Allergies Active Allergy Reactions Criticality Noted Date Comments Hydrocodone-Acetaminophen Nausea and Vomiting Low 0 03/17/2022 Iodinated Contrast Media Other (See Comments) Low 0 03/17/2022 Medications albuterol (PROVENTIL,FOREST DEON) 2.5 mg /3 mL (0.083 %) Solution for Nebulization USE 1 VIAL PER NEBULIZER EVERY 4 TO 6 HOURS NEEDED FOR SHORTNESS OF BREATH OR WHEEZING. 2 Active carbidopa-levodo pa (SINEMET) 25-100 mg tablet Take 1 Tablet [...] needed. 2 Active anastrozole (ARIMIDEX) 1 mg tabletIndication s:Malignant neoplasm of left breast in female, estrogen receptor positive, unspecified site of breast (CMS/HCC) Take 1 Tablet (1 mg) by mouth daily. 90 Tablet 3 5 Active anastrozole (ARIMIDEX) 1 mg tabletIndication s:Malignant neoplasm of left breast in female, estrogen receptor positive, unspecified site of breast (CMS/HCC) Take 1 Tablet (1 mg) by mouth daily. 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, estrogen receptor positive 05/29/2022 Encounters Date Type Department Care Team Description 04/03/2025 9:30 AM CDT Office Visit [facility] Oncology and Hematology - Kareem [address] [place] [address] Alex Webster MD Malignant neoplasm of left breast in female, estrogen receptor positive, unspecified site of breast (CMS/HCC) (Primary Dx) 04/03/2025 Orders Only [facility] Oncology and Hematology - Kareem [address] [place] [address] Alex Webster MD 04/01/2025 Orders Only [facility] Oncology and Hematology - Kareem [address] [place] [address] Alex Webster MD 03/10/2025 External Device Data STL ABSTRACTION Provider, Abstract 03/03/2025 External Device Data STL ABSTRACTION Provider, Abstract 02/25/2025 External Device Data STL ABSTRACTION Provider, Abstract 02/24/2025 External Device Data STL ABSTRACTION Provider, Abstract [...] Sign Reading Time Taken Comments Blood Pressure 153/84 04/03/2025 9:07 AM CDT Pulse 55 04/03/2025 9:02 AM CDT Temperature 36.9 C (98.5 F) 04/03/2025 9:02 AM CDT Respiratory Rate 15 04/03/2025 9:02 AM CDT Oxygen Saturation 91% 04/03/2025 9:02 AM CDT Inhaled Oxygen Concentration - - Weight 57.9 kg (127 lb 9.6 oz) 04/03/2025 9:02 A M CDT Height 172.7 cm (5' 8) 05/29/2022 4:10 PM CDT Body Mass Index 19.4 05/29/2022 4:10 PM CDT Plan of Treatment Upcoming Encounters Date Type Department Care Team (Late st Contact Info) Description 09/25/2025 11:45 AM DIRECTOR SURFACE TRANSPORTATION Office Visit [facility] Oncology and Hematology [facility] [address] [facility] [address] [place] [address] Alex Webster MD [address] [facility] [address] [place] [address] Health Maintenance Due Date Last Done Comments DTAP/TDAP/TD VACCINES (1 - Tdap) 1958 PNEUMOCOCCAL VACCINE 50+ YEARS (1 of 1 - PCV) 04/28/19 89 ZOSTER VACCINE (1 of 2) 1989 OSTEOPOROSIS SCREENING 2004 RSV VACCINE (60+ or ) (1 - 1-dose 75+ series) 2014 INFLUENZA VACCINE (#1) 2025 Procedures Procedure Name Priority Date/Time Associated Diagnosis Comments COMPREHENSIVE METABOLIC PANEL Routine 03/27/2025 1:35 PM CDT CANCER ANTIGEN 15-3 Routine 03/27/2025 1 0:47 AM CDT from Last 3 Months Results * COMPREHENSIVE METABOLIC PANEL (03/27/2025 1:35 PM CDT) Blood us Alex Webster MD CHEMISTRY ORDERABLES Final Resu lt * CANCER ANTIGEN 15-3 (03/27/2025 10:47 AM CDT) Blood us Alex Webster MD CHEMISTRY ORDERABLES Final Resu lt from Last [address] [facility] [id number] [address] [id number]
--- OUTSIDE RECORDS SUMMARY | 2025-04-15 19:01 | XMS_ITS | Clinical Summary ---
Author Organization [facility] Address [address] [place] [address] Care Team Providers Care Supervisor Steno Pool Name Role Phone Manjinder Ruiz MD Primary Care Provider [phone] Source Comments [facility] [employer],non-owned Affiliates and Associated Physician Practices is amultiple site organization consisting of ambulatory clinics and hospital sitesin [place], [place], [place] and [place]. This disclosure is being madepursuant to the Care Everywhere program and may not contain all information available regarding this patient. Last updated 18.[facility] [employer] Allergies No known active allergies Social History Tobacco Use Types Packs/Day Years Used Date Smoking Tobacco: Never Assessed Comments Unknown Sex and Gender Information Value Date Recorded Sex Assigned at Not on file Legal Sex Female 8:48 AM FLOOR COVERER Gender Identity Not on file Sexual Orientation [...] VACCINE ( - 2023-2 5 season) 2024 DEPRESSION SCREENING 10/08/2024 MEDICARE AWV CALENDAR YEAR 2024 INFLUENZA VACCINE (Season Ended) 2025 HEPATITIS B VACCINE Aged Out No longe [...] on patient's age to complete this topic Insurance [id number] MANAGED MEDICARE ADV MANAGED MEDICARE ADV SELF PAY NO INSURANCE Member Subscriber Plan / Payer (Ef fective for All Dates) Name:Jesus Vanegas Member ID:Not on file Relation to Subscriber:Not on file Name:JESUS VANEGAS Subscriber ID:Not on file (Home) Address: [address] [place] [id number] Payer ID:Not on file Group ID:Not on file Type:Self Pay Address: [place], [place] Care Teams Supervisor Steno Pool Relationship Specialty Start Date End Date Manjinder Ruiz MD [address] [place] [address] PCP - General 03/22/22
--- OUTSIDE RECORDS SUMMARY | 2025-04-15 19:01 | XMS_ITS | Encounter Summary ---
Author Organization [facility] Address [address] [place] [address] Care Team Providers Care Trade Union Secretary Name Role Phone Unavailable Primary Care Provider Unavailabl e Encounter Details Date Type Department Care Team (Late Contact Info) Description 12/26/2023 Abstract [facility] Oncology and Hematology - Kareem [address] [place] [address] Becca López Social History Tobacco [...] st Contact Info) Description 09/25/2025 11:45 AM SANITATION WORKER CLEANING MACHINERY Office Visit [facility] Oncology and Hematology - Kareem [address] [place] [address] Alex Webster MD [address] [facility] [address] [place] [address] documented as of this encounter Visit Diagnoses Not on filedocumented in this encounter
--- OUTSIDE RECORDS SUMMARY | 2025-04-15 19:01 | XMS_ITS | Referral Summary ---
Author Organization [facility] [address] [facility] [address] Address [address] [place] [address] Care Team Providers Care Chain Pegger Name Role Phone Brittney Vazquez DO Primary Care Provider + Encounters Date Type Department Care Team Description 04/08/2025 Telephone [facility] Cardiology [address] [facility] [address] [place] [address] Avery Villa MD from Last 3 Months Allergies Active Allergy Reactions Criticality Noted Date Comments Hydrocodone-Acetaminophen Vomiting,Nause a And Vomiting Low 03/17/2022 Iodinated Contrast Media Flushing (skin) Low 2021 Medications albuterol 2.5 mg /3 mL (0.083 %) nebulizer solution USE 1 VIAL PER NEBULIZER EVERY 4 TO 6 HOURS NEEDED FOR SHORTNESS OF BREATH OR WHEEZING. 03/13/20 22 Active carbidopa-levod opa (SINEMET) 25-100 mg per tablet Take 1 tablet by mouth every 8 (eight) hours 03/10/20 22 Active anastrozole (ARIMIDEX) 1 mg tablet 11/28/19 23 Active Anoro Ellipta 62.5-25 mcg/actuation blister with device 02/13/20 23 Active furosemide (LASIX) 40 mg tablet Take 0.5 tablets (20 mg total) by mouth daily 02/06/20 23 Active meclizine (ANTIVERT) 12.5 mg tablet TAKE 1 TABLET BY MOUTH FOUR TIMES DAILY NEEDED FOR DIZZINESS 01/09/20 23 Active escitalopram (LEXAPRO) 20 mg tablet Take 1 tablet (20 mg total) by mouth daily 12/05/19 24 Active rivaroxaban (XARELTO) 15 mg tablet Take 1 tablet (15 mg total) by mouth daily with dinner 30 tablet 11 03/06/20 24 Active Additional Information Patient taking differently: 10 mgoral Daily with dinner, Reported on 01/08/2025 metoprolol tartrate (LOPRESSOR) 25 mg immediate release tabletIndicatio ns:Paroxysmal atrial fibrillation (HCC) TAKE 1/2 TABLET(12.5 MG) BY MOUTH TWICE DAILY 90 tablet 3 03/17/20 25 Active midodrine (PROAMATINE) 5 mg tablet Take 1 tablet (5 mg total) by mouth 3 (three) times a day 04/01/20 25 Active metoprolol tartrate (LOPRESSOR) 25 mg immediate release tabletIndicatio ns:Paroxysmal atrial fibrillation (HCC) TAKE 1/2 TABLET(12.5 MG) BY MOUTH TWICE DAILY 90 tablet 3 12/24/19 24 025 Discontinued midodrine (PROAMATINE) 2.5 mg tabletIndicatio ns:Symptomatic Orthostatic Hypotension Take 1 tablet (2.5 mg total) by mouth 3 (three) times a day 90 tablet 11 02/28/20 24 025 Discontinued Active Problems Problem Noted Date Diagnosed Date [...] of Binge Drinking Not on file 03/08 Comments Unknown Sex and Gender Information Value Date Recorded Sex Assigned at Not on file Legal Sex Female 2:33 AM DIRECTOR OF PLACEMENT Gender Identity Not on file Sexual Orientation Not on file Last Filed Vital Signs Vital Sign Reading Time Taken Comments Blood Pressure 112/60 01/08/2025 1:29 PM CDT Pulse 68 01/08/2025 1:29 PM CDT Temperature - - Respiratory Rate - - Oxygen Saturation 95% 01/08/2025 1:29 PM CDT Inhaled Oxygen Concentration - - Weight 59 kg (130 lb) 01/08/2025 1:29 PM CDT Height 172.7 cm (5' 8) 01/08/2025 1:29 PM CDT Body Mass Index 19.77 01/08/2025 1:29 PM CDT Plan of Treatment Not on file Insurance [facility] MEDICARE ADVANTAGE [facility] MEDIC[facility] Address: [address] [address] [facility] MEDICARE ADVANTAGE [facility] MEDICARE Address: [facility] [address] [place] [address] Care Teams Chain Pegger Relationship Specialty Start Date End Date Brittney Vazquez DO PCP - General Family Medicine 01/25/23
--- OUTSIDE RECORDS SUMMARY | 2025-04-15 19:01 | XMS_ITS | Continuity of Care Document ---
Author Organization [facility] Address [address] [place] [address] [address] [place] [address] Phone Care Team Providers Care Senior Cobol Developer Name Role Phone [facility] Unavailable Unavail able Arely Caballero Unavailable Unavailable Advance Directives Directive Yes / No Effective Date File Name No Information Encounters Encounter Description Practice Location Reason(s) For Visit Diagnoses Date Provider Providers Copied on Encounter [facility], [address], [place], [place], [id number], [place] tel:[phone] [facility] No Information Mar-0 2-200 1 [facility] [facility], [facility] [address], [place], [place], [id number] , [place]. tel:[phone] Referring Provider: Nelson Ramsey, [address] [facility] [facility] [address], [place], [address]. tel:[phone] g Provider: Arely Caballero, [address] [place] [address], [address]. tel:[phone] Family History Family Member Type Diagnosis Age At Onset No Information Payers Payer name Insurance type Covered constitution party ID Authoriza tion(s) No Information Social [...]
--- OUTSIDE RECORDS SUMMARY | 2025-04-15 19:01 | XMS_ITS | Clinical Summary ---
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 Gender Identity Not on file Sexual [...] 01/08/2025 1:29 PM CDT Plan of Treatment Health Maintenance [...] 2024 10/10/2021, 01/03/2021, 12/06/2020 Influenza Vaccine (#1) 2025 , 07/13/2020, 07/16/2019, Additional history exists Insurance [id number] MEDIC[facility] Address: [address] [address] [place] [address] [facility] MEDIC[facility] AD[facility]ANTAGE [facility] Address: [address] [address] [place] [address] Care Teams Bleach Boiler Packer Relationship Specialty Start Date End Date Brittney Vazquez DO PCP - General Family Medicine 01/25/23
--- OUTSIDE RECORDS SUMMARY | 2025-04-15 21:16 | XMS_ITS | Clinical Summary ---
Author Organization [facility] Pat Akhtar Address [address] [place] [address] Care Team Providers Care Garland Machine Operator Name Role Phone Unavailable Primary [...] Description 04/03/2025 9:30 AM CDT Office Visit [facility] Oncology and Hematology - Kareem [address] [place] [address] Alex Webster MD Malignant neoplasm of left breast in female, estrogen receptor positive, unspecified site of breast (CMS/HCC) (Primary Dx) 04/03/[address] [facility] Oncology and Hematology - Kareem [address] [place] [address] Alex Webster MD 04/01/[address] [facility] Oncology and Hematology - Kareem [address] [place] [address] Alex Webster MD 03/10/2025 External Device Data [...] st Contact Info) Description 09/25/2025 11:45 AM DUCT MAKER Office Visit [facility] Oncology and Hematology [facility] [address] [facility] [address] [place] [address] Alex Webster MD [address] [facility] [address] [place] [address] Health Maintenance Due Date Last [...] Resu lt from Last 3 Months Insurance [facility] [id number] [address] [id number]
--- OUTSIDE RECORDS SUMMARY | 2025-04-15 21:16 | XMS_ITS | Continuity of Care Document ---
Author Organization [facility] Address [address] [place] [address] [address] [place] [address] Phone Care Team Providers Care Quality Control Lab Tech Name Role Phone [facility] Unavailable Unavail able Arely Caballero Unavailable Unavailable Advance Directives Directive Yes / No Effective Date File Name No Information Encounters Encounter Description Practice Location Reason(s) For Visit Diagnoses Date Provider Providers Copied on Encounter [facility], [address], [place], [place], [id number], [place] tel:[phone] [facility] No Information Mar-0 2-200 1 [facility] [address] [facility], [facility] [address], [place], [place], [address] , [place]. tel:[phone] Referring Provider: Nelson Ramsey, [address] [facility] [address], [place], [address]. tel:[phone] g Provider: Arely Caballero, [address] [place] [address], [address]. tel:[phone] Family History Family Member Type Diagnosis Age [...]
--- OUTSIDE RECORDS SUMMARY | 2025-04-15 21:16 | XMS_ITS | Clinical Summary ---
Author Organization [facility] Address [address] [place] [address] Care Team Providers Care Cat And Dog Bather Name Role Phone Manjinder Ruiz MD Primary Care Provider [phone] Source Comments [facility] [employer],non-owned Affiliates and Associated Physician Practices is amultiple site organization consisting of ambulatory clinics and hospital sitesin [place], [place], [place] and [place]. This disclosure is being madepursuant to the Care Everywhere program and may not contain all information available regarding this patient. 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 Gender Identity Not on file Sexual Orientation [...] patient's age to complete this topic Insurance [id number] MANAGED MEDICARE ADV MANAGED MEDICARE ADV SELF PAY NO INSURANCE Member Subscriber Plan / Payer (Ef fective for All Dates) Name:Jesus Vanegas Member ID:Not on file Relation to Subscriber:Not on file Name:JESUS VANEGAS Subscriber ID:Not on file (Home) Address: [address] [place] [id number] Payer ID:Not on file Group ID:Not on file Type:Self Pay Address: [place], [place] Care Teams Cat And Dog Bather Relationship Specialty Start Date End Date Manjinder Ruiz MD [address] [place] [address] PCP - General 03/22/22
--- OUTSIDE RECORDS SUMMARY | 2025-04-15 21:16 | XMS_ITS | Referral Summary ---
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
--- OUTSIDE RECORDS SUMMARY | 2025-04-15 21:16 | XMS_ITS | Clinical Summary ---
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
--- OUTSIDE RECORDS SUMMARY | 2025-04-15 21:16 | XMS_ITS | Encounter Summary ---
Author Organization [facility] Address [address] [place] [address] Care Team Providers Care Enterostomal Nurse Name Role Phone Unavailable Primary Care Provider Unavailabl e Encounter Details Date Type Department Care Team (Late Contact Info) Description 12/26/2023 Abstract [facility] Oncology and Hematology - Kareem [address] [place] [address] Becca López Social History Tobacco [...] st Contact Info) Description 09/25/2025 11:45 AM CONFERENCE SERVICES MANAGER Office Visit [facility] Oncology and Hematology - Kareem [address] [place] [address] Alex Webster MD [address] [facility] [address] [place] [address] documented as of this encounter Visit Diagnoses Not on filedocumented in this encounter
[2025-04-15 21:31] LABS: Hematocrit 38.3 % (37.0-47.0); Hemoglobin 12.3 g/dL (12.0-15.0); Immature Granulocyte Percent A 0.3 % (0-0.5); Lymphocytes Absolute Auto 0.91 K/mm3 (0.9-3.2); Mean Corpuscular HGB Conc 32.1 g/dl (32-36); Mean Corpuscular Hemoglobin 32.1 pg (26-34); Mean Corpuscular Volume 100.0 fl (80-100); Nucleated Red Blood Cells Absolute Auto 0.000 K/mm3 (0.0-0.012); Nucleated Red Blood Cells Perc 0.0 % (0.0-0.2); Platelet Count Result 226 k/mm3 (150-375); Red Blood Count 3.83 M/mm3 (4.2-5.4); White Blood Count 10.1 K/mm3 (4.5-10.0)
[2025-04-15 21:43] LABS: Alanine Aminotransferase 8 U/L (6-35); Albumin Level 3.9 g/dL (3.5-5.1); Alkaline Phosphatase 47 U/L (38-126); Anion Gap 7 mmol/L (4-12); Aspartate Amino Transferase 36 U/L (14-36); Bilirubin,Total 2.5 mg/dL (0.2-1.3); Blood Urea Nitrogen 15 mg/dL (7-17); Calcium 9.1 mg/dL (8.4-10.2); Carbon Dioxide 30 mmol/L (22-30); Chloride 96 mmol/L (98-107); Estimated Glomerular Filt Rate 57; Glucose 134 mg/dL (65-110); Magnesium 1.8 mg/dL (1.6-2.3); Potassium 3.4 mmol/L (3.4-5.0); Sodium 133 mmol/L (137-145); Total Protein 6.7 g/dL (6.3-8.2)
--- NOTE | 2025-04-15 21:48 | ECG_ITS ---
Test Date: 2025-04-15 22:01:37 Measurements Intervals [place] Rate: 79 P: 0 NV: 0 QRS: 19 QRSD: 140 T: 102 QT: 373 QTc: 428 Interpretive Statements SINUS RHYTHM WITH OCCASIONAL SUPRAVENTRICULAR ECTOPY LEFT BUNDLE BRANCH BLOCK [120+ ms QRS DURATION, 80+ ms Q/S IN V1/V2, 85+ ms R IN I/aVL/V5/V6] Compared to ECG 12/16/2024 03:10:39 Ventricular premature complex(es) no longer present Electronically Signed On 04-16-2025 11:50:26 CDT by Km Ryan M.D.
--- NOTE | 2025-04-15 21:57 | ED.GENADULT ---
HPI - General Adult General Chief complaint: Weakness Stated complaint: weakness Time Seen by Provider: 04/15/25 20:59 History of Present Illness HPI narrative: Patient is an 84-year-old female who presents to the emergency department this evening from [facility] for evaluation of generalized weakness. Patient states that she woke up this morning and was having chills. She could not stop shaking and states that she normally does have some tremors due to her Parkinson's disease but states that she just felt very weak. Complains of mild chest pressure has been ongoing all day. Denies any cough, shortness of breath, nausea vomiting or abdominal pain. No additional symptoms or concerns at this time. Related Data Home Medications ?Medication ?Instructions ?Recorded ?Confirmed ?Last Taken ?Type calcium 600 mg (as 1 tablet PO DAILY 03/31/22 04/08/25 01/30/23 History carbonate)-vitamin D3 5 mcg (200 unit) tablet cholecalciferol (vitamin D3) 25 25 mcg PO DAILY 03/31/22 04/08/25 01/30/23 History mcg (1,000 unit) capsule anastrozole 1 mg tablet 1 mg PO DAILY 11/21/22 04/08/25 01/30/23 History furosemide 20 mg tablet (Lasix) 10 mg PO QAM 12/15/24 04/08/25 Unknown History rivaroxaban 20 mg tablet (Xarelto) 5 mg PO DAILY@1700 12/15/24 04/08/25 Unknown History Allergies Allergy/AdvReac Type Severity Reaction Status Date / Time acetaminophen (From Vicodin) AdvReac Intermediate Vomiting Verified 04/08/25 13:56 alendronate sodium (Fosamax) AdvReac Intermediate Nausea Verified 04/08/25 13:56 doxycycline AdvReac Intermediate Nausea Verified 04/08/25 13:56 hydrocodone AdvReac Intermediate vomiting Verified 04/08/25 13:56 adhesive AdvReac Mild Unknown,RASH, Verified 04/08/25 13:56 ITCH Iodinated Contrast Media AdvReac Mild Flushing Verified 04/08/25 13:56 latex AdvReac Mild Hives Verified 04/08/25 13:56 Contrast Media AdvReac Intermediate BURNING Uncoded 04/08/25 13:56 AND RED ALL OVER Review of Systems Review of Systems: All systems are reviewed and are negative unless stated otherwise in the HPI. [facility] Past Medical History Medical History Basal cell carcinoma (BCC) Anxiety attack Depression Cancer of left breast Vitamin D deficiency Diastolic dysfunction Echocardiogram 01/201919 grade 1 diastolic dysfunction EF 60% mild left atrial enlargement Lung cancer Anxiety Constipation GERD (gastroesophageal reflux disease) Hypertension Emphysema of lung Fracture of fifth metatarsal bone of right foot with routine healing Osteoporosis, unspecified Prediabetes Surgical History Surgical History H/O basal cell carcinoma excision History of breast lump/mass excision Re-excision posterior chest wall margin, evacuate hematoma 05/02/22 History of excision of lesion Excision 2.9 cm metastatic breast cancer left chest wall with 2 mm margins, 3.3 cm excision. 13 cm layered closure. 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 She has a daughter and a son. 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 She lives alone. She lives in a duplex that her daughter owns. Code status: Full code Healthcare power of fur glosser: Ursula Vega (daughter) Smoking packs per day: 1 Smoking cigarettes per day: 20.0 Years smoked: 20 Smoking pack-years: 20.00 Smoking status: Former smoker Second hand tobacco smoke exposure: No Alcohol intake: current Drinks per week: 7 Alcohol use details: WINE Substance use: never Substance use type: does not use Do You Feel Safe in your Home?: Yes Lack of Transportation: No Lack of Food: Never True Current Housing: I Have Housing Concerned About Future Housing: No Difficulty Paying Gas/Electric Bills: No Difficulty Paying for Meds: No Currently Unemployed: No Education: High School Diploma/GED Difficulty w/ Childcare or Family Care: No Living arrangements: alone Occupation/Education: retired Gender identity (if verbalized by the patient): Female Spiritual care concerns: No Exam Narrative: General: Alert, awake, afebrile, in no acute distress. HEENT: PERRL, no rhinorrhea, no post nasal drip, oropharynx clear. Neck: Trachea midline, no JVD, no lymphadenopathy. Cardiovascular: Regular rate and rhythm, no murmurs, rubs or gallops, no peripheral edema. Respiratory: Clear to auscultation bilaterally, no tachypnea, no wheezing, no rhonchi, no rubs, no respiratory distress. Abdomen: Soft, nontender, nondistended, no rebound, no guarding, no peritoneal signs. Musculoskeletal: No joint swelling or deformity, normal muscle tone. Skin: No rashes or petechia, no signs of infection. Psychiatric: Alert and oriented, normal behavior and judgment for situation. Neurological: Alert and oriented to person, place, and time. Follows all commands. No focal deficits, speech is clear and fluent. Course Vital Signs Vital signs: Vital Signs Temperature 99.4 F 04/15/25 19:00 Pulse Rate 74 04/15/25 19:00 Respiratory Rate 16 04/15/25 19:00 Blood Pressure 129/75 04/15/25 19:00 Pulse Oximetry 94 04/15/25 19:00 Oxygen Delivery Room Air 04/15/25 19:00 Temperature 98.3 F 04/15/25 22:04 Pulse Rate 77 04/15/25 22:04 Respiratory Rate 18 04/15/25 22:04 Blood Pressure 113/49 L 04/15/25 22:04 Pulse Oximetry 99 04/15/25 22:04 Oxygen Delivery Room Air 04/15/25 21:44 Medical Decision Making MDM Narrative Medical decision making narrative: The patient was evaluated by myself in the emergency department. History is obtained from patient who is an independent historian and physical exam was performed. External medical records were reviewed at this time. IV was established and pertinent tests were ordered. Patient was administered 1 L IV fluid bolus with normal saline. EKG was obtained which revealed atrial fibrillation at a rate of 79 beats per minute with a left bundle branch block, negative Sgarbossa. EKG was independently interpreted by me and is currently pending official cardiology read. Laboratory results obtained revealing no acute process. Two sets of troponins were obtained and both noted to be negative. Urinalysis did reveal urinary tract infection. At this time patient was administered 1 g of IV Rocephin for her UTI. Imaging studies obtained included CXR which was independently interpreted by me revealing no acute cardiopulmonary process, which is pending final radiology interpretation. Differential diagnosis considerations include acute viral syndrome, infectious process such as pneumonia/UTI, dehydration, electrolyte derangements. Comorbidities impacting this visit include none. I have evaluated and discussed social determinants of health with the patient that could potentially impact subsequent diagnosis and treatment plans. On repeat assessment of the patient, reevaluation revealed that the patient is doing well and is in no acute distress. Patient symptoms have improved since she arrived to our emergency department. Repeat vital signs were all reviewed and noted to be stable. Differential diagnosis and treatment plan were discussed with the patient at bedside. Patient agrees with discussion and after shared medical decision making agrees with discharge. All questions were answered to the patient's satisfaction. Patient will follow up with her PCP in 3-5 days. Script for cephalexin was sent to patient's pharmacy to take as prescribed for her UTI. Patient was provided with strict return precautions and instructed to return to the emergency department if any new or worsening symptoms develop. The patient was discharged in stable condition. Vital Signs Vital Signs: Vital Signs Temperature 99.4 F 04/15/25 19:00 Pulse Rate 74 04/15/25 19:00 Respiratory Rate 16 04/15/25 19:00 Blood Pressure 129/75 04/15/25 19:00 Pulse Oximetry 94 04/15/25 19:00 Oxygen Delivery Room Air 04/15/25 19:00 Temperature 98.3 F 04/15/25 22:04 Pulse Rate 77 04/15/25 22:04 Respiratory Rate 18 04/15/25 22:04 Blood Pressure 113/49 L 04/15/25 22:04 Pulse Oximetry 99 04/15/25 22:04 Oxygen Delivery Room Air 04/15/25 21:44 Lab Data 04/15/25 21:21 04/15/25 21:21 Labs: Lab Results 04/15/25 04/15/25 04/15/25 Range/Units 21:21 22:03 22:52 WBC 10.1 H (4.5-10.0) K/mm3 RBC 3.83 L (4.2-5.4) M/mm3 Hgb 12.3 (12.0-15.0) g/dL Hct 38.3 (37.0-47.0) % MCV 100.0 (80-100) fl MCH 32.1 (26-34) pg MCHC 32.1 (32-36) g/dl RDW 12.7 (11.5-14.5) % Plt Count 226 (150-375) k/mm3 MPV 10.3 (7.4-10.4) fl Immature Gran % (Auto) 0.3 (0-0.5) % Neut % (Auto) 76.9 H (45.5-73.1) % Lymph % (Auto) 9.0 L (18.3-44.2) % [place] % (Auto) 13.4 H (2.6-8.5) % Eos % (Auto) 0.1 (0-4.4) % Baso % (Auto) 0.3 (0.2-1.2) % Lymph # (Auto) 0.91 (0.9-3.2) K/mm3 [place] # (Auto) 1.4 H (0.1-0.6) K/mm3 Eos # (Auto) 0.0 (0-0.3) K/mm3 Baso # (Auto) 0.0 (0.0-0.1) K/mm3 Abs Immat Gran (auto) 0.03 (0.00-0.031) K/mm3 Absolute Neuts (auto) 7.8 H (1.3-6.7) K/mm3 Absolute Nucleated RBC 0.000 (0.0-0.012) K/mm3 Nucleated RBC % 0.0 (0.0-0.2) % Sodium 133 L (137-145) mmol/L Potassium 3.4 (3.4-5.0) mmol/L Chloride 96 L (98-107) mmol/L Carbon Dioxide 30 (22-30) mmol/L Anion Gap 7 (4-12) mmol/L BUN 15 (7-17) mg/dL Creatinine 0.94 (0.7-1.0) mg/dL Estim Creat Clear Calc Not Reportable Estimated GFR 57 L (59 - ) Glucose 134 H (65-110) mg/dL Calcium 9.1 (8.4-10.2) mg/dL Magnesium 1.8 (1.6-2.3) mg/dL Total Bilirubin 2.5 H (0.2-1.3) mg/dL AST 36 (14-36) U/L ALT 8 (6-35) U/L Alkaline Phosphatase 47 (38-126) U/L Troponin I 0.014 (0.000-0.034) ng/mL Total Protein 6.7 (6.3-8.2) g/dL Albumin 3.9 (3.5-5.1) g/dL Urine Color Yellow (Yellow) Urine Appearance Clear (Clear) Urine pH 7.0 (5.0-9.0) Ur Specific [place] 1.015 (1.001-1.035) Urine Protein 1+ H (Negative) mg/dL Urine Glucose (UA) Negative (Negative) mg/dL Urine Ketones 1+ H (Negative) mg/dL Ur Blood (Man) Trace-intact H (Negative) Urine Nitrate Negative (Negative) Urine Bilirubin 1+ H (Negative) Urine Urobilinogen 1.0 (<2.0) mg/dL Leukocyte Esterase Rfl 1+ H (Negative) SAMMY/UL Urine RBC 6-10 H (0-2) /hpf Urine WBC 10-15 H (0-3) /hpf Ur Squamous Epith Cells Few (Few) /hpf Urine Bacteria 1+ H (None) /hpf Urine Mucus Few H /lpf Influenza A (RT-PCR) Negative (Negative) Influenza B (RT-PCR) Negative (Negative) RSV (RT-PCR) Negative (Negative) SARS-CoV-2 RNA (RT-PCR) Negative (Negative) 04/16/25 Range/Units 01:02 WBC (4.5-10.0) K/mm3 RBC (4.2-5.4) M/mm3 Hgb (12.0-15.0) g/dL Hct (37.0-47.0) % MCV (80-100) fl MCH (26-34) pg MCHC (32-36) g/dl RDW (11.5-14.5) % Plt Count (150-375) k/mm3 MPV (7.4-10.4) fl Immature Gran % (Auto) (0-0.5) % Neut % (Auto) (45.5-73.1) % Lymph % (Auto) (18.3-44.2) % [place] % (Auto) (2.6-8.5) % Eos % (Auto) (0-4.4) % Baso % (Auto) (0.2-1.2) % Lymph # (Auto) (0.9-3.2) K/mm3 [place] # (Auto) (0.1-0.6) K/mm3 Eos # (Auto) (0-0.3) K/mm3 Baso # (Auto) (0.0-0.1) K/mm3 Abs Immat Gran (auto) (0.00-0.031) K/mm3 Absolute Neuts (auto) (1.3-6.7) K/mm3 Absolute Nucleated RBC (0.0-0.012) K/mm3 Nucleated RBC % (0.0-0.2) % Sodium (137-145) mmol/L Potassium (3.4-5.0) mmol/L Chloride (98-107) mmol/L Carbon Dioxide (22-30) mmol/L Anion Gap (4-12) mmol/L BUN (7-17) mg/dL Creatinine (0.7-1.0) mg/dL Estim Creat Clear Calc Estimated GFR (59 - ) Glucose (65-110) mg/dL Calcium (8.4-10.2) mg/dL Magnesium (1.6-2.3) mg/dL Total Bilirubin (0.2-1.3) mg/dL AST (14-36) U/L ALT (6-35) U/L Alkaline Phosphatase (38-126) U/L Troponin I 0.013 (0.000-0.034) ng/mL Total Protein (6.3-8.2) g/dL Albumin (3.5-5.1) g/dL Urine Color (Yellow) Urine Appearance (Clear) Urine pH (5.0-9.0) Ur Specific [place] (1.001-1.035) Urine Protein (Negative) mg/dL Urine Glucose (UA) (Negative) mg/dL Urine Ketones (Negative) mg/dL Ur Blood (Man) (Negative) Urine Nitrate (Negative) Urine Bilirubin (Negative) Urine Urobilinogen (<2.0) mg/dL Leukocyte Esterase Rfl (Negative) SAMMY/UL Urine RBC (0-2) /hpf Urine WBC (0-3) /hpf Ur Squamous Epith Cells (Few) /hpf Urine Bacteria (None) /hpf Urine Mucus /lpf Influenza A (RT-PCR) (Negative) Influenza B (RT-PCR) (Negative) RSV (RT-PCR) (Negative) SARS-CoV-2 RNA (RT-PCR) (Negative) Discharge Plan Discharge Clinical Impression: Generalized weakness, Urinary tract infection Patient Disposition: SNF Condition: Improved Instructions: Weakness (ED), Urinary Tract Infection in Older Adults (ED) Additional Instructions: Please take the prescribed antibiotic as instructed for UTI. Follow-up with your family doctor within the next 3-5 days and return to the ED if any new or worsening symptoms develop. Patient Language: [place] Prescriptions: New cephalexin 500 mg capsule 500 mg PO Q12H 7 Days Qty: 14 0RF No Action anastrozole 1 mg tablet 1 mg PO DAILY albuterol sulfate 2.5 mg /3 mL (0.083 %) solution for nebulization 2.5 mg inhalation Q4-6H PRN (Reason: shortness of breath or wheezing) Qty: 90 3RF lorazepam [Ativan] 0.5 mg tablet 0.5 mg PO QHS PRN (Reason: anxiety) Qty: 30 1RF albuterol sulfate 90 mcg/actuation HFA aerosol inhaler 1 - 2 puff inhalation Q4-6H PRN (Reason: shortness of breath or wheezing) Qty: 8.5 2RF carbidopa-levodopa 25-100 mg tablet 1.5 tablet PO QID Qty: 360 3RF Rx Instructions: May increase to 1 tablet 4 times a day if needed midodrine 5 mg tablet 5 mg PO TID Qty: 90 0RF Rx Instructions: do not give last dose of day after 6PM or within 4 hrs of bedtime cephalexin 500 mg capsule 500 mg PO Q6H Qty: 20 0RF calcium carbonate-vitamin D3 600 mg-5 mcg (200 unit) Tablet 1 tablet PO DAILY cholecalciferol (vitamin D3) 25 mcg (1,000 unit) Capsule 25 mcg PO DAILY metoprolol tartrate 25 mg tablet 12.5 mg PO BID Qty: 60 0RF furosemide [Lasix] 20 mg tablet 10 mg PO QAM Xarelto 20 mg tablet 5 mg PO DAILY@1700 Anoro Ellipta 62.5-25 mcg/actuation blister with device 1 inh inhalation DAILY Qty: 180 3RF escitalopram oxalate [Lexapro] 20 mg tablet 20 mg PO DAILY Qty: 90 1RF Follow-up/Referrals: Brittney Vazquez DO [Primary Care Provider] - 3 Days Time of Disposition: 01:39
[2025-04-15 22:26] LABS: Troponin I 0.014 ng/mL (0.000-0.034)
[2025-04-15] MEDS: SODIUM CHLORIDE 0.9% IV 1,000 ML 999 ML IV CONT (22:36)
[2025-04-15 22:46] LABS: Influenza A QL RT-PCR Negative (Negative); Influenza B QL RT-PCR Negative (Negative); RSV RNA, RT-PCR Negative (Negative); SARS-CoV-2 RNA PCR Negative (Negative)
--- NOTE | 2025-04-15 22:46 | PC.NURSE ---
Pt taken to bathroom in W/C by plant technical specialist.
[2025-04-16 00:44] LABS: Add Urine Microscopic? YES
[2025-04-16 00:47] LABS: Appearance Urine Clear (Clear); Specific Grav Ur 1.015 (1.001-1.035)
[2025-04-16 00:48] LABS: Glucose Urine UA Negative (Negative); Leukocyte Esterase Ur 1+ LEU/UL (Negative); Nitrate Urine Negative (Negative)
--- NOTE | 2025-04-16 01:03 | ECG_ITS ---
Test Date: 2025-04-16 01:18:45 Measurements Intervals [place] Rate: 70 P: 92 SD: 223 QRS: 72 QRSD: 104 T: 31 QT: 359 QTc: 387 Interpretive Statements SINUS RHYTHM WITH FIRST DEGREE AV BLOCK WITH OCCASIONAL VENTRICULAR PREMATURE COMPLEXES ANTEROSEPTAL MYOCARDIAL INFARCTION , OF INDETERMINATE AGE [40+ ms Q WAVE IN V1-V4] Compared to ECG 04/15/2025 22:01:37 Ventricular premature complex(es) now present First degree AV block now present Myocardial infarct finding now present Left bundle-branch block no longer present Electronically Signed On 04-16-2025 11:53:42 CDT by Km Ryan M.D.
[2025-04-16 01:33] LABS: Troponin I 0.013 ng/mL (0.000-0.034)
[2025-04-16 01:36] VITALS: PULSE 72; RESP 19; O2SAT 96
[2025-04-16] MEDS: cefTRIAXone 1 GM in SODIUM CHLORIDE 0.9% IV 50 ML 100 ML IVPB (01:39)
[2025-04-16 02:20] VITALS: BP 122/62; PULSE 81; RESP 18; TEMP 37.2; O2SAT 96
== END 2025-04-16 02:15 ==
PROVIDERS: Emergency Provider Emergency Medicine; PCP Family Medicine
DX: R53.1 Weakness (principal); N39.0 Urinary tract infection, site not specified; Z20.822 Contact with and (suspected) exposure to COVID-19; F41.9 Anxiety disorder, unspecified; F32.A Depression, unspecified; Z85.3 Personal history of malignant neoplasm of breast; I10 Essential (primary) hypertension; K21.9 Gastro-esophageal reflux disease without esophagitis
CPT/HCPCS: 36415; 71045; 80053; 81001; 83735; 84484; 85025; 87637; 93005; 96361; 96365; 99284; J0696; J7030

== ENCOUNTER 2025-04-21 12:02 | Inpatient (IN) | payer MEDICARE, MEDICAID, SELFPAY ==
[2025-04-21] VITALS (16 sets, daily range): BP systolic 90–119; BP diastolic 48–76; PULSE 76–129; RESP 17–25; TEMP 36.3–37; O2SAT 93–97; BMI 19.5
--- NOTE | ~2025-04-21 | XR_ITS ---
Portable chest x-ray Comparison: 04/15/2025 Clinical History: Dyspnea Findings: Moderate right pleural effusion and small left pleural effusion present. There is probable moderate pulmonary edema pattern. Cardiomediastinal silhouette is stable. Multiple chronic right ri b fracture deformity are noted. Impression: Moderate right pleural effusion and small left pleural effusion. Probable moderate pulmonary edema. Correlate clinically for pneumonia. Reviewed, dictated and finalized at [facility]. Impression: Moderate right pleural effusion and small left pleural effusion. Probable moderate pulmonary edema. Correlate clinically for pneumonia.
--- NOTE | 2025-04-21 12:12 | ECG_ITS ---
Test Date: 2025-04-21 13:14:03 Measurements Intervals [place] Rate: 122 P: 5 OR: 124 QRS: 61 QRSD: 124 T: 153 QT: 307 QTc: 438 Interpretive Statements SINUS TACHYCARDIA LEFT BUNDLE BRANCH BLOCK [120+ ms QRS DURATION, 80+ ms Q/S IN V1/V2, 85+ ms R IN I/aVL/V5/V6] ABNORMAL ECG Compared to ECG 04/16/2025 01:18:45 Left bundle-branch block now present HEART RATE IS INCREASED Electronically Signed On 04-21-2025 13:27:26 CDT by Luis العلي M.D.
--- OUTSIDE RECORDS SUMMARY | 2025-04-21 12:16 | XMS_ITS | Continuity of Care Document ---
Author Organization [facility] Address [address] [place] [address] [address] [place] [address] Phone Care Team Providers Care Collections Manager Name Role Phone [facility] Unavailable Unavail able Arely Caballero Unavailable Unavailable Advance Directives Directive Yes / No Effective Date File Name No Information Encounters Encounter Description Practice Location Reason(s) For Visit Diagnoses Date Provider Providers Copied on Encounter [facility], [address], [place], [place], [id number], [place] tel:[phone] [facility] No Information Mar-0 2-200 1 [facility] [address] [facility] [address], [place], [place], [id number] , [place]. tel:[phone] Referring Provider: Nelson Ramsey, [address], [place], [address]. tel:[phone] g Provider: Arely Caballero, [address] [place] [address], [address]. tel:[phone] Family History Family Member Type Diagnosis Age [...]
--- OUTSIDE RECORDS SUMMARY | 2025-04-21 12:16 | XMS_ITS | Clinical Summary ---
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
--- OUTSIDE RECORDS SUMMARY | 2025-04-21 12:16 | XMS_ITS | Clinical Summary ---
Author Organization [facility] Address [address] [place] [address] Care Team Providers Care Business Development Professional Name Role Phone Manjinder Ruiz MD Primary Care Provider [phone] Source Comments [facility] [facility],non-owned Affiliates and Associated Physician Practices is amultiple site organization consisting of ambulatory clinics and hospital sitesin [place], [place], [place] and [place]. This disclosure is being madepursuant to the Care Everywhere program and may not contain all information available regarding this patient. 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 MANAGED MEDICARE ADV MANAGED MEDICARE ADV SELF PAY NO INSURANCE Member Subscriber Plan / Payer (Ef fective for All Dates) Name:Jesus Vanegas Member ID:Not on file Relation to Subscriber:Not on file Name:JESUS VANEGAS Subscriber ID:Not on file (Home) Address: [address] [place] [id number] Payer ID:Not on file Group ID:Not on file Type:Self Pay Address: [place], [place] Care Teams Business Development Professional Relationship Specialty Start Date End Date Manjinder Ruiz MD [address] [place] [address] PCP - General 03/22/22
--- OUTSIDE RECORDS SUMMARY | 2025-04-21 12:16 | XMS_ITS | Encounter Summary ---
Author Organization [facility] [employer] [facility] Address [address] [place] [address] Care Team Providers Care Lokie Engineer Name Role Phone Unavailable Primary Care Provider Unavailabl e Encounter Details Date Type Department Care Team (Late Contact Info) Description 12/26/2023 Abstract [facility] Oncology and Hematology - [address] [place] [address] Becca López Social History Tobacco [...] st Contact Info) Description 09/25/2025 11:45 AM HR OPERATIONS ADVISOR Office Visit [facility] Oncology and Hematology - [place] [address] [place] [address] Alex Webster MD [address] [facility] [address] [place] [address] documented as of this encounter Visit Diagnoses Not on filedocumented in this encounter
--- OUTSIDE RECORDS SUMMARY | 2025-04-21 12:16 | XMS_ITS | Referral Summary ---
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
--- OUTSIDE RECORDS SUMMARY | 2025-04-21 12:16 | XMS_ITS | Clinical Summary ---
Author Organization [facility] Pat Akhtar Address [address] [place] [address] Care Team Providers Care Compo Conveyor Operator Name Role Phone Unavailable Primary Care [...] Description 04/03/2025 9:30 AM CDT Office Visit [facility] Oncology and Hematology - [place]em [address] [place] [address] Alex Webster MD Malignant neoplasm of left breast in female, estrogen receptor positive, unspecified site of breast (CMS/HCC) (Primary Dx) 04/03/2025 Orders Only [facility] Oncology and Hematology - K[place]em [address] [place] [address] Alex Webster MD 04/01/2025 Orders Only [facility] Oncology and Hematology - Kareem [address] [place] [address] Alex Webster MD 03/10/2025 External Device Data [...] st Contact Info) Description 09/25/2025 11:45 AM DIRECT SUPPORT WORKER Office Visit [facility] Oncology and Hematology [facility] [address] [facility] [address] [place] [address] Alex Webster MD [address] [facility] [address] [place] [address] Health Maintenance Due Date Last [...] 3 Months Insurance [facility] [id number] [place] [id number]
[2025-04-21] MEDS: IPRATROPIUM 0.5 MG/ALBUTEROL SULFATE 2.5 MG AMPUL.NEB 3 ML INHALATION (12:40)
[2025-04-21 13:02] LABS: Fractional Inspired Oxygen 21 %; HCO3 VBG 28.6 mEq/l (24.0-30.0); PCO2 VBG 41.1 mmHg (42.0-48.0); PO2 VBG 32.9 mmHg (35.0-45.0)
[2025-04-21 13:03] LABS: Hematocrit 34.8 % (37.0-47.0); Hemoglobin 11.5 g/dL (12.0-15.0); Immature Granulocyte Percent A 0.5 % (0-0.5); Lymphocytes Absolute Auto 0.86 K/mm3 (0.9-3.2); Mean Corpuscular HGB Conc 33.0 g/dl (32-36); Mean Corpuscular Hemoglobin 32.6 pg (26-34); Mean Corpuscular Volume 98.6 fl (80-100); Nucleated Red Blood Cells Absolute Auto 0.000 K/mm3 (0.0-0.012); Nucleated Red Blood Cells Perc 0.0 % (0.0-0.2); Platelet Count Result 321 k/mm3 (150-375); Red Blood Count 3.53 M/mm3 (4.2-5.4); White Blood Count 8.0 K/mm3 (4.5-10.0)
[2025-04-21 13:05] LABS: pH VBG 7.460 (7.300-7.400)
--- NOTE | 2025-04-21 13:20 | PCRCNOTE ---
Venous blood gas ordered rather than arterial blood gas, approved by Dr Dyson, Venous blood gas received.
[2025-04-21 13:21] LABS: Alanine Aminotransferase 9 U/L (6-35); Albumin Level 3.4 g/dL (3.5-5.1); Alkaline Phosphatase 51 U/L (38-126); Anion Gap 8 mmol/L (4-12); Aspartate Amino Transferase 40 U/L (14-36); Bilirubin,Total 1.4 mg/dL (0.2-1.3); Blood Urea Nitrogen 14 mg/dL (7-17); Calcium 9.0 mg/dL (8.4-10.2); Carbon Dioxide 28 mmol/L (22-30); Chloride 100 mmol/L (98-107); Estimated CRCL calculation 38 ml/min; Estimated Glomerular Filt Rate > 60; Glucose 104 mg/dL (65-110); Potassium 3.7 mmol/L (3.4-5.0); Sodium 136 mmol/L (137-145); Total Protein 6.6 g/dL (6.3-8.2)
[2025-04-21 13:32] LABS: NT Pro B Type Natriuretic Pept 8840 pg/mL (19.9-100); Troponin I < 0.012 ng/mL (0.000-0.034)
[2025-04-21 13:43] LABS: Add Urine Microscopic? YES; Appearance Urine Clear (Clear); Glucose Urine UA Negative (Negative); Leukocyte Esterase Ur Trace LEU/UL (Negative); Need Manual Microscopic Reviewed; Nitrate Urine Negative (Negative); Specific Grav Ur 1.021 (1.001-1.035)
[2025-04-21 14:17] LABS: Magnesium 2.0 mg/dL (1.6-2.3)
[2025-04-21] MEDS: cefTRIAXone 1 GM in SODIUM CHLORIDE 0.9% IV 50 ML 100 ML IVPB (14:25)
[2025-04-21] MEDS: AZITHROMYCIN 500 MG TABLET PO (14:27)
--- NOTE | 2025-04-21 14:31 | PC.NURSE ---
Dr. Dyson notified of pt. hypotension. Per MD, only give 20mg of IV lasix.
--- NOTE | 2025-04-21 14:33 | P.HP_ITS ---
H&P: HPI History of Present Illness Date/Time: 04/21/25 14:33 Chief Complaint: Shortness of Breath Narrative: 84 y/o F with PMH of parkinson's, lung cancer, diastolic dysfunction, HTN, emphysema, osteoporosis, and breast cancer presents here with shortness of breath. The patient presents here from [facility] (Assisted Living) via EMS for further evaluation of shortness of breath. She reports she was recently seen here and diagnosed with a UTI, started on abx. She reports she started feeling improved. She then reports she started to feel unwell again. She reports onset of shortness of breath yesterday (04/20). She more so reports that her work of breathing has increased versus feeling short of breath, like she has to take deeper breaths. Shortness of breath is accompanied by some weakness, however this improved with treatment of her UTI. She denies cough, fever, chills, nausea, vomiting, diarrhea, abdominal pain, weight gain, lower extremity swelling, or congestion. She has a history of diastolic dysfunction and is on Lasix 10 mg daily, reports compliance with medication. Initial VS at presentation: 98.6? F, HR 82, RR 22, 119/62, and 95% on RA. ED workup showed: No leukocytosis, hemoglobin 11.5, ABG significant for a pH of 7.46/CO2 41/O2 32.9, no significant electrolyte derangements, renal function within normal limits, initial troponin negative, and BNP 8 840. UA showed 1+ p rotein/1+ ketones/trace leuk history is/3-5 RBC. CXR showed a moderate right pleural effusion small left pleural effusion, probable moderate pulmonary edema (correlate clinically for pneumonia). EKG showed sinus tachycardia, rate 122, left bundle-branch block (when compared to previous, new left bundle branch block and heart rate has increased). Review of Systems Review of Systems: All systems reviewed & are unremarkable except as noted in HPI and below [facility] Past Medical History Medical History Basal cell carcinoma (BCC) Anxiety attack Depression Cancer of left breast Vitamin D deficiency Diastolic dysfunction Echocardiogram 01/201919 grade 1 diastolic dysfunction EF 60% mild left atrial enlargement Lung cancer Anxiety Constipation GERD (gastroesophageal reflux disease) Hypertension Emphysema of lung Fracture of fifth metatarsal bone of right foot with routine healing Osteoporosis, unspecified Prediabetes Surgical History Surgical History History of tonsillectomy H/O basal cell carcinoma excision History of breast lump/mass excision Re-excision posterior chest wall margin, evacuate hematoma 05/02/22 History of excision of lesion Excision 2.9 cm metastatic breast cancer left chest wall with 2 mm margins, 3.3 cm excision. 13 cm layered closure. 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 She has a daughter and a son. 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 She lives alone. She lives in a duplex that her daughter owns. Code status: Full code [facility] power of state attorney: Ursula Vega (daughter) Smoking packs per day: 1 Smoking cigarettes per day: 20.0 Years smoked: 20 Smoking pack-years: 20.00 Smoking status: Former smoker Second hand tobacco smoke exposure: No Alcohol intake: former Alcohol use details: WINE Substance use: never Substance use type: does not use Do You Feel Safe in your Home?: Yes Lack of Transportation: No Lack of Food: Never True Current Housing: I Have Housing Concerned About Future Housing: No Difficulty Paying Gas/Electric Bills: No Difficulty Paying for Meds: No Currently Unemployed: No Education: High School Diploma/GED Difficulty w/ Childcare or Family Care: No Living arrangements: alone Occupation/Education: retired Gender identity (if verbalized by the patient): Female Spiritual care concerns: No Meds Home Medications and Allergies Home Medications ?Medication ?Instructions ?Recorded ?Confirmed ?Type albuterol sulfate 2.5 mg/3 mL 2.5 mg (3 mL) inhalation Q4-6H PRN 03/13/22 04/21/25 Rx (0.083 %) solution for nebulization shortness of breath or wheezing #90 mL calcium 600 mg (as 1 tablet PO DAILY 03/31/22 04/21/25 History carbonate)-vitamin D3 5 mcg (200 unit) tablet cholecalciferol (vitamin D3) 25 25 mcg PO DAILY 03/31/22 04/21/25 History mcg (1,000 unit) capsule anastrozole 1 mg tablet 1 mg PO DAILY 11/21/22 04/21/25 History metoprolol tartrate 25 mg tablet 12.5 mg (1/2 x 25 mg) PO BID #60 02/05/23 04/21/25 Rx tabs lorazepam 0.5 mg tablet (Ativan) 0.5 mg PO QHS PRN anxiety #30 tabs 12/05/23 04/21/25 Rx albuterol sulfate 90 mcg/actuation 1 - 2 puff inhalation Q4-6H PRN 11/10/24 04/21/25 Rx aerosol inhaler shortness of breath or wheezing #8.5 grams umeclidinium 62.5 mcg-vilanterol 1 inh inhalation DAILY #180 ea 11/12/24 04/21/25 Rx 25 mcg/actuation powdr for inhalation (Anoro Ellipta) furosemide 20 mg tablet (Lasix) 10 mg PO QAM 12/15/24 04/21/25 History rivaroxaban 20 mg tablet (Xarelto) 5 mg PO DAILY@1700 12/15/24 04/21/25 History escitalopram oxalate 20 mg tablet 20 mg PO DAILY #90 tabs 02/09/25 04/21/25 Rx (Lexapro) midodrine 5 mg tablet 5 mg PO TID #90 tabs 04/01/25 04/21/25 Rx carbidopa 25 mg-levodopa 100 mg 1 tablet PO TID 04/21/25 04/21/25 History tablet carbidopa 25 mg-levodopa 100 mg 1 tablet PO DAILY PRN muscle spasm 04/21/25 04/21/25 History tablet (Sinemet) cephalexin 500 mg capsule 500 mg PO Q12H 04/21/25 04/21/25 History Allergies Allergy/AdvReac Type Severity Reaction Status Date / Time alendronate sodium (Fosamax) AdvReac Intermediate Nausea Verified 04/08/25 13:56 doxycycline AdvReac Intermediate Nausea Verified 04/08/25 13:56 hydrocodone AdvReac Intermediate vomiting Verified 04/08/25 13:56 adhesive AdvReac Mild Unknown,RASH, Verified 04/08/25 13:56 ITCH Iodinated Contrast Media AdvReac Mild Flushing Verified 04/08/25 13:56 latex AdvReac Mild Hives Verified 04/08/25 13:56 Contrast Media AdvReac Intermediate BURNING Uncoded 04/08/25 13:56 AND RED ALL OVER Vital Signs Vital Signs - 24 hr 04/21/25 12:00 04/21/25 12:00 04/21/25 12:40 Temperature 98.6 F Pulse Rate 82 84 Respiratory Rate 22 H 17 Blood Pressure 119/62 Pulse Oximetry 95 Oxygen Delivery Room Air Room Air 04/21/25 12:48 04/21/25 14:24 Temperature Pulse Rate 79 120 H Respiratory Rate 20 25 H Blood Pressure 90/66 L Pulse Oximetry 95 Oxygen Delivery Exam Const: General: comfortable and no acute distress Other: , female, elderly, nontoxic appearance HENMT: Face/Nose/Sinus: Normal nares present Mouth: Yes moist mucous membranes Eyes: General: appearance normal, both eyes and all related structures Scle ra: sclerae normal Pupils: Equal, round and reactive pupils present EOM: EOMs intact bilaterally Resp: Effort & Inspection: normal respiratory effort Other: Crackles in the right lung base otherwise no adventitious lung sounds. Cardio: Rate: regular rate Rhythm: abnormal rhythm Other: No murmur or rub. GI: Other: Abdomen soft, nondistended, nontender. Normoactive bowel sounds in all quadrants. Skin: General skin exam: normal color and no rashes or lesions noted Wounds: no wounds Neuro: Speech: normal speech Motor exam (neuro): 5/5 motor strength present throughout Sensory Exam: normal sensation Other: A&O x4 Extrem: General: normal to inspection Psych: Mental Status: mental status grossly normal Affect: normal affect Other: Good insight and judgment, pleasant H&P: Results Labs Labs: Short CBC 04/21/25 Range/Units 12:56 WBC 8.0 (4.5-10.0) K/mm3 Hgb 11.5 L (12.0-15.0) g/dL Hct 34.8 L (37.0-47.0) % Plt Count 321 (150-375) k/mm3 BMP 04/21/25 12:56 Sodium 136 L Potassium 3.7 Chloride 100 Carbon Dioxide 28 BUN 14 Creatinine 0.85 Glucose 104 Calcium 9.0 Cardiac Enzymes 04/21/25 Range/Units 12:56 Troponin I < 0.012 (0.000-0.034) ng/mL Liver Function 04/21/25 Range/Units 12:56 Total Bilirubin 1.4 H (0.2-1.3) mg/dL AST 40 H (14-36) U/L ALT 9 (6-35) U/L Alkaline Phosphatase 51 (38-126) U/L Albumin 3.4 L (3.5-5.1) g/dL Urine 04/21/25 Range/Units 13:27 Urine Color Dark yellow (Yellow) Urine Appearance Clear (Clear) Urine pH 6.0 (5.0-9.0) Ur Specific [place] 1.021 (1.001-1.035) Urine Protein 1+ H (Negative) mg/dL Urine Glucose (UA) Negative (Negative) mg/dL Assessment and Plan Assessment and plan (1) Acute dyspnea: Code(s): R06.00 - Dyspnea, unspecified Status: Acute Assessment and Plan: - CXR: Moderate right pleural effusion and small left pleural effusion. Probable moderate pulmonary edema. Correlate clinically for pneumonia. - VBG, initial: pH 7.46, CO2 41.1, O2 32.9 - suspect acute dyspnea secondary to CHF exacerbation, history of diastolic dysfunction. Plan to update echo and increased diuresis. Patient on Lasix 10 mg daily at home. - discussed possibility of pneumonia with the patient, as she has no systemic symptoms concerning for pneumonia the patient would like to see how she progresses with increasing her diuresis. Patient has been instructed to inform staff if she develops any cough, congestion, fever, chills, or body aches. Monitor white count. (2) Diastolic dysfunction: Code(s): I51.89 - Other ill-defined heart diseases Status: Acute Assessment and Plan: - BNP 8840 - most recent echo (2022): Hyperdynamic systolic function, estimated EF greater than 70%. Grade 1 diastolic dysfunction. Valvular disease noted. Mild pulmonary hypertension. See report for full details. - currently on Lasix 10 mg p.o. daily, will continue as Lasix 40 mg IV daily. Initially given 60 mg IV in ED. - monitor I&Os and daily weights - trend renal function (3) COPD (chronic obstructive pulmonary disease) case management patient: Code(s): J44.9 - Chronic obstructive pulmonary disease, unspecified Status: Acute Assessment and Plan: - no clinical exam findings concerning for exacerbation - continue home medications (4) Hypotension: Qualifiers: Hypotension type: unspecified hypotension type Qualified Code(s): I95.9 - Hypotension, unspecified Code(s): I95.9 - Hypotension, unspecified Status: Chronic Assessment and Plan: - chronic, currently 90/66 - continue home medications: midodrine - monitor Plan Diet: Heart healthy GI Prophylaxis: Not currently indicated DVT Prophylaxis: Xarelto IV fluids: None Lines/Tubes: Peripheral IV Code Status: Full code Quality VTE Prophylaxis VTE prophylaxis: pharmacologic ordered Hospitalist MIPS Advance Care Plan I have confirmed that the patient's Advanced Care Plan is present, code status is documented, or surrogate decision maker is listed in patient medical record.: Yes Medication Reconciliation I have utilized all available resources to obtain, update and review the patients current medications (includes all prescriptions, OTC, herbals, cannabis, and nutritional supplements).: Yes
[2025-04-21] MEDS: FUROSEMIDE INJ 40 MG/4 ML VIAL 20 MG IV PUSH (14:34)
[2025-04-21] MEDS: MIDODRINE HCL 2.5 MG TABLET 5 MG PO (14:41)
--- NOTE | 2025-04-21 15:16 | ED_ITS ---
HPI - SOB/Dyspnea General Chief Complaint: Shortness of Breath/Dyspnea Stated Complaint: SOB Time Seen by Provider: 04/21/25 12:10 History of Present Illness HPI Narrative: Patient has been having shortness of breath for the last 2 days, worse this morning and felt like she cannot breathe. No chest pain. Related Data Home Medications ?Medication ?Instructions ?Recorded ?Confirmed ?Last Taken ?Type calcium 600 mg (as 1 tablet PO DAILY 03/31/22 04/21/25 01/30/23 History carbonate)-vitamin D3 5 mcg (200 unit) tablet cholecalciferol (vitamin D3) 25 25 mcg PO DAILY 03/31/22 04/21/25 01/30/23 History mcg (1,000 unit) capsule anastrozole 1 mg tablet 1 mg PO DAILY 11/21/22 04/21/25 01/30/23 History furosemide 20 mg tablet (Lasix) 10 mg PO QAM 12/15/24 04/21/25 Unknown History rivaroxaban 20 mg tablet (Xarelto) 5 mg PO DAILY@1700 12/15/24 04/21/25 Unknown History carbidopa 25 mg-levodopa 100 mg 1 tablet PO TID 04/21/25 04/21/25 Unknown History tablet carbidopa 25 mg-levodopa 100 mg 1 tablet PO DAILY PRN muscle spasm 04/21/25 04/21/25 Unknown History tablet (Sinemet) cephalexin 500 mg capsule 500 mg PO Q12H 04/21/25 04/21/25 Unknown History Allergies Allergy/AdvReac Type Severity Reaction Status Date / Time alendronate sodium (Fosamax) AdvReac Intermediate Nausea Verified 04/08/25 13:56 doxycycline AdvReac Intermediate Nausea Verified 04/08/25 13:56 hydrocodone AdvReac Intermediate vomiting Verified 04/08/25 13:56 adhesive AdvReac Mild Unknown,RASH, Verified 04/08/25 13:56 ITCH Iodinated Contrast Media AdvReac Mild Flushing Verified 04/08/25 13:56 latex AdvReac Mild Hives Verified 04/08/25 13:56 Contrast Media AdvReac Intermediate BURNING Uncoded 04/08/25 13:56 AND RED ALL OVER Review of Systems 2 Review of Systems: All systems reviewed & are unremarkable except as noted in HPI and below PMFSH Past Medical History Medical History Basal cell carcinoma (BCC) Anxiety attack Depression Cancer of left breast Vitamin D deficiency Diastolic dysfunction Echocardiogram 01/201919 grade 1 diastolic dysfunction EF 60% mild left atrial enlargement Lung cancer Anxiety Constipation GERD (gastroesophageal reflux disease) Hypertension Emphysema of lung Fracture of fifth metatarsal bone of right foot with routine healing Osteoporosis, unspecified Prediabetes Surgical History Surgical History History of tonsillectomy H/O basal cell carcinoma excision History of breast lump/mass excision Re-excision posterior chest wall margin, evacuate hematoma 05/02/22 History of excision of lesion Excision 2.9 cm metastatic breast cancer left chest wall with 2 mm margins, 3.3 cm excision. 13 cm layered closure. 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 She has a daughter and a son. 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 She lives alone. She lives in a duplex that her daughter owns. Code status: Full code [facility] power of workers compensation defense attorney: Ursula Vega (daughter) Smoking packs per day: 1 Smoking cigarettes per day: 20.0 Years smoked: 20 Smoking pack-years: 20.00 Smoking status: Former smoker Second hand tobacco smoke exposure: No Alcohol intake: former Alcohol use details: WINE Substance use: never Substance use type: does not use Do You Feel Safe in your Home?: Yes Lack of Transportation: No Lack of Food: Never True Current Housing: I Have Housing Concerned About Future Housing: No Difficulty Paying Gas/Electric Bills: No Difficulty Paying for Meds: No Currently Unemployed: No Education: High School Diploma/GED Difficulty w/ Childcare or Family Care: No Living arrangements: alone Occupation/Education: retired Gender identity (if verbalized by the patient): Female Spiritual care concerns: No Exam 2 Narrative: EXAMINATION OF ORGAN SYSTEMS/BODY AREAS: Constitutional: Vital signs per nursing GENERAL: Appears slightly dyspneic HEAD: Normal with no signs of head trauma. EYES: EOMI, conjunctiva normal ENT: Hearing grossly intact LUNGS: Tachypneic, no significant wheezing HEART: [Regular rate and rhythm] ABD: [Soft], [nontender to palpation] EXT: Normal range of motion SKIN: [No rashes or lesions.] NEURO: [Alert and oriented x 3. No gross focal sensory or strength deficits.] PSYCH: Normal affect Course Vital Signs Vital signs: Vital Signs Temperature 98.6 F 04/21/25 12:00 Pulse Rate 82 04/21/25 12:00 Respiratory Rate 22 H 04/21/25 12:00 Blood Pressure 119/62 04/21/25 12:00 Pulse Oximetry 95 04/21/25 12:00 Oxygen Delivery Room Air 04/21/25 12:00 Temperature 97.4 F L 04/21/25 16:06 Pulse Rate 129 H 04/21/25 17:46 Respiratory Rate 18 04/21/25 16:06 Blood Pressure 102/58 L 04/21/25 16:06 Pulse Oximetry 96 04/21/25 16:06 Oxygen Delivery Room Air 04/21/25 12:00 MDM - SOB/Dyspnea MDM Narrative Medical decision making narrative: 1) Differential diagnosis: COPD, pneumonia, ACS, CHF exacerbation 2) Comorbidities: COPD, CHF 3) External notes reviewed: Prior PCP notes 4) History sources independently obtained from: EMS 5) Discussion of management with: 6) Independent interpretation of: EKG sinus tachycardia rate 122, MT 124, QRS 124, QTC 438, no significant ST elevations or depressions, there is left bundle-branch block Chest x-ray my independent interpretation shows patchy opacities bilaterally, possibly pulmonary edema versus pneumonia, pleural effusion 7) Diagnostic tests or therapies considered but not ordered: 8) Social determinants of health: 9) Shared decision makin-year-old female presenting with shortness of breath. She does has some dyspnea here, VBG without retaining CO2, troponin negative, but BNP quite elevated and chest x-ray else consistent with fluid overload. I will also cover her with antibiotics for pneumonia. At this point feel she could likely benefit from admission for further diuresis. Patient agreeable to this plan discussed with hospitalist. Lab Data 04/21/25 12:56 04/21/25 12:56 Labs: Lab Results 04/21/25 04/21/25 Range/Units 12:56 13:27 WBC 8.0 (4.5-10.0) K/mm3 RBC 3.53 L (4.2-5.4) M/mm3 Hgb 11.5 L (12.0-15.0) g/dL Hct 34.8 L (37.0-47.0) % MCV 98.6 (80-100) fl MCH 32.6 (26-34) pg MCHC 33.0 (32-36) g/dl RDW 12.9 (11.5-14.5) % Plt Count 321 (150-375) k/mm3 MPV 9.9 (7.4-10.4) fl Immature Gran % (Auto) 0.5 (0-0.5) % Neut % (Auto) 74.7 H (45.5-73.1) % Lymph % (Auto) 10.7 L (18.3-44.2) % [place] % (Auto) 12.8 H (2.6-8.5) % Eos % (Auto) 1.1 (0-4.4) % Baso % (Auto) 0.2 (0.2-1.2) % Lymph # (Auto) 0.86 L (0.9-3.2) K/mm3 [place] # (Auto) 1.0 H (0.1-0.6) K/mm3 Eos # (Auto) 0.1 (0-0.3) K/mm3 Baso # (Auto) 0.0 (0.0-0.1) K/mm3 Abs Immat Gran (auto) 0.04 H (0.00-0.031) K/mm3 Absolute Neuts (auto) 6.0 (1.3-6.7) K/mm3 Absolute Nucleated RBC 0.000 (0.0-0.012) K/mm3 Nucleated RBC % 0.0 (0.0-0.2) % Sodium 136 L (137-145) mmol/L Potassium 3.7 (3.4-5.0) mmol/L Chloride 100 (98-107) mmol/L Carbon Dioxide 28 (22-30) mmol/L Anion Gap 8 (4-12) mmol/L BUN 14 (7-17) mg/dL Creatinine 0.85 (0.7-1.0) mg/dL Estim Creat Clear Calc 38 ml/min Estimated GFR > 60 (59 - ) Glucose 104 (65-110) mg/dL Lactic Acid 1.4 (0.7-2.0) mmol/L Calcium 9.0 (8.4-10.2) mg/dL Magnesium 2.0 (1.6-2.3) mg/dL Total Bilirubin 1.4 H (0.2-1.3) mg/dL AST 40 H (14-36) U/L ALT 9 (6-35) U/L Alkaline Phosphatase 51 (38-126) U/L Troponin I < 0.012 (0.000-0.034) ng/mL NT-Pro-B Natriuret Pep 8840 H (19.9-100) pg/mL Total Protein 6.6 (6.3-8.2) g/dL Albumin 3.4 L (3.5-5.1) g/dL Urine Color Dark yellow (Yellow) Urine Appearance Clear (Clear) Urine pH 6.0 (5.0-9.0) Ur Specific [place] 1.021 (1.001-1.035) Urine Protein 1+ H (Negative) mg/dL Urine Glucose (UA) Negative (Negative) mg/dL Urine Ketones 1+ H (Negative) mg/dL Ur Blood (Man) Negative (Negative) Urine Nitrate Negative (Negative) Urine Bilirubin Negative (Negative) Urine Urobilinogen 1.0 (<2.0) mg/dL Add Ur Microanalysis Reviewed Leukocyte Esterase Rfl Trace H (Negative) SAMMY/UL Urine RBC 3-5 H (0-2) /hpf Urine WBC 0-5 (0-3) /hpf Ur Squamous Epith Cells Occasional (Few) /hpf Urine Bacteria None seen /hpf Urine Casts 3-5 ABG Data ABG results: 04/21/25 12:56 VBG pH 7.460 H* VBG pCO2 41.1 L VBG pO2 32.9 L VBG HCO3 28.6 O2 Delivery Device Room air O2 Liters/Min Not Reportable FiO2 21 Critical Care Time Critical Care Time Critical Care Time: Yes Total Critical Care Time: 31 Discharge Plan Discharge Clinical Impression: Acute exacerbation of CHF (congestive heart failure), Fluid overload, Shortness of breath Patient Disposition: Still a Patient Condition: Stable
--- NOTE | 2025-04-21 16:05 | ADMGEN ---
This patient, Tigist Trejo, was admitted to 2 Medical Room 259-. Patient/family oriented to hospital policies and general routines including ID bracelet, bed and alarms, visiting hours, pain management, procedures, bathroom and other care routines, personal items, smoking policy, room service/diet, and visiting hours. Information on how to activate the Rapid Response Team has been discussed. Patient/Family are encouraged to report perceived risks to care and to ask questions if they do not understand what they are told or what they should do.
[2025-04-21] MEDS: METOPROLOL TARTRATE INJ 5 MG/5 ML VIAL IV PUSH (17:46)
[2025-04-21] MEDS: CEPHALEXIN 500 MG CAPSULE PO (21:51)
[2025-04-21] MEDS: METOPROLOL TARTRATE 6.25 MG TABLET PO (21:51)
[2025-04-21] MEDS: DOCUSATE SODIUM 100 MG CAPSULE PO (21:52)
[2025-04-22] VITALS (10 sets, daily range): BP systolic 109–113; BP diastolic 53–58; PULSE 60–102; RESP 16–18; TEMP 36.5–36.8; O2SAT 93–95; BMI 19.8
--- NOTE | 2025-04-22 | ECHO_ITS ---
Patient Info Name: Tigist Trejo Age: 84 years : 1940 Gender: Female Ht: 68 in Wt: 125 lbs BSA: 1.64 m2 HR: 90 bpm BP: 109 / 53 mmHg Technical Quality: Good Exam Date: 04/22/2025 7:48 AM Patient Status: I Admit Date: 04/21/2025 Exam Type: CA echo doppler color flow Complete two-dimensional, color flow and Doppler transthoracic echocardiogram is performed. Staff Referring Physician: Keesha Dyson Medical Secretary Teacher: Sonya Woo Attending Provider: Evangelina Rader Summary 1. Complete two-dimensional, color flow and Doppler transthoracic echocardiogram is performed. 2. The left ventricle is normal in size and systolic function. The left ventricular ejection fraction is visually estimated to be 60-65%. There is grade 3 diastolic dysfunction. 3. The right ventricle is normal in size and systolic function. 4. The left atrium is moderately dilated. 5. The mitral valve leaflets are calcified. There is severe mitral annular calcification. There is mild mitral stenosis. The mean gradient is 9 and heart rate 101 beats per minute. There is mild mitral regurgitation. 6. There is moderate pulmonary hypertension with pulmonary artery systolic pressure estimated to be 67 mm Hg. Left Ventricle The left ventricle is normal in size and systolic function. The left ventricular ejection fraction is visually estimated to be 60-65%. There is grade 3 diastolic dysfunction. Right Ventricle The right ventricle is normal in size and systolic function. Left Atria The left atrium is moderately dilated. Right Atria The right atrium is normal size. Atrial Septum The atrial septum is normal. Aortic Valve The aortic valve is trileaflet and opens well. There is no aortic regurgitation. Pulmonic Valve The pulmonic valve is grossly normal. There is trace pulmonic valve regurgitation. Mitral Valve The mitral valve leaflets are calcified. There is severe mitral annular calcification. There is mild mitral stenosis. The mean gradient is 9 and heart rate 101 beats per minute. There is mild mitral regurgitation. Tricuspid Valve The tricuspid valve is normal. There is mild tricuspid regurgitation. Pulmonary Arteries There is moderate pulmonary hypertension with pulmonary artery systolic pressure estimated to be 67 mm Hg. Pericardium/Pleural The pericardium is not fully visualized. Inferior Vena Cava Normal inferior vena cava with <50% collapse upon inspiration consistent with elevated right atrial pressure, 8 mmHg. Aorta The aortic root at the level of the sinus of Valsalva measures 2.9 cm in diameter. Left Ventricular Outflow Tract Name Value Normal LVOT 2D LVOT Diameter 1.9 cm LVOT Doppler LVOT Peak Velocity 114 cm/s LVOT Peak Gradient 5 mmHg LVOT Mean Gradient 2 mmHg LVOT VTI 15 cm LVOT VTI/AV VTI Ratio 0.8 LVOT Stroke Volume 45 ml LVOT CO 5.2 l/min LVOT CI 3.2 l/min/m2 Pulmonic Valve Name Value Normal PV Doppler PV Peak Velocity 91 cm/s PV Peak Gradient 3 mmHg Mitral Valve Name Value Normal MV 2D/MM MV Area (Planimetry) 2.2 cm2 MV Doppler MV Peak Gradient 20 mmHg MV Mean Gradient 8 mmHg MV Area (Cont Eq VTI) 0.9 cm2 MV Regurgitation Doppler MR Peak Gradient 95 mmHg MV Diastolic Function MV E Peak Velocity 213 cm/s MV A Peak Velocity 96 cm/s MV E/A 2.2 MV Decel Time (PW) 364 ms MV Annular TDI MV E/e' (Septal) 15.6 MV E/e' (Lateral) 21.9 MV E/e' (Average) 18.8 Tricuspid Valve Name Value Normal TV Regurgitation Doppler TR Peak Velocity 384 cm/s TR Peak Gradient 51 mmHg Estimated PAP/RSVP RA Pressure 8 mmHg <=5 PA Systolic Pressure 67 mmHg <36 RV Systolic Pressure 67 mmHg <36 TV Annular TDI TV Lateral Lynnette s' Velocity 13.5 cm/s >=9.5 Aortic Valve Name Value Normal AV Doppler AV Peak Velocity 127 cm/s AV Peak Gradient 6 mmHg AV Mean Gradient 4 mmHg AV VTI 19 cm AV Area (Cont Eq VTI) 2.4 cm2 >=3.0 AV Area (Cont Eq Mike) 2.6 cm2 AV DI (Mike) 0.89 AV Regurgitation 2D LVOT Area 2.9 cm2 Ventricles Name Value Normal LV Dimensions 2D/MM IVS Diastolic Thickness (2D) 1.2 cm 0.6-1.0 LVID Diastole (2D) 3.2 cm 3.8-5.2 LVIW Diastolic Thickness (2D) 1.0 cm 0.6-0.9 LVID Systole (2D) 2.5 cm 2.2-3.5 LVOT Diameter 1.9 cm LV Mass (2D Cubed) 102.96 g 67.00-162.00 LV Mass Index (2D Cubed) 63 g/m2 43-95 Relative Wall Thickness (2D) 0.63 <=0.42 LV Fractional Shortening/Ejection Fraction 2D/MM LV Fractional Shortening (2D) 20 % 27-45 LV EF (2D Teichholz) 43 % LV Diastolic Volume (4C MOD) 34 ml LV EF (4C MOD) 66 % LV Diastolic Volume (2C MOD) 35 ml LV EF (2C MOD) 64 % LV Diastolic Volume (BP MOD) 36 ml 46-106 LV Diastolic Volume Index (BP MOD) 22 ml/m2 29-61 LV Systolic Volume (BP MOD) 13 ml 14-42 LV Systolic Volume Index (BP MOD) 8 ml/m2 8-24 LV EF (BP MOD) 62 % 54-74 LV Diastolic Length (4C) 6.6 cm LV Systolic Length (4C) 5.1 cm LV Stroke Volume (4C MOD) 22 ml Atria Name Value Normal LA Dimensions LA Volume (4C A-L) 66 ml LA Volume (BP A-L) 68 ml RA Dimensions RA Systolic [place] Length (4C) 5.6 cm 2.2-2.8 RA Area (4C) 15.0 cm2 <=18.0 Report Signatures
[2025-04-22 04:57] LABS: Hematocrit 33.2 % (37.0-47.0); Hemoglobin 10.6 g/dL (12.0-15.0); Immature Granulocyte Percent A 0.6 % (0-0.5); Lymphocytes Absolute Auto 0.92 K/mm3 (0.9-3.2); Mean Corpuscular HGB Conc 31.9 g/dl (32-36); Mean Corpuscular Hemoglobin 32.0 pg (26-34); Mean Corpuscular Volume 100.3 fl (80-100); Nucleated Red Blood Cells Absolute Auto 0.000 K/mm3 (0.0-0.012); Nucleated Red Blood Cells Perc 0.0 % (0.0-0.2); Platelet Count Result 336 k/mm3 (150-375); Red Blood Count 3.31 M/mm3 (4.2-5.4); White Blood Count 5.0 K/mm3 (4.5-10.0)
[2025-04-22 05:12] LABS: Anion Gap 7 mmol/L (4-12); Blood Urea Nitrogen 15 mg/dL (7-17); Calcium 9.0 mg/dL (8.4-10.2); Carbon Dioxide 31 mmol/L (22-30); Chloride 100 mmol/L (98-107); Estimated CRCL calculation 38 ml/min; Estimated Glomerular Filt Rate > 60; Glucose 98 mg/dL (65-110); Potassium 3.5 mmol/L (3.4-5.0); Sodium 138 mmol/L (137-145)
[2025-04-22] MEDS: UMECLIDINIUM/VILANTEROL 62.5-25 MCG ELLIPTA 1 PUFF INHALATION (07:45)
--- NOTE | 2025-04-22 09:33 | P.PNIM_ITS ---
Progress Note: A&P Assessment and Plan (1) Acute dyspnea: Code(s): R06.00 - Dyspnea, unspecified Status: Acute Assessment and Plan: - CXR: Moderate right pleural effusion and small left pleural effusion. Probable moderate pulmonary edema. Correlate clinically for pneumonia. - VBG, initial: pH 7.46, CO2 41.1, O2 32.9 - suspect acute dyspnea secondary to CHF exacerbation, history of diastolic dysfunction. Plan to update echo and increased diuresis. Patient on Lasix 10 mg daily at home. - discussed possibility of pneumonia with the patient, as she has no systemic symptoms concerning for pneumonia the patient would like to see how she progresses with increasing her diuresis. Patient has been instructed to inform staff if she develops any cough, congestion, fever, chills, or body aches. Monitor white count. -she is normally on anoro inhaler-will restart once home med list is updated (2) Diastolic dysfunction: Code(s): I51.89 - Other ill-defined heart diseases Status: Acute Assessment and Plan: - BNP 8840 - most recent echo (2022): Hyperdynamic systolic function, estimated EF greater than 70%. Grade 1 diastolic dysfunction. Valvular disease noted. Mild pulmonary hypertension. See report for full details. - currently on Lasix 10 mg p.o. daily, will continue as Lasix 40 mg IV daily. Initially given 60 mg IV in ED. - monitor I&Os and daily weights - trend renal function (3) COPD (chronic obstructive pulmonary disease) case management patient: Code(s): J44.9 - Chronic obstructive pulmonary disease, unspecified Status: Acute Assessment and Plan: - no clinical exam findings concerning for exacerbation - continue home medications (4) Hypotension: Qualifiers: Hypotension type: unspecified hypotension type Qualified Code(s): I95.9 - Hypotension, unspecified Code(s): I95.9 - Hypotension, unspecified Status: Chronic Assessment and Plan: - chronic, currently 90/66 - continue home medications: midodrine - monitor Plan Diet: Heart healthy GI Prophylaxis: Not currently indicated DVT Prophylaxis: Xarelto IV fluids: None Lines/Tubes: Peripheral IV Code Status: Full code Time Spent With Patient Time with patient: 25 - 35 minutes Subjective Date/time seen: 04/22/25 09:33 Interval history: 84 y/o F with PMH of parkinson's, lung cancer, diastolic dysfunction, HTN, emphysema, osteoporosis, and breast cancer presents here with shortness of breath. Recently treated for UTI. 04/20- started feeling sob. Shortness of breath is accompanied by some weakness, however this improved with treatment of her UTI. She denies cough, fever, chills, nausea, vomiting, diarrhea, abdominal pain, weight gain, lower extremity swelling, or congestion. She has a history of diastolic dysfunction and is on Lasix 10 mg daily, reports compliance with medication. Initial VS at presentation: 98.6? F, HR 82, RR 22, 119/62, and 95% on RA. ED workup showed: No leukocytosis, hemoglobin 11.5, ABG significant for a pH of 7.46/CO2 41/O2 32.9, no significant electrolyte derangements, renal function within normal limits, initial troponin negative, and BNP 8 840. UA showed 1+ protein/1+ ketones/trace leuk history is/3-5 RBC. CXR showed a moderate right pleural effusion small left pleural effusion, probable moderate pulmonary edema (correlate clinically for pneumonia). EKG showed sinus tachycardia, rate 122, left bundle-branch block (when compared to previous, new left bundle branch block and heart rate has increased). 04/22 pt is seen and examined. Pt was out of xarelto and annoro inhaler as she could not afford it. Care coordination is aware. She is feeling better this morning and breathing is improved. Review of Systems Review of Systems: All systems reviewed & are unremarkable except as noted in HPI and below Exam Const: General: comfortable and no acute distress Other: , female, elderly, nontoxic appearance HENMT: Face/Nose/Sinus: Normal nares present Mouth: Yes moist mucous membranes Eyes: General: appearance normal, both eyes and all related structures Sclera: sclerae normal Pupils: Equal, round and reactive pupils present EOM: EOMs intact bilaterally Resp: Effort & Inspection: normal respiratory effort Other: Crackles in the right lung base otherwise no adventitious lung sounds. Cardio: Rate: regular rate Rhythm: abnormal rhythm Other: No murmur or rub. GI: Other: Abdomen soft, nondistended, nontender. Normoactive bowel sounds in all quadrants. Skin: General skin exam: normal color and no rashes or lesions noted Wounds: no wounds Neuro: Cranial nerves: Yes Equal, round and reactive pupils present Speech: normal speech Motor exam (neuro): 5/5 motor strength present throughout Sensory Exam: normal sensation Other: A&O x4 Extrem: General: normal to inspection Psych: Mental Status: mental status grossly normal Affect: normal affect Other: Good insight and judgment, pleasant Objective Data Vital Signs Vital Signs: Vital Signs - 24 hr 04/21/25 12:00 04/21/25 12:00 04/21/25 12:17 Temperature 98.6 F Pulse Rate 82 96 Respiratory Rate 22 H 23 H Blood Pressure 119/62 119/62 Pulse Oximetry 95 94 Oxygen Delivery Room Air Room Air 04/21/25 12:31 04/21/25 12:40 04/21/25 12:48 Temperature Pulse Rate 85 84 79 Respiratory Rate 21 H 17 20 Blood Pressure 104/66 Pulse Oximetry 95 Oxygen Delivery 04/21/25 14:24 04/21/25 14:31 04/21/25 15:01 Temperature Pulse Rate 120 H 120 H 121 H Respiratory Rate 25 H 20 20 Blood Pressure 90/66 L 95/61 L 96/70 L Pulse Oximetry 95 96 97 Oxygen Delivery 04/21/25 15:30 04/21/25 16:06 04/21/25 17:35 Temperature 97.4 F L Pulse Rate 110 H 86 124 H Respiratory Rate 20 18 Blood Pressure 99/76 L 102/58 L Pulse Oximetry 96 96 Oxygen Delivery 04/21/25 17:46 04/21/25 19:44 04/21/25 20:00 Temperature 98.4 F Pulse Rate 129 H 80 84 Respiratory Rate 18 Blood Pressure 90/48 L Pulse Oximetry 93 Oxygen Delivery 04/21/25 20:12 04/21/25 21:18 04/21/25 21:51 Temperature Pulse Rate 85 76 Respiratory Rate Blood Pressure 100/60 Pulse Oximetry Oxygen Delivery Room Air 04/22/25 00:00 04/22/25 04:00 04/22/25 04:46 Temperature 98.3 F Pulse Rate 79 67 92 Respiratory Rate 18 Blood Pressure 109/53 L Pulse Oximetry 93 Oxygen Delivery Intake/Output Intake/Output: Intake & Output 04/19/25 04/20/25 04/21/25 04/22/25 23:59 23:59 23:59 23:59 Intake Total 170 480 Output Total 260 200 Balance -90 280 Meds/Results Medications: Active Medications Generic Name Dose Route Start Last Admin Trade Name Freq PRN Reason Stop Dose Admin Albuterol 2.5 mg 04/21/25 17:34 Albuterol Sulfate Neb 2.5 Mg/3 Ml Inh INHALATION Q4HRT PRN shortness of breath or wheezing Anastrozole 1 mg 04/22/25 09:00 Anastrozole (*Chemo) 1 Mg Tablet PO DAILY NIURKA Calcium Carbonate 500 mg 04/22/25 09:00 Calcium/Vitamin D 500 Mg/5 Mcg (200 I.U.) Tablet PO QAM NIURKA Carbidopa/Levodopa 1 tablet 04/22/25 09:00 Carbidopa/Levodopa 25/100 Mg Tablet PO TID NIURKA Carbidopa/Levodopa 1 tablet 04/21/25 17:34 Carbidopa/Levodopa 25/100 Mg Tablet PO DAILY PRN muscle spasm Cephalexin HCl 500 mg 04/21/25 21:00 04/21/25 21:51 Cephalexin 500 Mg Capsule PO 04/24/25 21:01 500 mg Q12H NIURAK Administration Docusate Sodium 100 mg 04/21/25 21:40 04/21/25 21:52 Docusate Sodium 100 Mg Capsule PO 100 mg Q12HR NIURKA Administration Escitalopram Oxalate 20 mg 04/22/25 09:00 Escitalopram Oxalate 10 Mg Tablet PO DAILY NIURKA Furosemide 40 mg 04/22/25 09:00 Furosemide Inj 40 Mg/4 Ml Vial IV PUSH DAILY NIURKA Lorazepam 0.5 mg 04/21/25 17:34 Lorazepam (*Crx) 0.5 Mg Tablet PO QHS PRN anxiety Metoprolol Tartrate 12.5 mg 04/22/25 09:00 Metoprolol Tartrate 12.5 Mg Tablet PO Q12HR NIURKA Midodrine 5 mg 04/22/25 09:00 Midodrine Hcl 2.5 Mg Tablet PO TID NIURKA Perflutren Lipid Microsphere 0 ml 04/21/25 15:07 Perflutren Lipid Microspheres 1.5 Ml Vial Diluted To 10 Ml Total Volume IV PUSH 04/24/25 15:07 ONCE PRN adequate visualization Protocol Polyethylene Glycol 17 gm 04/21/25 21:32 Polyethylene Glycol 3350 17 Gm Powd.Pack PO QAM PRN Constipation Rivaroxaban 5 mg 04/22/25 17:00 Rivaroxaban 2.5 Mg Tablet PO DAILY@1700 NIURKA Umeclidinium/Vilanterol 1 puff 04/22/25 08:00 04/22/25 07:45 Umeclidinium/Vilanterol 62.5-25 Mcg Ellipta INHALATION 1 puff DAILYRT [facility] Administration Vitamin D 25 mcg 04/22/25 09:00 Cholecalciferol (Vitamin D3) 25 Mcg (1,000 Units) Tablet PO DAILY [facility] Radiology Results: ITS Impressions Chest X-Ray 04/21/25 13:19 Impression: Moderate right pleural effusion and small left pleural effusion. Probable moderate pulmonary edema. Correlate clinically for pneumonia. Labs Labs: Laboratory Results - last 24 hr 04/21/25 04/21/25 04/22/25 12:56 13:27 04:30 WBC 8.0 5.0 RBC 3.53 L 3.31 L Hgb 11.5 L 10.6 L Hct 34.8 L 33.2 L MCV 98.6 100.3 H MCH 32.6 32.0 MCHC 33.0 31.9 L RDW 12.9 12.9 Plt Count 321 336 MPV 9.9 9.9 Immature Gran % (Auto) 0.5 0.6 H Neut % (Auto) 74.7 H 62.4 Lymph % (Auto) 10.7 L 18.5 [place] % (Auto) 12.8 H 13.7 H Eos % (Auto) 1.1 4.4 Baso % (Auto) 0.2 0.4 Lymph # (Auto) 0.86 L 0.92 [place] # (Auto) 1.0 H 0.7 H Eos # (Auto) 0.1 0.2 Baso # (Auto) 0.0 0.0 Abs Immat Gran (auto) 0.04 H 0.03 Absolute Neuts (auto) 6.0 3.1 Absolute Nucleated RBC 0.000 0.000 Nucleated RBC % 0.0 0.0 VBG pH 7.460 H* VBG pCO2 41.1 L VBG pO2 32.9 L VBG HCO3 28.6 O2 Delivery Device Room air O2 Liters/Min Not Reportable FiO2 21 Sodium 136 L 138 Potassium 3.7 3.5 Chloride 100 100 Carbon Dioxide 28 31 H Anion Gap 8 7 BUN 14 15 Creatinine 0.85 0.88 Estim Creat Clear Calc 38 38 Estimated GFR > 60 > 60 Glucose 104 98 Lactic Acid 1.4 Calcium 9.0 9.0 Magnesium 2.0 Total Bilirubin 1.4 H AST 40 H ALT 9 Alkaline Phosphatase 51 Troponin I < 0.012 NT-Pro-B Natriuret Pep 8840 H Total Protein 6.6 Albumin 3.4 L Urine Color Dark yellow Urine Appearance Clear Urine pH 6.0 Ur Specific [place] 1.021 Urine Protein 1+ H Urine Glucose (UA) Negative Urine Ketones 1+ H Ur Blood (Man) Negative Urine Nitrate Negative Urine Bilirubin Negative Urine Urobilinogen 1.0 Add Ur Microanalysis Reviewed Leukocyte Esterase Rfl Trace H Urine RBC 3-5 H Urine WBC 0-5 Ur Squamous Epith Cells Occasional Urine Bacteria None seen Urine Casts 3-5 Quality VTE Prophylaxis VTE prophylaxis: pharmacologic ordered
[2025-04-22] MEDS: MIDODRINE HCL 2.5 MG TABLET 5 MG PO ×3 (09:52→18:05)
[2025-04-22] MEDS: METOPROLOL TARTRATE 12.5 MG TABLET PO (09:52)
[2025-04-22] MEDS: CALCIUM/VITAMIN D 500 MG/5 MCG (200 I.U.) TABLET PO (09:52)
[2025-04-22] MEDS: ANASTROZOLE (*CHEMO) 1 MG TABLET PO (09:53)
[2025-04-22] MEDS: CARBIDOPA/LEVODOPA 25/100 MG TABLET 1 TABLET PO ×3 (09:53→18:05)
[2025-04-22] MEDS: DOCUSATE SODIUM 100 MG CAPSULE PO ×2 (09:53→20:11)
[2025-04-22] MEDS: CHOLECALCIFEROL (VITAMIN D3) 25 MCG (1,000 UNITS) TABLET PO (09:53)
[2025-04-22] MEDS: ESCITALOPRAM OXALATE 10 MG TABLET 20 MG PO (09:53)
[2025-04-22] MEDS: CEPHALEXIN 500 MG CAPSULE PO ×2 (09:53→20:11)
[2025-04-22] MEDS: FUROSEMIDE INJ 40 MG/4 ML VIAL IV PUSH (09:53)
[2025-04-22] MEDS: RIVAROXABAN 2.5 MG TABLET 5 MG PO (18:05)
[2025-04-23] VITALS (13 sets, daily range): BP systolic 100–121; BP diastolic 44–65; PULSE 50–80; RESP 16–18; TEMP 36.4–36.5; O2SAT 93–97
[2025-04-23] MEDS: UMECLIDINIUM/VILANTEROL 62.5-25 MCG ELLIPTA 1 PUFF INHALATION (08:14)
[2025-04-23] MEDS: ESCITALOPRAM OXALATE 10 MG TABLET 20 MG PO (08:51)
[2025-04-23] MEDS: CALCIUM/VITAMIN D 500 MG/5 MCG (200 I.U.) TABLET PO (08:51)
[2025-04-23] MEDS: METOPROLOL TARTRATE 12.5 MG TABLET PO ×2 (08:51→20:19)
[2025-04-23] MEDS: CEPHALEXIN 500 MG CAPSULE PO ×2 (08:51→20:19)
[2025-04-23] MEDS: DOCUSATE SODIUM 100 MG CAPSULE PO ×2 (08:51→20:20)
[2025-04-23] MEDS: CHOLECALCIFEROL (VITAMIN D3) 25 MCG (1,000 UNITS) TABLET PO (08:51)
[2025-04-23] MEDS: ANASTROZOLE (*CHEMO) 1 MG TABLET PO (08:51)
[2025-04-23] MEDS: MIDODRINE HCL 2.5 MG TABLET 5 MG PO ×3 (08:51→17:21)
[2025-04-23] MEDS: CARBIDOPA/LEVODOPA 25/100 MG TABLET 1 TABLET PO ×3 (08:52→17:21)
[2025-04-23] MEDS: FUROSEMIDE INJ 40 MG/4 ML VIAL IV PUSH (08:52)
--- NOTE | 2025-04-23 11:42 | P.CDI_ITS ---
CDI Query Clarification Request Please specify type and acuity of heart failure if known. * Acute * Chronic * Acute on Chronic * Unknown * Systolic * Diastolic * Combined Systolic and Diastolic * Unknown The medical chart reflects the following: Patient has been having shortness of breath for the last 2 days, worse this morning and felt like she cannot breathe. No chest pain. (1) Acute dyspnea: Code(s): R06.00 - Dyspnea, unspecified Status: Acute Assessment and Plan: - CXR: Moderate right pleural effusion and small left pleural effusion. Probable moderate pulmonary edema. Correlate clinically for pneumonia. - VBG, initial: pH 7.46, CO2 41.1, O2 32.9 - suspect acute dyspnea secondary to CHF exacerbation, history of diastolic dysfunction. Plan to update echo and increased diuresis. Patient on Lasix 10 mg daily at home. - discussed possibility of pneumonia with the patient, as she has no systemic symptoms concerning for pneumonia the patient would like to see how she progresses with increasing her diuresis. Patient has been instructed to inform staff if she develops any cough, congestion, fever, chills, or body aches. Monitor white count. -she is normally on anoro inhaler-will restart once home med list is updated (2) Diastolic dysfunction: Code(s): I51.89 - Other ill-defined heart diseases Status: Acute Assessment and Plan: - BNP 8840 - most recent echo (2022): Hyperdynamic systolic function, estimated EF greater than 70%. Grade 1 diastolic dysfunction. Valvular disease noted. Mild pulmonary hypertension. See report for full details. - currently on Lasix 10 mg p.o. daily, will continue as Lasix 40 mg IV daily. Initially given 60 mg IV in ED. - monitor I&Os and daily weights - trend renal function (3) COPD (chronic obstructive pulmonary disease) case management patient: Code(s): J44.9 - Chronic obstructive pulmonary disease, unspecified Status: Acute Assessment and Plan: - no clinical exam findings concerning for exacerbation - continue home medications ECHO 04/22 Summary 1. Complete two-dimensional, color flow and Doppler transthoracic echocardiogram is performed. 2. The left ventricle is normal in size and systolic function. The left ventricular ejection fraction is visually estimated to be 60-65%. There is grade 3 diastolic dysfunction. 3. The right ventricle is normal in size and systolic function. 4. The left atrium is moderately dilated. 5. The mitral valve leaflets are calcified. There is severe mitral annular calcification. There is mild mitral stenosis. The mean gradient is 9 and heart rate 101 beats per minute. There is mild mitral regurgitation. 6. There is moderate pulmonary hypertension with pulmonary artery systolic pressure estimated to be 67 mm Hg. CXR 02/21: Impression: Moderate right pleural effusion and small left pleural effusion. Probable moderate pulmonary edema. Correlate clinically for pneumonia. Lasix 40mg IV daily <Thao Rojas RN - Last Filed: 04/23/25 11:46> Clarified Diagnosis Clarified Diagnosis: dyastolic <Leslie Mckeon APRN - Last Filed: 04/23/25 13:56>
--- NOTE | 2025-04-23 13:56 | PM.IMPN ---
Progress Note: A&P Assessment and Plan (1) Acute dyspnea: Code(s): R06.00 - Dyspnea, unspecified Status: Acute Assessment and Plan: - CXR: Moderate right pleural effusion and small left pleural effusion. Probable moderate pulmonary edema. Correlate clinically for pneumonia. - VBG, initial: pH 7.46, CO2 41.1, O2 32.9 - suspect acute dyspnea secondary to CHF exacerbation, history of diastolic dysfunction. Plan to update echo and increased diuresis. Patient on Lasix 10 mg daily at home. - discussed possibility of pneumonia with the patient, as she has no systemic symptoms concerning for pneumonia the patient would like to see how she progresses with increasing her diuresis. Patient has been instructed to inform staff if she develops any cough, congestion, fever, chills, or body aches. Monitor white count. -she is normally on anoro inhaler-will restart once home med list is updated (2) Diastolic dysfunction: Code(s): I51.89 - Other ill-defined heart diseases Status: Acute Assessment and Plan: - BNP 8840 - most recent echo (2022): Hyperdynamic systolic function, estimated EF greater than 70%. Grade 1 diastolic dysfunction. Valvular disease noted. Mild pulmonary hypertension. See report for full details. - currently on Lasix 10 mg p.o. daily, will continue as Lasix 40 mg IV daily. Initially given 60 mg IV in ED. - monitor I&Os and daily weights - trend renal function -will repeaT BNP DECREASE LASIX DOSE TO HOME DOSE AND ANTICIPATE DISCHARGE (3) COPD (chronic obstructive pulmonary disease) case management patient: Code(s): J44.9 - Chronic obstructive pulmonary disease, unspecified Status: Acute Assessment and Plan: - no clinical exam findings concerning for exacerbation - continue home medications (4) Hypotension: Qualifiers: Hypotension type: unspecified hypotension type Qualified Code(s): I95.9 - Hypotension, unspecified Code(s): I95.9 - Hypotension, unspecified Status: Chronic Assessment and Plan: - chronic, currently / - continue home medications: midodrine - monitor Plan Diet: Heart healthy GI Prophylaxis: Not currently indicated DVT Prophylaxis: Xarelto IV fluids: None Lines/Tubes: Peripheral IV Code Status: Full code Time Spent With Patient Time with patient: 25 - 35 minutes Subjective Date/time seen: 04/23/25 13:56 Interval history: 84 y/o F with PMH of parkinson's, lung cancer, diastolic dysfunction, HTN, emphysema, osteoporosis, and breast cancer presents here with shortness of breath. Recently treated for UTI. 04/20- started feeling sob. Shortness of breath is accompanied by some weakness, however this improved with treatment of her UTI. She denies cough, fever, chills, nausea, vomiting, diarrhea, abdominal pain, weight gain, lower extremity swelling, or congestion. She has a history of diastolic dysfunction and is on Lasix 10 mg daily, reports compliance with medication. Initial VS at presentation: 98.6? F, HR 82, RR 22, 119/62, and 95% on RA. ED workup showed: No leukocytosis, hemoglobin 11.5, ABG significant for a pH of 7.46/CO2 41/O2 32.9, no significant electrolyte derangements, renal function within normal limits, initial troponin negative, and BNP 8 840. UA showed 1+ protein/1+ ketones/trace leuk history is/3-5 RBC. CXR showed a moderate right pleural effusion small left pleural effusion, probable moderate pulmonary edema (correlate clinically for pneumonia). EKG showed sinus tachycardia, rate 122, left bundle-branch block (when compared to previous, new left bundle branch block and heart rate has increased). 04/22 pt is seen and examined. Pt was out of xarelto and annoro inhaler as she could not afford it. Care coordination is aware. She is feeling better this morning and breathing is improved. 04/23 i.o reviewed, diureses well. Still c/o weakness and sob. working with pt/ot. anticipate discharge tomorrow if stable overnight. Review of Systems Review of Systems: All systems reviewed & are unremarkable except as noted in HPI and below Exam Const: General: comfortable and no acute distress Other: , female, elderly, nontoxic appearance HENMT: Face/Nose/Sinus: Normal nares present Mouth: Yes moist mucous membranes Eyes: General: appearance normal, both eyes and all related structures Sclera: sclerae normal Pupils: Equal, round and reactive pupils present EOM: EOMs intact bilaterally Resp: Effort & Inspection: normal respiratory effort Other: Crackles in the right lung base otherwise no adventitious lung sounds. Cardio: Rate: regular rate Rhythm: abnormal rhythm Other: No murmur or rub. GI: Other: Abdomen soft, nondistended, nontender. Normoactive bowel sounds in all quadrants. Skin: General skin exam: normal color and no rashes or lesions noted Wounds: no wounds Neuro: Cranial nerves: Yes Equal, round and reactive pupils present Speech: normal speech Motor exam (neuro): 5/5 motor strength present throughout Sensory Exam: normal sensation Other: A&O x4 Extrem: General: normal to inspection Psych: Mental Status: mental status grossly normal Affect: normal affect Other: Good insight and judgment, pleasant Objective Data Vital Signs Vital Signs: Vital Signs - 24 hr 04/22/25 14:00 04/22/25 16:00 04/22/25 20:15 Temperature 97.7 F Pulse Rate 70 67 60 Respiratory Rate 18 16 Blood Pressure 110/58 L Pulse Oximetry 94 95 Oxygen Delivery Room Air 04/22/25 20:15 04/22/25 20:57 04/23/25 00:00 Temperature 97.7 F Pulse Rate 60 60 71 Respiratory Rate 16 Blood Pressure 113/58 L Pulse Oximetry 95 Oxygen Delivery 04/23/25 04:00 04/23/25 06:00 04/23/25 08:00 Temperature 97.6 F Pulse Rate 74 69 59 L Respiratory Rate 16 Blood Pressure 115/65 Pulse Oximetry 95 Oxygen Delivery 04/23/25 08:15 04/23/25 08:51 04/23/25 08:55 Temperature Pulse Rate 78 Respiratory Rate Blood Pressure Pulse Oximetry 93 Oxygen Delivery Room Air Room Air 04/23/25 10:08 04/23/25 12:00 Temperature Pulse Rate 79 Respiratory Rate Blood Pressure Pulse Oximetry Oxygen Delivery Room Air Intake/Output Intake/Output: Intake & Output 04/20/25 04/21/25 04/22/25 04/23/25 23:59 23:59 23:59 23:59 Intake Total 170 600 340 Output Total 260 1050 250 Balance -90 -450 90 Meds/Results Medications: Active Medications Generic Name Dose Route Start Last Admin Trade Name Freq PRN Reason Stop Dose Admin Albuterol 2.5 mg 04/21/25 17:34 Albuterol Sulfate Neb 2.5 Mg/3 Ml Inh INHALATION Q4HRT PRN shortness of breath or wheezing Anastrozole 1 mg 04/22/25 09:00 04/23/25 08:51 Anastrozole (*Chemo) 1 Mg Tablet PO 1 mg DAILY NIURKA Administration Calcium Carbonate 500 mg 04/22/25 09:00 04/23/25 08:51 Calcium/Vitamin D 500 Mg/5 Mcg (200 I.U.) Tablet PO 500 mg QAM NIURKA Administration Carbidopa/Levodopa 1 tablet 04/22/25 09:00 04/23/25 12:48 Carbidopa/Levodopa 25/100 Mg Tablet PO 1 tablet TID NIURKA Administration Carbidopa/Levodopa 1 tablet 04/21/25 17:34 Carbidopa/Levodopa 25/100 Mg Tablet PO DAILY PRN muscle spasm Cephalexin HCl 500 mg 04/21/25 21:00 04/23/25 08:51 Cephalexin 500 Mg Capsule PO 04/24/25 21:01 500 mg Q12H NIURKA Administration Docusate Sodium 100 mg 04/21/25 21:40 04/23/25 08:51 Docusate Sodium 100 Mg Capsule PO 100 mg Q12HR NIURKA Administration Escitalopram Oxalate 20 mg 04/22/25 09:00 04/23/25 08:51 Escitalopram Oxalate 10 Mg Tablet PO 20 mg DAILY NIURKA Administration Furosemide 40 mg 04/22/25 09:00 04/23/25 08:52 Furosemide Inj 40 Mg/4 Ml Vial IV PUSH 40 mg DAILY NIURKA Administration Lorazepam 0.5 mg 04/21/25 17:34 Lorazepam (*Crx) 0.5 Mg Tablet PO QHS PRN anxiety Metoprolol Tartrate 12.5 mg 04/22/25 09:00 04/23/25 08:51 Metoprolol Tartrate 12.5 Mg Tablet PO 12.5 mg Q12HR NIURKA Administration Midodrine 5 mg 04/22/25 09:00 04/23/25 12:48 Midodrine Hcl 2.5 Mg Tablet PO 5 mg TID NIURKA Administration Perflutren Lipid Microsphere 0 ml 04/21/25 15:07 Perflutren Lipid Microspheres 1.5 Ml Vial Diluted To 10 Ml Total Volume IV PUSH 04/24/25 15:07 ONCE PRN adequate visualization Protocol Polyethylene Glycol 17 gm 04/21/25 21:32 Polyethylene Glycol 3350 17 Gm Powd.Pack PO QAM PRN Constipation Rivaroxaban 5 mg 04/22/25 17:00 04/22/25 18:05 Rivaroxaban 2.5 Mg Tablet PO 5 mg DAILY@1700 NIURKA Administration Umeclidinium/Vilanterol 1 puff 04/22/25 08:00 04/23/25 08:14 Umeclidinium/Vilanterol 62.5-25 Mcg Ellipta INHALATION 1 puff DAILYRT NIURKA Administration Vitamin D 25 mcg 04/22/25 09:00 04/23/25 08:51 Cholecalciferol (Vitamin D3) 25 Mcg (1,000 Units) Tablet PO 25 mcg DAILY NIURKA Administration Radiology Results: ITS Impressions Chest X-Ray 04/21/25 13:19 Impression: Moderate right pleural effusion and small left pleural effusion. Probable moderate pulmonary edema. Correlate clinically for pneumonia. Quality VTE Prophylaxis VTE prophylaxis: pharmacologic ordered
[2025-04-23] MEDS: RIVAROXABAN 2.5 MG TABLET 5 MG PO (17:21)
[2025-04-24] VITALS (8 sets, daily range): BP systolic 105–110; BP diastolic 45–53; PULSE 51–64; RESP 16; TEMP 36.6; O2SAT 95–97
[2025-04-24 06:18] LABS: NT Pro B Type Natriuretic Pept 802 pg/mL (19.9-100)
[2025-04-24] MEDS: UMECLIDINIUM/VILANTEROL 62.5-25 MCG ELLIPTA 1 PUFF INHALATION (08:28)
[2025-04-24 08:39] LABS: Hematocrit 38.3 % (37.0-47.0); Hemoglobin 12.2 g/dL (12.0-15.0); Immature Granulocyte Percent A 1.2 % (0-0.5); Lymphocytes Absolute Auto 1.18 K/mm3 (0.9-3.2); Mean Corpuscular HGB Conc 31.9 g/dl (32-36); Mean Corpuscular Hemoglobin 31.9 pg (26-34); Mean Corpuscular Volume 100.3 fl (80-100); Nucleated Red Blood Cells Absolute Auto 0.000 K/mm3 (0.0-0.012); Nucleated Red Blood Cells Perc 0.0 % (0.0-0.2); Platelet Count Result 476 k/mm3 (150-375); Red Blood Count 3.82 M/mm3 (4.2-5.4); White Blood Count 4.9 K/mm3 (4.5-10.0)
[2025-04-24 08:43] LABS: Alanine Aminotransferase 29 U/L (6-35); Albumin Level 3.6 g/dL (3.5-5.1); Alkaline Phosphatase 46 U/L (38-126); Anion Gap 9 mmol/L (4-12); Aspartate Amino Transferase 46 U/L (14-36); Bilirubin,Total 0.4 mg/dL (0.2-1.3); Blood Urea Nitrogen 22 mg/dL (7-17); Calcium 9.6 mg/dL (8.4-10.2); Carbon Dioxide 29 mmol/L (22-30); Chloride 99 mmol/L (98-107); Estimated CRCL calculation 36 ml/min; Estimated Glomerular Filt Rate 57; Glucose 102 mg/dL (65-110); Potassium 3.5 mmol/L (3.4-5.0); Sodium 137 mmol/L (137-145); Total Protein 7.0 g/dL (6.3-8.2)
[2025-04-24] MEDS: ESCITALOPRAM OXALATE 10 MG TABLET 20 MG PO (09:06)
[2025-04-24] MEDS: METOPROLOL TARTRATE 12.5 MG TABLET PO (09:06)
[2025-04-24] MEDS: DOCUSATE SODIUM 100 MG CAPSULE PO (09:07)
[2025-04-24] MEDS: FUROSEMIDE 10 MG TABLET PO (09:07)
[2025-04-24] MEDS: CEPHALEXIN 500 MG CAPSULE PO (09:07)
[2025-04-24] MEDS: CARBIDOPA/LEVODOPA 25/100 MG TABLET 1 TABLET PO ×2 (09:07→12:37)
[2025-04-24] MEDS: ANASTROZOLE (*CHEMO) 1 MG TABLET PO (09:07)
[2025-04-24] MEDS: MIDODRINE HCL 2.5 MG TABLET 5 MG PO ×2 (09:07→12:37)
[2025-04-24] MEDS: CHOLECALCIFEROL (VITAMIN D3) 25 MCG (1,000 UNITS) TABLET PO (09:07)
[2025-04-24] MEDS: CALCIUM/VITAMIN D 500 MG/5 MCG (200 I.U.) TABLET PO (09:07)
--- NOTE | 2025-04-24 11:10 | P.DS_ITS ---
DS: Admitting Diagnosis Discharge Date 04/24 Admitting Diagnosis sob DS: Discharge Diagnosis Discharge Diagnosis (1) Acute dyspnea: Code(s): R06.00 - Dyspnea, unspecified Status: Acute (2) Diastolic dysfunction: Code(s): I51.89 - Other ill-defined heart diseases Status: Acute (3) COPD (chronic obstructive pulmonary disease) case management patient: Code(s): J44.9 - Chronic obstructive pulmonary disease, unspecified Status: Acute (4) Hypotension: Qualifiers: Hypotension type: unspecified hypotension type Qualified Code(s): I95.9 - Hypotension, unspecified Code(s): I95.9 - Hypotension, unspecified Status: Chronic DS: Summary Hospital Course Hospital Course: 84 y/o F with PMH of parkinson's, lung cancer, diastolic dysfunction, HTN, emphysema, osteoporosis, and breast cancer presents here with shortness of breath. Recently treated for UTI. 04/20- started feeling sob. Shortness of breath is accompanied by some weakness, however this improved with treatment of her UTI. She denies cough, fever, chills, nausea, vomiting, diarrhea, abdominal pain, weight gain, lower extremity swelling, or congestion. She has a history of diastolic dysfunction and is on Lasix 10 mg daily, reports compliance with medication. Initial VS at presentation: 98.6? F, HR 82, RR 22, 119/62, and 95% on RA. ED workup showed: No leukocytosis, hemoglobin 11.5, ABG significant for a pH of 7.46/CO2 41/O2 32.9, no significant electrolyte derangements, renal function within normal limits, initial troponin negative, and BNP 8 840. UA showed 1+ protein/1+ ketones/trace leuk history is/3-5 RBC. CXR showed a moderate right pleural effusion small left pleural effusion, probable moderate pulmonary edema (correlate clinically for pneumonia). EKG showed sinus tachycardia, rate 122, left bundle-branch block (when compared to previous, new left bundle branch block and heart rate has increased). Pt received IV lasix for couple of days, diuresed well. Her xarelto and anoro inhaler were restarted. She was weak but was able to work with PT/OT. Furosemide was changed back to her home dose and she was stable for discharge today. PT/OT will be ordered. Status at Discharge Functional status at discharge: uses cane/walker Overall status at discharge: patient is progressing back to baseline Time Spent with Patient Time attestation: Total time spent providing and/or coordinating discharge services: Time spent: Greater than 30 minutes Exam Const: General: comfortable and no acute distress HENMT: Face/Nose/Sinus: Normal nares present Mouth: Yes moist mucous membranes Eyes: General: appearance normal, both eyes and all related structures Sclera: sclerae normal Pupils: Equal, round and reactive pupils present EOM: EOMs intact bilaterally Resp: Effort & Inspection: normal respiratory effort Other: Crackles in the right lung base otherwise no adventitious lung sounds. Cardio: Rate: regular rate Rhythm: abnormal rhythm Other: No murmur or rub. GI: Other: Abdomen soft, nondistended, nontender. Normoactive bowel sounds in all quadrants. Skin: General skin exam: normal color and no rashes or lesions noted Wounds: no wounds Neuro: Cranial nerves: Yes Equal, round and reactive pupils present Speech: normal speech Motor exam (neuro): 5/5 motor strength present throughout Sensory Exam: normal sensation Other: A&O x4 Extrem: General: normal to inspection Psych: Mental Status: mental status grossly normal Affect: normal affect Other: Good insight and judgment, pleasant DS: Data Data Completed and Pending Labs on day of discharge: Labs from last 24 hours 04/24/25 04/24/25 05:25 05:21 WBC 4.9 RBC 3.82 L Hgb 12.2 Hct 38.3 MCV 100.3 H MCH 31.9 MCHC 31.9 L RDW 13.1 Plt Count 476 H MPV 9.8 Immature Gran % (Auto) 1.2 H Neut % (Auto) 57.6 Lymph % (Auto) 24.2 [place] % (Auto) 11.9 H Eos % (Auto) 4.3 Baso % (Auto) 0.8 Lymph # (Auto) 1.18 [place] # (Auto) 0.6 Eos # (Auto) 0.2 Baso # (Auto) 0.0 Abs Immat Gran (auto) 0.06 H Absolute Neuts (auto) 2.8 Absolute Nucleated RBC 0.000 Nucleated RBC % 0.0 Sodium 137 Potassium 3.5 Chloride 99 Carbon Dioxide 29 Anion Gap 9 BUN 22 H Creatinine 0.94 Estim Creat Clear Calc 36 Estimated GFR 57 L Glucose 102 Calcium 9.6 Total Bilirubin 0.4 AST 46 H ALT 29 Alkaline Phosphatase 46 NT-Pro-B Natriuret Pep 802 H Total Protein 7.0 Albumin 3.6 Preliminary micro results at discharge 04/21/25 12:56 Blood Culture - Preliminary Blood 04/21/25 12:54 Blood Culture - Preliminary Blood Discharge Plan Discharge Attending physician on discharge: Evangelina Rader Discharging Clinician: Leslie Mckeon Patient Disposition: NH Detention/Asst Living Activity: february shower Diet: heart healthy Patient Instructions: Antibiotic Form, Rivaroxaban (By mouth) Patient Language: Pakistani Stand Alone Forms: General Discharge Information Follow-up/Referrals: Brittney Vazquez DO [Primary Care Provider] - 2 Weeks Discharge Medications: Continued anastrozole 1 mg tablet 1 mg PO DAILY albuterol sulfate 2.5 mg /3 mL (0.083 %) solution for nebulization 2.5 mg inhalation Q4-6H PRN (Reason: shortness of breath or wheezing) Qty: 90 3RF lorazepam [Ativan] 0.5 mg tablet 0.5 mg PO QHS PRN (Reason: anxiety) Qty: 30 1RF albuterol sulfate 90 mcg/actuation HFA aerosol inhaler 1 - 2 puff inhalation Q4-6H PRN (Reason: shortness of breath or wheezing) Qty: 8.5 2RF midodrine 5 mg tablet 5 mg PO TID Qty: 90 0RF Rx Instructions: do not give last dose of day after 6PM or within 4 hrs of bedtime calcium carbonate-vitamin D3 600 mg-5 mcg (200 unit) Tablet 1 tablet PO DAILY cholecalciferol (vitamin D3) 25 mcg (1,000 unit) Capsule 25 mcg PO DAILY metoprolol tartrate 25 mg tablet 12.5 mg PO BID Qty: 60 0RF furosemide [Lasix] 20 mg tablet 10 mg PO QAM Xarelto 20 mg tablet 5 mg PO DAILY@1700 carbidopa-levodopa [Sinemet] 25-100 mg tablet 1 tablet PO DAILY PRN (Reason: muscle spasm) carbidopa-levodopa 25-100 mg tablet 1 tablet PO TID Anoro Ellipta 62.5-25 mcg/actuation blister with device 1 inh inhalation DAILY Qty: 180 3RF escitalopram oxalate [Lexapro] 20 mg tablet 20 mg PO DAILY Qty: 90 1RF Discontinued cephalexin 500 mg capsule 500 mg PO Q12H Rx Instructions: x7 days 04/17-04/24 Other Ambulatory Orders: OT Outpatient Eval and Treat (ONCE) Timeframe: 20250501 Location: Determined by Patient Ordered By: Leslie Mckeon PT Outpatient Eval and Treat (ONCE) Timeframe: 20250501 Location: Determined by Patient Ordered By: Leslie Mckeon Date of admission: 04/22/25 13:03 Primary Care Provider: Brittney Vazquez Admitting Provider: Evangelina Rader Attending physician on admission: Evangelina Rader Condition: Stable Quality VTE Prophylaxis VTE prophylaxis: pharmacologic ordered Hospitalist MIPS Heart Failure (Exclusion) Patient has history of Heart Transplant or Left Ventricular Assistive Device?: No IF YES, STOP HERE Heart Failure (Qualifier) Patient has current or prior documentation of LVEF less than or equal to 40%, or mod/servere depressed LVSF?: No IF NO, STOP HERE
== END 2025-04-24 14:50 | DRG 291 ==
LOC: ANHED 12:14 → ANH2MED 14:51
PROVIDERS: Student in an Organized Health Care Education/Training Program; Admitting Provider Internal Medicine; Emergency Provider Emergency Medicine; PCP Family Medicine; Visit Provider Nurse Practitioner
DX: I11.0 Hypertensive heart disease with heart failure (principal); I50.33 Acute on chronic diastolic (congestive) heart failure; J18.9 Pneumonia, unspecified organism; J44.0 Chronic obstructive pulmonary disease with (acute) lower respiratory infection; F41.9 Anxiety disorder, unspecified; F32.A Depression, unspecified; K21.9 Gastro-esophageal reflux disease without esophagitis; M81.0 Age-related osteoporosis without current pathological fracture; I95.9 Hypotension, unspecified; R73.03 Prediabetes; Z85.828 Personal history of other malignant neoplasm of skin; Z85.3 Personal history of malignant neoplasm of breast; Z85.118 Personal history of other malignant neoplasm of bronchus and lung; Z90.710 Acquired absence of both cervix and uterus
CPT/HCPCS: 36415; 71045; 80048; 80053; 81001; 82803; 83605; 83735; 83880; 84484; 85025; 87040; 93005; 93306; 94640; 96365; 96375; 97161; 97165; 99285; A9270; G0378; J0616; J0696; J1938

== ENCOUNTER → 2025-04-28 15:03 | Outpatient (REF) | payer MEDICARE, SELFPAY ==
--- NOTE | 2025-04-28 15:03 | S_PTH ---
PATIENT: Tigist Trejo LOC: [facility] U#:[id number] AGE/SX: 85/F ROOM: RE04/28/[address]: Wilma Roldan PA-C : 1940 BED: DIS: SPEC #: [id number] RECD: 04/29/25 06:52 STATUS: CHUCK RECrys #: [id number] ALYSSIA: 04/28/25 15:[address]: Wilma Roldan DEPT: [facility] Surgical RECD BY: Meena Rollins ENTERED: 04/29/25 06:53 SP TYPE: Surgical OTHR DR: Brittney Vazquez DO Tissues: A - Skin Procedures: Hematoxylin and Eosin Stain Gross and Microscopic Level 4
--- OUTSIDE RECORDS SUMMARY | 2025-04-28 15:06 | XMS_ITS | Continuity of Care Document ---
Author Organization [facility] Address [address] [place] [address] [address] [place] [address] Phone Care Team Providers Care Lime Puller Name Role Phone [facility] Unavailable Unavail able Arely Caballero Unavailable Unavailable Advance Directives Directive Yes / No Effective Date File Name No Information Encounters Encounter Description Practice Location Reason(s) For Visit Diagnoses Date Provider Providers Copied on Encounter [facility], [address], [place], [place], [id number], [place] tel:[phone] [facility] No Information Mar-0 2-200 1 [facility] [address] [facility] [facility] [address], [place], [place], [id number] , [place]. tel:[phone] Referring Provider: Nelson Ramsey, [address], [place], [address]. tel:[phone] g Provider: Arely Caballero, [address] [place] [address], [address]. tel:[phone] Family History Family Member Type Diagnosis Age [...]
--- OUTSIDE RECORDS SUMMARY | 2025-04-28 15:06 | XMS_ITS | Clinical Summary ---
Author Organization [facility] Address [address] [place] [address] Care Team Providers Care Armored Machine Operator Name Role Phone Manjinder Ruiz MD Primary Care Provider [phone] Source Comments [facility],non-owned Affiliates and Associated Physician Practices is amultiple site organization consisting of ambulatory clinics and hospital sitesin [place], [place], [place] and [place]. This disclosure is being madepursuant to the Care Everywhere program and may not contain all information available regarding this patient. 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[employer] Gender Identity Not on file Sexual Orientation [...] patient's age to complete this topic Insurance [id number] MANAGED MEDICARE ADV MANAGED MEDICARE ADV SELF PAY NO INSURANCE Member Subscriber Plan / Payer (Ef fective for All Dates) Name:Jesus Vanegas Member ID:Not on file Relation to Subscriber:Not on file Name:JESUS VANEGAS Subscriber ID:Not on file (Home) Address: [address] [place] [id number] Payer ID:Not on file Group ID:Not on file Type:Self Pay Address: [place], [place] Care Teams Armored Machine Operator Relationship Specialty Start Date End Date Manjinder Ruiz MD [address] [place] [id number] PCP - General 03/22/22
--- OUTSIDE RECORDS SUMMARY | 2025-04-28 15:06 | XMS_ITS | Clinical Summary ---
Author Organization [facility] [address] [facility] [address] Address [address] [place] [address] Care Team Providers Care Coremaker Name Role Phone Brittney Vazquez DO Primary [...] Type Department Care Team Description 04/08/[address] 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
--- OUTSIDE RECORDS SUMMARY | 2025-04-28 15:06 | XMS_ITS | Referral Summary ---
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 [place] [id number] [facility] MEDICARE [facility] Address: [address] [address] [place] [address] [address] [facility] [address] [place] [address] [facility] MEDICARE [facility]AGE [facility] Address: [address] [address] [place] [address] Care Teams Guest Services Lead Relationship Specialty Start Date End Date Brittney Vazquez DO PCP - General Family Medicine 01/25/23
== END ==
LOC: ANHLAB 15:03
PROVIDERS: PCP Family Medicine; Visit Provider Physician Assistant Surgical
DX: D48.5 Neoplasm of uncertain behavior of skin (principal)
CPT/HCPCS: 88305

== ENCOUNTER 2025-08-10 01:30 | Emergency (ER) | payer MEDICARE, BC, SELFPAY ==
[2025-08-10] VITALS (22 sets, daily range): BP systolic 157–188; BP diastolic 67–92; PULSE 54–67; RESP 16–25; TEMP 36.7–36.9; O2SAT 94–100
--- NOTE | ~2025-08-10 | XR_ITS ---
EXAMINATION: XR chest 1V portable COMPARISON: No comparisons available. HISTORY: sob FINDINGS: Scattered bilateral infiltrates superimposed on chronic lung disease. Mild pulmonary venous congestion. No pneumothorax. Mild cardiomegaly. Mediastinal and hilar contours are within normal limits. Bony thorax no acute abnormality. Miscellaneous: None Impression: CHF. Superimposed pneumonia is suspected Reviewed, dictated and finalized at location P. ARCH PROGRAM ASSISTANT Impression: CHF. Superimposed pneumonia is suspected
--- NOTE | 2025-08-10 01:40 | ECG_ITS ---
Test Date: 2025-08-10 01:39:55 Measurements Intervals [place] Rate: 60 P: 92 WI: 234 QRS: 70 QRSD: 109 T: 65 QT: 409 QTc: 412 Interpretive Statements SINUS RHYTHM WITH FIRST DEGREE AV BLOCK WITH OCCASIONAL VENTRICULAR PREMATURE COMPLEXES INCOMPLETE LEFT BUNDLE-BRANCH BLOCK Electronically Signed On 08-10-2025 09:34:20 LPTA by Km Ryan M.D.
--- NOTE | 2025-08-10 03:38 | ED.SOB ---
HPI - SOB/Dyspnea General Chief Complaint: Shortness of Breath/Dyspnea Stated Complaint: shortness of breath Time Seen by Provider: 08/10/25 02:46 History of Present Illness HPI Narrative: 85-year-old female with history of hypertension, GERD, anxiety disorder. Patient presents to the emergency department today with feeling like her heart was racing and beating out of her chest associated with some chest pressure. Health intermittent in nature since this morning. States she feels like it is her anxiety acting up but she also has a history of hypertension so want to get checked out. States she describes a feeling of heartburn presently but no longer feeling like her heart is racing or palpating. Much better than it was throughout the day. Denies any fever, chills, shortness a breath, cough, nausea, vomiting, back pain. No trauma or injury. No sick contacts. No history of heart attacks or stents. Related Data Home Medications ?Medication ?Instructions ?Recorded ?Confirmed ?Last Taken ?Type calcium 600 mg (as 1 tablet PO DAILY 03/31/22 07/28/25 01/30/23 History carbonate)-vitamin D3 5 mcg (200 unit) tablet cholecalciferol (vitamin D3) 25 25 mcg PO DAILY 03/31/22 07/28/25 01/30/23 History mcg (1,000 unit) capsule anastrozole 1 mg tablet 1 mg PO DAILY 11/21/22 07/28/25 01/30/23 History furosemide 20 mg tablet (Lasix) 10 mg PO QAM 12/15/24 07/28/25 Unknown History midodrine 2.5 mg tablet 5 mg PO 07/15/25 07/28/25 Unknown History rivaroxaban 2.5 mg tablet (Xarelto) mg PO 07/15/25 07/28/25 Unknown History Allergies Allergy/AdvReac Type Severity Reaction Status Date / Time alendronate sodium (Fosamax) AdvReac Intermediate Nausea Verified 07/28/25 15:30 doxycycline AdvReac Intermediate Nausea Verified 07/28/25 15:30 hydrocodone AdvReac Intermediate vomiting Verified 07/28/25 15:30 adhesive AdvReac Mild Unknown,RASH, Verified 07/28/25 15:30 ITCH Iodinated Contrast Media AdvReac Mild Flushing Verified 07/28/25 15:30 latex AdvReac Mild Hives Verified 07/28/25 15:30 Contrast Media AdvReac Intermediate BURNING Uncoded 07/28/25 15:30 AND RED ALL OVER Review of Systems Review of Systems: As reviewed above in [facility] Past Medical History Medical History Basal cell carcinoma (BCC) Anxiety attack Depression Cancer of left breast Vitamin D deficiency Diastolic dysfunction Echocardiogram 01/201919 grade 1 diastolic dysfunction EF 60% mild left atrial enlargement Lung cancer Anxiety Constipation GERD (gastroesophageal reflux disease) Hypertension Emphysema of lung Fracture of fifth metatarsal bone of right foot with routine healing Osteoporosis, unspecified Prediabetes Surgical History Surgical History History of tonsillectomy H/O basal cell carcinoma excision History of breast lump/mass excision Re-excision posterior chest wall margin, evacuate hematoma 05/02/22 History of excision of lesion Excision 2.9 cm metastatic breast cancer left chest wall with 2 mm margins, 3.3 cm excision. 13 cm layered closure. 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 She has a daughter and a son. 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 She lives alone. She lives in a duplex that her daughter owns. Code status: Full code Healthcare power of interventional technologist: Ursula Vega (daughter) Caffeine- coffee, diet soda Smoking packs per day: 1 Smoking cigarettes per day: 20.0 Years smoked: 20 Smoking pack-years: 20.00 Smoking status: Former smoker Second hand tobacco smoke exposure: No Alcohol intake: former Alcohol use details: WINE Substance use: never Substance use type: does not use Do You Feel Safe in your Home?: Yes Lack of Transportation: No Lack of Food: Never True Current Housing: I Have Housing Concerned About Future Housing: No Difficulty Paying Gas/Electric Bills: No Difficulty Paying for Meds: No Currently Unemployed: No Education: High School Diploma/GED Difficulty w/ Childcare or Family Care: No Living arrangements: alone Occupation/Education: retired Gender identity (if verbalized by the patient): Female Spiritual care concerns: No Exam Narrative: GENERAL: [Well-appearing, well-nourished, and in no acute distress.] HEAD: [Normocephalic, atraumatic.] EYES: [PERRLA and EOMI.] ENT: Nares clear, no rhinorrhea or epistaxis. Mucous membranes moist. NECK: Supple. CHEST: [Clear to auscultation. No respiratory distress.] HEART: [Regular rate and rhythm]. No murmur heard. [Normal peripheral pulses.] ABDOMEN: [Soft, nondistended], [nontender], [No rigidity or guarding] EXTREMITIES: Normal range of motion. [No edema.] SKIN: Warm, dry, no rash. NEURO: [No focal deficits]. Alert and oriented [x3.] PSYCH: [Normal mood and affect.] Course Vital Signs Vital signs: Vital Signs Temperature 36.7 C 08/10/25 01:32 Pulse Rate 59 L 08/10/25 01:32 Respiratory Rate 17 08/10/25 01:32 Blood Pressure 157/83 H 08/10/25 01:32 Pulse Oximetry 99 08/10/25 01:32 Oxygen Delivery Room Air 08/10/25 01:32 Temperature 36.9 C 08/10/25 05:59 Pulse Rate 58 L 08/10/25 05:59 Respiratory Rate 20 08/10/25 05:59 Blood Pressure 158/74 H 08/10/25 05:59 Pulse Oximetry 100 08/10/25 05:59 Oxygen Delivery Room Air 08/10/25 01:45 MDM - SOB/Dyspnea MDM Narrative Medical decision making narrative: 85-year-old female with history of hypertension, GERD, anxiety disorder. Patient presents to the emergency department today with feeling like her heart was racing and beating out of her chest associated with some chest pressure. Health intermittent in nature since this morning. States she feels like it is her anxiety acting up but she also has a history of hypertension so want to get checked out. States she describes a feeling of heartburn presently but no longer feeling like her heart is racing or palpating. Much better than it was throughout the day. Denies any fever, chills, shortness a breath, cough, nausea, vomiting, back pain. No trauma or injury. No sick contacts. No history of heart attacks or stents. Patient has reassuring vitals here without any tachycardia, fever, hypoxemia or significant blood pressure elevations. She states she feels like this is her anxiety but otherwise been in her normal state of health. She has a soft nontender nondistended abdomen. Strong symmetric pulses. No extremity edema or signs of DVT. Differential includes anxiety, GERD, indigestion, pneumonia, pneumothorax, ACS. Laboratory studies obtained including cardiac markers, EKG and chest x-ray. Patient states her symptoms are much better now and not any acute distress on re-evaluation. Awaiting laboratory studies for final disposition likely discharge home with follow-up. Lab showed no leukocytosis or anemia. Normal platelet count. Electrolytes are unremarkable. Normal renal function. Normal glucose. Negative troponin. Negative BNP. Chest x-ray shows chronic right-sided rib fracture deformity which is unchanged on review. No consolidations or significant pleural effusions. No pneumothorax per my interpretation. EKG shows sinus rhythm, no ST segment elevations or depressions. Patient remains hemodynamically stable and re-evaluated without any symptoms. Safe for discharge home at this time with regular primary care provider follow-up. Medical Records Attestation: I reviewed the patient's medical records. Lab Data Attestation: I reviewed the patient's lab results. 08/10/25 03:43 08/10/25 03:43 Labs: Lab Results 08/10/25 08/10/25 08/10/25 Range/Units 03:43 03:43 03:43 WBC 5.2 (4.5-10.0) K/mm3 RBC 4.03 L (4.2-5.4) M/mm3 Hgb 12.5 (12.0-15.0) g/dL Hct 39.2 (37.0-47.0) % MCV 97.3 (80-100) fl MCH 31.0 (26-34) pg MCHC 31.9 L (32-36) g/dl RDW 12.9 (11.5-14.5) % Plt Count 215 D (150-375) k/mm3 MPV 10.3 (7.4-10.4) fl Immature Gran % (Auto) 0.4 (0-0.5) % Neut % (Auto) 62.0 (45.5-73.1) % Lymph % (Auto) 22.1 (18.3-44.2) % [place] % (Auto) 11.8 H (2.6-8.5) % Eos % (Auto) 3.3 (0-4.4) % Baso % (Auto) 0.4 (0.2-1.2) % Lymph # (Auto) 1.14 (0.9-3.2) K/mm3 [place] # (Auto) 0.6 (0.1-0.6) K/mm3 Eos # (Auto) 0.2 (0-0.3) K/mm3 Baso # (Auto) 0.0 (0.0-0.1) K/mm3 Abs Immat Gran (auto) 0.02 (0.00-0.031) K/mm3 Absolute Neuts (auto) 3.2 (1.3-6.7) K/mm3 Absolute Nucleated RBC 0.000 (0.0-0.012) K/mm3 Nucleated RBC % 0.0 (0.0-0.2) % Sodium Cancelled 138 Potassium Cancelled 3.9 Chloride Cancelled Carbon Dioxide Anion Gap BUN Creatinine Estim Creat Clear Calc Estimated GFR Glucose Calcium Troponin I (0.000-0.034) ng/mL NT-Pro-B Natriuret Pep 08/10/25 08/10/25 08/10/25 Range/Units 03:43 03:43 03:43 WBC (4.5-10.0) K/mm3 RBC (4.2-5.4) M/mm3 Hgb (12.0-15.0) g/dL Hct (37.0-47.0) % MCV (80-100) fl MCH (26-34) pg MCHC (32-36) g/dl RDW (11.5-14.5) % Plt Count (150-375) k/mm3 MPV (7.4-10.4) fl Immature Gran % (Auto) (0-0.5) % Neut % (Auto) (45.5-73.1) % Lymph % (Auto) (18.3-44.2) % [place] % (Auto) (2.6-8.5) % Eos % (Auto) (0-4.4) % Baso % (Auto) (0.2-1.2) % Lymph # (Auto) (0.9-3.2) K/mm3 [place] # (Auto) (0.1-0.6) K/mm3 Eos # (Auto) (0-0.3) K/mm3 Baso # (Auto) (0.0-0.1) K/mm3 Abs Immat Gran (auto) (0.00-0.031) K/mm3 Absolute Neuts (auto) (1.3-6.7) K/mm3 Absolute Nucleated RBC (0.0-0.012) K/mm3 Nucleated RBC % (0.0-0.2) % Sodium Potassium Chloride 103 Carbon Dioxide Cancelled 32 H Anion Gap Cancelled 3 L BUN Cancelled Creatinine Estim Creat Clear Calc Estimated GFR Glucose Calcium Troponin I (0.000-0.034) ng/mL NT-Pro-B Natriuret Pep 08/10/25 08/10/25 08/10/25 Range/Units 03:43 03:43 03:43 WBC (4.5-10.0) K/mm3 RBC (4.2-5.4) M/mm3 Hgb (12.0-15.0) g/dL Hct (37.0-47.0) % MCV (80-100) fl MCH (26-34) pg MCHC (32-36) g/dl RDW (11.5-14.5) % Plt Count (150-375) k/mm3 MPV (7.4-10.4) fl Immature Gran % (Auto) (0-0.5) % Neut % (Auto) (45.5-73.1) % Lymph % (Auto) (18.3-44.2) % [place] % (Auto) (2.6-8.5) % Eos % (Auto) (0-4.4) % Baso % (Auto) (0.2-1.2) % Lymph # (Auto) (0.9-3.2) K/mm3 [place] # (Auto) (0.1-0.6) K/mm3 Eos # (Auto) (0-0.3) K/mm3 Baso # (Auto) (0.0-0.1) K/mm3 Abs Immat Gran (auto) (0.00-0.031) K/mm3 Absolute Neuts (auto) (1.3-6.7) K/mm3 Absolute Nucleated RBC (0.0-0.012) K/mm3 Nucleated RBC % (0.0-0.2) % Sodium Potassium Chloride Carbon Dioxide Anion Gap BUN 16 Creatinine Cancelled 0.87 Estim Creat Clear Calc Cancelled 38 Estimated GFR Cancelled Glucose Calcium Troponin I (0.000-0.034) ng/mL NT-Pro-B Natriuret Pep 08/10/25 08/10/25 08/10/25 Range/Units 03:43 03:43 03:43 WBC (4.5-10.0) K/mm3 RBC (4.2-5.4) M/mm3 Hgb (12.0-15.0) g/dL Hct (37.0-47.0) % MCV (80-100) fl MCH (26-34) pg MCHC (32-36) g/dl RDW (11.5-14.5) % Plt Count (150-375) k/mm3 MPV (7.4-10.4) fl Immature Gran % (Auto) (0-0.5) % Neut % (Auto) (45.5-73.1) % Lymph % (Auto) (18.3-44.2) % [place] % (Auto) (2.6-8.5) % Eos % (Auto) (0-4.4) % Baso % (Auto) (0.2-1.2) % Lymph # (Auto) (0.9-3.2) K/mm3 [place] # (Auto) (0.1-0.6) K/mm3 Eos # (Auto) (0-0.3) K/mm3 Baso # (Auto) (0.0-0.1) K/mm3 Abs Immat Gran (auto) (0.00-0.031) K/mm3 Absolute Neuts (auto) (1.3-6.7) K/mm3 Absolute Nucleated RBC (0.0-0.012) K/mm3 Nucleated RBC % (0.0-0.2) % Sodium Potassium Chloride Carbon Dioxide Anion Gap BUN Creatinine Estim Creat Clear Calc Estimated GFR > 60 Glucose Cancelled 104 Calcium Cancelled 9.2 Troponin I < 0.012 (0.000-0.034) ng/mL NT-Pro-B Natriuret Pep Cancelled 08/10/25 Range/Units 03:43 WBC (4.5-10.0) K/mm3 RBC (4.2-5.4) M/mm3 Hgb (12.0-15.0) g/dL Hct (37.0-47.0) % MCV (80-100) fl MCH (26-34) pg MCHC (32-36) g/dl RDW (11.5-14.5) % Plt Count (150-375) k/mm3 MPV (7.4-10.4) fl Immature Gran % (Auto) (0-0.5) % Neut % (Auto) (45.5-73.1) % Lymph % (Auto) (18.3-44.2) % [place] % (Auto) (2.6-8.5) % Eos % (Auto) (0-4.4) % Baso % (Auto) (0.2-1.2) % Lymph # (Auto) (0.9-3.2) K/mm3 [place] # (Auto) (0.1-0.6) K/mm3 Eos # (Auto) (0-0.3) K/mm3 Baso # (Auto) (0.0-0.1) K/mm3 Abs Immat Gran (auto) (0.00-0.031) K/mm3 Absolute Neuts (auto) (1.3-6.7) K/mm3 Absolute Nucleated RBC (0.0-0.012) K/mm3 Nucleated RBC % (0.0-0.2) % Sodium Potassium Chloride Carbon Dioxide Anion Gap BUN Creatinine Estim Creat Clear Calc Estimated GFR Glucose Calcium Troponin I (0.000-0.034) ng/mL NT-Pro-B Natriuret Pep 667 H Imaging Data Attestation: I personally reviewed and interpreted this imaging study as follows: My impression: Known chronic right-sided rib deformities without any acute abnormality. Discharge Plan Discharge Clinical Impression: Chest pain Patient Disposition: Home Condition: Stable Instructions: Antibiotic Form, Chest Pain (DC) Additional Instructions: Laboratory studies are unrevealing. No signs of cardiac issue at this time. Follow-up with regular primary care provider. Return with any recurrent or emergent concerns. Patient Language: French Prescriptions: No Action anastrozole 1 mg tablet 1 mg PO DAILY albuterol sulfate 2.5 mg /3 mL (0.083 %) solution for nebulization 2.5 mg inhalation Q4-6H PRN (Reason: shortness of breath or wheezing) Qty: 90 3RF lorazepam [Ativan] 0.5 mg tablet 0.5 mg PO QHS PRN (Reason: anxiety) Qty: 30 1RF albuterol sulfate 90 mcg/actuation HFA aerosol inhaler 1 - 2 puff inhalation Q4-6H PRN (Reason: shortness of breath or wheezing) Qty: 8.5 2RF melatonin 5 mg tablet 5 mg PO QHS Qty: 90 1RF carbidopa-levodopa [Sinemet] 25-100 mg tablet 1.5 tablet PO QID Qty: 540 1RF rivaroxaban [Xarelto] 2.5 mg tablet PO midodrine 2.5 mg tablet 5 mg PO escitalopram oxalate [Lexapro] 20 mg tablet 20 mg PO DAILY Qty: 90 1RF calcium carbonate-vitamin D3 600 mg-5 mcg (200 unit) Tablet 1 tablet PO DAILY cholecalciferol (vitamin D3) 25 mcg (1,000 unit) Capsule 25 mcg PO DAILY metoprolol tartrate 25 mg tablet 12.5 mg PO BID Qty: 60 0RF furosemide [Lasix] 20 mg tablet 10 mg PO QAM Anoro Ellipta 62.5-25 mcg/actuation blister with device 1 inh inhalation DAILY Qty: 180 3RF Follow-up/Referrals: Brittney Vazquez DO [Primary Care Provider, [facility]] Time of Disposition: 05:12 Quality HEART score for chest pain patients History: slightly suspicious ECG: normal Age: > or = to 65 years Risk factors: 1 or 2 risk factors Troponin: < or = to 1x normal limit Heart score: 3
[2025-08-10 03:49] LABS: Hematocrit 39.2 % (37.0-47.0); Hemoglobin 12.5 g/dL (12.0-15.0); Immature Granulocyte Percent A 0.4 % (0-0.5); Lymphocytes Absolute Auto 1.14 K/mm3 (0.9-3.2); Mean Corpuscular HGB Conc 31.9 g/dl (32-36); Mean Corpuscular Hemoglobin 31.0 pg (26-34); Mean Corpuscular Volume 97.3 fl (80-100); Nucleated Red Blood Cells Absolute Auto 0.000 K/mm3 (0.0-0.012); Nucleated Red Blood Cells Perc 0.0 % (0.0-0.2); Platelet Count Result 215 k/mm3 (150-375); Red Blood Count 4.03 M/mm3 (4.2-5.4); White Blood Count 5.2 K/mm3 (4.5-10.0)
[2025-08-10 04:06] LABS: Anion Gap 3 mmol/L (4-12); Blood Urea Nitrogen 16 mg/dL (7-17); Calcium 9.2 mg/dL (8.4-10.2); Carbon Dioxide 32 mmol/L (22-30); Chloride 103 mmol/L (98-107); Estimated CRCL calculation 38 ml/min; Estimated Glomerular Filt Rate > 60; Glucose 104 mg/dL (65-110); Potassium 3.9 mmol/L (3.4-5.0); Sodium 138 mmol/L (137-145)
[2025-08-10 04:17] LABS: NT Pro B Type Natriuretic Pept 667 pg/mL (19.9-100); Troponin I < 0.012 ng/mL (0.000-0.034)
--- NOTE | 2025-08-10 05:18 | PC.NURSE ---
Called patients daughter Ursula, to have her take patient back home. Spoke with Ursula who states she will come pick patient up.
== END 2025-08-10 06:01 | disposition home or self-care (01) ==
PROVIDERS: Emergency Provider Student in an Organized Health Care Education/Training Program; PCP Family Medicine
DX: R07.9 Chest pain, unspecified (principal); J43.9 Emphysema, unspecified; I11.9 Hypertensive heart disease without heart failure; R73.03 Prediabetes; E55.9 Vitamin D deficiency, unspecified; M81.0 Age-related osteoporosis without current pathological fracture; K21.9 Gastro-esophageal reflux disease without esophagitis; F41.9 Anxiety disorder, unspecified; F32.A Depression, unspecified; Z85.118 Personal history of other malignant neoplasm of bronchus and lung; Z85.828 Personal history of other malignant neoplasm of skin; Z85.3 Personal history of malignant neoplasm of breast; Z90.2 Acquired absence of lung [part of]; Z90.710 Acquired absence of both cervix and uterus; Z90.13 Acquired absence of bilateral breasts and nipples; I44.7 Left bundle-branch block, unspecified; I44.0 Atrioventricular block, first degree; I49.3 Ventricular premature depolarization
CPT/HCPCS: 36415; 71045; 80048; 83880; 84484; 85025; 93005; 99284

== ENCOUNTER 2025-08-23 06:59 | Emergency (ER) | payer MEDICARE, MEDICAID, SELFPAY ==
--- OUTSIDE RECORDS SUMMARY | 2000-12-06 18:00 | XMS_ITS | Continuity of Care Document ---
Author Organization [facility] Address [address] [place] [address] [address] [place] [address] Phone Care Team Providers Care Ditch Digger Name Role Phone [facility] Unavailable Unavail able Arely Caballero Unavailable Unavailable Advance Directives Directive Yes / No Effective Date File Name No Information Encounters Encounter Description Practice Location Reason(s) For Visit Diagnoses Date Provider Providers Copied on Encounter [facility], [address], [place], [place], [id number], [place] tel:[phone] [facility] No Information Mar-0 2-200 1 [facility] [address] [facility], [facility] [address], [place], [place], [id number] , [place]. tel:[phone] Referring Provider: Nelson Ramsey, [address], [place], [address]. tel:[phone] g Provider: Arely Caballero, [address] [place] [address], [address]. tel:[phone] Family History Family Member Type Diagnosis Age At Onset No Information Payers Payer name Insurance type Covered alliance party ID Authoriza tion(s) No Information Social History Type Description Quantity Date Captured Comments Sex Female Smoking Status No Information Chief Complaint And Reason For Visit No Information Reason For Referral Reason For Referral No Information History Of Present Illness Encounter Date Complaint History Of Prese nt Illness No Information Functional Status Date Functional Assessmen t No Information Instructions Date Instruction Additional Infor mation No Information Assessments Type Assessment Date No Information Patient Care Teams Name Effective Dates (start - stop) Status Members No Information
--- OUTSIDE RECORDS SUMMARY | 2000-12-06 18:00 | XMS_ITS | Continuity of Care Document ---
Author Organization [facility] Address [address] [place] [address] [address] [place] [address] Phone Care Team Providers Care Pyroglazer Name Role Phone [facility] Unavailable Unavail able Arely Caballero Unavailable Unavailable Advance Directives Directive Yes / No Effective Date File Name No Information Encounters Encounter Description Practice Location Reason(s) For Visit Diagnoses Date Provider Providers Copied on Encounter [facility], [address], [place], [place], [id number], [place] tel:[phone] [facility] No Information Mar-0 2-200 1 [facility] [address] [facility], [facility] [address], [place], [place], [id number] , [place]. tel:[phone] Referring Provider: Nelson Ramsey, [address], [place], [address]. tel:[phone] g Provider: Arely Caballero, [address] [place] [address], [address]. tel:[phone] Family History Family Member Type Diagnosis Age At Onset No Information Payers Payer name Insurance type Covered republican ID Authoriza tion(s) No Information Social History [...]
--- OUTSIDE RECORDS SUMMARY | 2000-12-06 18:00 | XMS_ITS | Continuity of Care Document ---
Author Organization [facility] Address [address] [place] [address] [address] [place] [address] Phone Care Team Providers Care Floor Hand Name Role Phone [facility] Unavailable Unavail able Arely Caballero Unavailable Unavailable Advance Directives Directive Yes / No Effective Date File Name No Information Encounters Encounter Description Practice Location Reason(s) For Visit Diagnoses Date Provider Providers Copied on Encounter [facility], [address], [place], [place], [id number], [place] tel:[phone] [facility] No Information Mar-0 2-200 1 [facility] [address] [facility], [facility] [address], [place], [place], [id number] , [place]. tel:[phone] Referring Provider: Nelson Ramsey, [address] [facility] [address], [place], [address]. tel:[phone] g Provider: Arely Caballero, [address] [place] [address], [address]. tel:[phone] Family History Family Member Type Diagnosis Age At Onset No Information Payers Payer name Insurance type Covered green party ID Authoriza tion(s) No Information Social [...]
--- NOTE | ~2025-08-23 | XR_ITS ---
Examination: XR chest 2V Clinical History: CP Comparison: 08/10/2025 Technique: PA and Lateral Findings: Cardiomegaly. Chronic hyperinflation and scarring. Probable left upper lobe resection. No acute bony abnormality. Right upper rib resections. IMPRESSION: 1. No acute cardiopulmonary findings. Reviewed, dictated and finalized at location R. BUILDER MACHINE
--- NOTE | ~2025-08-23 | CT_ITS ---
CT abdomen pelvis w con Clinical History: epigastric abd pain . Comparison: CT without contrast 01/01/2023 Technique: Axial images lung bases to symphysis pubis IV contrast information not listed in PACS Coronal, sagittal reformats CT images acquired with automatic exposure control for dose reduction DLP: 249 mGy-cm Findings: Lung bases: Emphysema. Scarring. Small left pleural effusion. Visualized heart and pericardium: Unremarkable. Liver: Small enhancing focus lateral segment 6, most likely hemangioma. Gallbladder: Unremarkable. Spleen: Unremarkable. Pancreas: Unremarkable. Adrenal glands: Mild bilateral thickening. Kidneys: Bilateral pelviectasis. Right kidney- No hydronephrosis. No renal stones. Left kidney- No hydronephrosis. No renal stones. Distal esophagus/stomach: Gastric wall thickening but under distended. Small bowel loops: Normal caliber and wall thickness. Colon: Normal caliber and wall thickness. Normal RLQ appendix. Nodes: No enlarged nodes. Peritoneum: No ascites. No free air. Urinary bladder: Unremarkable. Uterus: Removed. Adnexa: No masses. Bones: No acute bony abnormality. Mild diffuse lucent foci throughout vertebral bodies as before. Soft tissues: Unremarkable. Aorta: No aneurysm or dissection. Atherosclerotic disease. IVC: Unremarkable. Main portal vein/SMV/splenic vein: Patent. IMPRESSION: 1. Probable gastritis. 2. Minimal bilateral adrenal thickening. Recommend short interval follow-up CT or MRI adrenal protocol. 3. Small left pleural effusion. Reviewed, dictated and finalized at location R. O CONTROL OPERATOR
--- NOTE | 2025-08-23 07:03 | ECG_ITS ---
Test Date: 2025-08-23 07:08:02 Measurements Intervals [place] Rate: 60 P: 96 MT: 226 QRS: 78 QRSD: 102 T: 64 QT: 400 QTc: 400 Interpretive Statements SINUS RHYTHM WITH FIRST DEGREE AV BLOCK WITH OCCASIONAL VENTRICULAR PREMATURE COMPLEXES VOLTAGE CRITERIA FOR LVH Electronically Signed On 08-23-2025 10:00:18 INTERN by Roberto Whitaker D.O
[2025-08-23 07:04] VITALS: BP 165/76; PULSE 55; RESP 20; TEMP 36.6; O2SAT 95
[2025-08-23 07:05] VITALS: O2SAT 96
[2025-08-23 07:07] VITALS: PULSE 60
[2025-08-23 07:26] LABS: Hematocrit 41.8 % (37.0-47.0); Hemoglobin 13.4 g/dL (12.0-15.0); Immature Granulocyte Percent A 0.5 % (0-0.5); Lymphocytes Absolute Auto 1.21 K/mm3 (0.9-3.2); Mean Corpuscular HGB Conc 32.1 g/dl (32-36); Mean Corpuscular Hemoglobin 31.2 pg (26-34); Mean Corpuscular Volume 97.4 fl (80-100); Nucleated Red Blood Cells Absolute Auto 0.000 K/mm3 (0.0-0.012); Nucleated Red Blood Cells Perc 0.0 % (0.0-0.2); Platelet Count Result 219 k/mm3 (150-375); Red Blood Count 4.29 M/mm3 (4.2-5.4); White Blood Count 3.9 K/mm3 (4.5-10.0)
[2025-08-23 07:37] LABS: INR 1.2; Prothrombin Time 15.1 Seconds (11.1-14.7)
[2025-08-23 07:38] LABS: Partial Thromboplastin Time 28.5 Seconds (22.3-36.8)
[2025-08-23 07:42] LABS: Alanine Aminotransferase 8 U/L (6-35); Albumin Level 4.0 g/dL (3.5-5.1); Alkaline Phosphatase 46 U/L (38-126); Anion Gap 2 mmol/L (4-12); Aspartate Amino Transferase 21 U/L (14-36); Bilirubin,Total 2.2 mg/dL (0.2-1.3); Blood Urea Nitrogen 14 mg/dL (7-17); Calcium 9.7 mg/dL (8.4-10.2); Carbon Dioxide 32 mmol/L (22-30); Chloride 103 mmol/L (98-107); Estimated Glomerular Filt Rate > 60; Glucose 99 mg/dL (65-110); Lipase 63 U/L (23-300); Potassium 4.0 mmol/L (3.4-5.0); Sodium 137 mmol/L (137-145); Total Protein 6.7 g/dL (6.3-8.2)
--- OUTSIDE RECORDS SUMMARY | 2025-08-23 07:48 | XMS_ITS | Encounter Summary ---
Author Organization [facility] Address [address] [place] [address] Care Team Providers Care Turn Operator Name Role Phone Unavailable Primary Care Provider Unavailabl e Encounter Details Date Type Department Care Team (Late Contact Info) Description 12/26/2023 Abstract [facility] Oncology and Hematology - Kareem [address] [place] [address] Becca López Social History Tobacco [...] Department Care Team (Late Contact Info) Description 09/25/2025 11:45 AM WRAPPER OPENER Office Visit [facility] Hematology - [place]em [address] [place] [address] Alex Webster MD [address] [place] [address] documented as of this encounter Visit Diagnoses Not on filedocumented in this encounter
--- OUTSIDE RECORDS SUMMARY | 2025-08-23 07:49 | XMS_ITS | Clinical Summary ---
Author Organization [facility] Address [address] [place] [place] [address] Care Team Providers Care Heat Curer Name Role Phone Unavailable Primary Care Provider [...] mouth daily. 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, estrogen receptor positive 05/29/2022 Encounters Date Type Department Care Team Description 07/14/2025 External Device Data STL ABSTRACTION Provider, Abstract [...] st Contact Info) Description 09/25/2025 11:45 AM SENIOR RESEARCH ENGINEER Office Visit [facility] Hematology - Kareem [address] [facility] [address] [place] [address] Alex Webster MD [address] [place] [address] Health Maintenance Due Date Last Done Comments DTAP/TDAP/TD VACCINES (1 - Tdap) 1958 PNEUMOCOCCAL VACCINE 50+ YEARS (1 of 1 - PCV) 04/28/19 89 ZOSTER VACCINE (1 of 2) 1989 OSTEOPOROSIS SCREENING 2004 RSV VACCINE (60+ or ) (1 - 1-dose 75+ series) 2014 INFLUENZA VACCINE (#1) 2025 Insurance [facility] [id number]
--- OUTSIDE RECORDS SUMMARY | 2025-08-23 07:49 | XMS_ITS | Clinical Summary ---
Author Organization [facility] Address [address] [address] Care Team Providers Care Scenario Writer Name Role Phone Manjinder Ruiz MD Primary Care Provider [phone] Source Comments [facility] [employer],non-owned Affiliates and Associated Physician Practices is amultiple site organization consisting of ambulatory clinics and hospital sitesin [place], [place], [place] and [place]. This disclosure is being madepursuant to the Care Everywhere program and may not contain all information available regarding this patient. Last updated 18.[facility] [employer] Allergies No known active allergies Social History Tobacco Use Types Packs/Day Years Used Date Smoking Tobacco: Never Assessed Comments Unknown Sex and Gender Information Value Date Recorded Sex Assigned at Not on file Legal Sex Female 8:48 AM GENERAL MANAGER FOOD Gender Identity Not on file Sexual Orientation Not on file Plan of Treatment Health Maintenance Due Date Last Done Comments BONE DENSITY TESTING 1939 DTAP/TDAP/TD VACCINES (1 - Tdap) 1958 PNEUMOCOCCAL VACCINE 50+ (1 of 1 - PCV) 1989 ZOSTER VACCINE (1 of 2) 1989 Respiratory Syncytial Virus (RSV) Vaccine Pt: or over 60 yrs (1 - 1-dose 75+ series) 2014 DEPRESSION SCREENING 10/08/2024 MEDICARE AWV CALENDAR YEAR 2024 COVID-19 VACCINE ( - 2024-2 6 season) 2025 INFLUENZA VACCINE (#1) 2025 HEPATITIS B VACCINE [...] patient's age to complete this topic Insurance [facility] MANAGED MEDICARE ADV SELF PAY NO INSURANCE Member Subscriber Plan / Payer (Ef fective for All Dates) Name:Jesus Vanegas Member ID:Not on file Relation to Subscriber:Not on file Name:JESUS VANEGAS Subscriber ID:Not on file (Home) Address: [address] [place] [id number] Payer ID:Not on file Group ID:Not on file Type:Self Pay Address: [place], [place] Care Teams Scenario Writer Relationship Specialty Start Date End Date Manjinder Ruiz MD [address] [place] [id number] PCP - General 03/22/22
[2025-08-23 07:53] LABS: Troponin I < 0.012 ng/mL (0.000-0.034)
--- NOTE | 2025-08-23 08:16 | ED_ITS ---
HPI - Chest Pain General Chief Complaint: Chest Pain Stated Complaint: CP Source: patient and EMS Mode of arrival: EMS Limitations: no limitations History of Present Illness HPI narrative: This is a 85-year-old female with history of Parkinson's disease AFib on Xarelto, hypertension who presents to the ED for chest pain. Patient states that intermittently over the last 12 hours or so she has been having a chest pain described as a burning sensation. She has also been feeling weak for the past week. She was apparently seen in this ED for the weakness and was discharged home after a negative workup. Denies fevers, chills, shortness of breath whom abdominal pain constipation diarrhea. She reports some intermittent nausea but has not vomited. She did not eat anything yesterday due to the nausea. Related Data Home Medications ?Medication ?Instructions ?Recorded ?Confirmed ?Last Taken ?Type calcium 600 mg (as 1 tablet PO DAILY 03/31/22 1 01/30/23 History carbonate)-vitamin D3 5 mcg (200 unit) tablet cholecalciferol (vitamin D3) 25 25 mcg PO DAILY 07/28/25 01/30/23 History mcg (1,000 unit) capsule anastrozole 1 mg tablet 1 mg PO DAILY 11/21/2207/2801/30/23 History furosemide 20 mg tablet (Lasix) 10 mg PO QAM 12/15/24 07/28/25 Unknown History midodrine 2.5 mg tablet 5 mg PO 07/15/25 07/28/25 Un known History rivaroxaban 2.5 mg tablet (Xarelto) mg PO 07/15/25 Unknown History anastrozole PO 08/13/25 Unknown History Allergies Allergy/AdvReac Type Severity Reaction Status Date / Time alendronate sodium (Fosamax) AdvReac Intermediate Nausea Verified 08/23/25 10:23 doxycycline AdvReac Intermediate Nausea Verified 08/23/25 10:23 hydrocodone AdvReac Intermediate vomiting Verified 08/23/25 10:23 adhesive AdvReac Mild Unknown,RASH, Verified 08/23/25 10:23 ITCH Iodinated Contrast Media AdvReac Mild Flushing Verified 08/23/25 10:23 latex AdvReac Mild Hives Verified 08/23/25 10:23 Contrast Media AdvReac Intermediate BURNING Uncoded 08/13/25 14:09 AND RED ALL OVER Review of Systems 2 Review of Systems: Gen.: Denies fevers or chills Eyes: Denies eye pain or visual change ENT: Denies congestion Respiratory: Denies shortness of breath or cough CV: Denies chest pain or palpitations GI: As per HPI denies burning, urgency, frequency or hematuria Musculoskeletal: Denies back pain or muscle pain Neuro: As per HPI Skin: Denies rash Except as documented, all other systems reviewed and negative [facility] Past Medical History Medical History Basal cell carcinoma (BCC) Anxiety attack Depression Cancer of left breast Vitamin D deficiency Diastolic dysfunction Echocardiogram 01/201919 grade 1 diastolic dysfunction EF 60% mild left atrial enlargement Lung cancer Anxiety Constipation GERD (gastroesophageal reflux disease) Hypertension Emphysema of lung Fracture of fifth metatarsal bone of right foot with routine healing Osteoporosis, unspecified Prediabetes Surgical History Surgical History History of tonsillectomy H/O basal cell carcinoma excision History of breast lump/mass excision Re-excision posterior chest wall margin, evacuate hematoma 05/02/22 History of excision of lesion Excision 2.9 cm metastatic breast cancer left chest wall with 2 mm margins, 3.3 cm excision. 13 cm layered closure. 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 She has a daughter and a son. 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 She lives alone. She lives in a duplex that her daughter owns. Code status: Full code Healthcare power of real estate associate attorney: Ursula Vega (daughter) Caffeine- coffee, diet soda Smoking packs per day: 1 Smoking cigarettes per day: 20.0 Years smoked: 20 Smoking pack-years: 20.00 Smoking status: Former smoker Second hand tobacco smoke exposure: No Alcohol intake: former Alcohol use details: WINE Substance use: never Substance use type: does not use Do You Feel Safe in your Home?: Yes Lack of Transportation: No Lack of Food: Never True Current Housing: I Have Housing Concerned About Future Housing: No Difficulty Paying Gas/Electric Bills: No Difficulty Paying for Meds: No Currently Unemployed: No Education: High School Diploma/GED Difficulty w/ Childcare or Family Care: No Living arrangements: alone Occupation/Education: retired Gender identity (if verbalized by the patient): Female Spiritual care concerns: No Exam 2 Narrative: APPEARANCE: No acute distress, nontoxic, resting in bed EYES: EOMI HEENT: Normocephalic, atraumatic, OMM RESPIRATORY: No respiratory distress Clear to auscultation bilaterally with no rhonchi wheezing or rales. CARDIOVASCULAR: Regular rate and rhythm without murmurs rubs or gallops. ABDOMINAL: Soft, epigastric tenderness to palpation, nondistended, no rebound or guarding MUSCULOSKELETAl: Moves all extremities. No clubbing, cyanosis or edema. NEURO: Awake and alert. Following commands, speech normal, no focal deficits. Resting tremor SKIN:: Warm, dry. No rashes lesions or abrasions PSYCHIATRIC: Normal affect/mood, Course Vital Signs Vital signs: Vital Signs Temperature 97.9 F 08/23/25 07:04 Pulse Rate 55 L 08/23/25 07:04 Respiratory Rate 20 08/23/25 07:04 Blood Pressure 165/76 H 08/23/25 07:04 Pulse Oximetry 95 08/23/25 07:04 Oxygen Delivery Room Air 08/23/25 07:04 Temperature 98.3 F 08/23/25 12:00 Pulse Rate 69 08/23/25 12:00 Respiratory Rate 17 08/23/25 12:00 Blood Pressure 128/69 08/23/25 12:00 Pulse Oximetry 96 08/23/25 12:00 Oxygen Delivery Room Air 08/23/25 07:05 MDM - Chest Pain MDM Narrative Medical decision making narrative: 85-year-old female Presenting for chest burning. On initial evaluation patient was in no acute distress afebrile, hemodynamic stable. Differentials include but are not limited to: ACS, PE, PNA, bronchitis, costochondritis, pleurisy, viral syndrome, GERD Notable exam findings: Heart and lungs clear. Mild epigastric tenderness to palpation. I personally reviewed the patient's lab result. Notable lab findings: CBC and CMP without significant abnormalities. Troponin negative. Repeat troponin negative. Lipase within normal limits. I personally reviewed the patient's images and interpret as follows: Chest x- ray: Normal cardiac silhouette, no consolidations, no pleural effusions, no pulmonary vascular congestion. I personally reviewed the patient's EKGs: 08/23/2025 at 7:08 a.m.: Sinus rhythm with first-degree AV block, normal axis, normal intervals, LVH, no acute ST or T-wave changes. CT abdomen/pelvis was consistent with gastritis. Her symptoms are most consistent with a gastritis with GERD. She was given a GI cocktail with some improvement of her symptoms. Patient was deemed appropriate for discharge at this time. Patient was given a prescription for Protonix and Zofran. Patient was advised to follow-up with their PCP in the next week for re-evaluation. Patient was agreeable to this plan. Given strict return precautions. Medical Records Data Attestation: I reviewed the patient's medical records. Lab Data Attestation: I reviewed the patient's lab results. 08/23/25 07:21 08/23/25 07:21 Labs: Lab Results 08/23/25 08/23/25 Range/Units 07:21 10:19 WBC 3.9 L (4.5-10.0) K/mm3 RBC 4.29 (4.2-5.4) M/mm3 Hgb 13.4 (12.0-15.0) g/dL Hct 41.8 (37.0-47.0) % MCV 97.4 (80-100) fl MCH 31.2 (26-34) pg MCHC 32.1 (32-36) g/dl RDW 12.8 (11.5-14.5) % Plt Count 219 (150-375) k/mm3 MPV 10.0 (7.4-10.4) fl Immature Gran % (Auto) 0.5 (0-0.5) % Neut % (Auto) 48.6 (45.5-73.1) % Lymph % (Auto) 31.4 (18.3-44.2) % [place] % (Auto) 12.5 H (2.6-8.5) % Eos % (Auto) 6.0 H (0-4.4) % Baso % (Auto) 1.0 (0.2-1.2) % Lymph # (Auto) 1.21 (0.9-3.2) K/mm3 [place] # (Auto) 0.5 (0.1-0.6) K/mm3 Eos # (Auto) 0.2 (0-0.3) K/mm3 Baso # (Auto) 0.0 (0.0-0.1) K/mm3 Abs Immat Gran (auto) 0.02 (0.00-0.031) K/mm3 Absolute Neuts (auto) 1.9 (1.3-6.7) K/mm3 Absolute Nucleated RBC 0.000 (0.0-0.012) K/mm3 Nucleated RBC % 0.0 (0.0-0.2) % PT 15.1 H (11.1-14.7) Seconds INR 1.2 APTT 28.5 (22.3-36.8) Seconds Sodium 137 (137-145) mmol/L Potassium 4.0 (3.4-5.0) mmol/L Chloride 103 (98-107) mmol/L Carbon Dioxide 32 H (22-30) mmol/L Anion Gap 2 L (4-12) mmol/L BUN 14 (7-17) mg/dL Creatinine 0.87 (0.7-1.0) mg/dL Estim Creat Clear Calc Not Reportable Estimated GFR > 60 (59 - ) Glucose 99 (65-110) mg/dL Calcium 9.7 (8.4-10.2) mg/dL Total Bilirubin 2.2 H (0.2-1.3) mg/dL AST 21 (14-36) U/L ALT 8 (6-35) U/L Alkaline Phosphatase 46 (38-126) U/L Troponin I < 0.012 < 0.012 (0.000-0.034) ng/mL Total Protein 6.7 (6.3-8.2) g/dL Albumin 4.0 (3.5-5.1) g/dL Lipase 63 (23-300) U/L Imaging Data Radiologist's impression: Impressions Chest X-Ray 08/23/25 08:36 IMPRESSION: 1. No acute cardiopulmonary findings. Abdomen/Pelvis CT 08/23/25 09:45 IMPRESSION: 1. Probable gastritis. 2. Minimal bilateral adrenal thickening. Recommend short interval follow-up CT or MRI adrenal protocol. 3. Small left pleural effusion. Discharge Plan Discharge Clinical Impression: Gastritis Qualifiers: Gastritis type: unspecified gastritis Chronicity: acute Gastritis bleeding: w ithout bleeding Qualified Code(s): K29.00 - Acute gastritis without bleeding Patient Disposition: Home Condition: Stable Instructions: Antibiotic Form, Gastritis (ED) Additional Instructions: You were found to have gastritis which is likely the source of your pain. Take Protonix and Zofran as prescribed. Follow-up with your PCP in the next week for re-evaluation. Return to the ED for any new or worsening symptoms. Patient Language: Amharic Prescriptions: New pantoprazole [Protonix] 40 mg tablet,delayed release (DR/EC) 40 mg PO HS Qty: 14 0RF ondansetron 4 mg tablet,disintegrating 4 mg PO Q8H PRN (Reason: nausea and vomiting) Qty: 14 0RF No Action anastrozole 1 mg tablet 1 mg PO DAILY albuterol sulfate 2.5 mg /3 mL (0.083 %) solution for nebulization 2.5 mg inhalation Q4-6H PRN (Reason: shortness of breath or wheezing) Qty: 90 3RF albuterol sulfate 90 mcg/actuation HFA aerosol inhaler 1 - 2 puff inhalation Q4-6H PRN (Reason: shortness of breath or wheezing) Qty: 8.5 2RF melatonin 5 mg tablet 5 mg PO QHS Qty: 90 1RF carbidopa-levodopa [Sinemet] 25-100 mg tablet 1.5 tablet PO QID Qty: 540 1RF rivaroxaban [Xarelto] 2.5 mg tablet PO midodrine 2.5 mg tablet 5 mg PO escitalopram oxalate [Lexapro] 20 mg tablet 20 mg PO DAILY Qty: 90 1RF anastrozole PO lorazepam 0.5 mg tablet 0.5 mg PO DAILY PRN (Reason: anxiety) Qty: 30 0RF duloxetine 30 mg capsule,delayed release(DR/EC) 30 mg PO QAM Qty: 90 1RF calcium carbonate-vitamin D3 600 mg-5 mcg (200 unit) Tablet 1 tablet PO DAILY cholecalciferol (vitamin D3) 25 mcg (1,000 unit) Capsule 25 mcg PO DAILY metoprolol tartrate 25 mg tablet 12.5 mg PO BID Qty: 60 0RF furosemide [Lasix] 20 mg tablet 10 mg PO QAM Anoro Ellipta 62.5-25 mcg/actuation blister with device 1 inh inhalation DAILY Qty: 180 3RF Follow-up/Referrals: Brittney Vazquez DO [Primary Care Provider, Family Practice]
[2025-08-23 08:40] VITALS: BP 189/82; PULSE 66; RESP 17; O2SAT 96
[2025-08-23] MEDS: BELLADONNA ALK/PHENOB ELIX 10 ML, MAG HYDROX/ALUMINUM HYD/SIMETH 30 ML, LIDOCAINE 2% VI... PO (10:02)
[2025-08-23 10:03] VITALS: BP 139/74; PULSE 70; RESP 16; O2SAT 96
--- NOTE | 2025-08-23 10:08 | ECG_ITS ---
Test Date: 2025-08-23 10:17:15 Measurements Intervals [place] Rate: 74 P: 70 [place]: 219 QRS: 51 QRSD: 140 T: 92 QT: 387 QTc: 432 Interpretive Statements SINUS RHYTHM WITH SINUS ARRHYTHMIA WITH FIRST DEGREE AV BLOCK LEFT BUNDLE BRANCH BLOCK Electronically Signed On 08-24-2025 00:08:02 SPOT WELDER by Roberto Whitaker D.O
[2025-08-23 10:49] LABS: Troponin I < 0.012 ng/mL (0.000-0.034)
[2025-08-23 12:00] VITALS: BP 128/69; PULSE 69; RESP 17; TEMP 36.8; O2SAT 96
== END 2025-08-23 12:12 ==
PROVIDERS: Emergency Provider Student in an Organized Health Care Education/Training Program; PCP Family Medicine
DX: K29.00 Acute gastritis without bleeding (principal); G20.A1 Parkinson's disease without dyskinesia, without mention of fluctuations; I48.91 Unspecified atrial fibrillation; I10 Essential (primary) hypertension; I44.0 Atrioventricular block, first degree; J43.9 Emphysema, unspecified; R73.03 Prediabetes; K21.9 Gastro-esophageal reflux disease without esophagitis; M81.0 Age-related osteoporosis without current pathological fracture; F41.9 Anxiety disorder, unspecified; F32.A Depression, unspecified; Z85.828 Personal history of other malignant neoplasm of skin; Z85.3 Personal history of malignant neoplasm of breast; Z87.891 Personal history of nicotine dependence; Z85.118 Personal history of other malignant neoplasm of bronchus and lung; Z90.710 Acquired absence of both cervix and uterus; Z90.2 Acquired absence of lung [part of]; Z79.01 Long term (current) use of anticoagulants; Z79.899 Other long term (current) drug therapy; I44.7 Left bundle-branch block, unspecified; I49.3 Ventricular premature depolarization
CPT/HCPCS: 36415; 71046; 74177; 80053; 83690; 84484; 85025; 85610; 85730; 93005; 96374; 96375; 99284; A9270; J1200; J2919; Q9967

== ENCOUNTER 2025-08-25 03:02 | Emergency (ER) | payer MEDICARE, BC, SELFPAY ==
[2025-08-25] VITALS (13 sets, daily range): BP systolic 144–196; BP diastolic 66–83; PULSE 54–68; RESP 10–23; TEMP 36.4–36.6; O2SAT 92–98
--- NOTE | ~2025-08-25 | CT_ITS ---
EXAMINATION: CT chest abdomen pelvis wo con DATE: 08/25/2025 06:18 INDICATION: Shortness of breath. Chest pain. TECHNIQUE: Computed tomography (CT) of the chest, abdomen, and pelvis was performed without intravenous contrast. Automated exposure control and iterative reconstruction technique were employed. The dose-length product was 490.39 mGy-cm. COMPARISON: CT abdomen and pelvis 08/23/2025, 01/01/2023 FINDINGS: CHEST CT: There is mild emphysema. There are surgical changes in the lungs bilaterally. There is peripheral scarring in the lungs bilaterally. There is a small left pleural effusion. Cardiomegaly is noted. There are coronary artery calcifications. No pericardial effusion. There are old healed bilateral rib fractures. There is kyphosis of thoracic spine. There is mild chronic anterior wedging of multiple vertebral bodies. There are bridging endplate osteophytes at multiple levels in the spine, consistent with diffuse idiopathic skeletal hyperostosis (DISH). There is severe cervical and thoracic spondylosis. ABDOMEN/PELVIS CT: There is a chronic 10 mm mass in right hepatic lobe that is hyperenhancing on the prior CT, consistent with a hemangioma versus focal nodular hyperplasia. Calcifications in the spleen are consistent with old granulomatous disease. There is contrast in the gallbladder, which is normal in size. The pancreas and left adrenal gland are normal. There is a 1.5 cm mass in right adrenal gland measuring low attenuation, consistent with an adenoma. There is a 6 mm cyst in right kidney. There is cortical thinning of the kidneys. There is no urolithiasis. There is diverticulosis of the colon without evidence of diverticulitis. The appendix is normal. There are no dilated loops of bowel. There are no pathologically enlarged lymph nodes. There is no free intraperitoneal fluid. There is severe lower lumbar spondylosis. IMPRESSION: 1. Mild emphysema and mild chronic lung disease. 2. Small left pleural effusion. Reviewed, dictated and finalized at location E. OPENER
--- NOTE | ~2025-08-25 | XR_ITS ---
Examination: XR chest 1V portable Clinical History: weakness Comparison: Chest x-ray 2 days prior Technique: Portable AP Findings: Cardiomegaly. Chronic hyperinflation and scarring. Probable resection left upper lobe and right midlung. Suspect trace left pleural effusion. No acute bony abnormality. Right upper lobe resections. IMPRESSION: 1. No acute cardiopulmonary findings given portable technique. Reviewed, dictated and finalized at location R. WORKER SUPERVISOR
--- NOTE | 2025-08-25 03:13 | ECG_ITS ---
Test Date: 2025-08-25 03:28:58 Measurements Intervals [employer] Rate: 54 P: 81 [place]: 219 QRS: 68 QRSD: 111 T: 47 QT: 405 QTc: 385 Interpretive Statements SINUS BRADYCARDIA WITH FIRST DEGREE AV BLOCK MODERATE VOLTAGE CRITERIA FOR LVH, CONSIDER NORMAL VARIANT [MEETS CRITERIA IN ONE OF: R(aVL), S(V1), R(V5), R(V5/V6)+S(V1)] POSSIBLE SEPTAL MYOCARDIAL INFARCTION , OF INDETERMINATE AGE [30 ms Q WAVE IN V1/V2] ABNORMAL ECG Electronically Signed On 08-25-2025 09:03:20 WINDOWS SOFTWARE ENGINEER by Avery Villa M.D.
[2025-08-25 03:26] LABS: Hematocrit 41.4 % (37.0-47.0); Hemoglobin 13.5 g/dL (12.0-15.0); Immature Granulocyte Percent A 0.3 % (0-0.5); Lymphocytes Absolute Auto 1.97 K/mm3 (0.9-3.2); Mean Corpuscular HGB Conc 32.6 g/dl (32-36); Mean Corpuscular Hemoglobin 31.8 pg (26-34); Mean Corpuscular Volume 97.6 fl (80-100); Nucleated Red Blood Cells Absolute Auto 0.000 K/mm3 (0.0-0.012); Nucleated Red Blood Cells Perc 0.0 % (0.0-0.2); Platelet Count Result 236 k/mm3 (150-375); Red Blood Count 4.24 M/mm3 (4.2-5.4); White Blood Count 6.3 K/mm3 (4.5-10.0)
[2025-08-25 03:38] LABS: Alanine Aminotransferase 8 U/L (6-35); Albumin Level 4.2 g/dL (3.5-5.1); Alkaline Phosphatase 46 U/L (38-126); Anion Gap 4 mmol/L (4-12); Aspartate Amino Transferase 16 U/L (14-36); Bilirubin,Total 1.3 mg/dL (0.2-1.3); Blood Urea Nitrogen 23 mg/dL (7-17); Calcium 9.3 mg/dL (8.4-10.2); Carbon Dioxide 33 mmol/L (22-30); Chloride 103 mmol/L (98-107); Estimated CRCL calculation 33 ml/min; Estimated Glomerular Filt Rate 49; Glucose 107 mg/dL (65-110); Potassium 3.7 mmol/L (3.4-5.0); Sodium 140 mmol/L (137-145); Total Protein 6.8 g/dL (6.3-8.2)
[2025-08-25 04:17] LABS: Add Urine Microscopic? YES; Appearance Urine Cloudy (Clear); Glucose Urine UA Negative (Negative); Leukocyte Esterase Ur 2+ LEU/UL (Negative); Nitrate Urine Negative (Negative); Non Pathogenic Casts 0-2; Specific Grav Ur 1.028 (1.001-1.035)
[2025-08-25] MEDS: SODIUM CHLORIDE 0.9% IV 1,000 ML 999 ML IV CONT (05:10)
[2025-08-25 05:29] LABS: Magnesium 2.2 mg/dL (1.6-2.3)
[2025-08-25 05:37] LABS: Troponin I < 0.012 ng/mL (0.000-0.034)
--- NOTE | 2025-08-25 06:25 | ED.GENADULT ---
HPI - General Adult General Chief complaint: Weakness Stated complaint: WEAKNESS, IVERSON, CAN'T SLEEP, HOT FLASHES Time Seen by Provider: 08/25/25 04:47 History of Present Illness HPI narrative: patient is 85-year-old female who presents emergency department with chief complaint of generalized weakness patient reports that she was seen in the emergency department several days ago for chest pain reports that now she feels extremely weak to the point that she can barely walk around the patient states she has had some discomfort in her chest as well Related Data Home Medications ?Medication ?Instructions ?Recorded ?Confirmed ?Last Taken ?Type calcium 600 mg (as 1 tablet PO DAILY 03/31/22 07/28/25 01/30/23 History carbonate)-vitamin D3 5 mcg (200 unit) tablet cholecalciferol (vitamin D3) 25 25 mcg PO DAILY 03/31/22 08/25/25 01/30/23 History mcg (1,000 unit) capsule anastrozole 1 mg tablet 1 mg PO DAILY 11/21/22 08/25/25 08/24/25 History furosemide 20 mg tablet (Lasix) 10 mg PO QAM 12/15/24 08/25/25 Unknown History midodrine 2.5 mg tablet 5 mg PO 07/15/25 07/28/25 Unknown History rivaroxaban 2.5 mg tablet (Xarelto) 2.5 mg PO Q24H 07/15/25 08/25/25 Unknown History Allergies Allergy/AdvReac Type Severity Reaction Status Date / Time alendronate sodium (Fosamax) AdvReac Intermediate Nausea Verified 08/23/25 10:23 doxycycline AdvReac Intermediate Nausea Verified 08/23/25 10:23 hydrocodone AdvReac Intermediate vomiting Verified 08/23/25 10:23 adhesive AdvReac Mild Unknown,RASH, Verified 08/23/25 10:23 ITCH Iodinated Contrast Media AdvReac Mild Flushing Verified 08/23/25 10:23 latex AdvReac Mild Hives Verified 08/23/25 10:23 Contrast Media AdvReac Intermediate BURNING Uncoded 08/13/25 14:09 AND RED ALL OVER Review of Systems Review of Systems: A 10 system review of systems was completed on the patient and is negative except for what is stated in the HPI. Nursing and ancillary documentation was reviewed. [facility] Past Medical History Medical History Basal cell carcinoma (BCC) Anxiety attack Depression Cancer of left breast Vitamin D deficiency Diastolic dysfunction Echocardiogram 01/201919 grade 1 diastolic dysfunction EF 60% mild left atrial enlargement Lung cancer Anxiety Constipation GERD (gastroesophageal reflux disease) Hypertension Emphysema of lung Fracture of fifth metatarsal bone of right foot with routine healing Osteoporosis, unspecified Prediabetes Surgical History Surgical History History of tonsillectomy H/O basal cell carcinoma excision History of breast lump/mass excision Re-excision posterior chest wall margin, evacuate hematoma 05/02/22 History of excision of lesion Excision 2.9 cm metastatic breast cancer left chest wall with 2 mm margins, 3.3 cm excision. 13 cm layered closure. 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 She has a daughter and a son. 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 She lives alone. She lives in a duplex that her daughter owns. Code status: Full code [facility] power of attorney recruiter: Ursula Vega (daughter) Caffeine- coffee, diet soda Smoking packs per day: 1 Smoking cigarettes per day: 20.0 Years smoked: 20 Smoking pack-years: 20.00 Smoking status: Former smoker Second hand tobacco smoke exposure: No Alcohol intake: former Alcohol use details: WINE Substance use: never Substance use type: does not use Do You Feel Safe in your Home?: Yes Lack of Transportation: No Lack of Food: Never True Current Housing: I Have Housing Concerned About Future Housing: No Difficulty Paying Gas/Electric Bills: No Difficulty Paying for Meds: No Currently Unemployed: No Education: High School Diploma/GED Difficulty w/ Childcare or Family Care: No Living arrangements: alone Occupation/Education: retired Gender identity (if verbalized by the patient): Female Spiritual care concerns: No Exam Narrative: GENERAL: Well-appearing, well-nourished, and in no acute distress. HEAD: Normocephalic, atraumatic. EYES: PERRLA and EOMI. ENT: Nares clear, no rhinorrhea or epistaxis. Mucous membranes moist. NECK: Supple. CHEST: Clear to auscultation. No respiratory distress. HEART: Regular rate and rhythm. No murmur heard. Normal peripheral pulses. ABDOMEN: Soft, nontender, nondistended, normal active bowel sounds. EXTREMITIES: Normal range of motion. No edema. SKIN: Warm, dry, no rash. NEURO: No focal deficits. Alert and oriented x3. PSYCH: Normal mood and affect. Course Vital Signs Vital signs: Vital Signs Temperature 36.4 C 08/25/25 03:02 Pulse Rate 68 08/25/25 03:02 Respiratory Rate 14 08/25/25 03:02 Blood Pressure 196/83 H 08/25/25 03:02 Pulse Oximetry 96 08/25/25 03:02 Oxygen Delivery Room Air 08/25/25 03:02 Temperature 36.6 C 08/25/25 05:46 Pulse Rate 61 08/25/25 05:46 Respiratory Rate 21 H 08/25/25 05:46 Blood Pressure 166/66 H 08/25/25 05:46 Pulse Oximetry 93 08/25/25 05:46 Oxygen Delivery Room Air 08/25/25 03:02 Medical Decision Making [facility] Narrative Medical decision making narrative: Differential diagnosis includes UTI, electrolyte abnormality, dehydration, pneumonia laboratory studies were obtained on the patient showed normal CBC CMP showed no significant abnormality urinalysis showed 21-50 white blood cells and 2+ leukocyte esterase CT chest abdomen pelvis showed 1. Mild emphysema and mild chronic lung disease. 2. Small left pleural effusion. patient is feeling better at this time will be treated for her urinary tract infection with Keflex Vital Signs Vital Signs: Vital Signs Temperature 36.4 C 08/25/25 03:02 Pulse Rate 68 08/25/25 03:02 Respiratory Rate 14 08/25/25 03:02 Blood Pressure 196/83 H 08/25/25 03:02 Pulse Oximetry 96 08/25/25 03:02 Oxygen Delivery Room Air 08/25/25 03:02 Temperature 36.6 C 08/25/25 05:46 Pulse Rate 61 08/25/25 05:46 Respiratory Rate 21 H 08/25/25 05:46 Blood Pressure 166/66 H 08/25/25 05:46 Pulse Oximetry 93 08/25/25 05:46 Oxygen Delivery Room Air 08/25/25 03:02 Lab Data 08/25/25 03:15 08/25/25 03:15 Labs: Lab Results 08/25/25 08/25/25 08/25/25 Range/Units 03:14 03:15 05:08 WBC 6.3 (4.5-10.0) K/mm3 RBC 4.24 (4.2-5.4) M/mm3 Hgb 13.5 (12.0-15.0) g/dL Hct 41.4 (37.0-47.0) % MCV 97.6 (80-100) fl MCH 31.8 (26-34) pg MCHC 32.6 (32-36) g/dl RDW 12.9 (11.5-14.5) % Plt Count 236 (150-375) k/mm3 MPV 10.3 (7.4-10.4) fl Immature Gran % (Auto) 0.3 (0-0.5) % Neut % (Auto) 54.8 (45.5-73.1) % Lymph % (Auto) 31.4 (18.3-44.2) % [place] % (Auto) 10.7 H (2.6-8.5) % Eos % (Auto) 2.2 (0-4.4) % Baso % (Auto) 0.6 (0.2-1.2) % Lymph # (Auto) 1.97 (0.9-3.2) K/mm3 [place] # (Auto) 0.7 H (0.1-0.6) K/mm3 Eos # (Auto) 0.1 (0-0.3) K/mm3 Baso # (Auto) 0.0 (0.0-0.1) K/mm3 Abs Immat Gran (auto) 0.02 (0.00-0.031) K/mm3 Absolute Neuts (auto) 3.4 (1.3-6.7) K/mm3 Absolute Nucleated RBC 0.000 (0.0-0.012) K/mm3 Nucleated RBC % 0.0 (0.0-0.2) % Sodium 140 (137-145) mmol/L Potassium 3.7 (3.4-5.0) mmol/L Chloride 103 (98-107) mmol/L Carbon Dioxide 33 H (22-30) mmol/L Anion Gap 4 (4-12) mmol/L BUN 23 H (7-17) mg/dL Creatinine 1.06 H (0.7-1.0) mg/dL Estim Creat Clear Calc 33 ml/min Estimated GFR 49 L (59 - ) Glucose 107 (65-110) mg/dL Lactic Acid 1.7 (0.7-2.0) mmol/L Calcium 9.3 (8.4-10.2) mg/dL Magnesium 2.2 (1.6-2.3) mg/dL Total Bilirubin 1.3 (0.2-1.3) mg/dL AST 16 (14-36) U/L ALT 8 (6-35) U/L Alkaline Phosphatase 46 (38-126) U/L Troponin I < 0.012 (0.000-0.034) ng/mL Total Protein 6.8 (6.3-8.2) g/dL Albumin 4.2 (3.5-5.1) g/dL Urine Color Dark yellow (Yellow) Urine Appearance Cloudy H (Clear) Urine pH 6.0 (5.0-9.0) Ur Specific [place] 1.028 (1.001-1.035) Urine Protein 1+ H (Negative) mg/dL Urine Glucose (UA) Negative (Negative) mg/dL Urine Ketones Trace H (Negative) mg/dL Ur Blood (Man) Negative (Negative) Urine Nitrate Negative (Negative) Urine Bilirubin Negative (Negative) Urine Urobilinogen 1.0 (<2.0) mg/dL Leukocyte Esterase Rfl 2+ H (Negative) SAMMY/UL Urine RBC 0-2 (0-2) /hpf Urine WBC 21-50 H (0-3) /hpf Ur Squamous Epith Cells Occasional (Few) /hpf Urine Bacteria Trace /hpf Urine Casts 0-2 Discharge Plan Discharge Clinical Impression: Generalized weakness, Acute UTI Patient Disposition: Home Condition: Stable Instructions: Antibiotic Form, Urinary Tract Infection in Women (ED), Weakness (ED) Patient Language: Serbian Prescriptions: New cephalexin 500 mg capsule 500 mg PO Q12H 7 Days Qty: 14 0RF No Action anastrozole 1 mg tablet 1 mg PO DAILY albuterol sulfate 2.5 mg /3 mL (0.083 %) solution for nebulization 2.5 mg inhalation Q4-6H PRN (Reason: shortness of breath or wheezing) Qty: 90 3RF albuterol sulfate 90 mcg/actuation HFA aerosol inhaler 1 - 2 puff inhalation Q4-6H PRN (Reason: shortness of breath or wheezing) Qty: 8.5 2RF melatonin 5 mg tablet 5 mg PO QHS Qty: 90 1RF carbidopa-levodopa [Sinemet] 25-100 mg tablet 1.5 tablet PO QID Qty: 540 1RF rivaroxaban [Xarelto] 2.5 mg tablet 2.5 mg PO Q24H midodrine 2.5 mg tablet 5 mg PO escitalopram oxalate [Lexapro] 20 mg tablet 20 mg PO DAILY Qty: 90 1RF lorazepam 0.5 mg tablet 0.5 mg PO DAILY PRN (Reason: anxiety) Qty: 30 0RF duloxetine 30 mg capsule,delayed release(DR/EC) 30 mg PO QAM Qty: 90 1RF calcium carbonate-vitamin D3 600 mg-5 mcg (200 unit) Tablet 1 tablet PO DAILY cholecalciferol (vitamin D3) 25 mcg (1,000 unit) Capsule 25 mcg PO DAILY metoprolol tartrate 25 mg tablet 12.5 mg PO BID Qty: 60 0RF furosemide [Lasix] 20 mg tablet 10 mg PO QAM pantoprazole [Protonix] 40 mg tablet,delayed release (DR/EC) 40 mg PO HS Qty: 14 0RF ondansetron 4 mg tablet,disintegrating 4 mg PO Q8H PRN (Reason: nausea and vomiting) Qty: 14 0RF Anoro Ellipta 62.5-25 mcg/actuation blister with device 1 inh inhalation DAILY Qty: 180 3RF Follow-up/Referrals: Brittney Vazquez DO [Primary Care Provider, Family Practice] Time of Disposition: 06:45
--- NOTE | 2025-08-25 06:37 | PC.NURSE ---
pt able to ambulate with steady gait to bathroom, denies dizziness.
[2025-08-25] MEDS: CEPHALEXIN 500 MG CAPSULE PO (06:50)
--- NOTE | 2025-08-25 06:56 | PC.NURSE ---
spoke to Ursula CARTER, will be picking pt up pt soon.
== END 2025-08-25 08:32 | disposition home or self-care (01) ==
PROVIDERS: Emergency Provider Emergency Medicine; PCP Family Medicine
DX: N39.0 Urinary tract infection, site not specified (principal); R53.1 Weakness; J43.9 Emphysema, unspecified; I11.9 Hypertensive heart disease without heart failure; R73.03 Prediabetes; K21.9 Gastro-esophageal reflux disease without esophagitis; M81.0 Age-related osteoporosis without current pathological fracture; F41.9 Anxiety disorder, unspecified; F32.A Depression, unspecified; Z85.3 Personal history of malignant neoplasm of breast; Z85.118 Personal history of other malignant neoplasm of bronchus and lung; Z85.828 Personal history of other malignant neoplasm of skin; Z87.891 Personal history of nicotine dependence; Z90.710 Acquired absence of both cervix and uterus; Z90.13 Acquired absence of bilateral breasts and nipples; Z90.2 Acquired absence of lung [part of]; Z79.01 Long term (current) use of anticoagulants; Z79.899 Other long term (current) drug therapy; R00.1 Bradycardia, unspecified; I44.0 Atrioventricular block, first degree; R94.31 Abnormal electrocardiogram [ECG] [EKG]
CPT/HCPCS: 36415; 71045; 71250; 74176; 80053; 81001; 83605; 83735; 84484; 85025; 87086; 93005; 96360; 99284; A9270; J7030